=== PATIENT | female | born 1935 | race Hispanic/Latino ===

== ENCOUNTER 2017-08-18 10:03 | Inpatient (IN) | payer OTHER ==
[~2017-08-18] VITALS: Ht 152.4 cm; Wt 61.7 kg
[2017-08-18] VITALS (41 sets, daily range): BP systolic 65–151; BP diastolic 35–86
[2017-08-18 10:39] LABS: MEAN CORPUSCULAR VOLUME 112 FL (80-99); PLATELET COUNT 134 K/UL (150-450); RED BLOOD COUNT 3.84 M/UL (4.20-5.40); RED CELL DISTRIBUTION WIDTH 19.7 % (11.6-14.8)
[2017-08-18 10:40] LABS: WHITE BLOOD COUNT 32.6 K/UL (4.8-10.8)
--- NOTE | 2017-08-18 10:52 | Emergency Room Report ---
History of Present Illness General Chief Complaint: Abdominal Pain Source: Patient Present Illness HPI 82-year-old female presents ED for evaluation. Patient brought in by EMS for abdominal pain and diarrhea 3 days. Pain is 7 out of 10, dull, nonradiating. Per EMS blood pressure low in the field. Multiple episodes of watery dark colored stools. Patient was recently discharged from [facility] for treatment of pneumonia. Is currently on antibiotics. Febrile at home. Denies chest pain or shortness of breath. Denies cough. No other aggravating relieving factors. Denies any other associated symptoms Allergies: Coded Allergies: No Known Allergies (Unverified , 08/18/17) Patient History Past Medical History: HTN Past Surgical History: none Pertinent Family History: none Social History: Denies: smoking, alcohol use, drug use Now: No Immunizations: UTD Reviewed Nursing Documentation: PMH: Agreed; PSxH: Agreed Nursing Documentation-PM Past Medical History: No History, Except For Hx Hypertension: Yes Review of Systems All Other Systems: negative except mentioned in HPI Physical Exam Vital Signs Date Time Temp Pulse Resp B/P (MAP) Pulse Ox O2 Delivery O2 Flow Rate FiO2 08/18/17 09:50 99.4 108 16 73/46 96 Room Air 99.3 Sp02 EP Interpretation: reviewed, normal General Appearance: no apparent distress, alert, GCS 15, non-toxic, thin Head: normocephalic, atraumatic Eyes: bilateral eye normal inspection, bilateral eye PERRL ENT: hearing grossly normal, normal pharynx, no angioedema, normal voice Neck: full range of motion, supple/symm/no masses Respiratory: chest non-tender, lungs clear, normal breath sounds, speaking full sentences Cardiovascular #1: regular rate, rhythm, no edema Cardiovascular #2: 2+ carotid (R), 2+ carotid (L), 2+ radial (R), 2+ radial (L) , 2+ dorsalis pedis (R), 2+ dorsalis pedis (L) Gastrointestinal: normal bowel sounds, non tender, soft, non-distended, no guarding, no rebound Rectal: deferred Genitourinary: normal inspection, no CVA tenderness Musculoskeletal: back normal, gait/station normal, normal range of motion, non- tender Neurologic: alert, oriented x3, responsive, motor strength/tone normal, sensory intact, speech normal Psychiatric: judgement/insight normal, memory normal, mood/affect normal, no suicidal/homicidal ideation Reflexes: 3+ bicep (R), 3+ bicep (L), 3+ tricep (R), 3+ tricep (L), 3+ knee (R) , 3+ knee (L) Skin: normal color, no rash, warm/dry, well hydrated Lymphatic: no adenopathy Procedures Critical Care Time Critical Care Time i. I feel this is a highly complex case requiring extensive working including EKG/Rhythm strip, Xray/CT/US, Blood/urine lab work, repeat exams while in ED, and administration of strong opiates/narcotics for pain control, admission to hospital or close patient follow up. Total time: 30 min bedside evaluation and treatment excludes procedures (EKG). Reason for critical care: Hypotensive, septic shock Possible complications: hypotension, hypertension, FL, shock, arrhythmias, metabolic acidosis, end organ damage, respiratory failure. Interventions: Labs, IV fluids, central line, antibiotics, pressors Course: Patient presenting with diarrhea, weakness. Hypotensive. Recently discharged from [facility] for treatment of pneumonia. On antibiotics. Significant leukocytosis. Lactic acid greater than 8. BUN/creatinine elevated. Despite IV bolus hydration patient remains hypotensive. Central line placed. Pressors started. Given antibiotics. Potassium repleted. Consultations: nursing staff, EMS, family Performed by: Dr Cooper Tolerated well condition = critical j. because of unstable vital signs this patient had a condition that could potentially threaten life or limb. I feel this is a critical patient who required my full attention while patient was considered critical. Total Critical Care Time excluding procedures was greater than 35 minutes Central Line Central Line : Consent: Written Central Line Lumen: triple Maximal Sterile Barrier Tech: yes cap, yes mask, yes sterile gown, yes sterile gloves, yes large sterile sheet, yes hand hygiene, yes chlorhexidine prep Central Line Postion: femoral (R) Anesthesia: Lidocaine Complications: none Central Line Post Position: sutured, good blood return Attempts: One Patient Tolerated: Well Complications: None Medical Decision Making Diagnostic Impression: Primary Impression: Colitis Additional Impressions: Septic shock Renal insufficiency ER Course Hospital Course 82-year-old female presents ED with diarrhea, weakness, hypotensive Differential diagnoses include: Pneumonia, UTI, sepsis, dehydration, FL/ unstable angina Clinical course Patient placed on stretcher. On rn cardiac rehab with hypotension. After initial history and physical, I ordered labs, IV fluids, EKG, chest x-ray, blood cultures, UA. Labs - BUN/Cr elevated, signifcant leukocytosis, lactate > 8, K 2.7 EKG - NSR, no acute ischemic changes interpreted by me CXR - bilateral reticular changes, left lower lobe infiltrate Abx given. Potassium repleted. Despite IV fluid hydration patient remains hypotensive. Central line placed. Pressors started Case discussed with Dr Blank and they agreed to admit patient to their service for further care and support I feel this is a highly complex case requiring extensive working including EKG/ Rhythm strip, Xray/CT/US, Blood/urine lab work, repeat exams while in ED, and administration of strong opiates/narcotics for pain control, admission to hospital or close patient follow up. Diagnosis - colitis, septic shock, renal insufficiency Patient admitted to ICU in critical condition Labs Test 08/18/17 10:10 08/18/17 12:45 White Blood Count 32.6 K/UL (4.8-10.8) Red Blood Count 3.84 M/UL (4.20-5.40) Hemoglobin 14.0 G/DL (12.0-16.0) Hematocrit 43.0 % (37.0-47.0) Mean Corpuscular Volume 112 FL (80-99) Mean Corpuscular Hemoglobin 36.4 PG (27.0-31.0) Mean Corpuscular Hemoglobin Concent 32.5 G/DL (32.0-36.0) Red Cell Distribution Width 19.7 % (11.6-14.8) Platelet Count 134 K/UL (150-450) Mean Platelet Volume 6.8 FL (6.5-10.1) Neutrophils (%) (Auto) % (45.0-75.0) Lymphocytes (%) (Auto) % (20.0-45.0) Monocytes (%) (Auto) % (1.0-10.0) Eosinophils (%) (Auto) % (0.0-3.0) Basophils (%) (Auto) % (0.0-2.0) Differential Total Cells Counted 100 Neutrophils % (Manual) 69 % (45-75) Lymphocytes % (Manual) 6 % (20-45) Monocytes % (Manual) 6 % (1-10) Eosinophils % (Manual) 0 % (0-3) Basophils % (Manual) 0 % (0-2) Band Neutrophils 19 % (0-8) Platelet Estimate Decreased Platelet Morphology Normal Anisocytosis 1+ Macrocytosis 1+ Sodium Level 138 MMOL/L (136-145) Potassium Level 2.7 MMOL/L (3.5-5.1) Chloride Level 101 MMOL/L (98-107) Carbon Dioxide Level 22 MMOL/L (21-32) Anion Gap 14 mmol/L (5-15) Blood Urea Nitrogen 21 mg/dL (7-18) Creatinine 2.0 MG/DL (0.55-1.30) Estimat Glomerular Filtration Rate mL/min (>60) Glucose Level 72 MG/DL (74-106) Lactic Acid Level 8.40 mmol/L (0.66-2.22) 3.50 mmol/L (0.66-2.22) Calcium Level 7.8 MG/DL (8.5-10.1) Total Bilirubin 1.2 MG/DL (0.2-1.0) Direct Bilirubin 0.5 MG/DL (0.0-0.3) Aspartate Amino Transf (AST/SGOT) 20 U/L (15-37) Alanine Aminotransferase (ALT/SGPT) 14 U/L (12-78) Alkaline Phosphatase 176 U/L (46-116) Total Creatine Kinase 102 U/L (26-308) Creatine Kinase MB 1.2 NG/ML (0.0-3.6) Creatine Kinase MB Relative Index 1.1 Troponin I 0.014 ng/mL (0.000-0.056) Pro-B-Type Natriuretic Peptide 08349 pg/mL (0-125) Total Protein 5.2 G/DL (6.4-8.2) Albumin 2.3 G/DL (3.4-5.0) Globulin 2.9 g/dL Albumin/Globulin Ratio 0.8 (1.0-2.7) EKG Diagnostic Results Rate: normal Rhythm: NSR ST Segments: no acute changes ASA given to the pt in ED: No Rhythm Strip Diag. Results EP Interpretation: yes Rhythm: NSR, no PVC's, no ectopy Chest X-Ray Diagnostic Results Chest X-Ray Diagnostic Results : Chest X-Ray Ordered: Yes # of Views/Limited/Complete: 1 View Indication: Other - weakness EP Interpretation: Yes Interpretation: no pneumothorax, other - bilateral reticular densities. LLL consolidation/atelectasis Impression: Other - pna Electronically Signed by: Electronically signed by Giuliano Cooper MD Last Vital Signs Date Time Temp Pulse Resp B/P (MAP) Pulse Ox O2 Delivery O2 Flow Rate FiO2 08/18/17 09:50 99.4 108 16 73/46 96 Room Air 99.3 Status: improved Disposition: ADMITTED INPATIENT Condition: Critical Scripts Unable to Obtain Active Prescriptions or Reported Meds Giuliano Cooper MD Aug 18, 2017 10:52
[2017-08-18 11:08] LABS: ALANINE AMINOTRANSFERASE 14 U/L (12-78); ALBUMIN 2.3 G/DL (3.4-5.0); ALBUMIN/GLOBULIN RATIO 0.8 (1.0-2.7); ALKALINE PHOSPHATASE 176 U/L (46-116); ANION GAP 14 mmol/L (5-15); ASPARTATE AMINO TRANSFERASE 20 U/L (15-37); BILIRUBIN,TOTAL 1.2 MG/DL (0.2-1.0); BLOOD UREA NITROGEN 21 mg/dL (7-18); CALCIUM 7.8 MG/DL (8.5-10.1); CARBON DIOXIDE 22 MMOL/L (21-32); CHLORIDE 101 MMOL/L (98-107); CKMB 1.2 NG/ML (0.0-3.6); CREATINE KINASE 102 U/L (26-308); SODIUM 138 MMOL/L (136-145)
[2017-08-18 11:13] LABS: POTASSIUM 2.7 MMOL/L (3.5-5.1)
[2017-08-18 11:14] LABS: BILIRUBIN,DIRECT 0.5 MG/DL (0.0-0.3)
[2017-08-18] MEDS ORDERED: NS w/KCl 40mEq 1,000 ML IV SCH (11:30)
[2017-08-18] MEDS ORDERED: Lidocaine 1% MPF 10mg/ml 5ml ONE (12:28)
[2017-08-18] MEDS ORDERED: Lidocaine 1% MPF 10mg/ml 5ml INJ ONE (12:45)
[2017-08-18] MEDS ORDERED: Miralax 17gm pkt ORAL PRN (13:15)
[2017-08-18] MEDS ORDERED: Albuterol/Ipratropium 3ml neb HHN PRN (13:15)
[2017-08-18] MEDS ORDERED: Morphine Sulfate 4mg/ml Inj IVP PRN (13:15)
--- NOTE | 2017-08-18 16:11 | Diagnostic Imaging Report ---
Indication: Shortness of breath Technique: One view of the chest Comparison: none Findings: There is bilateral reticular interstitial and airspace disease, predominantly at the mid and lower lungs. No definite pleural effusions. The heart is probably upper limits of normal in size. Impression: Bilateral interstitial and airspace disease. Acuity indeterminate, although suggestion of a honeycomb appearance makes it likely that there is a significant component of chronic interstitial fibrosis. However, acute etiology is also possible. Correlate with clinical findings
[2017-08-18] MEDS ORDERED: Amikacin Rx to dose MISC PRN (17:30)
--- NOTE | 2017-08-18 17:54 | Consultation ---
History of Present Illness General Date patient seen: Aug 18, 2017 Time patient seen: 17:33 Chief Complaint: Abdominal Pain Present Illness HPI 82 y/o F with hx of HTN presents to ED on 08/18 with 3 days of abd pain (7/10, dull, non-radiating), fever and diarrhea. Per EMS blood pressure low in the field; had also multiple episodes of watery dark colored stools. Denies CP, SOB, cough Of note, patient recently discharged from [facility] for treatment of PNA and currently is on antibiotics. In ED, she remained hypotensive and required central line and started on presors. Admitted to ICU. Also lactate>8. Allergies: Coded Allergies: AMOXICILLIN (Verified Adverse Reaction, Severe, Rash, 08/18/17) Medication History Unable to Obtain Active Prescriptions or Reported Meds Patient History Healthcare decision maker Resuscitation status Full Code Advanced Directive on File Patient History Narrative Pmhx: as above Shx: Denies: smoking, alcohol use, drug use Fhx: non contributory Review of Systems All Other Systems: negative except mentioned in HPI Physical Exam Physical Exam Narrative General Appearance: no apparent distress, alert non-toxic, thin Head: normocephalic, atraumatic Eyes: bilateral eye normal inspection, bilateral eye PERRL ENT: hearing grossly normal, normal pharynx, no angioedema, normal voice Neck: full range of motion, supple/symm/no masses Respiratory: chest non-tender, lungs clear, normal breath sounds, speaking full sentences Cardiovascular #1: regular rate, rhythm, no edema Gastrointestinal: normal bowel sounds, non tender, soft, non-distended, no guarding, no rebound Genitourinary: normal inspection, no CVA tenderness Musculoskeletal: back normal, gait/station normal, normal range of motion, non- tender Skin: normal color, no rash, warm/dry, well hydrated Last 24 Hour Vital Signs Date Time Temp Pulse Resp B/P (MAP) Pulse Ox O2 Delivery O2 Flow Rate FiO2 08/18/17 17:17 93 08/18/17 17:16 2.0 08/18/17 16:15 78 20 107/86 100 Nasal Cannula 2.0 82 08/18/17 15:53 96/33 08/18/17 15:48 109/60 08/18/17 15:43 93/77 08/18/17 15:38 84/30 08/18/17 15:33 91/37 08/18/17 15:28 98/64 08/18/17 15:23 100/48 08/18/17 15:18 127/91 08/18/17 15:13 98/46 08/18/17 15:08 91/45 08/18/17 15:03 91/42 08/18/17 14:58 93/43 08/18/17 14:53 98/46 08/18/17 14:48 98/47 08/18/17 14:43 90/46 08/18/17 14:38 98/66 08/18/17 14:33 93/53 08/18/17 14:28 96/42 08/18/17 14:23 94/44 08/18/17 14:18 95/42 08/18/17 14:13 95/43 08/18/17 14:08 94/41 08/18/17 14:03 96/42 08/18/17 13:57 95/42 08/18/17 13:52 100/47 08/18/17 13:47 107/84 08/18/17 13:42 102/49 08/18/17 13:37 103/48 08/18/17 13:32 98/49 08/18/17 13:27 108/50 08/18/17 13:22 101/51 08/18/17 13:17 114/48 08/18/17 13:15 90 20 101/51 100 Nasal Cannula 2.0 08/18/17 13:12 65/45 08/18/17 13:07 78/42 08/18/17 13:00 92 20 78/42 100 Nasal Cannula 2.0 08/18/17 12:45 94 19 79/41 100 Nasal Cannula 2.0 08/18/17 12:30 92 21 76/38 100 Nasal Cannula 2.0 08/18/17 12:15 92 21 76/36 100 Nasal Cannula 2.0 08/18/17 12:00 88 20 79/36 100 Nasal Cannula 2.0 08/18/17 11:45 92 22 77/42 100 Nasal Cannula 08/18/17 11:30 95 14 79/40 Nasal Cannula 2.0 08/18/17 11:15 95 14 83/40 100 Nasal Cannula 2.0 08/18/17 11:00 95 19 35 100 Nasal Cannula 2.0 08/18/17 10:50 97.4 97 16 35 100 Nasal Cannula 2.0 97.4 08/18/17 10:30 97 16 70/42 100 Nasal Cannula 2.0 08/18/17 10:10 84 Nasal Cannula 2.0 08/18/17 10:10 97.6 104 16 7035 100 Nasal Cannula 2.0 97.6 08/18/17 09:50 99.4 108 16 73/46 96 Room Air 99.3 Laboratory Tests Test 08/18/17 10:10 08/18/17 12:45 White Blood Count 32.6 K/UL (4.8-10.8) *H Red Blood Count 3.84 M/UL (4.20-5.40) L Hemoglobin 14.0 G/DL (12.0-16.0) Hematocrit 43.0 % (37.0-47.0) Mean Corpuscular Volume 112 FL (80-99) H Mean Corpuscular Hemoglobin 36.4 PG (27.0-31.0) H Mean Corpuscular Hemoglobin Concent 32.5 G/DL (32.0-36.0) Red Cell Distribution Width 19.7 % (11.6-14.8) H Platelet Count 134 K/UL (150-450) L Mean Platelet Volume 6.8 FL (6.5-10.1) Neutrophils (%) (Auto) % (45.0-75.0) Lymphocytes (%) (Auto) % (20.0-45.0) Monocytes (%) (Auto) % (1.0-10.0) Eosinophils (%) (Auto) % (0.0-3.0) Basophils (%) (Auto) % (0.0-2.0) Differential Total Cells Counted 100 Neutrophils % (Manual) 69 % (45-75) Lymphocytes % (Manual) 6 % (20-45) L Monocytes % (Manual) 6 % (1-10) Eosinophils % (Manual) 0 % (0-3) Basophils % (Manual) 0 % (0-2) Band Neutrophils 19 % (0-8) H Platelet Estimate Decreased L Platelet Morphology Normal Anisocytosis 1+ Macrocytosis 1+ Sodium Level 138 MMOL/L (136-145) Potassium Level 2.7 MMOL/L (3.5-5.1) *L Chloride Level 101 MMOL/L (98-107) Carbon Dioxide Level 22 MMOL/L (21-32) Anion Gap 14 mmol/L (5-15) Blood Urea Nitrogen 21 mg/dL (7-18) H Creatinine 2.0 MG/DL (0.55-1.30) H Estimat Glomerular Filtration Rate mL/min (>60) Glucose Level 72 MG/DL (74-106) L Lactic Acid Level 8.40 mmol/L (0.66-2.22) H 3.50 mmol/L (0.66-2.22) H Calcium Level 7.8 MG/DL (8.5-10.1) L Total Bilirubin 1.2 MG/DL (0.2-1.0) H Direct Bilirubin 0.5 MG/DL (0.0-0.3) H Aspartate Amino Transf (AST/SGOT) 20 U/L (15-37) Alanine Aminotransferase (ALT/SGPT) 14 U/L (12-78) Alkaline Phosphatase 176 U/L (46-116) H Total Creatine Kinase 102 U/L (26-308) Creatine Kinase MB 1.2 NG/ML (0.0-3.6) Creatine Kinase MB Relative Index 1.1 Troponin I 0.014 ng/mL (0.000-0.056) Pro-B-Type Natriuretic Peptide 18383 pg/mL (0-125) H Total Protein 5.2 G/DL (6.4-8.2) L Albumin 2.3 G/DL (3.4-5.0) L Globulin 2.9 g/dL Albumin/Globulin Ratio 0.8 (1.0-2.7) L Height (Feet): 5 Height (Inches): 0.00 Weight (Pounds): 100 Medications Current Medications Medications (Trade) Dose Ordered Sig/Keri Route PRN Reason Start Time Stop Time Status Last Admin Dose Admin Acetaminophen (Tylenol) 650 mg Q4H PRN ORAL fever (temp>100.5F) 08/18/17 13:15 09/17/17 13:14 Albuterol/ Ipratropium (Albuterol/ Ipratropium) 3 ml Q4H PRN HHN Shortness of Breath 08/18/17 13:15 08/23/17 13:14 Amikacin Protocol (Amikacin pharmacy to dose) 1 ea DAILY PRN MISC PER RX PROTOCOL 08/18/17 17:30 09/17/17 17:29 Amikacin Sulfate 350 mg/Sodium Chloride 111.4 ml @ 222.8 mls/ hr Q48H IV 08/18/17 20:00 08/25/17 19:59 Ertapenem 1 gm/ Sodium Chloride 55 ml @ 110 mls/hr Q24H IV 08/18/17 23:45 08/23/17 23:44 UNV Heparin Sodium (Porcine) (Heparin 5000 units/ml) 5,000 units EVERY 12 HOURS SUBQ 08/18/17 21:00 09/17/17 20:59 Morphine Sulfate (Morphine Sulfate) 2 mg Q4H PRN IVP Severe Pain (Pain Scale 7-10) 08/18/17 13:15 08/25/17 13:14 Norepinephrine Bitartrate 4 mg/ Dextrose 254 ml @ 0 mls/hr Q24H IV 08/18/17 13:15 09/17/17 13:14 UNV Norepinephrine Bitartrate 8 mg/ Sodium Chloride 250 ml @ 0 mls/hr Q24H IV 08/18/17 13:00 09/17/17 12:59 08/18/17 13:07 Ondansetron HCl (Zofran) 4 mg Q6H PRN IVP Nausea & Vomiting 08/18/17 13:15 09/17/17 13:14 Pantoprazole (Protonix) 40 mg DAILY IVP 08/19/17 09:00 09/18/17 08:59 Polyethylene Glycol (Miralax) 17 gm DAILYPRN PRN ORAL Constipation 08/18/17 13:15 09/17/17 13:14 Sodium Chloride 1,000 ml @ 100 mls/hr Q10H IVLG 08/18/17 17:30 09/17/17 17:29 Vancomycin HCl (Vanco rx to dose) 1 ea DAILY PRN MISC PER RX PROTOCOL 08/18/17 17:15 09/17/17 17:14 Vancomycin HCl 1 gm/Dextrose 275 ml @ 183.3 mls/ hr ONCE ONCE IVPB 08/18/17 18:00 08/18/17 19:30 Assessment/Plan Assessment/Plan Abx: Cipro x1 08/18 Flagyl x1 08/18 Ertapenem 08/18- Amikacin 08/18- IV Vanco 08/18- Assessment: Septic shock- likely 2ry to colitis (+bloody diarrhea)- High suspicion for severe Cdiff given recent abx and high WBC- r/o bacteremia, Toxic megacolon -CXR: Bilateral interstitial and airspace disease. Acuity indeterminate, although suggestion of a honeycomb appearance makes it likely that there is a significant component of chronic interstitial fibrosis. However, acute etiology is also possible. Correlate with clinical findings -Bcx p -stool cx p -Cdiff p Leukocytosis/bandemia -afebrile Lactic acidosis, improving EDDI Recent PNA, still having productive cough HTN Plan: -D/c IV ertapenem and Amikacin #1 and transition to IV Aztreonam pending cultures -Continue IV Vancomycin for next 24-48hrs pending Bcx -if not GPC growth, d/c -Start empiric PO Vancomycin 125mg qid and IV Flagyl 500mg q8h for possible severe Cdiff -STAT KUB -CT abd/p w/ po contrast -f/u cx , Cdiff,s tool cx -Montior CBC/BMP, temperatures -FOB -Aspiration precautions Thank you for this consulation. Will continue to follow along wiht you. Discussed with ROSETTA. Amelia John M.D. Aug 18, 2017 17:53
[2017-08-18] MEDS ORDERED: Gastrograffin 30ml ORAL PRN (18:00)
[2017-08-18] MEDS ORDERED: Gastrograffin 30ml RECTAL PRN (18:00)
[2017-08-18] MEDS ORDERED: Vancomycin 1 GM in D5W 275 ML IVPB ONE (18:00)
--- NOTE | 2017-08-18 18:27 | Cardiac Electrophysiology PN ---
Subjective Subjective [id number] Objective Last 24 Hour Vital Signs Date Time Temp Pulse Resp B/P (MAP) Pulse Ox O2 Delivery O2 Flow Rate FiO2 08/18/17 18:00 96 26 120/65 96 Room Air 08/18/17 18:00 141/69 08/18/17 17:45 93 22 120/65 100 Nasal Cannula 2.0 08/18/17 17:30 94 22 129/65 100 Nasal Cannula 2.0 08/18/17 17:17 93 08/18/17 17:16 2.0 08/18/17 17:15 92 22 115/64 100 Nasal Cannula 2.0 08/18/17 17:00 65/32 08/18/17 17:00 93 22 65/35 100 Nasal Cannula 2.0 08/18/17 16:45 97.6 94 22 104/48 100 Nasal Cannula 2.0 97.6 08/18/17 16:15 78 20 107/86 100 Nasal Cannula 2.0 82 08/18/17 15:53 96/33 08/18/17 15:48 109/60 08/18/17 15:43 93/77 08/18/17 15:38 84/30 08/18/17 15:33 91/37 08/18/17 15:28 98/64 08/18/17 15:23 100/48 08/18/17 15:18 127/91 08/18/17 15:13 98/46 08/18/17 15:08 91/45 08/18/17 15:03 91/42 08/18/17 14:58 93/43 08/18/17 14:53 98/46 08/18/17 14:48 98/47 08/18/17 14:43 90/46 08/18/17 14:38 98/66 08/18/17 14:33 93/53 08/18/17 14:28 96/42 08/18/17 14:23 94/44 08/18/17 14:18 95/42 08/18/17 14:13 95/43 08/18/17 14:08 94/41 08/18/17 14:03 96/42 08/18/17 13:57 95/42 08/18/17 13:52 100/47 08/18/17 13:47 107/84 08/18/17 13:42 102/49 08/18/17 13:37 103/48 08/18/17 13:32 98/49 08/18/17 13:27 108/50 08/18/17 13:22 101/51 08/18/17 13:17 114/48 08/18/17 13:15 90 20 101/51 100 Nasal Cannula 2.0 08/18/17 13:12 65/45 08/18/17 13:07 78/42 08/18/17 13:00 92 20 78/42 100 Nasal Cannula 2.0 08/18/17 12:45 94 19 79/41 100 Nasal Cannula 2.0 08/18/17 12:30 92 21 76/38 100 Nasal Cannula 2.0 08/18/17 12:15 92 21 76/36 100 Nasal Cannula 2.0 08/18/17 12:00 88 20 79/36 100 Nasal Cannula 2.0 08/18/17 11:45 92 22 77/42 100 Nasal Cannula 08/18/17 11:30 95 14 79/40 Nasal Cannula 2.0 08/18/17 11:15 95 14 83/40 100 Nasal Cannula 2.0 08/18/17 11:00 95 19 73/35 100 Nasal Cannula 2.0 08/18/17 10:50 97.4 97 16 73/35 100 Nasal Cannula 2.0 97.4 08/18/17 10:30 97 16 70/42 100 Nasal Cannula 2.0 08/18/17 10:10 84 Nasal Cannula 2.0 08/18/17 10:10 97.6 104 16 70/35 100 Nasal Cannula 2.0 97.6 08/18/17 09:50 99.4 108 16 73/46 96 Room Air 99.3 Laboratory Tests Test 08/18/17 10:10 08/18/17 12:45 White Blood Count 32.6 K/UL (4.8-10.8) *H Red Blood Count 3.84 M/UL (4.20-5.40) L Hemoglobin 14.0 G/DL (12.0-16.0) Hematocrit 43.0 % (37.0-47.0) Mean Corpuscular Volume 112 FL (80-99) H Mean Corpuscular Hemoglobin 36.4 PG (27.0-31.0) H Mean Corpuscular Hemoglobin Concent 32.5 G/DL (32.0-36.0) Red Cell Distribution Width 19.7 % (11.6-14.8) H Platelet Count 134 K/UL (150-450) L Mean Platelet Volume 6.8 FL (6.5-10.1) Neutrophils (%) (Auto) % (45.0-75.0) Lymphocytes (%) (Auto) % (20.0-45.0) Monocytes (%) (Auto) % (1.0-10.0) Eosinophils (%) (Auto) % (0.0-3.0) Basophils (%) (Auto) % (0.0-2.0) Differential Total Cells Counted 100 Neutrophils % (Manual) 69 % (45-75) Lymphocytes % (Manual) 6 % (20-45) L Monocytes % (Manual) 6 % (1-10) Eosinophils % (Manual) 0 % (0-3) Basophils % (Manual) 0 % (0-2) Band Neutrophils 19 % (0-8) H Platelet Estimate Decreased L Platelet Morphology Normal Anisocytosis 1+ Macrocytosis 1+ Sodium Level 138 MMOL/L (136-145) Potassium Level 2.7 MMOL/L (3.5-5.1) *L Chloride Level 101 MMOL/L (98-107) Carbon Dioxide Level 22 MMOL/L (21-32) Anion Gap 14 mmol/L (5-15) Blood Urea Nitrogen 21 mg/dL (7-18) H Creatinine 2.0 MG/DL (0.55-1.30) H Estimat Glomerular Filtration Rate mL/min (>60) Glucose Level 72 MG/DL (74-106) L Lactic Acid Level 8.40 mmol/L (0.66-2.22) H 3.50 mmol/L (0.66-2.22) H Calcium Level 7.8 MG/DL (8.5-10.1) L Total Bilirubin 1.2 MG/DL (0.2-1.0) H Direct Bilirubin 0.5 MG/DL (0.0-0.3) H Aspartate Amino Transf (AST/SGOT) 20 U/L (15-37) Alanine Aminotransferase (ALT/SGPT) 14 U/L (12-78) Alkaline Phosphatase 176 U/L (46-116) H Total Creatine Kinase 102 U/L (26-308) Creatine Kinase MB 1.2 NG/ML (0.0-3.6) Creatine Kinase MB Relative Index 1.1 Troponin I 0.014 ng/mL (0.000-0.056) Pro-B-Type Natriuretic Peptide 35577 pg/mL (0-125) H Total Protein 5.2 G/DL (6.4-8.2) L Albumin 2.3 G/DL (3.4-5.0) L Globulin 2.9 g/dL Albumin/Globulin Ratio 0.8 (1.0-2.7) L Quinn Lam MD Aug 18, 2017 18:27
[2017-08-18] MEDS ORDERED: Amikacin 350 MG in NS 110 ML IV SCH (20:00)
[2017-08-18] MEDS: Vancomycin oral 125mg/2.5ml ORAL SCH ×2 (20:54→21:00)
[2017-08-18] MEDS: Heparin 5000 units/ml inj SUBQ SCH (20:55)
--- NOTE | 2017-08-18 21:18 | History & Physical ---
History and Physical History & Physicial patient seen and examined. Full Dictation in progress Ngozi Blank MD Aug 18, 2017 21:18
[2017-08-18] MEDS: Aztreonam Inj 1 GM in D5W 55 ML IVPB SCH (21:43)
[2017-08-18] MEDS ORDERED: Ertapenem 1 GM in NS 55 ML IV SCH (23:45)
[2017-08-19] VITALS (33 sets, daily range): BP systolic 90–133; BP diastolic 48–90
--- NOTE | 2017-08-19 01:15 | Consultation ---
DATE OF CONSULTATION: 08/18/2017 CARDIOLOGY CONSULTATION CONSULTING PHYSICIAN: Quinn Lam M.D. REFERRING PHYSICIAN: Ngozi Blank M.D. REASON FOR CONSULTATION: Hypotension. HISTORY OF PRESENT ILLNESS: The patient is an 82-year-old lady with history of hypertension who came to the emergency room with three days of abdominal pain, diarrhea, and fever. The blood pressure was low on the field and the patient had multiple episodes of watery dark-colored stool. The patient had no chest pain or shortness of breath. The patient was recently discharged from [facility] for pneumonia and is currently on antibiotic. In the emergency room, the patient was hypotensive and underwent central line placement and was transferred to intensive care unit on Levophed. The patient's lactate level was also more than 8. REVIEW OF SYSTEMS: Review of systems was negative other than what is mentioned in the history of present illness. PAST MEDICAL HISTORY: 1. Hypertension. 2. Recent pneumonia. 3. The patient denies any prior myocardial infarction, coronary artery disease, or pacemaker placement. FAMILY HISTORY: Noncontributory. SOCIAL HISTORY: She lives at home. Does not smoke or drink alcohol. PHYSICAL EXAMINATION: VITAL SIGNS: Blood pressure is 112/65 on Levophed, pulse is 92, respiration 22. HEENT: Head and neck shows no JVD. LUNGS: Coarse rhonchi bilaterally. CARDIOVASCULAR: Regular S1 and S2 with no gallop. ABDOMEN: Soft. EXTREMITIES: No pitting edema. LABORATORY AND DIAGNOSTIC DATA: White count of , hemoglobin of 14, hematocrit 43, and platelet count of 134. Sodium 138, potassium 2.7, BUN of 21, creatinine 2, glucose of 72. Lactic acid is 8.4 and went down to 3.5. Troponin is negative. BNP is 10,274. Her EKG showed normal sinus rhythm, rate of 97, nonspecific T-wave abnormalities. ASSESSMENT AND PLAN: 1. Hypotension likely due to septic shock. The patient is on Levophed and broad-spectrum intravenous antibiotics per Infectious Diseases. Source of sepsis is not clear at this time but the patient has pneumonia as well as diarrhea, . Get an echocardiogram to evaluate for ejection fraction and wall motion abnormality and completely rule out myocardial infarction protocol. 2. Hypokalemia with a potassium of 2.7, that will be replaced. 3. BNP of more than 10,000. Again, echocardiogram is pending for further evaluation. Thank you very much, Dr. Blank, for allowing me to participate in the care of this patient. Please do not hesitate to contact me for any questions regarding my evaluation. Quinn Lam M.D. DR: Merle JOB#: [id number] CC:
[2017-08-19 06:16] LABS: HEMATOCRIT 39.9 % (37.0-47.0); HEMOGLOBIN 13.6 G/DL (12.0-16.0); MEAN CORPUSCULAR VOLUME 111 FL (80-99); PLATELET COUNT 112 K/UL (150-450); RED BLOOD COUNT 3.59 M/UL (4.20-5.40); RED CELL DISTRIBUTION WIDTH 20.1 % (11.6-14.8)
[2017-08-19 06:22] LABS: WHITE BLOOD COUNT 32.6 K/UL (4.8-10.8)
[2017-08-19 06:36] LABS: ALANINE AMINOTRANSFERASE 19 U/L (12-78); ALBUMIN 1.7 G/DL (3.4-5.0); ALBUMIN/GLOBULIN RATIO 0.7 (1.0-2.7); ALKALINE PHOSPHATASE 138 U/L (46-116); ANION GAP 11 mmol/L (5-15); ASPARTATE AMINO TRANSFERASE 36 U/L (15-37); BILIRUBIN,TOTAL 1.1 MG/DL (0.2-1.0); BLOOD UREA NITROGEN 16 mg/dL (7-18); CALCIUM 6.8 MG/DL (8.5-10.1); CARBON DIOXIDE 20 MMOL/L (21-32); CHLORIDE 112 MMOL/L (98-107); POTASSIUM 3.2 MMOL/L (3.5-5.1); SODIUM 143 MMOL/L (136-145)
[2017-08-19 06:37] LABS: BILIRUBIN,DIRECT 0.4 MG/DL (0.0-0.3)
[2017-08-19] MEDS: Aztreonam Inj 1 GM in D5W 55 ML IVPB SCH ×2 (08:42→21:00)
[2017-08-19] MEDS: Vancomycin oral 125mg/2.5ml ORAL SCH ×4 (08:42→21:00)
[2017-08-19] MEDS: Heparin 5000 units/ml inj SUBQ SCH ×2 (08:45→21:00)
[2017-08-19] MEDS ORDERED: Potassium Chloride 40 MEQ in Sodium Chloride 500ML 550 ML IVPB SCH (09:00)
[2017-08-19] MEDS ORDERED: Pantoprazole Inj IVP SCH (09:00)
--- NOTE | 2017-08-19 09:32 | History & Physical ---
History and Physical History & Physicial seen and examined. Dictation completed Ngozi Blank MD Aug 19, 2017 09:32
--- NOTE | 2017-08-19 09:34 | General Progress Note ---
Assessment/Plan Status: stable Assessment/Plan 1- Septic shock 2- Cdiff colitis 3- Anemia 4- ARF 5- Abn BNP 6- GI-DVT prohpylaixa Plan: Current Abx coverage Ok to Transfer out of ICU Subjective ROS Limited/Unobtainable: No Constitutional: Reports: malaise HEENT: Reports: no symptoms Gastrointestinal/Abdominal: Reports: abdomen distended, abdominal pain Allergies: Coded Allergies: AMOXICILLIN (Verified Adverse Reaction, Severe, Rash, 08/18/17) Objective Last 24 Hour Vital Signs Date Time Temp Pulse Resp B/P (MAP) Pulse Ox O2 Delivery O2 Flow Rate FiO2 08/19/17 06:50 100 Nasal Cannula 1.0 24 08/19/17 06:50 98 24 Nasal Cannula 1.0 24 08/19/17 06:50 Nasal Cannula 1.0 24 08/19/17 06:45 97 20 124/48 100 Nasal Cannula 2.0 08/19/17 06:30 98 21 123/65 100 Nasal Cannula 2.0 08/19/17 06:15 98 21 115/59 100 Nasal Cannula 2.0 08/19/17 06:00 98 21 118/49 100 Nasal Cannula 2.0 08/19/17 05:45 97 21 92/72 100 Nasal Cannula 2.0 08/19/17 05:39 Nasal Cannula 2.0 08/19/17 05:39 99 Nasal Cannula 2.0 08/19/17 05:30 97 21 123/51 100 Nasal Cannula 2.0 08/19/17 05:15 94 21 133/51 100 Nasal Cannula 2.0 08/19/17 05:00 98 21 133/58 100 Nasal Cannula 2.0 08/19/17 04:45 99 21 113/56 100 Nasal Cannula 2.0 08/19/17 04:30 97 22 90/61 100 Nasal Cannula 2.0 08/19/17 04:15 96 21 130/56 100 Nasal Cannula 2.0 08/19/17 04:00 98.4 96 21 118/50 100 Nasal Cannula 2.0 98.4 08/19/17 04:00 95 08/19/17 03:45 96 21 116/55 100 Nasal Cannula 2.0 08/19/17 03:30 96 21 116/55 100 Nasal Cannula 2.0 08/19/17 03:15 96 22 133/53 100 Nasal Cannula 2.0 08/19/17 03:00 121/53 08/19/17 03:00 99 22 121/53 100 Nasal Cannula 2.0 08/19/17 02:45 98 21 116/68 99 Nasal Cannula 2.0 08/19/17 02:30 100 21 115/53 99 Nasal Cannula 2.0 08/19/17 02:15 98 21 112/48 99 Nasal Cannula 2.0 08/19/17 02:00 95 21 109/51 99 Nasal Cannula 2.0 08/19/17 02:00 112/48 08/19/17 01:45 94 21 122/51 99 Nasal Cannula 2.0 08/19/17 01:15 97 18 116/51 99 Nasal Cannula 2.0 08/19/17 01:00 94 18 115/59 99 Nasal Cannula 2.0 08/19/17 01:00 115/59 08/19/17 01:00 94 18 115/59 99 Nasal Cannula 2.0 08/19/17 00:45 93 24 110/51 99 Nasal Cannula 2.0 08/19/17 00:30 93 25 109/52 99 Nasal Cannula 2.0 08/19/17 00:15 91 18 93/72 99 Nasal Cannula 2.0 08/19/17 00:00 91 18 93/72 99 Nasal Cannula 2.0 08/19/17 00:00 101/39 08/18/17 23:45 95 18 105/66 99 Nasal Cannula 2.0 08/18/17 23:30 95 18 105/66 99 Nasal Cannula 2.0 08/18/17 23:15 96 18 101/39 99 Nasal Cannula 2.0 08/18/17 23:00 130/38 08/18/17 23:00 98 18 130/38 99 Nasal Cannula 2.0 08/18/17 22:55 97/54 08/18/17 22:45 101 18 97/54 99 Nasal Cannula 2.0 08/18/17 22:30 94 18 68/35 99 Nasal Cannula 2.0 08/18/17 22:15 97 18 120/54 99 Nasal Cannula 2.0 08/18/17 22:00 94 18 113/67 99 Nasal Cannula 2.0 08/18/17 22:00 113/67 08/18/17 21:45 95 18 114/53 99 Nasal Cannula 2.0 08/18/17 21:30 100 20 134/55 100 Nasal Cannula 2.0 08/18/17 21:15 99 22 126/61 99 Nasal Cannula 2.0 08/18/17 21:00 100 22 124/59 100 Nasal Cannula 2.0 08/18/17 21:00 115/57 08/18/17 20:54 124/59 08/18/17 20:45 99 22 106/47 99 Nasal Cannula 2.0 08/18/17 20:30 100 22 124/59 100 Nasal Cannula 2.0 08/18/17 20:00 102 08/18/17 20:00 95/71 08/18/17 20:00 98.6 102 22 95/71 100 Nasal Cannula 2.0 98.6 08/18/17 19:30 97 22 129/59 100 Nasal Cannula 2.0 08/18/17 19:30 98 25 138/64 100 Room Air 08/18/17 19:15 100 21 124/67 98 Room Air 08/18/17 19:00 103 26 122/55 98 Room Air 08/18/17 19:00 124/67 08/18/17 19:00 101 22 124/67 100 Nasal Cannula 2.0 08/18/17 18:45 104 24 144/75 98 Room Air 08/18/17 18:30 102 23 151/73 99 Room Air 08/18/17 18:15 97 21 135/65 97 Room Air 08/18/17 18:00 96 26 120/65 96 Room Air 08/18/17 18:00 141/69 08/18/17 17:45 93 22 120/65 100 Nasal Cannula 2.0 08/18/17 17:30 94 22 129/65 100 Nasal Cannula 2.0 08/18/17 17:17 93 08/18/17 17:16 2.0 08/18/17 17:15 92 22 115/64 100 Nasal Cannula 2.0 08/18/17 17:00 65/32 08/18/17 17:00 93 22 65/35 100 Nasal Cannula 2.0 08/18/17 16:45 97.6 94 22 104/48 100 Nasal Cannula 2.0 97.6 08/18/17 16:15 78 20 107/86 100 Nasal Cannula 2.0 82 08/18/17 16:00 98.1 82 20 102/68 100 Nasal Cannula 2.0 08/18/17 15:53 96/33 08/18/17 15:48 109/60 08/18/17 15:43 93/77 08/18/17 15:38 84/30 08/18/17 15:33 91/37 08/18/17 15:28 98/64 08/18/17 15:23 100/48 08/18/17 15:18 127/91 08/18/17 15:13 98/46 08/18/17 15:08 91/45 08/18/17 15:03 91/42 08/18/17 14:58 93/43 08/18/17 14:53 98/46 08/18/17 14:48 98/47 08/18/17 14:43 90/46 08/18/17 14:38 98/66 08/18/17 14:33 93/53 08/18/17 14:28 96/42 08/18/17 14:23 94/44 08/18/17 14:18 95/42 08/18/17 14:13 95/43 08/18/17 14:08 94/41 08/18/17 14:03 96/42 08/18/17 13:57 95/42 08/18/17 13:52 100/47 08/18/17 13:47 107/84 08/18/17 13:42 102/49 08/18/17 13:37 103/48 08/18/17 13:32 98/49 08/18/17 13:27 108/50 08/18/17 13:22 101/51 08/18/17 13:17 114/48 08/18/17 13:15 90 20 101/51 100 Nasal Cannula 2.0 08/18/17 13:12 65/45 08/18/17 13:07 78/42 08/18/17 13:00 92 20 78/42 100 Nasal Cannula 2.0 08/18/17 12:45 94 19 79/41 100 Nasal Cannula 2.0 08/18/17 12:30 92 21 76/38 100 Nasal Cannula 2.0 08/18/17 12:15 92 21 76/36 100 Nasal Cannula 2.0 08/18/17 12:00 88 20 79/36 100 Nasal Cannula 2.0 08/18/17 11:45 92 22 77/42 100 Nasal Cannula 08/18/17 11:30 95 14 79/40 Nasal Cannula 2.0 08/18/17 11:15 95 14 83/40 100 Nasal Cannula 2.0 08/18/17 11:00 95 19 73/35 100 Nasal Cannula 2.0 08/18/17 10:50 97.4 97 16 73/35 100 Nasal Cannula 2.0 97.4 08/18/17 10:30 97 16 70/42 100 Nasal Cannula 2.0 08/18/17 10:10 84 Nasal Cannula 2.0 08/18/17 10:10 97.6 104 16 70/35 100 Nasal Cannula 2.0 97.6 08/18/17 09:50 99.4 108 16 73/46 96 Room Air 99.3 Intake and Output 08/18/17 08/19/17 19:00 07:00 Intake Total 3420.96 ml 1683.60 ml Balance 3420.96 ml 1683.60 ml Intake Oral 100 ml IV Total 3360.96 ml 1583.60 ml Other 60 ml # Voids 1 1 # Bowel Movements 4 6 Laboratory Tests 08/18/17 10:10: White Blood Count 32.6*H, Red Blood Count 3.84L, Hemoglobin 14.0, Hematocrit 43.0, Mean Corpuscular Volume 112H, Mean Corpuscular Hemoglobin 36.4H, Mean Corpuscular Hemoglobin Concent 32.5, Red Cell Distribution Width 19.7H, Platelet Count 134L, Mean Platelet Volume 6.8, Neutrophils (%) (Auto) , Lymphocytes (%) (Auto) , Monocytes (%) (Auto) , Eosinophils (%) (Auto) , Basophils (%) (Auto) , Differential Total Cells Counted 100, Neutrophils % ( Manual) 69, Lymphocytes % (Manual) 6L, Monocytes % (Manual) 6, Eosinophils % ( Manual) 0, Basophils % (Manual) 0, Band Neutrophils 19H, Platelet Estimate DecreasedL, Platelet Morphology Normal, Anisocytosis 1+, Macrocytosis 1+, Sodium Level 138, Potassium Level 2.7*L, Chloride Level 101, Carbon Dioxide Level 22, Anion Gap 14, Blood Urea Nitrogen 21H, Creatinine 2.0H, Estimat Glomerular Filtration Rate , Glucose Level 72L, Lactic Acid Level 8.40H, Calcium Level 7.8L, Total Bilirubin 1.2H, Direct Bilirubin 0.5H, Aspartate Amino Transf (AST/SGOT) 20, Alanine Aminotransferase (ALT/SGPT) 14, Alkaline Phosphatase 176H, Total Creatine Kinase 102, Creatine Kinase MB 1.2, Creatine Kinase MB Relative Index 1.1, Troponin I 0.014, Pro-B-Type Natriuretic Peptide 00121U, Total Protein 5.2L, Albumin 2.3L, Globulin 2.9, Albumin/Globulin Ratio 0.8L 08/18/17 12:45: Lactic Acid Level 3.50H 08/18/17 20:55: Lactic Acid Level 4.70H 08/18/17 22:40: Stool Occult Blood [Pending] 08/19/17 04:00: Arterial Blood pH 7.380, Arterial Blood Partial Pressure CO2 27.8L, Arterial Blood Partial Pressure O2 79.3, Arterial Blood HCO3 16.3L, Arterial Blood Oxygen Saturation 95.9, Arterial Blood Base Excess -7.2, Chandler Test Positive 08/19/17 05:05: White Blood Count 32.6*H, Red Blood Count 3.59L, Hemoglobin 13.6, Hematocrit 39.9, Mean Corpuscular Volume 111H, Mean Corpuscular Hemoglobin 37.8H, Mean Corpuscular Hemoglobin Concent 34.0, Red Cell Distribution Width 20.1H, Platelet Count 112L, Mean Platelet Volume 8.5, Neutrophils (%) (Auto) , Lymphocytes (%) (Auto) , Monocytes (%) (Auto) , Eosinophils (%) (Auto) , Basophils (%) (Auto) , Neutrophils % (Manual) [Pending], Lymphocytes % (Manual) [Pending], Platelet Estimate [Pending], Platelet Morphology [Pending], Sodium Level 143, Potassium Level 3.2L, Chloride Level 112H, Carbon Dioxide Level 20L, Anion Gap 11, Blood Urea Nitrogen 16, Creatinine 1.0, Estimat Glomerular Filtration Rate , Glucose Level 49L, Lactic Acid Level 2.50H, Calcium Level 6.8L , Total Bilirubin 1.1H, Direct Bilirubin 0.4H, Aspartate Amino Transf (AST/SGOT ) 36, Alanine Aminotransferase (ALT/SGPT) 19, Alkaline Phosphatase 138H, Pro-B- Type Natriuretic Peptide 7774H, Total Protein 4.2L, Albumin 1.7L, Globulin 2.5, Albumin/Globulin Ratio 0.7L, Free Thyroxine 1.50H, Random Vancomycin Level 14.7 Height (Feet): 5 Height (Inches): 0.00 Weight (Pounds): 102 General Appearance: no apparent distress EENT: PERRL/EOMI Neck: supple Cardiovascular: normal rate Respiratory/Chest: rhonchi - bilaterally Abdomen: soft Extremities: non-tender Neurologic: quantitative research analyst II-XII grossly normal Ngozi Blank MD Aug 19, 2017 09:34
--- NOTE | 2017-08-19 10:44 | Pulmonolgy Critical Care Note ---
Critical Care - Asmt/Plan Problems: (1) Septic shock (2) Colitis (3) Renal insufficiency Respiratory: monitor respiratory rate Cardiac: continue to monitor HR/BP Renal: F/U I&O, keep IV fluid Infectious Disease: check cultures Gastrointestinal: continue feedings/current rate Endocrine: monitor blood sugar, check TSH Neurologic: PRN Ativan, PRN Morphine Prophylaxis: Protonix, Heparin Notes Reviewed: cardio, renal Discussed with: nurses, consultants, case briefermanager money - Objective Last 24 Hour Vital Signs Date Time Temp Pulse Resp B/P (MAP) Pulse Ox O2 Delivery O2 Flow Rate FiO2 08/19/17 10:00 99 22 123/51 100 Nasal Cannula 2.0 08/19/17 09:00 96 23 122/51 100 Nasal Cannula 2.0 08/19/17 08:00 97.8 96 24 133/60 100 Nasal Cannula 2.0 97.8 08/19/17 08:00 105 08/19/17 06:50 100 Nasal Cannula 1.0 24 08/19/17 06:50 98 24 Nasal Cannula 1.0 24 08/19/17 06:50 Nasal Cannula 1.0 24 08/19/17 06:45 97 20 124/48 100 Nasal Cannula 2.0 08/19/17 06:30 98 21 123/65 100 Nasal Cannula 2.0 08/19/17 06:15 98 21 115/59 100 Nasal Cannula 2.0 08/19/17 06:00 98 21 118/49 100 Nasal Cannula 2.0 08/19/17 05:45 97 21 92/72 100 Nasal Cannula 2.0 08/19/17 05:39 Nasal Cannula 2.0 08/19/17 05:39 99 Nasal Cannula 2.0 08/19/17 05:30 97 21 123/51 100 Nasal Cannula 2.0 08/19/17 05:15 94 21 133/51 100 Nasal Cannula 2.0 08/19/17 05:00 98 21 133/58 100 Nasal Cannula 2.0 08/19/17 04:45 99 21 113/56 100 Nasal Cannula 2.0 08/19/17 04:30 97 22 90/61 100 Nasal Cannula 2.0 08/19/17 04:15 96 21 130/56 100 Nasal Cannula 2.0 08/19/17 04:00 98.4 96 21 118/50 100 Nasal Cannula 2.0 98.4 08/19/17 04:00 95 08/19/17 03:45 96 21 116/55 100 Nasal Cannula 2.0 08/19/17 03:30 96 21 116/55 100 Nasal Cannula 2.0 08/19/17 03:15 96 22 133/53 100 Nasal Cannula 2.0 08/19/17 03:00 121/53 08/19/17 03:00 99 22 121/53 100 Nasal Cannula 2.0 08/19/17 02:45 98 21 116/68 99 Nasal Cannula 2.0 08/19/17 02:30 100 21 115/53 99 Nasal Cannula 2.0 08/19/17 02:15 98 21 112/48 99 Nasal Cannula 2.0 08/19/17 02:00 95 21 109/51 99 Nasal Cannula 2.0 08/19/17 02:00 112/48 08/19/17 01:45 94 21 122/51 99 Nasal Cannula 2.0 08/19/17 01:15 97 18 116/51 99 Nasal Cannula 2.0 08/19/17 01:00 94 18 115/59 99 Nasal Cannula 2.0 08/19/17 01:00 115/59 08/19/17 01:00 94 18 115/59 99 Nasal Cannula 2.0 08/19/17 00:45 93 24 110/51 99 Nasal Cannula 2.0 08/19/17 00:30 93 25 109/52 99 Nasal Cannula 2.0 08/19/17 00:15 91 18 93/72 99 Nasal Cannula 2.0 08/19/17 00:00 91 18 93/72 99 Nasal Cannula 2.0 08/19/17 00:00 101/39 08/18/17 23:45 95 18 105/66 99 Nasal Cannula 2.0 08/18/17 23:30 95 18 105/66 99 Nasal Cannula 2.0 08/18/17 23:15 96 18 101/39 99 Nasal Cannula 2.0 08/18/17 23:00 130/38 08/18/17 23:00 98 18 130/38 99 Nasal Cannula 2.0 08/18/17 22:55 97/54 08/18/17 22:45 101 18 97/54 99 Nasal Cannula 2.0 08/18/17 22:30 94 18 68/35 99 Nasal Cannula 2.0 08/18/17 22:15 97 18 120/54 99 Nasal Cannula 2.0 08/18/17 22:00 94 18 113/67 99 Nasal Cannula 2.0 08/18/17 22:00 113/67 08/18/17 21:45 95 18 114/53 99 Nasal Cannula 2.0 08/18/17 21:30 100 20 134/55 100 Nasal Cannula 2.0 08/18/17 21:15 99 22 126/61 99 Nasal Cannula 2.0 08/18/17 21:00 100 22 124/59 100 Nasal Cannula 2.0 08/18/17 21:00 115/57 08/18/17 20:54 124/59 08/18/17 20:45 99 22 106/47 99 Nasal Cannula 2.0 08/18/17 20:30 100 22 124/59 100 Nasal Cannula 2.0 08/18/17 20:00 102 08/18/17 20:00 95/71 08/18/17 20:00 98.6 102 22 95/71 100 Nasal Cannula 2.0 98.6 08/18/17 19:30 97 22 129/59 100 Nasal Cannula 2.0 08/18/17 19:30 98 25 138/64 100 Room Air 08/18/17 19:15 100 21 124/67 98 Room Air 08/18/17 19:00 103 26 122/55 98 Room Air 08/18/17 19:00 124/67 08/18/17 19:00 101 22 124/67 100 Nasal Cannula 2.0 08/18/17 18:45 104 24 144/75 98 Room Air 08/18/17 18:30 102 23 151/73 99 Room Air 08/18/17 18:15 97 21 135/65 97 Room Air 08/18/17 18:00 96 26 120/65 96 Room Air 08/18/17 18:00 141/69 08/18/17 17:45 93 22 120/65 100 Nasal Cannula 2.0 08/18/17 17:30 94 22 129/65 100 Nasal Cannula 2.0 08/18/17 17:17 93 08/18/17 17:16 2.0 08/18/17 17:15 92 22 115/64 100 Nasal Cannula 2.0 08/18/17 17:00 65/32 08/18/17 17:00 93 22 65/35 100 Nasal Cannula 2.0 08/18/17 16:45 97.6 94 22 104/48 100 Nasal Cannula 2.0 97.6 08/18/17 16:15 78 20 107/86 100 Nasal Cannula 2.0 82 08/18/17 16:00 98.1 82 20 102/68 100 Nasal Cannula 2.0 08/18/17 15:53 96/33 08/18/17 15:48 109/60 08/18/17 15:43 93/77 08/18/17 15:38 84/30 08/18/17 15:33 91/37 08/18/17 15:28 98/64 08/18/17 15:23 100/48 08/18/17 15:18 127/91 08/18/17 15:13 98/46 08/18/17 15:08 91/45 08/18/17 15:03 91/42 08/18/17 14:58 93/43 08/18/17 14:53 98/46 08/18/17 14:48 98/47 08/18/17 14:43 90/46 08/18/17 14:38 98/66 08/18/17 14:33 93/53 08/18/17 14:28 96/42 08/18/17 14:23 94/44 08/18/17 14:18 95/42 08/18/17 14:13 95/43 08/18/17 14:08 94/41 08/18/17 14:03 96/42 08/18/17 13:57 95/42 08/18/17 13:52 100/47 08/18/17 13:47 107/84 08/18/17 13:42 102/49 08/18/17 13:37 103/48 08/18/17 13:32 98/49 08/18/17 13:27 108/50 08/18/17 13:22 101/51 08/18/17 13:17 114/48 08/18/17 13:15 90 20 101/51 100 Nasal Cannula 2.0 08/18/17 13:12 65/45 08/18/17 13:07 78/42 08/18/17 13:00 92 20 78/42 100 Nasal Cannula 2.0 08/18/17 12:45 94 19 79/41 100 Nasal Cannula 2.0 08/18/17 12:30 92 21 76/38 100 Nasal Cannula 2.0 08/18/17 12:15 92 21 76/36 100 Nasal Cannula 2.0 08/18/17 12:00 88 20 79/36 100 Nasal Cannula 2.0 08/18/17 11:45 92 22 77/42 100 Nasal Cannula 08/18/17 11:30 95 14 79/40 Nasal Cannula 2.0 08/18/17 11:15 95 14 83/40 100 Nasal Cannula 2.0 08/18/17 11:00 95 19 73/35 100 Nasal Cannula 2.0 08/18/17 10:50 97.4 97 16 73/35 100 Nasal Cannula 2.0 97.4 Status: awake Condition: critical HEENT: atraumatic Neck: full ROM Heart: HR/BP stable, regular Abdomen: soft, active bowel sounds, feeding tube Extremities: no C/C/E Micro: Microbiology Date/Time Source Procedure Growth Status 08/18/17 11:45 Stool Stool Culture - Preliminary NORMAL FECAL RAGINI. Resulted 08/18/17 11:45 Stool Clostridium difficile Toxin Assay - Final Resulted Critical Care - Subjective ROS Limited/Unobtainable: Yes ICU Day: 2 Condition: critical, improving EKG Rhythm: Sinus Rhythm FI02: 24 Sputum Amount: Small I&O: Intake and Output 08/18/17 08/19/17 19:00 07:00 Intake Total 3420.96 ml 1683.60 ml Balance 3420.96 ml 1683.60 ml Intake Oral 100 ml IV Total 3360.96 ml 1583.60 ml Other 60 ml # Voids 1 1 # Bowel Movements 4 6 Labs: Laboratory Tests Test 08/18/17 12:45 08/18/17 20:55 08/18/17 22:40 08/19/17 04:00 Lactic Acid Level 3.50 mmol/L (0.66-2.22) H 4.70 mmol/L (0.66-2.22) H Stool Occult Blood Pending Arterial Blood pH 7.380 (7.350-7.450) Arterial Blood Partial Pressure CO2 27.8 mmHg (35.0-45.0) L Arterial Blood Partial Pressure O2 79.3 mmHg (75.0-100.0) Arterial Blood HCO3 16.3 mmol/L (22.0-26.0) L Arterial Blood Oxygen Saturation 95.9 % (92.0-98.0) Arterial Blood Base Excess -7.2 Chandler Test Positive Test 08/19/17 05:05 08/19/17 09:45 White Blood Count 32.6 K/UL (4.8-10.8) *H Red Blood Count 3.59 M/UL (4.20-5.40) L Hemoglobin 13.6 G/DL (12.0-16.0) Hematocrit 39.9 % (37.0-47.0) Mean Corpuscular Volume 111 FL (80-99) H Mean Corpuscular Hemoglobin 37.8 PG (27.0-31.0) H Mean Corpuscular Hemoglobin Concent 34.0 G/DL (32.0-36.0) Red Cell Distribution Width 20.1 % (11.6-14.8) H Platelet Count 112 K/UL (150-450) L Mean Platelet Volume 8.5 FL (6.5-10.1) Neutrophils (%) (Auto) % (45.0-75.0) Lymphocytes (%) (Auto) % (20.0-45.0) Monocytes (%) (Auto) % (1.0-10.0) Eosinophils (%) (Auto) % (0.0-3.0) Basophils (%) (Auto) % (0.0-2.0) Differential Total Cells Counted 100 Neutrophils % (Manual) 83 % (45-75) H Lymphocytes % (Manual) 2 % (20-45) L Monocytes % (Manual) 7 % (1-10) Eosinophils % (Manual) 0 % (0-3) Basophils % (Manual) 0 % (0-2) Band Neutrophils 8 % (0-8) Platelet Estimate Decreased L Platelet Morphology Normal Anisocytosis 2+ Macrocytosis 2+ Sodium Level 143 MMOL/L (136-145) Potassium Level 3.2 MMOL/L (3.5-5.1) L Chloride Level 112 MMOL/L (98-107) H Carbon Dioxide Level 20 MMOL/L (21-32) L Anion Gap 11 mmol/L (5-15) Blood Urea Nitrogen 16 mg/dL (7-18) Creatinine 1.0 MG/DL (0.55-1.30) Estimat Glomerular Filtration Rate mL/min (>60) Glucose Level 49 MG/DL (74-106) L Lactic Acid Level 2.50 mmol/L (0.66-2.22) H Pending Calcium Level 6.8 MG/DL (8.5-10.1) L Total Bilirubin 1.1 MG/DL (0.2-1.0) H Direct Bilirubin 0.4 MG/DL (0.0-0.3) H Aspartate Amino Transf (AST/SGOT) 36 U/L (15-37) Alanine Aminotransferase (ALT/SGPT) 19 U/L (12-78) Alkaline Phosphatase 138 U/L (46-116) H Pro-B-Type Natriuretic Peptide 7774 pg/mL (0-125) H Total Protein 4.2 G/DL (6.4-8.2) L Albumin 1.7 G/DL (3.4-5.0) L Globulin 2.5 g/dL Albumin/Globulin Ratio 0.7 (1.0-2.7) L Free Thyroxine 1.50 NG/DL (0.76-1.46) H Random Vancomycin Level 14.7 ug/mL Deng Tsang MD Aug 19, 2017 10:44
--- NOTE | 2017-08-19 11:39 | Diagnostic Imaging Report ---
Indication: Abdominal pain Comparison: None Single view of the abdomen obtained Findings: Nonspecific bowel gas pattern. There is a right femoral line in good position. Extensive reticular nodular densities noted at the lung bases. Bones are osteopenic. IMPRESSION: No acute findings appreciated.
--- NOTE | 2017-08-19 11:40 | Diagnostic Imaging Report ---
Indication: Dyspnea Comparison: 08/18/2017 A single view chest radiograph was obtained. Findings: Reticular nodular opacities a fairly extensive within mid and lower lung lindsey. Correlate clinically. Heart is enlarged. Findings appear relatively stable. IMPRESSION: Extensive basilar infiltrates
[2017-08-19] MEDS ORDERED: Potassium Chloride 40 MEQ in Sodium Chloride 500ML 550 ML IVPB ONE (12:15)
--- NOTE | 2017-08-19 12:42 | Infectious Diseases Prog Note ---
Assessment/Plan Assessment/Plan A: Septic shock, SP C Diff colitis (+bloody diarrhea) also Ro isch colitis KUB : Nonspecific bowel gas pattern Stool Cx : Neg ? Pneum -CXR: BL Extensive basilar infiltrates Recent PNA, still having productive cough Leukocytosis/bandemia Afebrile Lactic acidosis, improving EDDI HTN Plan: -Continue IV Vancomycin and IV Aztreonam d# 2 for next 24-48hrs pending Bcx -Start empiric PO Vancomycin 125mg qid and IV Flagyl 500mg q8h d# 2 -CT abd/p w/ po contrast -Montior CBC/BMP, temperatures -Aspiration precautions Subjective Allergies: Coded Allergies: AMOXICILLIN (Verified Adverse Reaction, Severe, Rash, 08/18/17) Objective Vital Signs Last 24 Hour Vital Signs Date Time Temp Pulse Resp B/P (MAP) Pulse Ox O2 Delivery O2 Flow Rate FiO2 08/19/17 10:00 99 22 123/51 100 Nasal Cannula 2.0 08/19/17 09:00 96 23 122/51 100 Nasal Cannula 2.0 08/19/17 08:00 97.8 96 24 133/60 100 Nasal Cannula 2.0 97.8 08/19/17 08:00 105 08/19/17 06:50 100 Nasal Cannula 1.0 24 08/19/17 06:50 98 24 Nasal Cannula 1.0 24 08/19/17 06:50 Nasal Cannula 1.0 24 08/19/17 06:45 97 20 124/48 100 Nasal Cannula 2.0 08/19/17 06:30 98 21 123/65 100 Nasal Cannula 2.0 08/19/17 06:15 98 21 115/59 100 Nasal Cannula 2.0 08/19/17 06:00 98 21 118/49 100 Nasal Cannula 2.0 08/19/17 05:45 97 21 92/72 100 Nasal Cannula 2.0 08/19/17 05:39 Nasal Cannula 2.0 08/19/17 05:39 99 Nasal Cannula 2.0 08/19/17 05:30 97 21 123/51 100 Nasal Cannula 2.0 08/19/17 05:15 94 21 133/51 100 Nasal Cannula 2.0 08/19/17 05:00 98 21 133/58 100 Nasal Cannula 2.0 08/19/17 04:45 99 21 113/56 100 Nasal Cannula 2.0 08/19/17 04:30 97 22 90/61 100 Nasal Cannula 2.0 08/19/17 04:15 96 21 130/56 100 Nasal Cannula 2.0 08/19/17 04:00 98.4 96 21 118/50 100 Nasal Cannula 2.0 98.4 08/19/17 04:00 95 08/19/17 03:45 96 21 116/55 100 Nasal Cannula 2.0 08/19/17 03:30 96 21 116/55 100 Nasal Cannula 2.0 08/19/17 03:15 96 22 133/53 100 Nasal Cannula 2.0 08/19/17 03:00 121/53 08/19/17 03:00 99 22 121/53 100 Nasal Cannula 2.0 08/19/17 02:45 98 21 116/68 99 Nasal Cannula 2.0 08/19/17 02:30 100 21 115/53 99 Nasal Cannula 2.0 08/19/17 02:15 98 21 112/48 99 Nasal Cannula 2.0 08/19/17 02:00 95 21 109/51 99 Nasal Cannula 2.0 08/19/17 02:00 112/48 08/19/17 01:45 94 21 122/51 99 Nasal Cannula 2.0 08/19/17 01:15 97 18 116/51 99 Nasal Cannula 2.0 08/19/17 01:00 94 18 115/59 99 Nasal Cannula 2.0 08/19/17 01:00 115/59 08/19/17 01:00 94 18 115/59 99 Nasal Cannula 2.0 08/19/17 00:45 93 24 110/51 99 Nasal Cannula 2.0 08/19/17 00:30 93 25 109/52 99 Nasal Cannula 2.0 08/19/17 00:15 91 18 93/72 99 Nasal Cannula 2.0 08/19/17 00:00 91 18 93/72 99 Nasal Cannula 2.0 08/19/17 00:00 101/39 08/18/17 23:45 95 18 105/66 99 Nasal Cannula 2.0 08/18/17 23:30 95 18 105/66 99 Nasal Cannula 2.0 08/18/17 23:15 96 18 101/39 99 Nasal Cannula 2.0 08/18/17 23:00 130/38 08/18/17 23:00 98 18 130/38 99 Nasal Cannula 2.0 08/18/17 22:55 97/54 08/18/17 22:45 101 18 97/54 99 Nasal Cannula 2.0 08/18/17 22:30 94 18 68/35 99 Nasal Cannula 2.0 08/18/17 22:15 97 18 120/54 99 Nasal Cannula 2.0 08/18/17 22:00 94 18 113/67 99 Nasal Cannula 2.0 08/18/17 22:00 113/67 08/18/17 21:45 95 18 114/53 99 Nasal Cannula 2.0 08/18/17 21:30 100 20 134/55 100 Nasal Cannula 2.0 08/18/17 21:15 99 22 126/61 99 Nasal Cannula 2.0 08/18/17 21:00 100 22 124/59 100 Nasal Cannula 2.0 08/18/17 21:00 115/57 08/18/17 20:54 124/59 08/18/17 20:45 99 22 106/47 99 Nasal Cannula 2.0 08/18/17 20:30 100 22 124/59 100 Nasal Cannula 2.0 08/18/17 20:00 102 08/18/17 20:00 95/71 08/18/17 20:00 98.6 102 22 95/71 100 Nasal Cannula 2.0 98.6 08/18/17 19:30 97 22 129/59 100 Nasal Cannula 2.0 08/18/17 19:30 98 25 138/64 100 Room Air 08/18/17 19:15 100 21 124/67 98 Room Air 08/18/17 19:00 103 26 122/55 98 Room Air 08/18/17 19:00 124/67 08/18/17 19:00 101 22 124/67 100 Nasal Cannula 2.0 08/18/17 18:45 104 24 144/75 98 Room Air 08/18/17 18:30 102 23 151/73 99 Room Air 08/18/17 18:15 97 21 135/65 97 Room Air 08/18/17 18:00 96 26 120/65 96 Room Air 08/18/17 18:00 141/69 08/18/17 17:45 93 22 120/65 100 Nasal Cannula 2.0 08/18/17 17:30 94 22 129/65 100 Nasal Cannula 2.0 4/27/18 17:17 93 08/18/17 17:16 2.0 08/18/17 17:15 92 22 115/64 100 Nasal Cannula 2.0 08/18/17 17:00 65/32 08/18/17 17:00 93 22 65/35 100 Nasal Cannula 2.0 08/18/17 16:45 97.6 94 22 104/48 100 Nasal Cannula 2.0 97.6 08/18/17 16:15 78 20 107/86 100 Nasal Cannula 2.0 82 08/18/17 16:00 98.1 82 20 102/68 100 Nasal Cannula 2.0 08/18/17 15:53 96/33 08/18/17 15:48 109/60 08/18/17 15:43 93/77 08/18/17 15:38 84/30 08/18/17 15:33 91/37 08/18/17 15:28 98/64 08/18/17 15:23 100/48 08/18/17 15:18 127/91 08/18/17 15:13 98/46 08/18/17 15:08 91/45 08/18/17 15:03 91/42 08/18/17 14:58 93/43 08/18/17 14:53 98/46 08/18/17 14:48 98/47 08/18/17 14:43 90/46 08/18/17 14:38 98/66 08/18/17 14:33 93/53 08/18/17 14:28 96/42 08/18/17 14:23 94/44 08/18/17 14:18 95/42 08/18/17 14:13 95/43 08/18/17 14:08 94/41 08/18/17 14:03 96/42 08/18/17 13:57 95/42 08/18/17 13:52 100/47 08/18/17 13:47 107/84 08/18/17 13:42 102/49 08/18/17 13:37 103/48 08/18/17 13:32 98/49 08/18/17 13:27 108/50 08/18/17 13:22 101/51 08/18/17 13:17 114/48 08/18/17 13:15 90 20 101/51 100 Nasal Cannula 2.0 08/18/17 13:12 65/45 08/18/17 13:07 78/42 08/18/17 13:00 92 20 78/42 100 Nasal Cannula 2.0 08/18/17 12:45 94 19 79/41 100 Nasal Cannula 2.0 Height (Feet): 5 Height (Inches): 0.00 Weight (Pounds): 102 HEENT: mucous membranes moist Respiratory/Chest: no respiratory distress Cardiovascular: regular rhythm Abdomen: non distended Microbiology Date/Time Source Procedure Growth Status 08/18/17 10:15 Blood Blood Culture - Preliminary NO GROWTH AFTER 24 HOURS Resulted 08/18/17 10:10 Blood Blood Culture - Preliminary NO GROWTH AFTER 24 HOURS Resulted 08/18/17 11:45 Stool Stool Culture - Preliminary NORMAL FECAL RAGINI. Resulted 08/18/17 11:45 Stool Clostridium difficile Toxin Assay - Final Resulted Laboratory Tests Test 08/18/17 12:45 08/18/17 20:55 08/18/17 22:40 08/19/17 04:00 Lactic Acid Level 3.50 mmol/L (0.66-2.22) H 4.70 mmol/L (0.66-2.22) H Stool Occult Blood Pending Arterial Blood pH 7.380 (7.350-7.450) Arterial Blood Partial Pressure CO2 27.8 mmHg (35.0-45.0) L Arterial Blood Partial Pressure O2 79.3 mmHg (75.0-100.0) Arterial Blood HCO3 16.3 mmol/L (22.0-26.0) L Arterial Blood Oxygen Saturation 95.9 % (92.0-98.0) Arterial Blood Base Excess -7.2 Chandler Test Positive Test 08/19/17 05:05 08/19/17 09:45 White Blood Count 32.6 K/UL (4.8-10.8) *H Red Blood Count 3.59 M/UL (4.20-5.40) L Hemoglobin 13.6 G/DL (12.0-16.0) Hematocrit 39.9 % (37.0-47.0) Mean Corpuscular Volume 111 FL (80-99) H Mean Corpuscular Hemoglobin 37.8 PG (27.0-31.0) H Mean Corpuscular Hemoglobin Concent 34.0 G/DL (32.0-36.0) Red Cell Distribution Width 20.1 % (11.6-14.8) H Platelet Count 112 K/UL (150-450) L Mean Platelet Volume 8.5 FL (6.5-10.1) Neutrophils (%) (Auto) % (45.0-75.0) Lymphocytes (%) (Auto) % (20.0-45.0) Monocytes (%) (Auto) % (1.0-10.0) Eosinophils (%) (Auto) % (0.0-3.0) Basophils (%) (Auto) % (0.0-2.0) Differential Total Cells Counted 100 Neutrophils % (Manual) 83 % (45-75) H Lymphocytes % (Manual) 2 % (20-45) L Monocytes % (Manual) 7 % (1-10) Eosinophils % (Manual) 0 % (0-3) Basophils % (Manual) 0 % (0-2) Band Neutrophils 8 % (0-8) Platelet Estimate Decreased L Platelet Morphology Normal Anisocytosis 2+ Macrocytosis 2+ Sodium Level 143 MMOL/L (136-145) Potassium Level 3.2 MMOL/L (3.5-5.1) L Chloride Level 112 MMOL/L (98-107) H Carbon Dioxide Level 20 MMOL/L (21-32) L Anion Gap 11 mmol/L (5-15) Blood Urea Nitrogen 16 mg/dL (7-18) Creatinine 1.0 MG/DL (0.55-1.30) Estimat Glomerular Filtration Rate mL/min (>60) Glucose Level 49 MG/DL (74-106) L Lactic Acid Level 2.50 mmol/L (0.66-2.22) H 2.70 mmol/L (0.66-2.22) H Calcium Level 6.8 MG/DL (8.5-10.1) L Total Bilirubin 1.1 MG/DL (0.2-1.0) H Direct Bilirubin 0.4 MG/DL (0.0-0.3) H Aspartate Amino Transf (AST/SGOT) 36 U/L (15-37) Alanine Aminotransferase (ALT/SGPT) 19 U/L (12-78) Alkaline Phosphatase 138 U/L (46-116) H Pro-B-Type Natriuretic Peptide 7774 pg/mL (0-125) H Total Protein 4.2 G/DL (6.4-8.2) L Albumin 1.7 G/DL (3.4-5.0) L Globulin 2.5 g/dL Albumin/Globulin Ratio 0.7 (1.0-2.7) L Free Thyroxine 1.50 NG/DL (0.76-1.46) H Random Vancomycin Level 14.7 ug/mL Current Medications Medications (Trade) Dose Ordered Sig/Keri Route PRN Reason Start Time Stop Time Status Last Admin Dose Admin Acetaminophen (Tylenol) 650 mg Q4H PRN ORAL fever (temp>100.5F) 08/19/17 13:15 09/17/17 13:14 UNV Albuterol/ Ipratropium (Albuterol/ Ipratropium) 3 ml Q4H PRN HHN Shortness of Breath 08/19/17 13:15 08/23/17 13:14 UNV Aztreonam 1 gm/ Dextrose 55 ml @ 110 mls/hr Q12HR IVPB 08/19/17 21:00 08/25/17 20:59 UNV Chlorhexidine Gluconate (María-Hex 2%) 1 applic DAILY@2000 TOPIC 08/19/17 20:00 09/18/17 19:59 UNV Diatrizoate Meglum/ Diatrizoate Sod (Gastrografin) 30 ml NOW PRN ORAL Radiology Procedure 08/19/17 18:00 08/20/17 17:46 UNV Diatrizoate Meglum/ Diatrizoate Sod (Gastrografin) 60 ml NOW PRN RECTAL Radiology Procedure 08/19/17 18:00 08/20/17 17:46 UNV Heparin Sodium (Porcine) (Heparin 5000 units/ml) 5,000 units EVERY 12 HOURS SUBQ 08/19/17 21:00 09/17/17 20:59 UNV Metronidazole 100 ml @ 100 mls/hr Q8HR IVPB 08/19/17 14:00 08/25/17 21:59 UNV Morphine Sulfate (Morphine Sulfate) 2 mg Q4H PRN IVP Severe Pain (Pain Scale 7-10) 08/19/17 13:15 08/25/17 13:14 UNV Ondansetron HCl (Zofran) 4 mg Q6H PRN IVP Nausea & Vomiting 08/19/17 13:15 09/17/17 13:14 UNV Pantoprazole (Protonix) 40 mg DAILY IVP 08/20/17 09:00 09/18/17 08:59 UNV Polyethylene Glycol (Miralax) 17 gm DAILYPRN PRN ORAL Constipation 08/19/17 13:15 09/17/17 13:14 UNV Sodium Chloride 1,000 ml @ 100 mls/hr Q10H IVLG 08/19/17 12:30 09/17/17 17:29 UNV Vancomycin HCl (Vanco rx to dose) 1 ea DAILY PRN MISC PER RX PROTOCOL 08/20/17 09:00 09/17/17 17:14 UNV Vancomycin HCl (Vancomycin) 125 mg FOUR TIMES A DAY ORAL 08/19/17 13:00 08/25/17 17:59 UNV Dick Francis MD Aug 19, 2017 12:42
[2017-08-19] MEDS ORDERED: Vancomycin oral 125mg/2.5ml ORAL SCH (13:00)
[2017-08-19] MEDS ORDERED: Morphine Sulfate 4mg/ml Inj IVP PRN ×2 (13:15→15:00)
[2017-08-19] MEDS ORDERED: Miralax 17gm pkt ORAL PRN ×2 (13:15→15:00)
[2017-08-19] MEDS ORDERED: Albuterol/Ipratropium 3ml neb HHN PRN ×2 (13:15→15:00)
--- NOTE | 2017-08-19 13:49 | Cardiac Electrophysiology PN ---
Assessment/Plan Assessment/Plan 1. S/P septic shock. WBC 32k and lactic acidosis. Levophed DCed. On broad- spectrum intravenous antibiotics per ID Echocardiogram EF 65% and no evidence of endocarditis 2. Hypokalemia with a potassium of 2.7, that was replaced.3.2 today 3. BNP of more than 10,000. Echocardiogram Nl EF. DW RN Subjective Subjective Transferred out of ICU off pressors. No CP or SOB.In isolation for C Diff Objective Last 24 Hour Vital Signs Date Time Temp Pulse Resp B/P (MAP) Pulse Ox O2 Delivery O2 Flow Rate FiO2 08/19/17 10:00 99 22 123/51 100 Nasal Cannula 2.0 08/19/17 09:00 96 23 122/51 100 Nasal Cannula 2.0 08/19/17 08:00 97.8 96 24 133/60 100 Nasal Cannula 2.0 97.8 08/19/17 08:00 105 08/19/17 06:50 100 Nasal Cannula 1.0 24 08/19/17 06:50 98 24 Nasal Cannula 1.0 24 08/19/17 06:50 Nasal Cannula 1.0 24 08/19/17 06:45 97 20 124/48 100 Nasal Cannula 2.0 08/19/17 06:30 98 21 123/65 100 Nasal Cannula 2.0 08/19/17 06:15 98 21 115/59 100 Nasal Cannula 2.0 08/19/17 06:00 98 21 118/49 100 Nasal Cannula 2.0 08/19/17 05:45 97 21 92/72 100 Nasal Cannula 2.0 08/19/17 05:39 Nasal Cannula 2.0 08/19/17 05:39 99 Nasal Cannula 2.0 08/19/17 05:30 97 21 123/51 100 Nasal Cannula 2.0 08/19/17 05:15 94 21 133/51 100 Nasal Cannula 2.0 08/19/17 05:00 98 21 133/58 100 Nasal Cannula 2.0 08/19/17 04:45 99 21 113/56 100 Nasal Cannula 2.0 08/19/17 04:30 97 22 90/61 100 Nasal Cannula 2.0 08/19/17 04:15 96 21 130/56 100 Nasal Cannula 2.0 08/19/17 04:00 98.4 96 21 118/50 100 Nasal Cannula 2.0 98.4 08/19/17 04:00 95 08/19/17 03:45 96 21 116/55 100 Nasal Cannula 2.0 08/19/17 03:30 96 21 116/55 100 Nasal Cannula 2.0 08/19/17 03:15 96 22 133/53 100 Nasal Cannula 2.0 08/19/17 03:00 121/53 08/19/17 03:00 99 22 121/53 100 Nasal Cannula 2.0 08/19/17 02:45 98 21 116/68 99 Nasal Cannula 2.0 08/19/17 02:30 100 21 115/53 99 Nasal Cannula 2.0 08/19/17 02:15 98 21 112/48 99 Nasal Cannula 2.0 08/19/17 02:00 95 21 109/51 99 Nasal Cannula 2.0 08/19/17 02:00 112/48 08/19/17 01:45 94 21 122/51 99 Nasal Cannula 2.0 08/19/17 01:15 97 18 116/51 99 Nasal Cannula 2.0 08/19/17 01:00 94 18 115/59 99 Nasal Cannula 2.0 08/19/17 01:00 115/59 08/19/17 01:00 94 18 115/59 99 Nasal Cannula 2.0 08/19/17 00:45 93 24 110/51 99 Nasal Cannula 2.0 08/19/17 00:30 93 25 109/52 99 Nasal Cannula 2.0 08/19/17 00:15 91 18 93/72 99 Nasal Cannula 2.0 08/19/17 00:00 91 18 93/72 99 Nasal Cannula 2.0 08/19/17 00:00 101/39 08/18/17 23:45 95 18 105/66 99 Nasal Cannula 2.0 08/18/17 23:30 95 18 105/66 99 Nasal Cannula 2.0 08/18/17 23:15 96 18 101/39 99 Nasal Cannula 2.0 08/18/17 23:00 130/38 08/18/17 23:00 98 18 130/38 99 Nasal Cannula 2.0 08/18/17 22:55 97/54 08/18/17 22:45 101 18 97/54 99 Nasal Cannula 2.0 08/18/17 22:30 94 18 68/35 99 Nasal Cannula 2.0 08/18/17 22:15 97 18 120/54 99 Nasal Cannula 2.0 08/18/17 22:00 94 18 113/67 99 Nasal Cannula 2.0 08/18/17 22:00 113/67 08/18/17 21:45 95 18 114/53 99 Nasal Cannula 2.0 08/18/17 21:30 100 20 134/55 100 Nasal Cannula 2.0 08/18/17 21:15 99 22 126/61 99 Nasal Cannula 2.0 08/18/17 21:00 100 22 124/59 100 Nasal Cannula 2.0 08/18/17 21:00 115/57 08/18/17 20:54 124/59 08/18/17 20:45 99 22 106/47 99 Nasal Cannula 2.0 08/18/17 20:30 100 22 124/59 100 Nasal Cannula 2.0 08/18/17 20:00 102 08/18/17 20:00 95/71 08/18/17 20:00 98.6 102 22 95/71 100 Nasal Cannula 2.0 98.6 08/18/17 19:30 97 22 129/59 100 Nasal Cannula 2.0 08/18/17 19:30 98 25 138/64 100 Room Air 08/18/17 19:15 100 21 124/67 98 Room Air 08/18/17 19:00 103 26 122/55 98 Room Air 08/18/17 19:00 124/67 08/18/17 19:00 101 22 124/67 100 Nasal Cannula 2.0 08/18/17 18:45 104 24 144/75 98 Room Air 08/18/17 18:30 102 23 151/73 99 Room Air 08/18/17 18:15 97 21 135/65 97 Room Air 08/18/17 18:00 96 26 120/65 96 Room Air 08/18/17 18:00 141/69 08/18/17 17:45 93 22 120/65 100 Nasal Cannula 2.0 08/18/17 17:30 94 22 129/65 100 Nasal Cannula 2.0 08/18/17 17:17 93 08/18/17 17:16 2.0 08/18/17 17:15 92 22 115/64 100 Nasal Cannula 2.0 08/18/17 17:00 65/32 08/18/17 17:00 93 22 65/35 100 Nasal Cannula 2.0 08/18/17 16:45 97.6 94 22 104/48 100 Nasal Cannula 2.0 97.6 08/18/17 16:15 78 20 107/86 100 Nasal Cannula 2.0 82 08/18/17 16:00 98.1 82 20 102/68 100 Nasal Cannula 2.0 08/18/17 15:53 96/33 08/18/17 15:48 109/60 08/18/17 15:43 93/77 08/18/17 15:38 84/30 08/18/17 15:33 91/37 08/18/17 15:28 98/64 08/18/17 15:23 100/48 08/18/17 15:18 127/91 08/18/17 15:13 98/46 08/18/17 15:08 91/45 08/18/17 15:03 91/42 08/18/17 14:58 93/43 08/18/17 14:53 98/46 08/18/17 14:48 98/47 08/18/17 14:43 90/46 08/18/17 14:38 98/66 08/18/17 14:33 93/53 08/18/17 14:28 96/42 08/18/17 14:23 94/44 08/18/17 14:18 95/42 08/18/17 14:13 95/43 08/18/17 14:08 94/41 08/18/17 14:03 96/42 08/18/17 13:57 95/42 08/18/17 13:52 100/47 08/18/17 13:47 107/84 Intake and Output 08/18/17 08/19/17 19:00 07:00 Intake Total 3420.96 ml 1783.60 ml Balance 3420.96 ml 1783.60 ml Intake Oral 100 ml IV Total 3360.96 ml 1683.60 ml Other 60 ml # Voids 1 1 # Bowel Movements 4 6 Laboratory Tests Test 08/18/17 20:55 08/18/17 22:40 08/19/17 04:00 08/19/17 05:05 Lactic Acid Level 4.70 mmol/L (0.66-2.22) H 2.50 mmol/L (0.66-2.22) H Stool Occult Blood Pending Arterial Blood pH 7.380 (7.350-7.450) Arterial Blood Partial Pressure CO2 27.8 mmHg (35.0-45.0) L Arterial Blood Partial Pressure O2 79.3 mmHg (75.0-100.0) Arterial Blood HCO3 16.3 mmol/L (22.0-26.0) L Arterial Blood Oxygen Saturation 95.9 % (92.0-98.0) Arterial Blood Base Excess -7.2 Chandler Test Positive White Blood Count 32.6 K/UL (4.8-10.8) *H Red Blood Count 3.59 M/UL (4.20-5.40) L Hemoglobin 13.6 G/DL (12.0-16.0) Hematocrit 39.9 % (37.0-47.0) Mean Corpuscular Volume 111 FL (80-99) H Mean Corpuscular Hemoglobin 37.8 PG (27.0-31.0) H Mean Corpuscular Hemoglobin Concent 34.0 G/DL (32.0-36.0) Red Cell Distribution Width 20.1 % (11.6-14.8) H Platelet Count 112 K/UL (150-450) L Mean Platelet Volume 8.5 FL (6.5-10.1) Neutrophils (%) (Auto) % (45.0-75.0) Lymphocytes (%) (Auto) % (20.0-45.0) Monocytes (%) (Auto) % (1.0-10.0) Eosinophils (%) (Auto) % (0.0-3.0) Basophils (%) (Auto) % (0.0-2.0) Differential Total Cells Counted 100 Neutrophils % (Manual) 83 % (45-75) H Lymphocytes % (Manual) 2 % (20-45) L Monocytes % (Manual) 7 % (1-10) Eosinophils % (Manual) 0 % (0-3) Basophils % (Manual) 0 % (0-2) Band Neutrophils 8 % (0-8) Platelet Estimate Decreased L Platelet Morphology Normal Anisocytosis 2+ Macrocytosis 2+ Sodium Level 143 MMOL/L (136-145) Potassium Level 3.2 MMOL/L (3.5-5.1) L Chloride Level 112 MMOL/L (98-107) H Carbon Dioxide Level 20 MMOL/L (21-32) L Anion Gap 11 mmol/L (5-15) Blood Urea Nitrogen 16 mg/dL (7-18) Creatinine 1.0 MG/DL (0.55-1.30) Estimat Glomerular Filtration Rate mL/min (>60) Glucose Level 49 MG/DL (74-106) L Calcium Level 6.8 MG/DL (8.5-10.1) L Total Bilirubin 1.1 MG/DL (0.2-1.0) H Direct Bilirubin 0.4 MG/DL (0.0-0.3) H Aspartate Amino Transf (AST/SGOT) 36 U/L (15-37) Alanine Aminotransferase (ALT/SGPT) 19 U/L (12-78) Alkaline Phosphatase 138 U/L (46-116) H Pro-B-Type Natriuretic Peptide 7774 pg/mL (0-125) H Total Protein 4.2 G/DL (6.4-8.2) L Albumin 1.7 G/DL (3.4-5.0) L Globulin 2.5 g/dL Albumin/Globulin Ratio 0.7 (1.0-2.7) L Free Thyroxine 1.50 NG/DL (0.76-1.46) H Random Vancomycin Level 14.7 ug/mL Test 08/19/17 09:45 Lactic Acid Level 2.70 mmol/L (0.66-2.22) H Microbiology Date/Time Source Procedure Growth Status 08/18/17 10:15 Blood Blood Culture - Preliminary NO GROWTH AFTER 24 HOURS Resulted 08/18/17 10:10 Blood Blood Culture - Preliminary NO GROWTH AFTER 24 HOURS Resulted 08/18/17 11:45 Stool Stool Culture - Preliminary NORMAL FECAL RAGINI. Resulted 08/18/17 11:45 Stool Clostridium difficile Toxin Assay - Final Resulted Objective HEENT: no JVD. LUNGS: Coarse rhonchi bilaterally. CARDIOVASCULAR: Regular S1 and S2 with no gallop. ABDOMEN: Soft. EXTREMITIES: No pitting edema. Quinn Lam MD Aug 19, 2017 13:49
[2017-08-19] MEDS ORDERED: Gastrograffin 30ml RECTAL PRN ×2 (18:00)
[2017-08-19] MEDS ORDERED: Gastrograffin 30ml ORAL PRN ×2 (18:00)
[2017-08-19] MEDS: Vancomycin 500mg/D5W 110ml IVPB SCH ×2 (18:12)
[2017-08-19] MEDS ORDERED: Dyna-Hex 2% Top Sol 2oz TOPIC SCH ×3 (20:00)
--- NOTE | 2017-08-19 20:15 | History and Physical Report ---
DATE OF ADMISSION: 08/18/2017 SOURCE OF INFORMATION: The patient and EMR. HISTORY OF PRESENT ILLNESS: The patient is an 82-year-old female with a history of pneumonia, recently admitted to [facility]. The patient was transferred to the hospital with a concern of her daughter for having decrease level of consciousness and after mental status. At the time of evaluation, the patient is complaining of abdominal pain and diarrhea for the last 1 or 2 days. The patient is drowsy. However, denies any chest pain or shortness of breath. Denies any headache. Initial evaluation in the emergency room proved the markedly low blood pressure for which the patient was started on crystalloid and was stabilized and transferred to ICU. REVIEW OF SYSTEMS: All 12 elements of review of systems reviewed with the patient. Pertinent positives and negatives as above. ALLERGIES: Amoxicillin. SOCIAL HISTORY: The patient lives with her daughter. Remainder of information is unobtainable. MEDICATIONS: Current hospital medications including but not limited to vancomycin and Zosyn, IV hydration by normal saline and also the patient on the pressor and norepinephrine at this time. PHYSICAL EXAMINATION: VITAL SIGNS: Systolic blood pressure 90, pulse currently on vasopressor, pulse rate 110, pulse oximetry 100% on the 2 liters of nasal cannula, respiratory rate 18, temperature 99.9. HEAD AND NECK: Atraumatic and normocephalic. Neck is supple. CHEST: Clear to auscultation. No wheezing. No crackles. HEART: S1 and S2, tachycardic. No S3. No S4. ABDOMEN: Tenderness on deep palpation. Mild tympanism. MUSCULOSKELETAL: Atrophied musculatures. Positive for spontaneous movements. No edema. NEUROLOGIC: Patient is awake, alert, and oriented x1. LABORATORY DATA: Dated 08/18/2017 shows WBC 32, hemoglobin of 14, platelets of 434. Sodium of 143, potassium of 3.2, BUN 16, creatinine 1. Lactic acid 3.5. Albumin 1.7. ASSESSMENT AND PLAN: 1. Septic shock. 2. Gastroenteritis/colitis. 3. Acute renal failure. 4. Dehydration. 5. Gastrointestinal and deep vein thrombosis prophylaxis. PLAN OF CARE: I agree with ICU admission. I agree with the empiric antibiotic regimen for vancomycin and Zosyn. We will start for the C. diff cultures. Continue with IV hydration. We will check the 2D echo. Continue with current management. Ngozi Blank M.D. DR: Radha JOB#: [id number] CC: OMAIRA
[2017-08-19] MEDS ORDERED: Aztreonam Inj 1 GM in D5W 55 ML IVPB SCH (21:00)
[2017-08-19] MEDS ORDERED: Heparin 5000 units/ml inj SUBQ SCH (21:00)
--- NOTE | 2017-08-19 22:26 | Consultation ---
History of Present Illness General Date patient seen: Aug 18, 2017 Chief Complaint: Abdominal Pain Present Illness Allergies: Coded Allergies: AMOXICILLIN (Verified Adverse Reaction, Severe, Rash, 08/18/17) Medication History Unable to Obtain Active Prescriptions or Reported Meds Patient History Healthcare decision maker Resuscitation status Full Code Advanced Directive on File Physical Exam Last 24 Hour Vital Signs Date Time Temp Pulse Resp B/P (MAP) Pulse Ox O2 Delivery O2 Flow Rate FiO2 08/19/17 16:00 99 08/19/17 16:00 96.6 104 18 98/58 98 Nasal Cannula 2.0 96.6 08/19/17 12:00 98.2 92 18 129/90 100 Nasal Cannula 2.0 98.2 08/19/17 12:00 107 08/19/17 10:00 99 22 123/51 100 Nasal Cannula 2.0 08/19/17 09:00 96 23 122/51 100 Nasal Cannula 2.0 08/19/17 08:00 97.8 96 24 133/60 100 Nasal Cannula 2.0 97.8 08/19/17 08:00 105 08/19/17 06:50 100 Nasal Cannula 1.0 24 08/19/17 06:50 98 24 Nasal Cannula 1.0 24 08/19/17 06:50 Nasal Cannula 1.0 24 08/19/17 06:45 97 20 124/48 100 Nasal Cannula 2.0 08/19/17 06:30 98 21 123/65 100 Nasal Cannula 2.0 08/19/17 06:15 98 21 115/59 100 Nasal Cannula 2.0 08/19/17 06:00 98 21 118/49 100 Nasal Cannula 2.0 08/19/17 05:45 97 21 92/72 100 Nasal Cannula 2.0 08/19/17 05:39 Nasal Cannula 2.0 08/19/17 05:39 99 Nasal Cannula 2.0 08/19/17 05:30 97 21 123/51 100 Nasal Cannula 2.0 08/19/17 05:15 94 21 133/51 100 Nasal Cannula 2.0 08/19/17 05:00 98 21 133/58 100 Nasal Cannula 2.0 08/19/17 04:45 99 21 113/56 100 Nasal Cannula 2.0 08/19/17 04:30 97 22 90/61 100 Nasal Cannula 2.0 08/19/17 04:15 96 21 130/56 100 Nasal Cannula 2.0 08/19/17 04:00 98.4 96 21 118/50 100 Nasal Cannula 2.0 98.4 08/19/17 04:00 95 08/19/17 03:45 96 21 116/55 100 Nasal Cannula 2.0 08/19/17 03:30 96 21 116/55 100 Nasal Cannula 2.0 08/19/17 03:15 96 22 133/53 100 Nasal Cannula 2.0 08/19/17 03:00 121/53 08/19/17 03:00 99 22 121/53 100 Nasal Cannula 2.0 08/19/17 02:45 98 21 116/68 99 Nasal Cannula 2.0 08/19/17 02:30 100 21 115/53 99 Nasal Cannula 2.0 08/19/17 02:15 98 21 112/48 99 Nasal Cannula 2.0 08/19/17 02:00 95 21 109/51 99 Nasal Cannula 2.0 08/19/17 02:00 112/48 08/19/17 01:45 94 21 122/51 99 Nasal Cannula 2.0 08/19/17 01:15 97 18 116/51 99 Nasal Cannula 2.0 08/19/17 01:00 94 18 115/59 99 Nasal Cannula 2.0 08/19/17 01:00 115/59 08/19/17 01:00 94 18 115/59 99 Nasal Cannula 2.0 08/19/17 00:45 93 24 110/51 99 Nasal Cannula 2.0 08/19/17 00:30 93 25 109/52 99 Nasal Cannula 2.0 08/19/17 00:15 91 18 93/72 99 Nasal Cannula 2.0 08/19/17 00:00 91 18 93/72 99 Nasal Cannula 2.0 08/19/17 00:00 101/39 08/18/17 23:45 95 18 105/66 99 Nasal Cannula 2.0 08/18/17 23:30 95 18 105/66 99 Nasal Cannula 2.0 08/18/17 23:15 96 18 101/39 99 Nasal Cannula 2.0 08/18/17 23:00 130/38 08/18/17 23:00 98 18 130/38 99 Nasal Cannula 2.0 08/18/17 22:55 97/54 08/18/17 22:45 101 18 97/54 99 Nasal Cannula 2.0 08/18/17 22:30 94 18 68/35 99 Nasal Cannula 2.0 Intake and Output 08/18/17 08/19/17 19:00 07:00 Intake Total 3420.96 ml 1783.60 ml Balance 3420.96 ml 1783.60 ml Intake Oral 100 ml IV Total 3360.96 ml 1683.60 ml Other 60 ml # Voids 1 1 # Bowel Movements 4 6 Laboratory Tests Test 08/18/17 22:40 08/19/17 04:00 08/19/17 05:05 08/19/17 09:45 Stool Occult Blood Pending Arterial Blood pH 7.380 (7.350-7.450) Arterial Blood Partial Pressure CO2 27.8 mmHg (35.0-45.0) L Arterial Blood Partial Pressure O2 79.3 mmHg (75.0-100.0) Arterial Blood HCO3 16.3 mmol/L (22.0-26.0) L Arterial Blood Oxygen Saturation 95.9 % (92.0-98.0) Arterial Blood Base Excess -7.2 Chandler Test Positive White Blood Count 32.6 K/UL (4.8-10.8) *H Red Blood Count 3.59 M/UL (4.20-5.40) L Hemoglobin 13.6 G/DL (12.0-16.0) Hematocrit 39.9 % (37.0-47.0) Mean Corpuscular Volume 111 FL (80-99) H Mean Corpuscular Hemoglobin 37.8 PG (27.0-31.0) H Mean Corpuscular Hemoglobin Concent 34.0 G/DL (32.0-36.0) Red Cell Distribution Width 20.1 % (11.6-14.8) H Platelet Count 112 K/UL (150-450) L Mean Platelet Volume 8.5 FL (6.5-10.1) Neutrophils (%) (Auto) % (45.0-75.0) Lymphocytes (%) (Auto) % (20.0-45.0) Monocytes (%) (Auto) % (1.0-10.0) Eosinophils (%) (Auto) % (0.0-3.0) Basophils (%) (Auto) % (0.0-2.0) Differential Total Cells Counted 100 Neutrophils % (Manual) 83 % (45-75) H Lymphocytes % (Manual) 2 % (20-45) L Monocytes % (Manual) 7 % (1-10) Eosinophils % (Manual) 0 % (0-3) Basophils % (Manual) 0 % (0-2) Band Neutrophils 8 % (0-8) Platelet Estimate Decreased L Platelet Morphology Normal Anisocytosis 2+ Macrocytosis 2+ Sodium Level 143 MMOL/L (136-145) Potassium Level 3.2 MMOL/L (3.5-5.1) L Chloride Level 112 MMOL/L (98-107) H Carbon Dioxide Level 20 MMOL/L (21-32) L Anion Gap 11 mmol/L (5-15) Blood Urea Nitrogen 16 mg/dL (7-18) Creatinine 1.0 MG/DL (0.55-1.30) Estimat Glomerular Filtration Rate mL/min (>60) Glucose Level 49 MG/DL (74-106) L Lactic Acid Level 2.50 mmol/L (0.66-2.22) H 2.70 mmol/L (0.66-2.22) H Calcium Level 6.8 MG/DL (8.5-10.1) L Total Bilirubin 1.1 MG/DL (0.2-1.0) H Direct Bilirubin 0.4 MG/DL (0.0-0.3) H Aspartate Amino Transf (AST/SGOT) 36 U/L (15-37) Alanine Aminotransferase (ALT/SGPT) 19 U/L (12-78) Alkaline Phosphatase 138 U/L (46-116) H Pro-B-Type Natriuretic Peptide 7774 pg/mL (0-125) H Total Protein 4.2 G/DL (6.4-8.2) L Albumin 1.7 G/DL (3.4-5.0) L Globulin 2.5 g/dL Albumin/Globulin Ratio 0.7 (1.0-2.7) L Free Thyroxine 1.50 NG/DL (0.76-1.46) H Random Vancomycin Level 14.7 ug/mL Height (Feet): 5 Height (Inches): 0.00 Weight (Pounds): 102 Medications Current Medications Medications (Trade) Dose Ordered Sig/Keri Route PRN Reason Start Time Stop Time Status Last Admin Dose Admin Acetaminophen (Tylenol) 650 mg Q4H PRN ORAL fever (temp>100.5F) 08/19/17 15:00 09/17/17 14:59 Albuterol/ Ipratropium (Albuterol/ Ipratropium) 3 ml Q4H PRN HHN Shortness of Breath 08/19/17 15:00 08/23/17 14:59 Aztreonam 1 gm/ Dextrose 55 ml @ 110 mls/hr Q12HR IVPB 08/19/17 21:00 08/25/17 20:59 08/19/17 21:00 Chlorhexidine Gluconate (María-Hex 2%) 1 applic DAILY@2000 TOPIC 08/19/17 20:00 09/18/17 19:59 08/19/17 21:39 Diatrizoate Meglum/ Diatrizoate Sod (Gastrografin) 30 ml NOW PRN ORAL Radiology Procedure 08/19/17 18:00 08/20/17 17:46 Diatrizoate Meglum/ Diatrizoate Sod (Gastrografin) 60 ml NOW PRN RECTAL Radiology Procedure 08/19/17 18:00 08/20/17 17:46 Heparin Sodium (Porcine) (Heparin 5000 units/ml) 5,000 units EVERY 12 HOURS SUBQ 08/19/17 21:00 09/17/17 20:59 Metronidazole 100 ml @ 100 mls/hr Q8HR IVPB 08/19/17 14:05 08/25/17 14:04 08/19/17 21:39 Morphine Sulfate (Morphine Sulfate) 2 mg Q4H PRN IVP Severe Pain (Pain Scale 7-10) 08/19/17 15:00 08/25/17 14:59 Ondansetron HCl (Zofran) 4 mg Q6H PRN IVP Nausea & Vomiting 08/19/17 15:00 09/17/17 14:59 Pantoprazole (Protonix) 40 mg DAILY IVP 08/20/17 09:00 09/18/17 08:59 Polyethylene Glycol (Miralax) 17 gm DAILYPRN PRN ORAL Constipation 08/19/17 15:00 09/17/17 14:59 Sodium Chloride 1,000 ml @ 100 mls/hr Q10H IVLG 08/19/17 14:30 09/17/17 14:29 08/19/17 15:00 Vancomycin HCl (Vanco rx to dose) 1 ea DAILY PRN MISC PER RX PROTOCOL 08/19/17 15:00 09/18/17 14:59 Vancomycin HCl (Vancomycin) 125 mg FOUR TIMES A DAY ORAL 08/19/17 14:05 08/25/17 14:04 08/19/17 21:00 Vancomycin HCl 500 mg/Dextrose 110 ml @ 110 mls/hr Q12H IVPB 08/19/17 18:00 08/24/17 17:59 08/19/17 18:12 Deng Tsang MD Aug 19, 2017 22:26
[2017-08-20] VITALS: BP 95/52
[2017-08-20 04:00] VITALS: BP 95/54
[2017-08-20] MEDS: Vancomycin 500mg/D5W 110ml IVPB SCH ×4 (05:16→17:13)
--- NOTE | 2017-08-20 07:24 | General Progress Note ---
Assessment/Plan Status: stable Assessment/Plan 1. Septic shock. 2. Gastroenteritis/colitis. 3. Acute renal failure. 4. Dehydration. 5. Gastrointestinal and deep vein thrombosis prophylaxis. 6. Pulmonary infiltrate: infection !? Plan: Current Abx coverage will obtain chest CT Subjective Constitutional: Reports: malaise HEENT: Reports: no symptoms Cardiovascular: Reports: no symptoms Allergies: Coded Allergies: AMOXICILLIN (Verified Adverse Reaction, Severe, Rash, 08/18/17) Objective Last 24 Hour Vital Signs Date Time Temp Pulse Resp B/P (MAP) Pulse Ox O2 Delivery O2 Flow Rate FiO2 08/20/17 04:00 97.0 88 20 95/54 99 Nasal Cannula 2.0 97.0 08/20/17 04:00 88 08/20/17 00:00 97.4 95 20 95/52 100 Nasal Cannula 2.0 97.4 08/20/17 00:00 87 08/19/17 20:00 94 08/19/17 20:00 97.5 94 20 125/61 98 Nasal Cannula 2.0 97.5 08/19/17 19:15 Nasal Cannula 2.0 08/19/17 19:15 99 Nasal Cannula 2.0 08/19/17 19:15 89 20 Nasal Cannula 2.0 08/19/17 16:00 99 08/19/17 16:00 96.6 104 18 98/58 98 Nasal Cannula 2.0 96.6 08/19/17 12:00 98.2 92 18 129/90 100 Nasal Cannula 2.0 98.2 08/19/17 12:00 107 08/19/17 10:00 99 22 123/51 100 Nasal Cannula 2.0 08/19/17 09:00 96 23 122/51 100 Nasal Cannula 2.0 08/19/17 08:00 97.8 96 24 133/60 100 Nasal Cannula 2.0 97.8 08/19/17 08:00 105 Intake and Output 08/19/17 08/20/17 19:00 07:00 Intake Total 1066 ml Output Total 1 ml Balance 1065 ml Intake Oral 240 ml IV Total 826 ml Output Stool Total 1 ml # Bowel Movements 3 3 Laboratory Tests 08/19/17 09:45: Lactic Acid Level 2.70H Height (Feet): 5 Height (Inches): 0.00 Weight (Pounds): 101 General Appearance: WD/WN EENT: PERRL/EOMI Neck: supple Cardiovascular: normal rate Respiratory/Chest: rhonchi - bilaterally Abdomen: soft Extremities: non-tender 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
[2017-08-20 08:00] VITALS: BP 95/50
[2017-08-20 08:22] LABS: HEMATOCRIT 35.5 % (37.0-47.0); HEMOGLOBIN 11.7 G/DL (12.0-16.0); MEAN CORPUSCULAR VOLUME 112 FL (80-99); PLATELET COUNT 73 K/UL (150-450); RED BLOOD COUNT 3.16 M/UL (4.20-5.40)
[2017-08-20 08:30] LABS: WHITE BLOOD COUNT 30.5 K/UL (4.8-10.8)
[2017-08-20] MEDS: Vancomycin oral 125mg/2.5ml ORAL SCH ×4 (08:45→21:22)
[2017-08-20] MEDS: Aztreonam Inj 1 GM in D5W 55 ML IVPB SCH ×2 (08:46→21:24)
[2017-08-20] MEDS: Heparin 5000 units/ml inj SUBQ SCH (08:47)
[2017-08-20 08:59] LABS: ALANINE AMINOTRANSFERASE 23 U/L (12-78); ALBUMIN 1.6 G/DL (3.4-5.0); ALBUMIN/GLOBULIN RATIO 0.8 (1.0-2.7); ALKALINE PHOSPHATASE 184 U/L (46-116); ANION GAP 12 mmol/L (5-15); ASPARTATE AMINO TRANSFERASE 31 U/L (15-37); BILIRUBIN,TOTAL 0.9 MG/DL (0.2-1.0); BLOOD UREA NITROGEN 21 mg/dL (7-18); CALCIUM 6.8 MG/DL (8.5-10.1); CARBON DIOXIDE 17 MMOL/L (21-32); CHLORIDE 115 MMOL/L (98-107); CREATININE 0.9 MG/DL (0.55-1.30); PHOSPHORUS 2.5 MG/DL (2.5-4.9); POTASSIUM 3.6 MMOL/L (3.5-5.1); SODIUM 144 MMOL/L (136-145)
[2017-08-20] MEDS ORDERED: Pantoprazole Inj IVP SCH ×2 (09:00)
--- NOTE | 2017-08-20 09:40 | Diagnostic Imaging Report ---
Indication: Abdominal pain Technique: Continuous helical transaxial imaging of the abdomen and pelvis was obtained from the lung bases to the pubic symphysis. No intravenous contrast was administered. Coronal 2-D reformats were also obtained. Automatic Exposure Control was utilized. Total Dose length Product (DLP): [address] Dose Index Volume (CTDIvol): 0.1, 5.03 mGy Comparison: none Findings: There is extensive cystic bronchiectasis at the lung bases and other innumerable parenchymal cysts, likely honeycombing indicative of severe lung fibrosis. Cardiomegaly is present. Arterial calcifications are moderate. Nodularity of the liver demonstrated. Moderate cirrhosis, anasarca and generalized stranding of the retroperitoneal and mesenteric fat demonstrated. The gallbladder is moderately distended. There is moderate thickening of the wall of the colon noted in a diffuse fashion consistent with pancolitis. Uterus is atrophic. No evidence of bowel obstruction. No nephrolithiasis or hydronephrosis appreciated. There is narrowing of intervertebral discs and accompanying endplate osteophyte formation. Hypertrophied facet joints also demonstrated.. There is an old right pubis fracture. Bones are osteopenic. IMPRESSION: Pancolitis Chronic liver disease/cirrhosis. Moderate ascites. Distended gallbladder nonspecific. Severe lung fibrosis. Anasarca and mesenteric/retroperitoneal stranding. Right femoral line in good position. Degenerative changes of the spine and osteopenia. Atherosclerotic disease. The CT scanner at [facility] is accredited by the [employer] and the scans are performed using dose optimization techniques as appropriate to a performed exam including Automatic Exposure control.
[2017-08-20 12:00] VITALS: BP 98/53
--- NOTE | 2017-08-20 14:53 | Cardiac Electrophysiology PN ---
Assessment/Plan Assessment/Plan 1. S/P septic shock. WBC 32k and lactic acidosis. Levophed DCed. On broad- spectrum intravenous antibiotics per ID Echocardiogram EF 65% and no evidence of endocarditis 2. Hypokalemia with a potassium of 2.7, that was replaced. 3.6 today 3. BNP of more than 10,000. Echocardiogram Nl EF. 4. WBC more than 30K. ? due to C Diff. DW RN DC tele Subjective Subjective No CP or SOB. In isolation for C Diff. No arrhythmia on tele. Objective Last 24 Hour Vital Signs Date Time Temp Pulse Resp B/P (MAP) Pulse Ox O2 Delivery O2 Flow Rate FiO2 08/20/17 12:00 Nasal Cannula 2.0 08/20/17 12:00 99 Nasal Cannula 2.0 28 08/20/17 12:00 97.0 83 20 98/53 100 Nasal Cannula 2.0 97.0 08/20/17 12:00 83 20 Nasal Cannula 2.0 28 08/20/17 12:00 82 08/20/17 08:00 87 08/20/17 08:00 97.2 86 20 95/50 99 Nasal Cannula 2.0 97.2 08/20/17 04:00 97.0 88 20 95/54 99 Nasal Cannula 2.0 97.0 08/20/17 04:00 88 08/20/17 00:00 97.4 95 20 95/52 100 Nasal Cannula 2.0 97.4 08/20/17 00:00 87 08/19/17 20:00 94 08/19/17 20:00 97.5 94 20 125/61 98 Nasal Cannula 2.0 97.5 08/19/17 19:15 Nasal Cannula 2.0 08/19/17 19:15 99 Nasal Cannula 2.0 08/19/17 19:15 89 20 Nasal Cannula 2.0 08/19/17 16:00 99 08/19/17 16:00 96.6 104 18 98/58 98 Nasal Cannula 2.0 96.6 Intake and Output 08/19/17 08/20/17 19:00 07:00 Intake Total 1066 ml Output Total 1 ml Balance 1065 ml Intake Oral 240 ml IV Total 826 ml Output Stool Total 1 ml # Bowel Movements 3 3 Laboratory Tests Test 08/20/17 06:10 White Blood Count 30.5 K/UL (4.8-10.8) *H Red Blood Count 3.16 M/UL (4.20-5.40) L Hemoglobin 11.7 G/DL (12.0-16.0) L Hematocrit 35.5 % (37.0-47.0) L Mean Corpuscular Volume 112 FL (80-99) H Mean Corpuscular Hemoglobin 37.1 PG (27.0-31.0) H Mean Corpuscular Hemoglobin Concent 33.1 G/DL (32.0-36.0) Red Cell Distribution Width 20.0 % (11.6-14.8) H Platelet Count 73 K/UL (150-450) L Mean Platelet Volume 9.7 FL (6.5-10.1) Neutrophils (%) (Auto) % (45.0-75.0) Lymphocytes (%) (Auto) % (20.0-45.0) Monocytes (%) (Auto) % (1.0-10.0) Eosinophils (%) (Auto) % (0.0-3.0) Basophils (%) (Auto) % (0.0-2.0) Differential Total Cells Counted 100 Neutrophils % (Manual) 80 % (45-75) H Lymphocytes % (Manual) 5 % (20-45) L Monocytes % (Manual) 2 % (1-10) Eosinophils % (Manual) 1 % (0-3) Basophils % (Manual) 0 % (0-2) Band Neutrophils 12 % (0-8) H Platelet Estimate Decreased L Platelet Morphology Normal Hypochromasia Anisocytosis 2+ Macrocytosis 1+ Erythrocyte Sedimentation Rate 3 MM/HR (0-30) Sodium Level 144 MMOL/L (136-145) Potassium Level 3.6 MMOL/L (3.5-5.1) Chloride Level 115 MMOL/L (98-107) H Carbon Dioxide Level 17 MMOL/L (21-32) L Anion Gap 12 mmol/L (5-15) Blood Urea Nitrogen 21 mg/dL (7-18) H Creatinine 0.9 MG/DL (0.55-1.30) Estimat Glomerular Filtration Rate mL/min (>60) Glucose Level 70 MG/DL (74-106) L Calcium Level 6.8 MG/DL (8.5-10.1) L Phosphorus Level 2.5 MG/DL (2.5-4.9) Magnesium Level 1.7 MG/DL (1.8-2.4) L Total Bilirubin 0.9 MG/DL (0.2-1.0) Aspartate Amino Transf (AST/SGOT) 31 U/L (15-37) Alanine Aminotransferase (ALT/SGPT) 23 U/L (12-78) Alkaline Phosphatase 184 U/L (46-116) H C-Reactive Protein, Quantitative 26.7 mg/dL (0.00-0.90) H Total Protein 3.7 G/DL (6.4-8.2) L Albumin 1.6 G/DL (3.4-5.0) L Globulin 2.1 g/dL Albumin/Globulin Ratio 0.8 (1.0-2.7) L Microbiology Date/Time Source Procedure Growth Status 08/18/17 10:15 Blood Blood Culture - Preliminary NO GROWTH AFTER 24 HOURS Resulted 08/18/17 10:10 Blood Blood Culture - Preliminary NO GROWTH AFTER 24 HOURS Resulted 08/18/17 11:45 Stool Stool Culture - Final NORMAL FECAL RAGINI. Complete 08/18/17 11:45 Stool Clostridium difficile Toxin Assay - Final Complete Objective HEENT: no JVD. LUNGS: Coarse rhonchi bilaterally. CARDIOVASCULAR: Regular S1 and S2 with no gallop. ABDOMEN: Soft. EXTREMITIES: No pitting edema. Quinn Lam MD Aug 20, 2017 14:53
[2017-08-20 16:00] VITALS: BP 102/58
--- NOTE | 2017-08-20 16:57 | Pulmonology Progress Note ---
Assessment/Plan Problems: (1) Septic shock (2) Colitis (3) Renal insufficiency Assessment/Plan improving wbc decreasing continue iv abx iv fluids check electrolytes dvt prophylaxis Subjective ROS Limited/Unobtainable: No Constitutional: Reports: no symptoms HEENT: Repors: no symptoms Respiratory: Reports: no symptoms Allergies: Coded Allergies: AMOXICILLIN (Verified Adverse Reaction, Severe, Rash, 08/18/17) Objective Last 24 Hour Vital Signs Date Time Temp Pulse Resp B/P (MAP) Pulse Ox O2 Delivery O2 Flow Rate FiO2 08/20/17 12:00 Nasal Cannula 2.0 08/20/17 12:00 99 Nasal Cannula 2.0 28 08/20/17 12:00 97.0 83 20 98/53 100 Nasal Cannula 2.0 97.0 08/20/17 12:00 83 20 Nasal Cannula 2.0 08/20/17 12:00 82 08/20/17 08:00 87 08/20/17 08:00 97.2 86 20 95/50 99 Nasal Cannula 2.0 97.2 08/20/17 04:00 97.0 88 20 95/54 99 Nasal Cannula 2.0 97.0 08/20/17 04:00 88 08/20/17 00:00 97.4 95 20 95/52 100 Nasal Cannula 2.0 97.4 08/20/17 00:00 87 08/19/17 20:00 94 08/19/17 20:00 97.5 94 20 125/61 98 Nasal Cannula 2.0 97.5 08/19/17 19:15 Nasal Cannula 2.0 08/19/17 19:15 99 Nasal Cannula 2.0 08/19/17 19:15 89 20 Nasal Cannula 2.0 Intake and Output 08/19/17 08/20/17 19:00 07:00 Intake Total 1066 ml Output Total 1 ml Balance 1065 ml Intake Oral 240 ml IV Total 826 ml Output Stool Total 1 ml # Bowel Movements 3 3 General Appearance: cachetic HEENT: normocephalic, atraumatic Respiratory/Chest: chest wall non-tender, lungs clear Breasts: no masses Cardiovascular: normal peripheral pulses, normal rate Abdomen: normal bowel sounds, soft, non tender, no organomegaly Genitourinary: normal external genitalia Extremities: no cyanosis Skin: no rash 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 Complete 08/18/17 11:45 Stool Clostridium difficile Toxin Assay - Final Complete Laboratory Tests 08/20/17 06:10: White Blood Count 30.5*H, Red Blood Count 3.16L, Hemoglobin 11.7L, Hematocrit 35.5L, Mean Corpuscular Volume 112H, Mean Corpuscular Hemoglobin 37.1H, Mean Corpuscular Hemoglobin Concent 33.1, Red Cell Distribution Width 20.0H, Platelet Count 73L, Mean Platelet Volume 9.7, Neutrophils (%) (Auto) , Lymphocytes (%) (Auto) , Monocytes (%) (Auto) , Eosinophils (%) (Auto) , Basophils (%) (Auto) , Differential Total Cells Counted 100, Neutrophils % ( Manual) 80H, Lymphocytes % (Manual) 5L, Monocytes % (Manual) 2, Eosinophils % ( Manual) 1, Basophils % (Manual) 0, Band Neutrophils 12H, Platelet Estimate DecreasedL, Platelet Morphology Normal, Hypochromasia , Anisocytosis 2+, Macrocytosis 1+, Erythrocyte Sedimentation Rate 3, Sodium Level 144, Potassium Level 3.6, Chloride Level 115H, Carbon Dioxide Level 17L, Anion Gap 12, Blood Urea Nitrogen 21H, Creatinine 0.9, Estimat Glomerular Filtration Rate , Glucose Level 70L, Calcium Level 6.8L, Phosphorus Level 2.5, Magnesium Level 1.7L, Total Bilirubin 0.9, Aspartate Amino Transf (AST/SGOT) 31, Alanine Aminotransferase (ALT/SGPT) 23, Alkaline Phosphatase 184H, C-Reactive Protein, Quantitative 26.7H, Total Protein 3.7L, Albumin 1.6L, Globulin 2.1, Albumin/ Globulin Ratio 0.8L Current Medications Medications (Trade) Dose Ordered Sig/Keri Route PRN Reason Start Time Stop Time Status Last Admin Dose Admin Acetaminophen (Tylenol) 650 mg Q4H PRN ORAL fever (temp>100.5F) 08/19/17 15:00 09/17/17 14:59 Albuterol/ Ipratropium (Albuterol/ Ipratropium) 3 ml Q4H PRN HHN Shortness of Breath 08/19/17 15:00 08/23/17 14:59 Aztreonam 1 gm/ Dextrose 55 ml @ 110 mls/hr Q12HR IVPB 08/19/17 21:00 08/25/17 20:59 08/20/17 08:46 Chlorhexidine Gluconate (María-Hex 2%) 1 applic DAILY@2000 TOPIC 08/19/17 20:00 09/18/17 19:59 08/19/17 21:39 Diatrizoate Meglum/ Diatrizoate Sod (Gastrografin) 30 ml NOW PRN ORAL Radiology Procedure 08/19/17 18:00 08/20/17 17:46 Diatrizoate Meglum/ Diatrizoate Sod (Gastrografin) 60 ml NOW PRN RECTAL Radiology Procedure 08/19/17 18:00 08/20/17 17:46 Heparin Sodium (Porcine) (Heparin 5000 units/ml) 5,000 units EVERY 12 HOURS SUBQ 08/19/17 21:00 09/17/17 20:59 Metronidazole 100 ml @ 100 mls/hr Q8HR IVPB 08/19/17 14:05 08/25/17 14:04 08/20/17 13:14 Morphine Sulfate (Morphine Sulfate) 2 mg Q4H PRN IVP Severe Pain (Pain Scale 7-10) 08/19/17 15:00 08/25/17 14:59 Ondansetron HCl (Zofran) 4 mg Q6H PRN IVP Nausea & Vomiting 08/19/17 15:00 09/17/17 14:59 Pantoprazole (Protonix) 40 mg DAILY IVP 08/20/17 09:00 09/18/17 08:59 08/20/17 08:45 Polyethylene Glycol (Miralax) 17 gm DAILYPRN PRN ORAL Constipation 08/19/17 15:00 09/17/17 14:59 Sodium Chloride 1,000 ml @ 100 mls/hr Q10H IVLG 08/19/17 14:30 09/17/17 14:29 08/20/17 13:15 Vancomycin HCl (Vanco rx to dose) 1 ea DAILY PRN MISC PER RX PROTOCOL 08/19/17 15:00 09/18/17 14:59 Vancomycin HCl (Vancomycin) 125 mg FOUR TIMES A DAY ORAL 08/19/17 14:05 08/25/17 14:04 08/20/17 13:14 Vancomycin HCl 500 mg/Dextrose 110 ml @ 110 mls/hr Q12H IVPB 08/19/17 18:00 08/24/17 17:59 08/20/17 05:16 Deng Tsang MD Aug 20, 2017 16:57
--- NOTE | 2017-08-20 17:46 | Cardiology Report ---
APPROVED REPORT EKG Measurement Heart [id number] Normal sinus rhythm Nonspecific T wave abnormality Prolonged QT Abnormal ECG
[2017-08-20 20:00] VITALS: BP 107/59
[2017-08-20] MEDS ORDERED: Morphine Sulfate 4mg/ml Inj IVP PRN (21:00)
[2017-08-20] MEDS ORDERED: Albuterol/Ipratropium 3ml neb HHN PRN (21:00)
[2017-08-20] MEDS ORDERED: Miralax 17gm pkt ORAL PRN (21:00)
[2017-08-21] VITALS: BP 119/62
[2017-08-21 04:00] VITALS: BP 119/64
[2017-08-21] MEDS ORDERED: Vancomycin 500 MG in D5W 110 ML IVPB SCH (06:00)
[2017-08-21 07:15] LABS: HEMATOCRIT 35.8 % (37.0-47.0); HEMOGLOBIN 12.2 G/DL (12.0-16.0); MEAN CORPUSCULAR VOLUME 111 FL (80-99); PLATELET COUNT 44 K/UL (150-450); RED BLOOD COUNT 3.21 M/UL (4.20-5.40); RED CELL DISTRIBUTION WIDTH 20.4 % (11.6-14.8)
[2017-08-21 07:24] LABS: ALANINE AMINOTRANSFERASE 29 U/L (12-78); ALBUMIN 1.5 G/DL (3.4-5.0); ALBUMIN/GLOBULIN RATIO 0.7 (1.0-2.7); ALKALINE PHOSPHATASE 350 U/L (46-116); ANION GAP 10 mmol/L (5-15); ASPARTATE AMINO TRANSFERASE 32 U/L (15-37); BLOOD UREA NITROGEN 21 mg/dL (7-18); CALCIUM 7.2 MG/DL (8.5-10.1); CARBON DIOXIDE 19 MMOL/L (21-32); CHLORIDE 116 MMOL/L (98-107); CREATININE 0.8 MG/DL (0.55-1.30); PHOSPHORUS 2.4 MG/DL (2.5-4.9); POTASSIUM 3.4 MMOL/L (3.5-5.1); SODIUM 145 MMOL/L (136-145)
[2017-08-21 07:26] LABS: WHITE BLOOD COUNT 24.1 K/UL (4.8-10.8)
[2017-08-21 08:00] VITALS: BP 126/69
[2017-08-21] MEDS: Heparin 5000 units/ml inj SUBQ SCH ×2 (09:00→20:46)
[2017-08-21] MEDS: Pantoprazole Inj IVP SCH (09:59)
[2017-08-21] MEDS: Vancomycin oral 125mg/2.5ml ORAL SCH ×4 (09:59→20:54)
[2017-08-21] MEDS: Aztreonam Inj 1 GM in D5W 55 ML IVPB SCH (10:03)
--- NOTE | 2017-08-21 10:37 | Cardiology Report ---
APPROVED REPORT EXAM: Two-dimensional and M-mode echocardiogram with Doppler and color Doppler. INDICATION LV FUNCTION M-Mode DIMENSIONS IVSd0.7 (0.7-1.1cm)Left Atrium (MM)3.1 (1.6-4.0cm) LVDd4.6 (3.5-5.6cm)Aortic Root2.4 (2.0-3.7cm) PWd1.2 (0.7-1.1cm)Aortic Cusp Exc.1.6 (1.5-2.0cm) IVSs1.1 cm LVDs3.2 (2.5-4.0cm) PWs1.2 cm Normal left ventricular chamber size, systolic function and wall motion . Left ventricular ejection fraction estimated to be 60-65 %. No evidence of left ventricular hypertrophy . No evidence of pericardial effusion. All other cardiac chamber sizes are within normal limits. Moderately Focal aortic valve sclerosis with adequate cusp excursion. Moderately Thickened mitral valve leaflets with normal excursion. Mitral annulus and aortic root calcification. Normal pulmonic valve structure. Normal tricuspid valve structure. IVC at normal size with physiologic collapse . A color flow and spectral Doppler study was performed and revealed: Mild aortic regurgitation. Mild to moderate mitral regurgitation. Mitral diastolic velocities suggest reduced left ventricular relaxation c/w mild LV diastolic dysfunction (Grade I ). Mild to moderate tricuspid regurgitation. Tricuspid systolic velocities suggests peak right ventricular systolic pressure of 55 mmHg, consistent with moderate pulmonary hypertension. Trace Pulmonic regurgitation present.
[2017-08-21 12:00] VITALS: BP 114/64
--- NOTE | 2017-08-21 12:04 | Cardiac Electrophysiology PN ---
Assessment/Plan Assessment/Plan 1. S/P septic shock. WBC down to 24 K and lactic acidosis. On broad-spectrum intravenous antibiotics per ID Echocardiogram EF 65% and no evidence of endocarditis 2. Hypokalemia 3.4 today 3. BNP of more than 10,000. Echocardiogram Nl EF. 4. WBC more than 30K. ? due to C Diff. Improved. AUBREY RN Subjective Subjective No CP or SOB.Still in isolation for C Diff. Objective Last 24 Hour Vital Signs Date Time Temp Pulse Resp B/P (MAP) Pulse Ox O2 Delivery O2 Flow Rate FiO2 08/21/17 08:00 97.6 69 20 126/69 97 97.6 08/21/17 07:45 Nasal Cannula 2.0 28 08/21/17 07:45 87 18 Nasal Cannula 2.0 28 08/21/17 07:45 100 Nasal Cannula 2.0 28 08/21/17 04:00 97.3 92 20 119/64 100 Nasal Cannula 97.3 08/21/17 00:00 97.4 89 22 119/62 98 97.4 08/20/17 20:00 97.2 87 22 107/59 98 97.2 08/20/17 20:00 Nasal Cannula 2.0 28 08/20/17 20:00 98 Nasal Cannula 2.0 28 08/20/17 20:00 89 18 Nasal Cannula 2.0 28 08/20/17 16:00 87 08/20/17 16:00 97.5 85 20 102/58 100 Nasal Cannula 2.0 97.5 08/20/17 12:00 Nasal Cannula 2.0 08/20/17 12:00 99 Nasal Cannula 2.0 28 08/20/17 12:00 97.0 83 20 98/53 100 Nasal Cannula 2.0 97.0 08/20/17 12:00 83 20 Nasal Cannula 2.0 28 08/20/17 12:00 82 Intake and Output 08/20/17 08/21/17 19:00 07:00 Intake Total 240 ml 300 ml Balance 240 ml 300 ml Intake Oral 240 ml 200 ml IV Total 100 ml # Voids 3 1 # Bowel Movements 2 1 Laboratory Tests Test 08/20/17 17:50 08/21/17 05:30 Vancomycin Level Trough 24.2 ug/mL (5.0-12.0) H 13.4 ug/mL (5.0-12.0) H White Blood Count 24.1 K/UL (4.8-10.8) *H Red Blood Count 3.21 M/UL (4.20-5.40) L Hemoglobin 12.2 G/DL (12.0-16.0) Hematocrit 35.8 % (37.0-47.0) L Mean Corpuscular Volume 111 FL (80-99) H Mean Corpuscular Hemoglobin 37.8 PG (27.0-31.0) H Mean Corpuscular Hemoglobin Concent 33.9 G/DL (32.0-36.0) Red Cell Distribution Width 20.4 % (11.6-14.8) H Platelet Count 44 K/UL (150-450) L Mean Platelet Volume 11.0 FL (6.5-10.1) H Neutrophils (%) (Auto) % (45.0-75.0) Lymphocytes (%) (Auto) % (20.0-45.0) Monocytes (%) (Auto) % (1.0-10.0) Eosinophils (%) (Auto) % (0.0-3.0) Basophils (%) (Auto) % (0.0-2.0) Differential Total Cells Counted 100 Neutrophils % (Manual) 78 % (45-75) H Lymphocytes % (Manual) 6 % (20-45) L Monocytes % (Manual) 3 % (1-10) Eosinophils % (Manual) 1 % (0-3) Basophils % (Manual) 0 % (0-2) Band Neutrophils 12 % (0-8) H Platelet Estimate Decreased L Platelet Morphology Normal Anisocytosis 2+ Macrocytosis 1+ Sodium Level 145 MMOL/L (136-145) Potassium Level 3.4 MMOL/L (3.5-5.1) L Chloride Level 116 MMOL/L (98-107) H Carbon Dioxide Level 19 MMOL/L (21-32) L Anion Gap 10 mmol/L (5-15) Blood Urea Nitrogen 21 mg/dL (7-18) H Creatinine 0.8 MG/DL (0.55-1.30) Estimat Glomerular Filtration Rate mL/min (>60) Glucose Level 131 MG/DL (74-106) H Calcium Level 7.2 MG/DL (8.5-10.1) L Phosphorus Level 2.4 MG/DL (2.5-4.9) L Magnesium Level 1.7 MG/DL (1.8-2.4) L Total Bilirubin 1.0 MG/DL (0.2-1.0) Aspartate Amino Transf (AST/SGOT) 32 U/L (15-37) Alanine Aminotransferase (ALT/SGPT) 29 U/L (12-78) Alkaline Phosphatase 350 U/L (46-116) H Total Protein 3.8 G/DL (6.4-8.2) L Albumin 1.5 G/DL (3.4-5.0) L Globulin 2.3 g/dL Albumin/Globulin Ratio 0.7 (1.0-2.7) L Microbiology Date/Time Source Procedure Growth Status 08/18/17 14:21 Nasal Nares MRSA Culture - Final NO METHICILLIN RESISTANT STAPH AUREUS... Complete 08/18/17 14:21 Rectum VRE Culture - Final Enterococcus Faecium - Vre Complete Objective HEENT: No JVD. LUNGS: Coarse rhonchi bilaterally. CARDIOVASCULAR: Regular S1 and S2 with no gallop. ABDOMEN: Soft. EXTREMITIES: No edema. Quinn Lam MD Aug 21, 2017 12:04
--- NOTE | 2017-08-21 13:04 | Pulmonology Progress Note ---
Assessment/Plan Problems: (1) Septic shock (2) Colitis (3) Renal insufficiency Assessment/Plan K, mg, Phos supplement improving wbc decreasing continue iv abx iv fluids check electrolytes dvt prophylaxis Subjective ROS Limited/Unobtainable: No Interval Events: wbc decreasing, eating better Allergies: Coded Allergies: AMOXICILLIN (Verified Adverse Reaction, Severe, Rash, 08/18/17) Objective Last 24 Hour Vital Signs Date Time Temp Pulse Resp B/P (MAP) Pulse Ox O2 Delivery O2 Flow Rate FiO2 08/21/17 12:00 97.8 83 20 114/64 98 Nasal Cannula 2.0 97.8 08/21/17 08:00 97.6 69 20 126/69 97 97.6 08/21/17 07:45 Nasal Cannula 2.0 28 08/21/17 07:45 87 18 Nasal Cannula 2.0 28 08/21/17 07:45 100 Nasal Cannula 2.0 28 08/21/17 04:00 97.3 92 20 119/64 100 Nasal Cannula 97.3 08/21/17 00:00 97.4 89 22 119/62 98 97.4 08/20/17 20:00 97.2 87 22 107/59 98 97.2 08/20/17 20:00 Nasal Cannula 2.0 28 08/20/17 20:00 98 Nasal Cannula 2.0 28 08/20/17 20:00 89 18 Nasal Cannula 2.0 28 08/20/17 16:00 87 08/20/17 16:00 97.5 85 20 102/58 100 Nasal Cannula 2.0 97.5 Intake and Output 08/20/17 08/21/17 19:00 07:00 Intake Total 240 ml 300 ml Balance 240 ml 300 ml Intake Oral 240 ml 200 ml IV Total 100 ml # Voids 3 1 # Bowel Movements 2 1 General Appearance: WD/WN HEENT: atraumatic Respiratory/Chest: chest wall non-tender, lungs clear Breasts: no masses Cardiovascular: normal peripheral pulses Abdomen: normal bowel sounds, soft, non tender, no scars Extremities: no clubbing Skin: no lesions Microbiology Date/Time Source Procedure Growth Status 08/18/17 14:21 Nasal Nares MRSA Culture - Final NO METHICILLIN RESISTANT STAPH AUREUS... Complete 08/18/17 14:21 Rectum VRE Culture - Final Enterococcus Faecium - Vre Complete Laboratory Tests 08/20/17 17:50: Vancomycin Level Trough 24.2H 08/21/17 05:30: Vancomycin Level Trough 13.4H, White Blood Count 24.1*H, Red Blood Count 3.21L, Hemoglobin 12.2, Hematocrit 35.8L, Mean Corpuscular Volume 111H, Mean Corpuscular Hemoglobin 37.8H, Mean Corpuscular Hemoglobin Concent 33.9, Red Cell Distribution Width 20.4H, Platelet Count 44L, Mean Platelet Volume 11.0H, Neutrophils (%) (Auto) , Lymphocytes (%) (Auto) , Monocytes (%) (Auto) , Eosinophils (%) (Auto) , Basophils (%) (Auto) , Differential Total Cells Counted 100, Neutrophils % (Manual) 78H, Lymphocytes % (Manual) 6L, Monocytes % (Manual) 3, Eosinophils % (Manual) 1, Basophils % (Manual) 0, Band Neutrophils 12H, Platelet Estimate DecreasedL, Platelet Morphology Normal, Anisocytosis 2+, Macrocytosis 1+, Sodium Level 145, Potassium Level 3.4L, Chloride Level 116H, Carbon Dioxide Level 19L, Anion Gap 10, Blood Urea Nitrogen 21H, Creatinine 0.8 , Estimat Glomerular Filtration Rate , Glucose Level 131H, Calcium Level 7.2L, Phosphorus Level 2.4L, Magnesium Level 1.7L, Total Bilirubin 1.0, Aspartate Amino Transf (AST/SGOT) 32, Alanine Aminotransferase (ALT/SGPT) 29, Alkaline Phosphatase 350H, Total Protein 3.8L, Albumin 1.5L, Globulin 2.3, Albumin/ Globulin Ratio 0.7L Current Medications Medications (Trade) Dose Ordered Sig/Keri Route PRN Reason Start Time Stop Time Status Last Admin Dose Admin Acetaminophen (Tylenol) 650 mg Q4H PRN ORAL fever (temp>100.5F) 08/20/17 21:00 09/19/17 20:59 Albuterol/ Ipratropium (Albuterol/ Ipratropium) 3 ml Q4H PRN HHN Shortness of Breath 08/20/17 21:00 08/23/17 20:59 Aztreonam 1 gm/ Dextrose 55 ml @ 110 mls/hr Q12HR IVPB 08/20/17 21:00 08/25/17 20:59 08/21/17 10:03 Chlorhexidine Gluconate (María-Hex 2%) 1 applic DAILY@2000 TOPIC 08/21/17 20:00 09/18/17 19:59 Heparin Sodium (Porcine) (Heparin 5000 units/ml) 5,000 units EVERY 12 HOURS SUBQ 08/21/17 09:00 09/20/17 08:59 Metronidazole 100 ml @ 100 mls/hr Q8HR IVPB 08/20/17 22:00 08/25/17 14:04 08/21/17 05:06 Morphine Sulfate (Morphine Sulfate) 2 mg Q4H PRN IVP Severe Pain (Pain Scale 7-10) 08/20/17 21:00 08/25/17 20:59 Ondansetron HCl (Zofran) 4 mg Q6H PRN IVP Nausea & Vomiting 08/20/17 21:00 09/17/17 14:59 Pantoprazole (Protonix) 40 mg DAILY IVP 08/21/17 09:00 09/18/17 08:59 08/21/17 09:59 Polyethylene Glycol (Miralax) 17 gm DAILYPRN PRN ORAL Constipation 08/20/17 21:00 09/19/17 20:59 Sodium Chloride 1,000 ml @ 100 mls/hr Q10H IVLG 08/20/17 20:30 09/17/17 14:29 08/21/17 06:50 Vancomycin HCl (Vanco rx to dose) 1 ea DAILY PRN MISC PER RX PROTOCOL 08/20/17 21:00 09/19/17 20:59 Vancomycin HCl (Vancomycin) 125 mg FOUR TIMES A DAY ORAL 08/20/17 21:00 08/25/17 14:04 08/21/17 09:59 Vancomycin HCl 500 mg/Dextrose 110 ml @ 110 mls/hr Q12H IVPB 08/21/17 06:00 08/24/17 17:59 08/21/17 08:14 Deng Tsang MD Aug 21, 2017 13:04
[2017-08-21] MEDS ORDERED: Potassium Chloride 40 MEQ in Sodium Chloride 500ML 550 ML IVPB ONE (15:00)
[2017-08-21 16:00] VITALS: BP 100/20
--- NOTE | 2017-08-21 17:13 | Infectious Diseases Prog Note ---
Assessment/Plan Assessment/Plan Assessment: Septic shock, SP Severe C Diff colitis (+bloody diarrhea) also Ro isch colitis -CT abd/p: Pancolitis. Chronic liver disease/cirrhosis. Moderate ascites. Distended gallbladder nonspecific. Severe lung fibrosis. Anasarca and mesenteric /retroperitoneal stranding. Right femoral line in good position. Degenerative changes of the spine and osteopenia. Atherosclerotic disease. KUB : Nonspecific bowel gas pattern Stool Cx : Neg ? Pneum -CXR: BL Extensive basilar infiltrates - component of fibrosis and chronic lung disease -CT chest p Recent PNA, still having productive cough Leukocytosis/bandemia; improving Afebrile Lactic acidosis, improving EDDI HTN Plan: -d/c empiric IV Vancomycin and IV Aztreonam d# 4 and monitor off systemic in the setting of severe Cdiff -Continue PO Vancomycin 125mg qid and IV Flagyl 500mg q8h d# 4 for severe Cdiff -f/u CT chest -Montior CBC/BMP, temperatures -Aspiration precautions Subjective Allergies: Coded Allergies: AMOXICILLIN (Verified Adverse Reaction, Severe, Rash, 08/18/17) Subjective afebrile at 2l NC leukocytosis improving Bcx NTD Objective Vital Signs Last 24 Hour Vital Signs Date Time Temp Pulse Resp B/P (MAP) Pulse Ox O2 Delivery O2 Flow Rate FiO2 08/21/17 16:00 97.4 75 20 100/20 95 Nasal Cannula 2.0 97.4 08/21/17 12:00 97.8 83 20 114/64 98 Nasal Cannula 2.0 97.8 08/21/17 08:00 97.6 69 20 126/69 97 97.6 08/21/17 07:45 Nasal Cannula 2.0 28 08/21/17 07:45 87 18 Nasal Cannula 2.0 28 08/21/17 07:45 100 Nasal Cannula 2.0 28 08/21/17 04:00 97.3 92 20 119/64 100 Nasal Cannula 97.3 08/21/17 00:00 97.4 89 22 119/62 98 97.4 08/20/17 20:00 97.2 87 22 107/59 98 97.2 08/20/17 20:00 Nasal Cannula 2.0 28 08/20/17 20:00 98 Nasal Cannula 2.0 28 08/20/17 20:00 89 18 Nasal Cannula 2.0 28 Height (Feet): 5 Height (Inches): 0.00 Weight (Pounds): 102 Objective General Appearance: no apparent distress, alert non-toxic, thin Head: normocephalic, atraumatic Eyes: bilateral eye normal inspection, bilateral eye PERRL ENT: hearing grossly normal, normal pharynx, no angioedema, normal voice Neck: full range of motion, supple/symm/no masses Respiratory: chest non-tender, lungs clear, normal breath sounds, speaking full sentences Cardiovascular #1: regular rate, rhythm, no edema Gastrointestinal: normal bowel sounds, non tender, soft, non-distended, no guarding, no rebound Genitourinary: normal inspection, no CVA tenderness Musculoskeletal: back normal, gait/station normal, normal range of motion, non- tender Skin: normal color, no rash, warm/dry, well hydrated Laboratory Tests Test 08/20/17 17:50 08/21/17 05:30 Vancomycin Level Trough 24.2 ug/mL (5.0-12.0) H 13.4 ug/mL (5.0-12.0) H White Blood Count 24.1 K/UL (4.8-10.8) *H Red Blood Count 3.21 M/UL (4.20-5.40) L Hemoglobin 12.2 G/DL (12.0-16.0) Hematocrit 35.8 % (37.0-47.0) L Mean Corpuscular Volume 111 FL (80-99) H Mean Corpuscular Hemoglobin 37.8 PG (27.0-31.0) H Mean Corpuscular Hemoglobin Concent 33.9 G/DL (32.0-36.0) Red Cell Distribution Width 20.4 % (11.6-14.8) H Platelet Count 44 K/UL (150-450) L Mean Platelet Volume 11.0 FL (6.5-10.1) H Neutrophils (%) (Auto) % (45.0-75.0) Lymphocytes (%) (Auto) % (20.0-45.0) Monocytes (%) (Auto) % (1.0-10.0) Eosinophils (%) (Auto) % (0.0-3.0) Basophils (%) (Auto) % (0.0-2.0) Differential Total Cells Counted 100 Neutrophils % (Manual) 78 % (45-75) H Lymphocytes % (Manual) 6 % (20-45) L Monocytes % (Manual) 3 % (1-10) Eosinophils % (Manual) 1 % (0-3) Basophils % (Manual) 0 % (0-2) Band Neutrophils 12 % (0-8) H Platelet Estimate Decreased L Platelet Morphology Normal Anisocytosis 2+ Macrocytosis 1+ Sodium Level 145 MMOL/L (136-145) Potassium Level 3.4 MMOL/L (3.5-5.1) L Chloride Level 116 MMOL/L (98-107) H Carbon Dioxide Level 19 MMOL/L (21-32) L Anion Gap 10 mmol/L (5-15) Blood Urea Nitrogen 21 mg/dL (7-18) H Creatinine 0.8 MG/DL (0.55-1.30) Estimat Glomerular Filtration Rate mL/min (>60) Glucose Level 131 MG/DL (74-106) H Calcium Level 7.2 MG/DL (8.5-10.1) L Phosphorus Level 2.4 MG/DL (2.5-4.9) L Magnesium Level 1.7 MG/DL (1.8-2.4) L Total Bilirubin 1.0 MG/DL (0.2-1.0) Aspartate Amino Transf (AST/SGOT) 32 U/L (15-37) Alanine Aminotransferase (ALT/SGPT) 29 U/L (12-78) Alkaline Phosphatase 350 U/L (46-116) H Total Protein 3.8 G/DL (6.4-8.2) L Albumin 1.5 G/DL (3.4-5.0) L Globulin 2.3 g/dL Albumin/Globulin Ratio 0.7 (1.0-2.7) L Current Medications Medications (Trade) Dose Ordered Sig/Keri Route PRN Reason Start Time Stop Time Status Last Admin Dose Admin Acetaminophen (Tylenol) 650 mg Q4H PRN ORAL fever (temp>100.5F) 08/20/17 21:00 09/19/17 20:59 Albuterol/ Ipratropium (Albuterol/ Ipratropium) 3 ml Q4H PRN HHN Shortness of Breath 08/20/17 21:00 08/23/17 20:59 Aztreonam 1 gm/ Dextrose 55 ml @ 110 mls/hr Q12HR IVPB 08/20/17 21:00 08/25/17 20:59 08/21/17 10:03 Chlorhexidine Gluconate (María-Hex 2%) 1 applic DAILY@2000 TOPIC 08/21/17 20:00 09/18/17 19:59 Heparin Sodium (Porcine) (Heparin 5000 units/ml) 5,000 units EVERY 12 HOURS SUBQ 08/21/17 09:00 09/20/17 08:59 Metronidazole 100 ml @ 100 mls/hr Q8HR IVPB 08/20/17 22:00 08/25/17 14:04 08/21/17 13:44 Morphine Sulfate (Morphine Sulfate) 2 mg Q4H PRN IVP Severe Pain (Pain Scale 7-10) 08/20/17 21:00 08/25/17 20:59 Ondansetron HCl (Zofran) 4 mg Q6H PRN IVP Nausea & Vomiting 08/20/17 21:00 09/17/17 14:59 Pantoprazole (Protonix) 40 mg DAILY IVP 08/21/17 09:00 09/18/17 08:59 08/21/17 09:59 Polyethylene Glycol (Miralax) 17 gm DAILYPRN PRN ORAL Constipation 08/20/17 21:00 09/19/17 20:59 Potassium Chloride 40 meq/ Sodium Chloride 570 ml @ 142.5 mls/ hr ONCE ONCE IVPB 08/21/17 15:00 08/21/17 18:59 08/21/17 15:12 Sodium Chloride 1,000 ml @ 100 mls/hr Q10H IVLG 08/20/17 20:30 09/17/17 14:29 08/21/17 16:32 Sodium Phosphate 30 mm/Sodium Chloride 285 ml @ 47.5 mls/hr ONCE ONCE IV 08/21/17 18:00 08/21/17 23:59 Vancomycin HCl (Vanco rx to dose) 1 ea DAILY PRN MISC PER RX PROTOCOL 08/20/17 21:00 09/19/17 20:59 Vancomycin HCl (Vancomycin) 125 mg FOUR TIMES A DAY ORAL 08/20/17 21:00 08/25/17 14:04 08/21/17 13:43 Vancomycin HCl 500 mg/Dextrose 110 ml @ 110 mls/hr Q12H IVPB 08/21/17 06:00 08/24/17 17:59 08/21/17 08:14 Amelia John M.D. Aug 21, 2017 17:13
[2017-08-21] MEDS ORDERED: Sodium Phosphate 30 MM in NS 275 ML IV ONE (18:00)
--- NOTE | 2017-08-21 18:49 | Diagnostic Imaging Report ---
Indication: Reason For Exam: PAIN Technique: CT chest was performed utilizing automated exposure control without intravenous contrast material. Axial sagittal and coronal images were generated. CT dose: Total DLP 518.55 mGycm; CTDI vol 16.65 mGy Comparison: Correlation made to prior chest radiograph of 08/18/2018. Findings: Pulmonary fibrosis with peripheral reticular opacities and cystic change at the periphery and bases, where there are areas of cylindrical bronchiectasis and stacked cystic spaces compatible with honeycombing. The lung apices are somewhat spared. There are small bilateral pleural effusions. There is no pneumothorax. There are some areas of dense consolidation in the right lower lung and superimposed infection should be excluded clinically. The heart is enlarged. There are coronary arterial calcifications. Aortic valvular and mitral annular calcification is also seen. The main pulmonary artery is mildly enlarged, measuring 3.1 cm in diameter. Thoracic aorta is normal in caliber with mild atherosclerotic calcification. There are small mediastinal and hilar lymph nodes. There is a borderline enlarged calcified lymph node adjacent to the right mainstem bronchus which measures 9 mm in short axis. Thyroid is normal. There is mild perihepatic ascites and nodular contour of the liver most likely representing cirrhosis. There is unchanged distention of the gallbladder. There is mild mesenteric haziness/edema. Please see findings of CT of the abdomen 08/19/2017. IMPRESSION: * Pulmonary fibrosis with evidence of honeycombing. * More dense opacity in the right lower lobe may be related to confluent area of scarring however superimposed pneumonia should be excluded clinically. * Small bilateral pleural effusions. * Mild enlargement of the main pulmonary artery suggestive of pulmonary arterial hypertension. * Cardiomegaly with coronary arterial calcifications. * Small mediastinal adenopathy with a borderline enlarged calcified mediastinal lymph node. Findings are nonspecific. * Evidence of hepatic cirrhosis with ascites and gallbladder distention similar to CT of the abdomen and pelvis 08/19/2017. The CT scanner at [facility] is accredited by the [employer] and the scans are performed using protocols designed to limit radiation exposure to as low as reasonably achievable to attain images of sufficient resolution adequate for diagnostic evaluation.
[2017-08-21 20:00] VITALS: BP 105/63
[2017-08-21] MEDS: Dyna-Hex 2% Top Sol 2oz TOPIC SCH (20:54)
--- NOTE | 2017-08-21 21:29 | Wound Care Consultation ---
Wound Assessment Wound Assessment : Wound Number: 1 Wound Present on Admission: Yes New Wound: No Status Change of Wound: No Wound Location Body Site Modif: mid Wound Location Body Site: sacral Wound Type: pressure ulcer Gordon Test: Does not Gordon Pressure Ulcer Stage: II Wound Thickness: Partial Thickness Wound Length: 0.3 Wound Width: 0.3 Wound Depth: 0.1 Percent of Wound [place]/Red: 100 Wound Drainage Description: Serosanguineous Wound Drainage Amount: Scant Wound Drainage Odor: None/Absent Tissue Surrounding Wound: Erythemic Wound General Appearance: Reddened Wound Comment #1 Sacral stage II pressure ulcer Recommendation -Local wound care per protocol -Keep clean and dry -Optimize nutrition -Turn and reposition -Low air loss mattress -Heel protector on both heels -Offload both heels -Assess and f/u accordingly for any changes BERNARDO ANTONIO RN Aug 21, 2017 21:29
[2017-08-21] MEDS ORDERED: Vitamin A&D Oint 2oz Tube TOPIC SCH (21:45)
[2017-08-22] VITALS: BP 109/58
[2017-08-22 04:00] VITALS: BP 113/76
[2017-08-22 07:21] LABS: ALANINE AMINOTRANSFERASE 27 U/L (12-78); ALBUMIN 1.6 G/DL (3.4-5.0); ALBUMIN/GLOBULIN RATIO 0.8 (1.0-2.7); ALKALINE PHOSPHATASE 318 U/L (46-116); ANION GAP 9 mmol/L (5-15); ASPARTATE AMINO TRANSFERASE 25 U/L (15-37); BLOOD UREA NITROGEN 17 mg/dL (7-18); CALCIUM 7.2 MG/DL (8.5-10.1); CARBON DIOXIDE 18 MMOL/L (21-32); CHLORIDE 117 MMOL/L (98-107); CREATININE 0.7 MG/DL (0.55-1.30); PHOSPHORUS 3.3 MG/DL (2.5-4.9); POTASSIUM 3.5 MMOL/L (3.5-5.1); SODIUM 144 MMOL/L (136-145)
[2017-08-22 07:22] LABS: HEMATOCRIT 36.9 % (37.0-47.0); HEMOGLOBIN 12.1 G/DL (12.0-16.0); MEAN CORPUSCULAR VOLUME 112 FL (80-99); PLATELET COUNT 23 K/UL (150-450); RED BLOOD COUNT 3.29 M/UL (4.20-5.40); RED CELL DISTRIBUTION WIDTH 20.5 % (11.6-14.8); WHITE BLOOD COUNT 16.8 K/UL (4.8-10.8)
[2017-08-22 08:00] VITALS: BP 137/51
[2017-08-22] MEDS: Heparin 5000 units/ml inj SUBQ SCH ×2 (09:00→21:00)
[2017-08-22] MEDS ORDERED: Tubing IV Secondary IV ONE (09:10)
[2017-08-22] MEDS: Vancomycin oral 125mg/2.5ml ORAL SCH ×4 (09:39→21:24)
[2017-08-22] MEDS: Pantoprazole Inj IVP SCH (09:39)
[2017-08-22 12:00] VITALS: BP 114/68
--- NOTE | 2017-08-22 13:27 | Pulmonology Progress Note ---
Assessment/Plan Problems: (1) Septic shock (2) Colitis (3) Renal insufficiency Assessment/Plan advance diet improving wbc decreasing continue iv abx iv fluids check electrolytes dvt prophylaxis Subjective ROS Limited/Unobtainable: No Constitutional: Reports: no symptoms HEENT: Repors: no symptoms Respiratory: Reports: no symptoms Allergies: Coded Allergies: AMOXICILLIN (Verified Adverse Reaction, Severe, Rash, 08/18/17) Objective Last 24 Hour Vital Signs Date Time Temp Pulse Resp B/P (MAP) Pulse Ox O2 Delivery O2 Flow Rate FiO2 08/22/17 08:00 96.3 60 16 137/51 99 96.3 08/22/17 04:00 97.2 80 18 113/76 98 97.2 08/22/17 00:00 98.0 75 18 109/58 100 98.0 08/21/17 21:02 Nasal Cannula 2.0 28 08/21/17 21:02 82 18 Nasal Cannula 2.0 28 08/21/17 21:02 98 Nasal Cannula 2.0 28 08/21/17 20:00 97.2 69 19 105/63 100 97.2 08/21/17 16:00 97.4 75 20 100/20 95 Nasal Cannula 2.0 97.4 Intake and Output 08/21/17 08/22/17 19:00 07:00 Intake Total 1605.0 ml 47.5 ml Balance 1605.0 ml 47.5 ml Intake Oral 200 ml IV Total 1405.0 ml 47.5 ml # Voids 4 3 # Bowel Movements 5 4 General Appearance: WD/WN HEENT: normocephalic, atraumatic Respiratory/Chest: chest wall non-tender, lungs clear Breasts: no masses Cardiovascular: normal peripheral pulses, normal rate Genitourinary: normal external genitalia Extremities: no clubbing Skin: no rash Laboratory Tests 08/22/17 06:00: White Blood Count 16.8H, Red Blood Count 3.29L, Hemoglobin 12.1, Hematocrit 36.9L, Mean Corpuscular Volume 112H, Mean Corpuscular Hemoglobin 36.7H, Mean Corpuscular Hemoglobin Concent 32.7, Red Cell Distribution Width 20.5H, Platelet Count 23L, Mean Platelet Volume 14.4H, Neutrophils (%) (Auto) , Lymphocytes (%) (Auto) , Monocytes (%) (Auto) , Eosinophils (%) (Auto) , Basophils (%) (Auto) , Differential Total Cells Counted 100, Neutrophils % ( Manual) 65, Lymphocytes % (Manual) 18L, Monocytes % (Manual) 8, Eosinophils % ( Manual) 1, Basophils % (Manual) 0, Band Neutrophils 8, Platelet Estimate DecreasedL, Platelet Morphology Normal, Anisocytosis 2+, Macrocytosis 1+, Sodium Level 144, Potassium Level 3.5, Chloride Level 117H, Carbon Dioxide Level 18L, Anion Gap 9, Blood Urea Nitrogen 17, Creatinine 0.7, Estimat Glomerular Filtration Rate , Glucose Level 115H, Lactic Acid Level 1.40, Calcium Level 7.2L, Phosphorus Level 3.3, Magnesium Level 2.2, Total Bilirubin 1.0, Aspartate Amino Transf (AST/SGOT) 25, Alanine Aminotransferase (ALT/SGPT) 27, Alkaline Phosphatase 318H, Total Protein 3.7L, Albumin 1.6L, Globulin 2.1, Albumin/Globulin Ratio 0.8L Current Medications Medications (Trade) Dose Ordered Sig/Keri Route PRN Reason Start Time Stop Time Status Last Admin Dose Admin Acetaminophen (Tylenol) 650 mg Q4H PRN ORAL fever (temp>100.5F) 08/20/17 21:00 09/19/17 20:59 Albuterol/ Ipratropium (Albuterol/ Ipratropium) 3 ml Q4H PRN HHN Shortness of Breath 08/20/17 21:00 08/23/17 20:59 Chlorhexidine Gluconate (María-Hex 2%) 1 applic DAILY@2000 TOPIC 08/21/17 20:00 09/18/17 19:59 08/21/17 20:54 Heparin Sodium (Porcine) (Heparin 5000 units/ml) 5,000 units EVERY 12 HOURS SUBQ 08/21/17 09:00 09/20/17 08:59 Metronidazole 100 ml @ 100 mls/hr Q8HR IVPB 08/20/17 22:00 08/25/17 14:04 08/22/17 13:10 Morphine Sulfate (Morphine Sulfate) 2 mg Q4H PRN IVP Severe Pain (Pain Scale 7-10) 08/20/17 21:00 08/25/17 20:59 Ondansetron HCl (Zofran) 4 mg Q6H PRN IVP Nausea & Vomiting 08/20/17 21:00 09/17/17 14:59 Pantoprazole (Protonix) 40 mg DAILY IVP 08/21/17 09:00 09/18/17 08:59 08/22/17 09:39 Polyethylene Glycol (Miralax) 17 gm DAILYPRN PRN ORAL Constipation 08/20/17 21:00 09/19/17 20:59 Sodium Chloride 1,000 ml @ 100 mls/hr Q10H IVLG 08/20/17 20:30 09/17/17 14:29 08/22/17 13:11 Vancomycin HCl (Vancomycin) 125 mg FOUR TIMES A DAY ORAL 08/20/17 21:00 08/25/17 14:04 08/22/17 13:08 Vitamin A/Vitamin D (A & D Oint) 1 applic EVERY 12 HOURS TOPIC 08/21/17 21:45 09/20/17 21:44 Deng Morrow MD August 22, 2017 13:27
--- NOTE | 2017-08-22 15:11 | Infectious Diseases Prog Note ---
Assessment/Plan Assessment/Plan Assessment: Septic shock, SP Severe C Diff colitis -CT abd/p: Pancolitis. Chronic liver disease/cirrhosis. Moderate ascites. Distended gallbladder nonspecific. Severe lung fibrosis. Anasarca and mesenteric /retroperitoneal stranding. Right femoral line in good position. Degenerative changes of the spine and osteopenia. Atherosclerotic disease. KUB : Nonspecific bowel gas pattern Stool Cx : Neg ? Pneum, doubt Pulmonary fibrosis -CXR: BL Extensive basilar infiltrates - component of fibrosis and chronic lung disease -CT chest : Pulmonary fibrosis with evidence of honeycombing. More dense opacity in the right lower lobe may be related to confluent area of scarring however superimposed pneumonia should be excluded clinically. Small bilateral pleural effusions. Mild enlargement of the main pulmonary artery suggestive of pulmonary arterial hypertension. Cardiomegaly with coronary arterial calcifications. Small mediastinal adenopathy with a borderline enlarged calcified mediastinal lymph node. Findings are nonspecific.Evidence of hepatic cirrhosis with ascites and gallbladder distention similar to CT of the abdomen and pelvis 08/19/2017. Recent PNA, still having productive cough Leukocytosis/bandemia; improving Afebrile Lactic acidosis, resolved EDDI HTN Plan: -Continue PO Vancomycin 125mg qid and IV Flagyl 500mg q8h d# 09/04 for severe Cdiff; upon discharge PO Vancomycin to complete course -if not ongong significant diarrhea, will do Fidaxomicin instead -08/21 SP IV vanco and Aztreonam #4 -Montior CBC/BMP, temperatures -Aspiration precautions Discussed with RN and Dr Blank Subjective Allergies: Coded Allergies: AMOXICILLIN (Verified Adverse Reaction, Severe, Rash, 08/18/17) Subjective afebrile at 2l NC leukocytosis improving Bcx NTD Objective Vital Signs Last 24 Hour Vital Signs Date Time Temp Pulse Resp B/P (MAP) Pulse Ox O2 Delivery O2 Flow Rate FiO2 08/22/17 13:32 80 18 Nasal Cannula 2.0 28 08/22/17 13:32 100 Nasal Cannula 2.0 28 08/22/17 13:32 Nasal Cannula 2.0 28 08/22/17 12:00 97.3 90 20 114/68 100 97.3 08/22/17 08:00 96.3 60 16 137/51 99 96.3 08/22/17 04:00 97.2 80 18 113/76 98 97.2 08/22/17 00:00 98.0 75 18 109/58 100 98.0 08/21/17 21:02 Nasal Cannula 2.0 28 08/21/17 21:02 82 18 Nasal Cannula 2.0 28 08/21/17 21:02 98 Nasal Cannula 2.0 28 08/21/17 20:00 97.2 69 19 105/63 100 97.2 08/21/17 16:00 97.4 75 20 100/20 95 Nasal Cannula 2.0 97.4 Height (Feet): 5 Height (Inches): 0.00 Weight (Pounds): 137 Objective General Appearance: no apparent distress, alert non-toxic, thin Head: normocephalic, atraumatic Eyes: bilateral eye normal inspection, bilateral eye PERRL ENT: hearing grossly normal, normal pharynx, no angioedema, normal voice Neck: full range of motion, supple/symm/no masses Respiratory: chest non-tender, lungs clear, normal breath sounds, speaking full sentences Cardiovascular #1: regular rate, rhythm, no edema Gastrointestinal: normal bowel sounds, non tender, soft, non-distended, no guarding, no rebound Genitourinary: normal inspection, no CVA tenderness Musculoskeletal: back normal, gait/station normal, normal range of motion, non- tender Skin: normal color, no rash, warm/dry, well hydrated Laboratory Tests Test 08/22/17 06:00 White Blood Count 16.8 K/UL (4.8-10.8) H Red Blood Count 3.29 M/UL (4.20-5.40) L Hemoglobin 12.1 G/DL (12.0-16.0) Hematocrit 36.9 % (37.0-47.0) L Mean Corpuscular Volume 112 FL (80-99) H Mean Corpuscular Hemoglobin 36.7 PG (27.0-31.0) H Mean Corpuscular Hemoglobin Concent 32.7 G/DL (32.0-36.0) Red Cell Distribution Width 20.5 % (11.6-14.8) H Platelet Count 23 K/UL (150-450) L Mean Platelet Volume 14.4 FL (6.5-10.1) H Neutrophils (%) (Auto) % (45.0-75.0) Lymphocytes (%) (Auto) % (20.0-45.0) Monocytes (%) (Auto) % (1.0-10.0) Eosinophils (%) (Auto) % (0.0-3.0) Basophils (%) (Auto) % (0.0-2.0) Differential Total Cells Counted 100 Neutrophils % (Manual) 65 % (45-75) Lymphocytes % (Manual) 18 % (20-45) L Monocytes % (Manual) 8 % (1-10) Eosinophils % (Manual) 1 % (0-3) Basophils % (Manual) 0 % (0-2) Band Neutrophils 8 % (0-8) Platelet Estimate Decreased L Platelet Morphology Normal Anisocytosis 2+ Macrocytosis 1+ Sodium Level 144 MMOL/L (136-145) Potassium Level 3.5 MMOL/L (3.5-5.1) Chloride Level 117 MMOL/L (98-107) H Carbon Dioxide Level 18 MMOL/L (21-32) L Anion Gap 9 mmol/L (5-15) Blood Urea Nitrogen 17 mg/dL (7-18) Creatinine 0.7 MG/DL (0.55-1.30) Estimat Glomerular Filtration Rate mL/min (>60) Glucose Level 115 MG/DL (74-106) H Lactic Acid Level 1.40 mmol/L (0.66-2.22) Calcium Level 7.2 MG/DL (8.5-10.1) L Phosphorus Level 3.3 MG/DL (2.5-4.9) Magnesium Level 2.2 MG/DL (1.8-2.4) Total Bilirubin 1.0 MG/DL (0.2-1.0) Aspartate Amino Transf (AST/SGOT) 25 U/L (15-37) Alanine Aminotransferase (ALT/SGPT) 27 U/L (12-78) Alkaline Phosphatase 318 U/L (46-116) H Total Protein 3.7 G/DL (6.4-8.2) L Albumin 1.6 G/DL (3.4-5.0) L Globulin 2.1 g/dL Albumin/Globulin Ratio 0.8 (1.0-2.7) L Current Medications Medications (Trade) Dose Ordered Sig/Keri Route PRN Reason Start Time Stop Time Status Last Admin Dose Admin Acetaminophen (Tylenol) 650 mg Q4H PRN ORAL fever (temp>100.5F) 08/20/17 21:00 09/19/17 20:59 Albuterol/ Ipratropium (Albuterol/ Ipratropium) 3 ml Q4H PRN HHN Shortness of Breath 08/20/17 21:00 08/23/17 20:59 Chlorhexidine Gluconate (María-Hex 2%) 1 applic DAILY@2000 TOPIC 08/21/17 20:00 09/18/17 19:59 08/21/17 20:54 Heparin Sodium (Porcine) (Heparin 5000 units/ml) 5,000 units EVERY 12 HOURS SUBQ 08/21/17 09:00 09/20/17 08:59 Metronidazole 100 ml @ 100 mls/hr Q8HR IVPB 08/20/17 22:00 08/25/17 14:04 08/22/17 13:10 Morphine Sulfate (Morphine Sulfate) 2 mg Q4H PRN IVP Severe Pain (Pain Scale 7-10) 08/20/17 21:00 08/25/17 20:59 Ondansetron HCl (Zofran) 4 mg Q6H PRN IVP Nausea & Vomiting 08/20/17 21:00 09/17/17 14:59 Pantoprazole (Protonix) 40 mg DAILY IVP 08/21/17 09:00 09/18/17 08:59 08/22/17 09:39 Polyethylene Glycol (Miralax) 17 gm DAILYPRN PRN ORAL Constipation 08/20/17 21:00 09/19/17 20:59 Sodium Chloride 1,000 ml @ 100 mls/hr Q10H IVLG 08/20/17 20:30 09/17/17 14:29 08/22/17 13:11 Vancomycin HCl (Vancomycin) 125 mg FOUR TIMES A DAY ORAL 08/20/17 21:00 08/25/17 14:04 08/22/17 13:08 Vitamin A/Vitamin D (A & D Oint) 1 applic EVERY 12 HOURS TOPIC 08/21/17 21:45 09/20/17 21:44 Amelia Huitron M.D. August 22, 2017 15:11
--- NOTE | 2017-08-22 15:33 | Cardiac Electrophysiology PN ---
Assessment/Plan Assessment/Plan 1. S/P septic shock. WBC down to 16 K today. On broad-spectrum intravenous antibiotics per ID Echocardiogram EF 65% and no evidence of endocarditis 2. Hypokalemia 3. BNP of more than 10,000. Echocardiogram Nl EF. 4. WBC more than 30K. ? due to C Diff. Improved. AUBREY RN Subjective Subjective No CP or SOB. In isolation for C Diff. Objective Last 24 Hour Vital Signs Date Time Temp Pulse Resp B/P (MAP) Pulse Ox O2 Delivery O2 Flow Rate FiO2 08/22/17 13:32 80 18 Nasal Cannula 2.0 28 08/22/17 13:32 100 Nasal Cannula 2.0 28 08/22/17 13:32 Nasal Cannula 2.0 28 08/22/17 12:00 97.3 90 20 114/68 100 97.3 08/22/17 08:00 96.3 60 16 137/51 99 96.3 08/22/17 04:00 97.2 80 18 113/76 98 97.2 08/22/17 00:00 98.0 75 18 109/58 100 98.0 08/21/17 21:02 Nasal Cannula 2.0 28 08/21/17 21:02 82 18 Nasal Cannula 2.0 28 08/21/17 21:02 98 Nasal Cannula 2.0 28 08/21/17 20:00 97.2 69 19 105/63 100 97.2 08/21/17 16:00 97.4 75 20 100/20 95 Nasal Cannula 2.0 97.4 Intake and Output 08/21/17 08/22/17 19:00 07:00 Intake Total 1605.0 ml 47.5 ml Balance 1605.0 ml 47.5 ml Intake Oral 200 ml IV Total 1405.0 ml 47.5 ml # Voids 4 3 # Bowel Movements 5 4 Laboratory Tests Test 08/22/17 06:00 White Blood Count 16.8 K/UL (4.8-10.8) H Red Blood Count 3.29 M/UL (4.20-5.40) L Hemoglobin 12.1 G/DL (12.0-16.0) Hematocrit 36.9 % (37.0-47.0) L Mean Corpuscular Volume 112 FL (80-99) H Mean Corpuscular Hemoglobin 36.7 PG (27.0-31.0) H Mean Corpuscular Hemoglobin Concent 32.7 G/DL (32.0-36.0) Red Cell Distribution Width 20.5 % (11.6-14.8) H Platelet Count 23 K/UL (150-450) L Mean Platelet Volume 14.4 FL (6.5-10.1) H Neutrophils (%) (Auto) % (45.0-75.0) Lymphocytes (%) (Auto) % (20.0-45.0) Monocytes (%) (Auto) % (1.0-10.0) Eosinophils (%) (Auto) % (0.0-3.0) Basophils (%) (Auto) % (0.0-2.0) Differential Total Cells Counted 100 Neutrophils % (Manual) 65 % (45-75) Lymphocytes % (Manual) 18 % (20-45) L Monocytes % (Manual) 8 % (1-10) Eosinophils % (Manual) 1 % (0-3) Basophils % (Manual) 0 % (0-2) Band Neutrophils 8 % (0-8) Platelet Estimate Decreased L Platelet Morphology Normal Anisocytosis 2+ Macrocytosis 1+ Sodium Level 144 MMOL/L (136-145) Potassium Level 3.5 MMOL/L (3.5-5.1) Chloride Level 117 MMOL/L (98-107) H Carbon Dioxide Level 18 MMOL/L (21-32) L Anion Gap 9 mmol/L (5-15) Blood Urea Nitrogen 17 mg/dL (7-18) Creatinine 0.7 MG/DL (0.55-1.30) Estimat Glomerular Filtration Rate mL/min (>60) Glucose Level 115 MG/DL (74-106) H Lactic Acid Level 1.40 mmol/L (0.66-2.22) Calcium Level 7.2 MG/DL (8.5-10.1) L Phosphorus Level 3.3 MG/DL (2.5-4.9) Magnesium Level 2.2 MG/DL (1.8-2.4) Total Bilirubin 1.0 MG/DL (0.2-1.0) Aspartate Amino Transf (AST/SGOT) 25 U/L (15-37) Alanine Aminotransferase (ALT/SGPT) 27 U/L (12-78) Alkaline Phosphatase 318 U/L (46-116) H Total Protein 3.7 G/DL (6.4-8.2) L Albumin 1.6 G/DL (3.4-5.0) L Globulin 2.1 g/dL Albumin/Globulin Ratio 0.8 (1.0-2.7) L Objective HEENT: No JVD. LUNGS: Clear CARDIOVASCULAR: Regular S1 and S2 with no gallop. ABDOMEN: Soft. EXTREMITIES: No edema. Quinn Lam MD August 22, 2017 15:33
[2017-08-22 16:00] VITALS: BP 124/73
--- NOTE | 2017-08-22 17:44 | General Progress Note ---
Assessment/Plan Status: stable Assessment/Plan 1. Septic shock seconary to severe C-diff colitis 2. severe C-diff colitis 3. Acute renal failure. 4. Dehydration. 5. Gastrointestinal and deep vein thrombosis prophylaxis. 6. Pulmonary infiltrate: infection !? 7. VRE- Rectum Plan: Current Abx coverage discussed with ID. Will switch to PO at discharge will benefit from SNIF placement Subjective ROS Limited/Unobtainable: No HEENT: Reports: no symptoms Cardiovascular: Reports: no symptoms Allergies: Coded Allergies: AMOXICILLIN (Verified Adverse Reaction, Severe, Rash, 08/18/17) Objective Last 24 Hour Vital Signs Date Time Temp Pulse Resp B/P (MAP) Pulse Ox O2 Delivery O2 Flow Rate FiO2 08/22/17 16:00 98.0 66 20 124/73 99 Nasal Cannula 3.0 98.0 08/22/17 13:32 80 18 Nasal Cannula 2.0 28 08/22/17 13:32 100 Nasal Cannula 2.0 28 08/22/17 13:32 Nasal Cannula 2.0 28 08/22/17 12:00 97.3 90 20 114/68 100 97.3 08/22/17 08:00 96.3 60 16 137/51 99 96.3 08/22/17 04:00 97.2 80 18 113/76 98 97.2 08/22/17 00:00 98.0 75 18 109/58 100 98.0 08/21/17 21:02 Nasal Cannula 2.0 28 08/21/17 21:02 82 18 Nasal Cannula 2.0 28 08/21/17 21:02 98 Nasal Cannula 2.0 28 08/21/17 20:00 97.2 69 19 105/63 100 97.2 Intake and Output 08/21/17 08/22/17 19:00 07:00 Intake Total 1605.0 ml 47.5 ml Balance 1605.0 ml 47.5 ml Intake Oral 200 ml IV Total 1405.0 ml 47.5 ml # Voids 4 3 # Bowel Movements 5 4 Laboratory Tests 08/22/17 06:00: White Blood Count 16.8H, Red Blood Count 3.29L, Hemoglobin 12.1, Hematocrit 36.9L, Mean Corpuscular Volume 112H, Mean Corpuscular Hemoglobin 36.7H, Mean Corpuscular Hemoglobin Concent 32.7, Red Cell Distribution Width 20.5H, Platelet Count 23L, Mean Platelet Volume 14.4H, Neutrophils (%) (Auto) , Lymphocytes (%) (Auto) , Monocytes (%) (Auto) , Eosinophils (%) (Auto) , Basophils (%) (Auto) , Differential Total Cells Counted 100, Neutrophils % ( Manual) 65, Lymphocytes % (Manual) 18L, Monocytes % (Manual) 8, Eosinophils % ( Manual) 1, Basophils % (Manual) 0, Band Neutrophils 8, Platelet Estimate DecreasedL, Platelet Morphology Normal, Anisocytosis 2+, Macrocytosis 1+, Sodium Level 144, Potassium Level 3.5, Chloride Level 117H, Carbon Dioxide Level 18L, Anion Gap 9, Blood Urea Nitrogen 17, Creatinine 0.7, Estimat Glomerular Filtration Rate , Glucose Level 115H, Lactic Acid Level 1.40, Calcium Level 7.2L, Phosphorus Level 3.3, Magnesium Level 2.2, Total Bilirubin 1.0, Aspartate Amino Transf (AST/SGOT) 25, Alanine Aminotransferase (ALT/SGPT) 27, Alkaline Phosphatase 318H, Total Protein 3.7L, Albumin 1.6L, Globulin 2.1, Albumin/Globulin Ratio 0.8L Height (Feet): 5 Height (Inches): 0.00 Weight (Pounds): 137 General Appearance: WD/WN EENT: PERRL/EOMI Neck: supple Cardiovascular: normal rate Respiratory/Chest: lungs clear Abdomen: soft Extremities: non-tender, other - atrophied musculature 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
[2017-08-22 20:00] VITALS: BP 113/60
[2017-08-22] MEDS: Vitamin A&D Oint 2oz Tube TOPIC SCH ×2 (21:24→21:29)
[2017-08-22] MEDS: Dyna-Hex 2% Top Sol 2oz TOPIC SCH (21:24)
[2017-08-23] VITALS (7 sets, daily range): BP systolic 110–134; BP diastolic 66–75
[2017-08-23 07:01] LABS: HEMATOCRIT 34.7 % (37.0-47.0); HEMOGLOBIN 11.5 G/DL (12.0-16.0); MEAN CORPUSCULAR VOLUME 111 FL (80-99); PLATELET COUNT 20 K/UL (150-450); RED BLOOD COUNT 3.11 M/UL (4.20-5.40); RED CELL DISTRIBUTION WIDTH 20.1 % (11.6-14.8); WHITE BLOOD COUNT 16.5 K/UL (4.8-10.8)
[2017-08-23 07:11] LABS: ALBUMIN 1.5 G/DL (3.4-5.0); ALBUMIN/GLOBULIN RATIO 0.8 (1.0-2.7); ALKALINE PHOSPHATASE 293 U/L (46-116); ANION GAP 8 mmol/L (5-15); ASPARTATE AMINO TRANSFERASE 21 U/L (15-37); BLOOD UREA NITROGEN 9 mg/dL (7-18); CALCIUM 6.8 MG/DL (8.5-10.1); CARBON DIOXIDE 19 MMOL/L (21-32); CHLORIDE 118 MMOL/L (98-107); CREATININE 0.6 MG/DL (0.55-1.30); PHOSPHORUS 2.9 MG/DL (2.5-4.9); POTASSIUM 3.2 MMOL/L (3.5-5.1); SODIUM 145 MMOL/L (136-145)
[2017-08-23] MEDS: Vancomycin oral 125mg/2.5ml ORAL SCH ×4 (08:10→20:42)
[2017-08-23] MEDS: Pantoprazole Inj IVP SCH (08:10)
[2017-08-23] MEDS: Heparin 5000 units/ml inj SUBQ SCH ×2 (08:12→20:42)
[2017-08-23] MEDS: Vitamin A&D Oint 2oz Tube TOPIC SCH ×2 (08:41→20:43)
[2017-08-23 08:46] LABS: ALANINE AMINOTRANSFERASE 22 U/L (12-78)
--- NOTE | 2017-08-23 14:27 | Pulmonology Progress Note ---
Assessment/Plan Problems: (1) Septic shock (2) Colitis (3) Renal insufficiency Assessment/Plan w advance diet improving wbc decreasing but still elevated continue iv abx iv fluids check electrolytes dvt prophylaxis Subjective ROS Limited/Unobtainable: No Constitutional: Reports: no symptoms HEENT: Repors: no symptoms Respiratory: Reports: no symptoms Allergies: Coded Allergies: AMOXICILLIN (Verified Adverse Reaction, Severe, Rash, 08/18/17) Objective Last 24 Hour Vital Signs Date Time Temp Pulse Resp B/P (MAP) Pulse Ox O2 Delivery O2 Flow Rate FiO2 08/23/17 08:00 97.4 90 14 110/66 100 Nasal Cannula 3.0 97.4 08/23/17 07:25 80 18 Nasal Cannula 2.0 28 08/23/17 07:25 Nasal Cannula 2.0 28 08/23/17 07:25 98 Nasal Cannula 2.0 28 08/23/17 04:00 97.1 87 18 134/73 100 97.1 08/23/17 00:00 97.2 76 18 120/73 100 97.2 08/22/17 20:00 97.4 68 18 113/60 99 97.4 08/22/17 19:58 Nasal Cannula 2.0 28 08/22/17 19:57 81 18 Nasal Cannula 2.0 28 08/22/17 19:57 99 Nasal Cannula 2.0 28 08/22/17 16:00 98.0 66 20 124/73 99 Nasal Cannula 3.0 98.0 Intake and Output 08/22/17 08/23/17 19:00 07:00 Intake Total 420 ml 1200 ml Balance 420 ml 1200 ml Intake Oral 320 ml IV Total 100 ml 1200 ml # Voids 4 # Bowel Movements 3 1 General Appearance: WD/WN HEENT: normocephalic, atraumatic Respiratory/Chest: chest wall non-tender, lungs clear Breasts: no masses Cardiovascular: normal peripheral pulses Abdomen: normal bowel sounds, soft, non tender Genitourinary: normal external genitalia Extremities: no clubbing Neurologic/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: 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 II-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 grossly normal, oriented x 3 Laboratory Tests 08/23/17 06:00: White Blood Count 16.5H, Red Blood Count 3.11L, Hemoglobin 11.5L, Hematocrit 34.7L, Mean Corpuscular Volume 111H, Mean Corpuscular Hemoglobin 36.9H, Mean Corpuscular Hemoglobin Concent 33.1, Red Cell Distribution Width 20.1H, Platelet Count 20L, Mean Platelet Volume 14.4H, Neutrophils (%) (Auto) , Lymphocytes (%) (Auto) , Monocytes (%) (Auto) , Eosinophils (%) (Auto) , Basophils (%) (Auto) , Differential Total Cells Counted 100, Neutrophils % ( Manual) 65, Lymphocytes % (Manual) 10L, Monocytes % (Manual) 8, Eosinophils % ( Manual) 8H, Basophils % (Manual) 1, Metamyelocytes % 1H, Myelocytes % 1H, Band Neutrophils 6, Platelet Estimate DecreasedL, Platelet Morphology Normal, Sodium Level 145, Potassium Level 3.2L, Chloride Level 118H, Carbon Dioxide Level 19L, Anion Gap 8, Blood Urea Nitrogen 9, Creatinine 0.6, Estimat Glomerular Filtration Rate , Glucose Level 130H, Calcium Level 6.8L, Phosphorus Level 2.9, Magnesium Level 1.8, Total Bilirubin 1.0, Aspartate Amino Transf (AST/SGOT) 21, Alanine Aminotransferase (ALT/SGPT) 22, Alkaline Phosphatase 293H, Total Protein 3.5L, Albumin 1.5L, Globulin 2.0, Albumin/Globulin Ratio 0.8L Current Medications Medications (Trade) Dose Ordered Sig/Keri Route PRN Reason Start Time Stop Time Status Last Admin Dose Admin Acetaminophen (Tylenol) 650 mg Q4H PRN ORAL fever (temp>100.5F) 08/20/17 21:00 09/19/17 20:59 Albuterol/ Ipratropium (Albuterol/ Ipratropium) 3 ml Q4H PRN HHN Shortness of Breath 08/20/17 21:00 08/23/17 20:59 Chlorhexidine Gluconate (María-Hex 2%) 1 applic DAILY@2000 TOPIC 08/21/17 20:00 09/18/17 19:59 08/22/17 21:24 Heparin Sodium (Porcine) (Heparin 5000 units/ml) 5,000 units EVERY 12 HOURS SUBQ 08/21/17 09:00 09/20/17 08:59 Metronidazole 100 ml @ 100 mls/hr Q8HR IVPB 08/20/17 22:00 08/25/17 14:04 08/23/17 06:06 Morphine Sulfate (Morphine Sulfate) 2 mg Q4H PRN IVP Severe Pain (Pain Scale 7-10) 08/20/17 21:00 08/25/17 20:59 Ondansetron HCl (Zofran) 4 mg Q6H PRN IVP Nausea & Vomiting 08/20/17 21:00 09/17/17 14:59 Pantoprazole (Protonix) 40 mg DAILY IVP 08/21/17 09:00 09/18/17 08:59 08/23/17 08:10 Polyethylene Glycol (Miralax) 17 gm DAILYPRN PRN ORAL Constipation 08/20/17 21:00 09/19/17 20:59 Sodium Chloride 1,000 ml @ 100 mls/hr Q10H IVLG 08/20/17 20:30 09/17/17 14:29 08/23/17 08:12 Vancomycin HCl (Vancomycin) 125 mg FOUR TIMES A DAY ORAL 08/20/17 21:00 08/25/17 14:04 08/23/17 12:36 Vitamin A/Vitamin D (A & D Oint) 1 applic EVERY 12 HOURS TOPIC 08/22/17 20:00 09/21/17 19:59 08/23/17 08:41 Deng Tsang MD August 23, 2017 14:27
--- NOTE | 2017-08-23 14:48 | Cardiac Electrophysiology PN ---
Assessment/Plan Assessment/Plan 1. S/P septic shock. WBC down to 16 K today. On broad-spectrum intravenous antibiotics per ID Echocardiogram EF 65% and no evidence of endocarditis 2. Hypokalemia 3. BNP of more than 10,000. Echocardiogram Nl EF. 4. WBC more than 30K due to C Diff. Improved. AUBRYE RN SNIF placement Subjective Subjective No CP or SOB. In isolation for C Diff. Awaiting SNIF Objective Last 24 Hour Vital Signs Date Time Temp Pulse Resp B/P (MAP) Pulse Ox O2 Delivery O2 Flow Rate FiO2 08/23/17 08:00 97.4 90 14 110/66 100 Nasal Cannula 3.0 97.4 08/23/17 07:25 80 18 Nasal Cannula 2.0 28 08/23/17 07:25 Nasal Cannula 2.0 28 08/23/17 07:25 98 Nasal Cannula 2.0 28 08/23/17 04:00 97.1 87 18 134/73 100 97.1 08/23/17 00:00 97.2 76 18 120/73 100 97.2 08/22/17 20:00 97.4 68 18 113/60 99 97.4 08/22/17 19:58 Nasal Cannula 2.0 28 08/22/17 19:57 81 18 Nasal Cannula 2.0 28 08/22/17 19:57 99 Nasal Cannula 2.0 28 08/22/17 16:00 98.0 66 20 124/73 99 Nasal Cannula 3.0 98.0 Intake and Output 08/22/17 08/23/17 19:00 07:00 Intake Total 420 ml 1200 ml Balance 420 ml 1200 ml Intake Oral 320 ml IV Total 100 ml 1200 ml # Voids 4 # Bowel Movements 3 1 Laboratory Tests Test 08/23/17 06:00 White Blood Count 16.5 K/UL (4.8-10.8) H Red Blood Count 3.11 M/UL (4.20-5.40) L Hemoglobin 11.5 G/DL (12.0-16.0) L Hematocrit 34.7 % (37.0-47.0) L Mean Corpuscular Volume 111 FL (80-99) H Mean Corpuscular Hemoglobin 36.9 PG (27.0-31.0) H Mean Corpuscular Hemoglobin Concent 33.1 G/DL (32.0-36.0) Red Cell Distribution Width 20.1 % (11.6-14.8) H Platelet Count 20 K/UL (150-450) L Mean Platelet Volume 14.4 FL (6.5-10.1) H Neutrophils (%) (Auto) % (45.0-75.0) Lymphocytes (%) (Auto) % (20.0-45.0) Monocytes (%) (Auto) % (1.0-10.0) Eosinophils (%) (Auto) % (0.0-3.0) Basophils (%) (Auto) % (0.0-2.0) Differential Total Cells Counted 100 Neutrophils % (Manual) 65 % (45-75) Lymphocytes % (Manual) 10 % (20-45) L Monocytes % (Manual) 8 % (1-10) Eosinophils % (Manual) 8 % (0-3) H Basophils % (Manual) 1 % (0-2) Metamyelocytes % 1 % (0-0) H Myelocytes % 1 % (0-0) H Band Neutrophils 6 % (0-8) Platelet Estimate Decreased L Platelet Morphology Normal Sodium Level 145 MMOL/L (136-145) Potassium Level 3.2 MMOL/L (3.5-5.1) L Chloride Level 118 MMOL/L (98-107) H Carbon Dioxide Level 19 MMOL/L (21-32) L Anion Gap 8 mmol/L (5-15) Blood Urea Nitrogen 9 mg/dL (7-18) Creatinine 0.6 MG/DL (0.55-1.30) Estimat Glomerular Filtration Rate mL/min (>60) Glucose Level 130 MG/DL (74-106) H Calcium Level 6.8 MG/DL (8.5-10.1) L Phosphorus Level 2.9 MG/DL (2.5-4.9) Magnesium Level 1.8 MG/DL (1.8-2.4) Total Bilirubin 1.0 MG/DL (0.2-1.0) Aspartate Amino Transf (AST/SGOT) 21 U/L (15-37) Alanine Aminotransferase (ALT/SGPT) 22 U/L (12-78) Alkaline Phosphatase 293 U/L (46-116) H Total Protein 3.5 G/DL (6.4-8.2) L Albumin 1.5 G/DL (3.4-5.0) L Globulin 2.0 g/dL Albumin/Globulin Ratio 0.8 (1.0-2.7) L Objective HEENT: No JVD. LUNGS: Clear CARDIOVASCULAR: Regular S1 and S2 with no gallop. ABDOMEN: Soft. EXTREMITIES: No edema. Quinn Lam MD August 23, 2017 14:48
--- NOTE | 2017-08-23 16:07 | Infectious Diseases Prog Note ---
Assessment/Plan Assessment/Plan Assessment: Septic shock, SP Severe C Diff colitis -CT abd/p: Pancolitis. Chronic liver disease/cirrhosis. Moderate ascites. Distended gallbladder nonspecific. Severe lung fibrosis. Anasarca and mesenteric /retroperitoneal stranding. Right femoral line in good position. Degenerative changes of the spine and osteopenia. Atherosclerotic disease. KUB : Nonspecific bowel gas pattern Stool Cx : Neg ? Pneum, doubt Pulmonary fibrosis -CXR: BL Extensive basilar infiltrates - component of fibrosis and chronic lung disease -CT chest : Pulmonary fibrosis with evidence of honeycombing. More dense opacity in the right lower lobe may be related to confluent area of scarring however superimposed pneumonia should be excluded clinically. Small bilateral pleural effusions. Mild enlargement of the main pulmonary artery suggestive of pulmonary arterial hypertension. Cardiomegaly with coronary arterial calcifications. Small mediastinal adenopathy with a borderline enlarged calcified mediastinal lymph node. Findings are nonspecific.Evidence of hepatic cirrhosis with ascites and gallbladder distention similar to CT of the abdomen and pelvis 08/19/2017. Recent PNA, still having productive cough Leukocytosis/bandemia; improving Afebrile Lactic acidosis, resolved EDDI HTN Plan: -Continue PO Vancomycin 125mg qid and IV Flagyl 500mg q8h d# 10/05 for severe Cdiff; upon discharge PO Vancomycin to complete course -if not ongoing significant diarrhea, will do Fidaxomicin instead -08/21 SP IV vanco and Aztreonam #4 -Montior CBC/BMP, temperatures -Aspiration precautions Discussed with RN Subjective Allergies: Coded Allergies: AMOXICILLIN (Verified Adverse Reaction, Severe, Rash, 08/18/17) Subjective afebrile at 2l NC leukocytosis overall improved, now stable at 16 Bcx NTD Objective Vital Signs Last 24 Hour Vital Signs Date Time Temp Pulse Resp B/P (MAP) Pulse Ox O2 Delivery O2 Flow Rate FiO2 08/23/17 12:00 97.6 93 18 134/75 100 Nasal Cannula 3.0 97.6 08/23/17 08:00 97.4 90 14 110/66 100 Nasal Cannula 3.0 97.4 08/23/17 07:25 80 18 Nasal Cannula 2.0 28 08/23/17 07:25 Nasal Cannula 2.0 28 08/23/17 07:25 98 Nasal Cannula 2.0 28 08/23/17 04:00 97.1 87 18 134/73 100 97.1 08/23/17 00:00 97.2 76 18 120/73 100 97.2 08/22/17 20:00 97.4 68 18 113/60 99 97.4 08/22/17 19:58 Nasal Cannula 2.0 28 08/22/17 19:57 81 18 Nasal Cannula 2.0 28 08/22/17 19:57 99 Nasal Cannula 2.0 28 Height (Feet): 5 Height (Inches): 0.00 Weight (Pounds): 145 Objective General Appearance: no apparent distress, alert non-toxic, thin Head: normocephalic, atraumatic Eyes: bilateral eye normal inspection, bilateral eye PERRL ENT: hearing grossly normal, normal pharynx, no angioedema, normal voice Neck: full range of motion, supple/symm/no masses Respiratory: chest non-tender, lungs clear, normal breath sounds, speaking full sentences Cardiovascular #1: regular rate, rhythm, no edema Gastrointestinal: normal bowel sounds, non tender, soft, non-distended, no guarding, no rebound Genitourinary: normal inspection, no CVA tenderness Musculoskeletal: back normal, gait/station normal, normal range of motion, non- tender Skin: normal color, no rash, warm/dry, well hydrated Laboratory Tests Test 08/23/17 06:00 White Blood Count 16.5 K/UL (4.8-10.8) H Red Blood Count 3.11 M/UL (4.20-5.40) L Hemoglobin 11.5 G/DL (12.0-16.0) L Hematocrit 34.7 % (37.0-47.0) L Mean Corpuscular Volume 111 FL (80-99) H Mean Corpuscular Hemoglobin 36.9 PG (27.0-31.0) H Mean Corpuscular Hemoglobin Concent 33.1 G/DL (32.0-36.0) Red Cell Distribution Width 20.1 % (11.6-14.8) H Platelet Count 20 K/UL (150-450) L Mean Platelet Volume 14.4 FL (6.5-10.1) H Neutrophils (%) (Auto) % (45.0-75.0) Lymphocytes (%) (Auto) % (20.0-45.0) Monocytes (%) (Auto) % (1.0-10.0) Eosinophils (%) (Auto) % (0.0-3.0) Basophils (%) (Auto) % (0.0-2.0) Differential Total Cells Counted 100 Neutrophils % (Manual) 65 % (45-75) Lymphocytes % (Manual) 10 % (20-45) L Monocytes % (Manual) 8 % (1-10) Eosinophils % (Manual) 8 % (0-3) H Basophils % (Manual) 1 % (0-2) Metamyelocytes % 1 % (0-0) H Myelocytes % 1 % (0-0) H Band Neutrophils 6 % (0-8) Platelet Estimate Decreased L Platelet Morphology Normal Sodium Level 145 MMOL/L (136-145) Potassium Level 3.2 MMOL/L (3.5-5.1) L Chloride Level 118 MMOL/L (98-107) H Carbon Dioxide Level 19 MMOL/L (21-32) L Anion Gap 8 mmol/L (5-15) Blood Urea Nitrogen 9 mg/dL (7-18) Creatinine 0.6 MG/DL (0.55-1.30) Estimat Glomerular Filtration Rate mL/min (>60) Glucose Level 130 MG/DL (74-106) H Calcium Level 6.8 MG/DL (8.5-10.1) L Phosphorus Level 2.9 MG/DL (2.5-4.9) Magnesium Level 1.8 MG/DL (1.8-2.4) Total Bilirubin 1.0 MG/DL (0.2-1.0) Aspartate Amino Transf (AST/SGOT) 21 U/L (15-37) Alanine Aminotransferase (ALT/SGPT) 22 U/L (12-78) Alkaline Phosphatase 293 U/L (46-116) H Total Protein 3.5 G/DL (6.4-8.2) L Albumin 1.5 G/DL (3.4-5.0) L Globulin 2.0 g/dL Albumin/Globulin Ratio 0.8 (1.0-2.7) L Current Medications Medications (Trade) Dose Ordered Sig/Keri Route PRN Reason Start Time Stop Time Status Last Admin Dose Admin Acetaminophen (Tylenol) 650 mg Q4H PRN ORAL fever (temp>100.5F) 08/20/17 21:00 09/19/17 20:59 Albuterol/ Ipratropium (Albuterol/ Ipratropium) 3 ml Q4H PRN HHN Shortness of Breath 08/20/17 21:00 08/23/17 20:59 Chlorhexidine Gluconate (María-Hex 2%) 1 applic DAILY@2000 TOPIC 08/21/17 20:00 09/18/17 19:59 08/22/17 21:24 Heparin Sodium (Porcine) (Heparin 5000 units/ml) 5,000 units EVERY 12 HOURS SUBQ 08/21/17 09:00 09/20/17 08:59 Metronidazole 100 ml @ 100 mls/hr Q8HR IVPB 08/20/17 22:00 08/25/17 14:04 08/23/17 14:44 Morphine Sulfate (Morphine Sulfate) 2 mg Q4H PRN IVP Severe Pain (Pain Scale 7-10) 08/20/17 21:00 08/25/17 20:59 Ondansetron HCl (Zofran) 4 mg Q6H PRN IVP Nausea & Vomiting 08/20/17 21:00 09/17/17 14:59 Pantoprazole (Protonix) 40 mg DAILY IVP 08/21/17 09:00 09/18/17 08:59 08/23/17 08:10 Polyethylene Glycol (Miralax) 17 gm DAILYPRN PRN ORAL Constipation 08/20/17 21:00 09/19/17 20:59 Sodium Chloride 1,000 ml @ 100 mls/hr Q10H IVLG 08/20/17 20:30 09/17/17 14:29 08/23/17 08:12 Vancomycin HCl (Vancomycin) 125 mg FOUR TIMES A DAY ORAL 08/20/17 21:00 08/25/17 14:04 08/23/17 12:36 Vitamin A/Vitamin D (A & D Oint) 1 applic EVERY 12 HOURS TOPIC 08/22/17 20:00 09/21/17 19:59 08/23/17 08:41 Amelia John M.D. August 23, 2017 16:07
--- NOTE | 2017-08-23 16:29 | General Progress Note ---
Assessment/Plan Status: stable Assessment/Plan 1. Septic shock seconary to severe C-diff colitis 2. severe C-diff colitis 3. Acute renal failure. 4. Dehydration. 5. Gastrointestinal and deep vein thrombosis prophylaxis. 6. Pulmonary infiltrate: infection !? 7. VRE- Rectum Plan: Current Abx coverage discussed with ID. Will switch to PO at discharge will benefit from SNIF placement Medically stable for DC tomorrow Subjective ROS Limited/Unobtainable: No Constitutional: Reports: malaise HEENT: Reports: no symptoms Cardiovascular: Reports: no symptoms Respiratory: Reports: no symptoms Allergies: Coded Allergies: AMOXICILLIN (Verified Adverse Reaction, Severe, Rash, 08/18/17) Objective Last 24 Hour Vital Signs Date Time Temp Pulse Resp B/P (MAP) Pulse Ox O2 Delivery O2 Flow Rate FiO2 08/23/17 12:00 97.6 93 18 134/75 100 Nasal Cannula 3.0 97.6 08/23/17 08:00 97.4 90 14 110/66 100 Nasal Cannula 3.0 97.4 08/23/17 07:25 80 18 Nasal Cannula 2.0 28 08/23/17 07:25 Nasal Cannula 2.0 28 08/23/17 07:25 98 Nasal Cannula 2.0 28 08/23/17 04:00 97.1 87 18 134/73 100 97.1 08/23/17 00:00 97.2 76 18 120/73 100 97.2 08/22/17 20:00 97.4 68 18 113/60 99 97.4 08/22/17 19:58 Nasal Cannula 2.0 28 08/22/17 19:57 81 18 Nasal Cannula 2.0 28 08/22/17 19:57 99 Nasal Cannula 2.0 28 Intake and Output 08/22/17 08/23/17 19:00 07:00 Intake Total 420 ml 1200 ml Balance 420 ml 1200 ml Intake Oral 320 ml IV Total 100 ml 1200 ml # Voids 4 # Bowel Movements 3 1 Laboratory Tests 08/23/17 06:00: White Blood Count 16.5H, Red Blood Count 3.11L, Hemoglobin 11.5L, Hematocrit 34.7L, Mean Corpuscular Volume 111H, Mean Corpuscular Hemoglobin 36.9H, Mean Corpuscular Hemoglobin Concent 33.1, Red Cell Distribution Width 20.1H, Platelet Count 20L, Mean Platelet Volume 14.4H, Neutrophils (%) (Auto) , Lymphocytes (%) (Auto) , Monocytes (%) (Auto) , Eosinophils (%) (Auto) , Basophils (%) (Auto) , Differential Total Cells Counted 100, Neutrophils % ( Manual) 65, Lymphocytes % (Manual) 10L, Monocytes % (Manual) 8, Eosinophils % ( Manual) 8H, Basophils % (Manual) 1, Metamyelocytes % 1H, Myelocytes % 1H, Band Neutrophils 6, Platelet Estimate DecreasedL, Platelet Morphology Normal, Sodium Level 145, Potassium Level 3.2L, Chloride Level 118H, Carbon Dioxide Level 19L, Anion Gap 8, Blood Urea Nitrogen 9, Creatinine 0.6, Estimat Glomerular Filtration Rate , Glucose Level 130H, Calcium Level 6.8L, Phosphorus Level 2.9, Magnesium Level 1.8, Total Bilirubin 1.0, Aspartate Amino Transf (AST/SGOT) 21, Alanine Aminotransferase (ALT/SGPT) 22, Alkaline Phosphatase 293H, Total Protein 3.5L, Albumin 1.5L, Globulin 2.0, Albumin/Globulin Ratio 0.8L Height (Feet): 5 Height (Inches): 0.00 Weight (Pounds): 145 General Appearance: WD/WN EENT: PERRL/EOMI Neck: supple Cardiovascular: normal rate Respiratory/Chest: lungs clear Abdomen: soft Extremities: non-tender, other - atrophied musculature in both LE 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
[2017-08-24] VITALS: BP 131/64
[2017-08-24 04:00] VITALS: BP 134/65
[2017-08-24 08:00] VITALS: BP 137/82
[2017-08-24] MEDS: Vancomycin oral 125mg/2.5ml ORAL SCH ×4 (08:47→21:44)
[2017-08-24] MEDS: Pantoprazole Inj IVP SCH (08:47)
[2017-08-24] MEDS: Heparin 5000 units/ml inj SUBQ SCH (08:55)
[2017-08-24] MEDS: Vitamin A&D Oint 2oz Tube TOPIC SCH ×2 (08:55→21:45)
--- NOTE | 2017-08-24 10:20 | General Progress Note ---
Assessment/Plan Status: unchanged Assessment/Plan 1. Septic shock seconary to severe C-diff colitis 2. severe C-diff colitis 3. Acute renal failure. 4. Dehydration. 5. Gastrointestinal and deep vein thrombosis prophylaxis. 6. Pulmonary infiltrate: infection !? 7. VRE- Rectum 8. Thrombocytopenia: worsening Plan: Current Abx coverage discussed with ID. Will switch to PO at discharge will benefit from SNIF placement Worsening of Thrombocytopenia, HIT ! , Iatrogenic Start SCD, UE - Duplex Consult HemOnch Subjective ROS Limited/Unobtainable: Yes Constitutional: Reports: no symptoms, malaise HEENT: Reports: no symptoms Cardiovascular: Reports: no symptoms Allergies: Coded Allergies: AMOXICILLIN (Verified Adverse Reaction, Severe, Rash, 08/18/17) Objective Last 24 Hour Vital Signs Date Time Temp Pulse Resp B/P (MAP) Pulse Ox O2 Delivery O2 Flow Rate FiO2 08/24/17 08:00 97.3 96 17 137/82 100 Nasal Cannula 3.0 97.3 08/24/17 04:00 97.1 85 19 134/65 100 97.1 08/24/17 04:00 Nasal Cannula 3.0 08/24/17 00:00 98.1 81 17 131/64 100 98.1 08/24/17 00:00 Nasal Cannula 3.0 08/23/17 21:07 Nasal Cannula 2.0 28 08/23/17 21:06 88 16 Nasal Cannula 2.0 28 08/23/17 21:06 98 Nasal Cannula 2.0 28 08/23/17 20:00 97.9 88 17 123/73 100 97.9 08/23/17 20:00 Nasal Cannula 3.0 08/23/17 17:05 98.6 17 121/71 100 Nasal Cannula 3.0 98.6 08/23/17 16:00 98.6 89 17 121/71 100 Nasal Cannula 3.0 98.6 08/23/17 12:00 97.6 93 18 134/75 100 Nasal Cannula 3.0 97.6 Intake and Output 08/23/17 08/24/17 19:00 07:00 Intake Total 2300 ml Balance 2300 ml IV Total 1100 ml Other 1200 ml # Voids 5 # Bowel Movements 4 Height (Feet): 5 Height (Inches): 0.00 Weight (Pounds): 152 General Appearance: WD/WN EENT: PERRL/EOMI Neck: supple Cardiovascular: normal rate Respiratory/Chest: lungs clear Abdomen: soft Extremities: non-tender, other - UE Edema: 2+ Arm (R) 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
[2017-08-24 12:00] VITALS: BP 119/70
[2017-08-24] MEDS ORDERED: Argatroban per pharmacy MISC PRN (13:30)
[2017-08-24 13:34] LABS: HEMATOCRIT 41.4 % (37.0-47.0); HEMOGLOBIN 13.3 G/DL (12.0-16.0); MEAN CORPUSCULAR VOLUME 114 FL (80-99); PLATELET COUNT 18 K/UL (150-450); RED BLOOD COUNT 3.63 M/UL (4.20-5.40); RED CELL DISTRIBUTION WIDTH 20.2 % (11.6-14.8); WHITE BLOOD COUNT 17.7 K/UL (4.8-10.8)
[2017-08-24 13:35] LABS: INR 1.5 (0.9-1.1)
[2017-08-24 13:37] LABS: ANION GAP 9 mmol/L (5-15); BLOOD UREA NITROGEN 10 mg/dL (7-18); CALCIUM 7.6 MG/DL (8.5-10.1); CARBON DIOXIDE 17 MMOL/L (21-32); CHLORIDE 118 MMOL/L (98-107); CREATININE 0.7 MG/DL (0.55-1.30); SODIUM 144 MMOL/L (136-145)
[2017-08-24 13:42] LABS: ALKALINE PHOSPHATASE 301 U/L (46-116)
--- NOTE | 2017-08-24 15:30 | Infectious Diseases Prog Note ---
Assessment/Plan Assessment/Plan Assessment: Septic shock, SP Severe C Diff colitis -CT abd/p: Pancolitis. Chronic liver disease/cirrhosis. Moderate ascites. Distended gallbladder nonspecific. Severe lung fibrosis. Anasarca and mesenteric /retroperitoneal stranding. Right femoral line in good position. Degenerative changes of the spine and osteopenia. Atherosclerotic disease. KUB : Nonspecific bowel gas pattern Stool Cx : Neg -Bcx neg ? Pneum, doubt Pulmonary fibrosis -CXR: BL Extensive basilar infiltrates - component of fibrosis and chronic lung disease -CT chest : Pulmonary fibrosis with evidence of honeycombing. More dense opacity in the right lower lobe may be related to confluent area of scarring however superimposed pneumonia should be excluded clinically. Small bilateral pleural effusions. Mild enlargement of the main pulmonary artery suggestive of pulmonary arterial hypertension. Cardiomegaly with coronary arterial calcifications. Small mediastinal adenopathy with a borderline enlarged calcified mediastinal lymph node. Findings are nonspecific.Evidence of hepatic cirrhosis with ascites and gallbladder distention similar to CT of the abdomen and pelvis 08/19/2017. 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 08/24/17 AMOXICILLIN (Verified Adverse Reaction, Severe, Rash, 08/18/17) Subjective afebrile at 2l NC leukocytosis overall improved, now stable at 16-17 Bcx Neg one episodes of diarrhesa so far today Objective Vital Signs Last 24 Hour Vital Signs Date Time Temp Pulse Resp B/P (MAP) Pulse Ox O2 Delivery O2 Flow Rate FiO2 08/24/17 12:00 98.0 89 18 119/70 99 Nasal Cannula 3.0 98.0 08/24/17 08:00 97.3 96 17 137/82 100 Nasal Cannula 3.0 97.3 08/24/17 04:00 97.1 85 19 134/65 100 97.1 08/24/17 04:00 Nasal Cannula 3.0 08/24/17 00:00 98.1 81 17 131/64 100 98.1 08/24/17 00:00 Nasal Cannula 3.0 08/23/17 21:07 Nasal Cannula 2.0 28 08/23/17 21:06 88 16 Nasal Cannula 2.0 28 08/23/17 21:06 98 Nasal Cannula 2.0 28 08/23/17 20:00 97.9 88 17 123/73 100 97.9 08/23/17 20:00 Nasal Cannula 3.0 08/23/17 17:05 98.6 17 121/71 100 Nasal Cannula 3.0 98.6 08/23/17 16:00 98.6 89 17 121/71 100 Nasal Cannula 3.0 98.6 Height (Feet): 5 Height (Inches): 0.00 Weight (Pounds): 152 Objective General Appearance: no apparent distress, alert non-toxic, thin Head: normocephalic, atraumatic Eyes: bilateral eye normal inspection, bilateral eye PERRL ENT: hearing grossly normal, normal pharynx, no angioedema, normal voice Neck: full range of motion, supple/symm/no masses Respiratory: chest non-tender, lungs clear, normal breath sounds, speaking full sentences Cardiovascular #1: regular rate, rhythm, no edema Gastrointestinal: normal bowel sounds, non tender, soft, non-distended, no guarding, no rebound Genitourinary: normal inspection, no CVA tenderness Musculoskeletal: back normal, gait/station normal, normal range of motion, non- tender Skin: normal color, no rash, warm/dry, well hydrated Laboratory Tests Test 08/24/17 12:50 White Blood Count 17.7 K/UL (4.8-10.8) H Red Blood Count 3.63 M/UL (4.20-5.40) L Hemoglobin 13.3 G/DL (12.0-16.0) Hematocrit 41.4 % (37.0-47.0) Mean Corpuscular Volume 114 FL (80-99) H Mean Corpuscular Hemoglobin 36.7 PG (27.0-31.0) H Mean Corpuscular Hemoglobin Concent 32.2 G/DL (32.0-36.0) Red Cell Distribution Width 20.2 % (11.6-14.8) H Platelet Count 18 K/UL (150-450) L Mean Platelet Volume 11.2 FL (6.5-10.1) H Neutrophils (%) (Auto) % (45.0-75.0) Lymphocytes (%) (Auto) % (20.0-45.0) Monocytes (%) (Auto) % (1.0-10.0) Eosinophils (%) (Auto) % (0.0-3.0) Basophils (%) (Auto) % (0.0-2.0) Differential Total Cells Counted 100 Neutrophils % (Manual) 68 % (45-75) Lymphocytes % (Manual) 13 % (20-45) L Monocytes % (Manual) 8 % (1-10) Eosinophils % (Manual) 1 % (0-3) Basophils % (Manual) 0 % (0-2) Metamyelocytes % 1 % (0-0) H Band Neutrophils 9 % (0-8) H Platelet Estimate Decreased L Platelet Morphology Normal Hypochromasia 1+ Anisocytosis 2+ Macrocytosis 1+ Haptoglobin Pending Prothrombin Time 15.8 SEC (9.30-11.50) H Prothromb Time International Ratio 1.5 (0.9-1.1) H Activated Partial Thromboplast Time 56 SEC (23-33) H PTT Mixing Study Pending APTT Patient/Control Mix Pending Mix PTT Incubation Time Pending Mix PTT Normal/Saline 1:1 Immediate Pending Thrombin Time Normal Plasma Pending Jak2 V617F Mutation Detection Pending JAK2 V617F Mutation Background Pending JAK2 V617F Reviewed By Pending Sodium Level 144 MMOL/L (136-145) Potassium Level 4.0 MMOL/L (3.5-5.1) Chloride Level 118 MMOL/L (98-107) H Carbon Dioxide Level 17 MMOL/L (21-32) L Anion Gap 9 mmol/L (5-15) Blood Urea Nitrogen 10 mg/dL (7-18) Creatinine 0.7 MG/DL (0.55-1.30) Estimat Glomerular Filtration Rate mL/min (>60) Glucose Level 137 MG/DL (74-106) H Calcium Level 7.6 MG/DL (8.5-10.1) L Iron Level Pending Unsaturated Iron Binding Pending Alkaline Phosphatase 301 U/L (46-116) H Vitamin B12 Level Pending Thyroid Stimulating Hormone (TSH) 3.903 uiU/mL (0.358-3.740) Heparin-PF4 Antibody Screen Pending Hepatitis A IgM Antibody Pending Hepatitis B Surface Antigen Pending Hepatitis B Core IgM Antibody Pending Hepatitis C Antibody Pending HIV (1&2) Antibody Rapid Negative (NEGATIVE) Current Medications Medications (Trade) Dose Ordered Sig/Keri Route PRN Reason Start Time Stop Time Status Last Admin Dose Admin Acetaminophen (Tylenol) 650 mg Q4H PRN ORAL fever (temp>100.5F) 08/20/17 21:00 09/19/17 20:59 Argatroban Protocol(Pha) (Argatroban pharmacy to dose) 1 ea DAILY PRN MISC Per rx protocol 08/24/17 13:30 09/23/17 13:29 UNV Metronidazole 100 ml @ 100 mls/hr Q8HR IVPB 08/20/17 22:00 08/25/17 14:04 08/24/17 13:38 Morphine Sulfate (Morphine Sulfate) 2 mg Q4H PRN IVP Severe Pain (Pain Scale 7-10) 08/20/17 21:00 08/25/17 20:59 Ondansetron HCl (Zofran) 4 mg Q6H PRN IVP Nausea & Vomiting 08/20/17 21:00 09/17/17 14:59 Pantoprazole (Protonix) 40 mg DAILY IVP 08/21/17 09:00 09/18/17 08:59 08/24/17 08:47 Polyethylene Glycol (Miralax) 17 gm DAILYPRN PRN ORAL Constipation 08/20/17 21:00 09/19/17 20:59 Sodium Chloride 1,000 ml @ 100 mls/hr Q10H IVLG 08/20/17 20:30 09/17/17 14:29 08/24/17 13:38 Vancomycin HCl (Vancomycin) 125 mg FOUR TIMES A DAY ORAL 08/20/17 21:00 08/31/17 20:59 08/24/17 13:25 Vitamin A/Vitamin D (A & D Oint) 1 applic EVERY 12 HOURS TOPIC 08/22/17 20:00 09/21/17 19:59 08/24/17 08:55 Amelia John M.D. August 24, 2017 15:30
[2017-08-24] MEDS ORDERED: Morphine Sulfate 4mg/ml Inj IVP PRN (15:43)
[2017-08-24] MEDS ORDERED: Miralax 17gm pkt ORAL PRN (15:44)
--- NOTE | 2017-08-24 15:54 | Cardiac Electrophysiology PN ---
Assessment/Plan Assessment/Plan 1. S/P septic shock. WBC down to 16 K . On broad-spectrum intravenous antibiotics per ID Echocardiogram EF 65% and no evidence of endocarditis 2. Hypokalemia 3. BNP of more than 10,000. Echocardiogram Nl EF. 4. WBC more than 30K due to C Diff. Improved. 5. Worsening of Thrombocytopenia, Plt 18K!, HIT ? Hematology following. 6. Acute axillary vein DVT. On Argatroban , AUBREY RN Subjective Subjective No CP or SOB. Still in isolation for C Diff. Now has R arm DVT. Objective Last 24 Hour Vital Signs Date Time Temp Pulse Resp B/P (MAP) Pulse Ox O2 Delivery O2 Flow Rate FiO2 08/24/17 12:00 98.0 89 18 119/70 99 Nasal Cannula 3.0 98.0 08/24/17 08:00 97.3 96 17 137/82 100 Nasal Cannula 3.0 97.3 08/24/17 04:00 97.1 85 19 134/65 100 97.1 08/24/17 04:00 Nasal Cannula 3.0 08/24/17 00:00 98.1 81 17 131/64 100 98.1 08/24/17 00:00 Nasal Cannula 3.0 08/23/17 21:07 Nasal Cannula 2.0 28 08/23/17 21:06 88 16 Nasal Cannula 2.0 28 08/23/17 21:06 98 Nasal Cannula 2.0 28 08/23/17 20:00 97.9 88 17 123/73 100 97.9 08/23/17 20:00 Nasal Cannula 3.0 08/23/17 17:05 98.6 17 121/71 100 Nasal Cannula 3.0 98.6 08/23/17 16:00 98.6 89 17 121/71 100 Nasal Cannula 3.0 98.6 Intake and Output 08/23/17 08/24/17 19:00 07:00 Intake Total 2300 ml Balance 2300 ml IV Total 1100 ml Other 1200 ml # Voids 5 # Bowel Movements 4 Laboratory Tests Test 08/24/17 12:50 White Blood Count 17.7 K/UL (4.8-10.8) H Red Blood Count 3.63 M/UL (4.20-5.40) L Hemoglobin 13.3 G/DL (12.0-16.0) Hematocrit 41.4 % (37.0-47.0) Mean Corpuscular Volume 114 FL (80-99) H Mean Corpuscular Hemoglobin 36.7 PG (27.0-31.0) H Mean Corpuscular Hemoglobin Concent 32.2 G/DL (32.0-36.0) Red Cell Distribution Width 20.2 % (11.6-14.8) H Platelet Count 18 K/UL (150-450) L Mean Platelet Volume 11.2 FL (6.5-10.1) H Neutrophils (%) (Auto) % (45.0-75.0) Lymphocytes (%) (Auto) % (20.0-45.0) Monocytes (%) (Auto) % (1.0-10.0) Eosinophils (%) (Auto) % (0.0-3.0) Basophils (%) (Auto) % (0.0-2.0) Differential Total Cells Counted 100 Neutrophils % (Manual) 68 % (45-75) Lymphocytes % (Manual) 13 % (20-45) L Monocytes % (Manual) 8 % (1-10) Eosinophils % (Manual) 1 % (0-3) Basophils % (Manual) 0 % (0-2) Metamyelocytes % 1 % (0-0) H Band Neutrophils 9 % (0-8) H Platelet Estimate Decreased L Platelet Morphology Normal Hypochromasia 1+ Anisocytosis 2+ Macrocytosis 1+ Haptoglobin Pending Prothrombin Time 15.8 SEC (9.30-11.50) H Prothromb Time International Ratio 1.5 (0.9-1.1) H Activated Partial Thromboplast Time 56 SEC (23-33) H PTT Mixing Study Pending APTT Patient/Control Mix Pending Mix PTT Incubation Time Pending Mix PTT Normal/Saline 1:1 Immediate Pending Thrombin Time Normal Plasma Pending Jak2 V617F Mutation Detection Pending JAK2 V617F Mutation Background Pending JAK2 V617F Reviewed By Pending Sodium Level 144 MMOL/L (136-145) Potassium Level 4.0 MMOL/L (3.5-5.1) Chloride Level 118 MMOL/L (98-107) H Carbon Dioxide Level 17 MMOL/L (21-32) L Anion Gap 9 mmol/L (5-15) Blood Urea Nitrogen 10 mg/dL (7-18) Creatinine 0.7 MG/DL (0.55-1.30) Estimat Glomerular Filtration Rate mL/min (>60) Glucose Level 137 MG/DL (74-106) H Calcium Level 7.6 MG/DL (8.5-10.1) L Iron Level Pending Unsaturated Iron Binding Pending Alkaline Phosphatase 301 U/L (46-116) H Vitamin B12 Level Pending Thyroid Stimulating Hormone (TSH) 3.903 uiU/mL (0.358-3.740) Heparin-PF4 Antibody Screen Pending Hepatitis A IgM Antibody Pending Hepatitis B Surface Antigen Pending Hepatitis B Core IgM Antibody Pending Hepatitis C Antibody Pending HIV (1&2) Antibody Rapid Negative (NEGATIVE) Objective HEENT: No JVD. LUNGS: Clear CARDIOVASCULAR: Regular S1 and S2 with no gallop. ABDOMEN: Soft. EXTREMITIES: No edema. Quinn Lam MD August 24, 2017 15:54
[2017-08-24 15:58] LABS: % IRON SATURATION 34 % (15-50); IRON 70 ug/dL (50-175); TOTAL IRON BINDING CAPACITY 205 ug/dL (250-450)
[2017-08-24 16:00] VITALS: BP 116/66
[2017-08-24] MEDS ORDERED: Tubing IV Secondary IV ONE (16:19)
[2017-08-24 20:00] VITALS: BP 117/69
[2017-08-25] VITALS: BP 125/79
--- NOTE | 2017-08-25 01:00 | Consultation ---
DATE OF CONSULTATION: 08/24/2017 NOTE: POOR AUDIO HEMATOLOGY/ONCOLOGY CONSULTATION CONSULTING PHYSICIAN: Emery Guzmán M.D. REQUESTING PHYSICIAN: Ngozi Blank M.D. REASON FOR CONSULTATION: Evaluation of thrombocytopenia. IDENTIFYING DATA: Dear Dr. Blank, The patient is a pleasant 82-year-old female with past medical history, which is significant for hypertension, recent pneumonia, prior myocardial infarction, CAD, pacemaker placement potentially, at this time presents to the hospital with abdominal pain, diarrhea, fevers, chills with loose stools, watery color. No chest pain and no shortness of breath, recently discharged from [facility] with pneumonia. At this time, the patient was seen by Infectious Disease Service. Currently, the patient is on IV and p.o. antibiotics, aztreonam as well. In addition, the patient has been seen by Cardiology Service, Dr. Lam. Potassium being repleted. In addition, the patient was recently on Levophed, currently has been discontinued. Echo showed 35% ejection fraction. She was also seen by Pulmonary team, Dr. Tsang and noted to have developed thrombocytopenia. Therefore, Hematology Service was consulted. She has been given heparin over the past five days, which has been discontinued. PAST MEDICAL HISTORY: Hypertension, pneumonia, [place] prior, CAD, pacemaker placement . SOCIAL HISTORY: Lives at home. No alcohol, tobacco, or illicit drug use. FAMILY HISTORY: Noncontributory. REVIEW OF SYSTEMS: CONSTITUTIONAL: No fevers, chills, or night sweats. SKIN: No rashes, bumps, or itching. HEENT: No headache, hearing or vision changes. BREASTS: No lumps, pain, or discharge. PULMONARY: No cough, sputum, or shortness of breath. GASTROINTESTINAL: No nausea, vomiting, or diarrhea. GENITOURINARY: No dysuria, frequency, or urgency. MUSCULOSKELETAL: No joint swelling, muscle pain, or trauma. PHYSICAL EXAMINATION: VITAL SIGNS: Reviewed. GENERAL: No acute distress. LUNGS: Decreased breath sounds. CARDIOVASCULAR: Regular rate. No S3 or S4. ABDOMEN: Soft, nontender, and nondistended. EXTREMITIES: No cyanosis, swelling, or edema noted. LABORATORY AND DIAGNOSTIC DATA: WBC is 16.5, hemoglobin 11.5, and platelet count 20,000. Coagulation reviewed. study pending. Chemistry, BUN of 9 and creatinine 0.6. LDH and haptoglobin levels are pending. IMPRESSION AND RECOMMENDATION: 1. Thrombocytopenia, severe, multiple etiologies are possible including sepsis, C. difficile versus underlying infection. At this time, given upper extremity blood clot of the arm and a concern for HIT. Right upper extremity duplex completed, which showed a blood clot. At this time, HIT antibody test is pending. In addition, we will begin the patient on argatroban HIT tests are pending. In the meantime, the patient has a 4T score of 6. 2. Anemia due to underlying chronic disease. Continue to closely monitor, potentially hemodilutional. 3. Leukocytosis, likely secondary to Clostridium difficile versus other cause. Closely monitor for improvement. 4. Acute kidney injury. Continue to closely monitor. Potentially dehydration related. 5. Colitis, potentially secondary to Clostridium difficile. Currently, on antibiotics per ID Service. 6. Hypokalemia, is currently being repleted. I appreciate the consultation. Emery Guzmán M.D. DR: HENRRY JOB#: [id number] CC:
[2017-08-25 04:00] VITALS: BP 122/74
[2017-08-25 08:00] VITALS: BP 114/75
[2017-08-25] MEDS: Vancomycin oral 125mg/2.5ml ORAL SCH ×4 (08:22→21:02)
[2017-08-25] MEDS: Pantoprazole Inj IVP SCH (08:23)
[2017-08-25] MEDS: Vitamin A&D Oint 2oz Tube TOPIC SCH ×2 (08:42→21:03)
[2017-08-25] MEDS ORDERED: Argatroban per pharmacy MISC PRN (09:00)
--- NOTE | 2017-08-25 11:08 | Diagnostic Imaging Report ---
Indication: Cough Technique: XRAY Chest 1v Comparison: 08/19/2017 Findings: Extensive reticular nodular opacities involving the periphery and base. This corresponds with the pulmonary fibrosis and honeycombing noted on prior CT. No new focal consolidation is seen. There is no pneumothorax. Osseous structures are stable. Heart size and mediastinal contours stable. IMPRESSION: Sensitive peripheral basilar reticular-nodular opacities consistent with the findings are poorly fibrosis seen on prior CT. Somewhat more dense opacities in the bases may be related to areas of confluent scarring. Superimposed pneumonia not entirely excluded. Correlate clinically. Radiographic appearance the lungs are stable from the prior exam 08/19/2017.
--- NOTE | 2017-08-25 11:10 | Diagnostic Imaging Report ---
Indication: Abdominal pain Comparison: 08/18/2018 Portable frontal views of the abdomen obtained Findings: Nonspecific bowel gas pattern. There is mild gaseous distention of the stomach. No definite evidence to suggest free intraperitoneal air however sensitivity is limited on supine views. There are degenerative changes of the spine. No acute osseous abnormality seen. The right transfemoral central line has been removed. There is extensive reticular nodular opacities of the lung bases. IMPRESSION: Nonspecific bowel gas pattern. Additional findings as above.
[2017-08-25 12:00] VITALS: BP 116/66
--- NOTE | 2017-08-25 12:24 | Pulmonology Progress Note ---
Assessment/Plan Problems: (1) Septic shock (2) Colitis (3) Renal insufficiency Assessment/Plan symptomatic treatment improving wbc decreasing but still elevated continue iv abx iv fluids check electrolytes dvt prophylaxis Subjective Interval Events: late note for 08/24/17 Constitutional: Reports: no symptoms HEENT: Repors: no symptoms Allergies: Coded Allergies: HEPARIN (Verified Allergy, Severe, 08/24/17) Patient being worked up for HIT 08/24/17 AMOXICILLIN (Verified Adverse Reaction, Severe, Rash, 08/18/17) Objective Last 24 Hour Vital Signs Date Time Temp Pulse Resp B/P (MAP) Pulse Ox O2 Delivery O2 Flow Rate FiO2 08/25/17 08:00 111 08/25/17 08:00 97.5 113 20 114/75 99 Nasal Cannula 3.0 97.5 08/25/17 04:00 98 08/25/17 04:00 97.0 102 20 122/74 100 Nasal Cannula 3.0 97.0 08/25/17 00:00 96.0 102 20 125/79 100 Nasal Cannula 3.0 96.0 08/25/17 00:00 101 08/24/17 20:00 97.0 100 20 117/69 98 Nasal Cannula 3.0 97.0 08/24/17 20:00 96 08/24/17 19:08 85 18 Nasal Cannula 2.0 28 08/24/17 19:08 Nasal Cannula 2.0 28 08/24/17 19:08 97 Nasal Cannula 2.0 28 08/24/17 16:00 97.0 96 20 116/66 99 Nasal Cannula 3.0 97.0 08/24/17 16:00 98 Intake and Output 08/24/17 08/25/17 19:00 07:00 Intake Total 570 ml 2473 ml Output Total 1 ml Balance 570 ml 2472 ml Intake Oral 260 ml 260 ml IV Total 310 ml 1013 ml Other 1200 ml Output Stool Total 1 ml # Voids 2 # Bowel Movements 1 General Appearance: WD/WN HEENT: normocephalic, atraumatic Respiratory/Chest: chest wall non-tender, lungs clear, normal breath sounds Breasts: no masses Cardiovascular: normal peripheral pulses, regularly irregular Abdomen: normal bowel sounds, soft, non tender Genitourinary: normal external genitalia Extremities: no clubbing Lymphatic: no neck adenopathy Laboratory Tests 08/24/17 12:50: White Blood Count 17.7H, Red Blood Count 3.63L, Hemoglobin 13.3, Hematocrit 41.4 , Mean Corpuscular Volume 114H, Mean Corpuscular Hemoglobin 36.7H, Mean Corpuscular Hemoglobin Concent 32.2, Red Cell Distribution Width 20.2H, Platelet Count 18L, Mean Platelet Volume 11.2H, Neutrophils (%) (Auto) , Lymphocytes (%) (Auto) , Monocytes (%) (Auto) , Eosinophils (%) (Auto) , Basophils (%) (Auto) , Differential Total Cells Counted 100, Neutrophils % ( Manual) 68, Lymphocytes % (Manual) 13L, Monocytes % (Manual) 8, Eosinophils % ( Manual) 1, Basophils % (Manual) 0, Metamyelocytes % 1H, Band Neutrophils 9H, Platelet Estimate DecreasedL, Platelet Morphology Normal, Hypochromasia 1+, Anisocytosis 2+, Macrocytosis 1+, Haptoglobin [Pending], Prothrombin Time 15.8H , Prothromb Time International Ratio 1.5H, Activated Partial Thromboplast Time 56H, PTT Mixing Study [Pending], APTT Patient/Control Mix [Pending], Mix PTT Incubation Time [Pending], Mix PTT Normal/Saline 1:1 Immediate [Pending], Thrombin Time Normal Plasma [Pending], Jak2 V617F Mutation Detection [Pending], JAK2 V617F Mutation Background [Pending], JAK2 V617F Reviewed By [Pending], Sodium Level 144, Potassium Level 4.0, Chloride Level 118H, Carbon Dioxide Level 17L, Anion Gap 9, Blood Urea Nitrogen 10, Creatinine 0.7, Estimat Glomerular Filtration Rate , Glucose Level 137H, Calcium Level 7.6L, Iron Level 70, Total Iron Binding Capacity 205L, Percent Iron Saturation 34, Unsaturated Iron Binding 135, Alkaline Phosphatase 301H, Vitamin B12 Level > 2000H, Thyroid Stimulating Hormone (TSH) 3.903H, Heparin-PF4 Antibody Screen [Pending], Hepatitis A IgM Antibody [Pending], Hepatitis B Surface Antigen [Pending], Hepatitis B Core IgM Antibody [Pending], Hepatitis C Antibody [Pending], HIV (1& 2) Antibody Rapid Negative 08/24/17 16:18: Fibrinogen 130*L, D-Dimer 5.56H 08/24/17 19:30: Activated Partial Thromboplast Time 55H Current Medications Medications (Trade) Dose Ordered Sig/Keri Route PRN Reason Start Time Stop Time Status Last Admin Dose Admin Acetaminophen (Tylenol) 650 mg Q4H PRN ORAL fever (temp>100.5F) 08/24/17 15:43 09/19/17 15:42 Metronidazole 100 ml @ 100 mls/hr Q8HR IVPB 08/24/17 22:00 09/01/17 21:59 08/25/17 06:02 Morphine Sulfate (Morphine Sulfate) 2 mg Q4H PRN IVP Severe Pain (Pain Scale 7-10) 08/24/17 15:43 08/25/17 15:42 08/24/17 19:34 Ondansetron HCl (Zofran) 4 mg Q6H PRN IVP Nausea & Vomiting 08/24/17 15:43 09/17/17 15:42 Pantoprazole (Protonix) 40 mg DAILY IVP 08/25/17 09:00 09/18/17 08:59 08/25/17 08:23 Polyethylene Glycol (Miralax) 17 gm DAILYPRN PRN ORAL Constipation 08/24/17 15:44 09/19/17 15:43 Sodium Chloride 1,000 ml @ 100 mls/hr Q10H IVLG 08/24/17 15:43 09/17/17 15:42 08/25/17 01:52 Vancomycin HCl (Vancomycin) 125 mg FOUR TIMES A DAY ORAL 08/24/17 18:00 08/31/17 20:59 08/25/17 08:22 Vitamin A/Vitamin D (A & D Oint) 1 applic EVERY 12 HOURS TOPIC 08/24/17 21:00 09/21/17 19:59 08/25/17 08:42 Deng Tsang MD August 25, 2017 12:24
--- NOTE | 2017-08-25 12:28 | Pulmonology Progress Note ---
Assessment/Plan Problems: (1) Septic shock (2) Colitis (3) Renal insufficiency Assessment/Plan symptomatic treatment improving wbc decreasing but still elevated continue iv abx decrease iv fluids check electrolytes dvt prophylaxis Subjective ROS Limited/Unobtainable: No Constitutional: Reports: no symptoms HEENT: Repors: no symptoms Respiratory: Reports: no symptoms Cardiovascular: Reports: no symptoms Allergies: Coded Allergies: HEPARIN (Verified Allergy, Severe, 08/24/17) Patient being worked up for HIT 08/24/17 AMOXICILLIN (Verified Adverse Reaction, Severe, Rash, 08/18/17) Objective Last 24 Hour Vital Signs Date Time Temp Pulse Resp B/P (MAP) Pulse Ox O2 Delivery O2 Flow Rate FiO2 08/25/17 08:00 111 08/25/17 08:00 97.5 113 20 114/75 99 Nasal Cannula 3.0 97.5 08/25/17 04:00 98 08/25/17 04:00 97.0 102 20 122/74 100 Nasal Cannula 3.0 97.0 08/25/17 00:00 96.0 102 20 125/79 100 Nasal Cannula 3.0 96.0 08/25/17 00:00 101 08/24/17 20:00 97.0 100 20 117/69 98 Nasal Cannula 3.0 97.0 08/24/17 20:00 96 08/24/17 19:08 85 18 Nasal Cannula 2.0 28 08/24/17 19:08 Nasal Cannula 2.0 28 08/24/17 19:08 97 Nasal Cannula 2.0 28 08/24/17 16:00 97.0 96 20 116/66 99 Nasal Cannula 3.0 97.0 08/24/17 16:00 98 Intake and Output 08/24/17 08/25/17 19:00 07:00 Intake Total 570 ml 2473 ml Output Total 1 ml Balance 570 ml 2472 ml Intake Oral 260 ml 260 ml IV Total 310 ml 1013 ml Other 1200 ml Output Stool Total 1 ml # Voids 2 # Bowel Movements 1 General Appearance: WD/WN HEENT: normocephalic Respiratory/Chest: chest wall non-tender, crackles/rales, rhonchi Breasts: no masses Cardiovascular: normal peripheral pulses Abdomen: normal bowel sounds, soft, non tender Genitourinary: normal external genitalia Extremities: no cyanosis Skin: no rash Laboratory Tests 08/24/17 12:50: White Blood Count 17.7H, Red Blood Count 3.63L, Hemoglobin 13.3, Hematocrit 41.4 , Mean Corpuscular Volume 114H, Mean Corpuscular Hemoglobin 36.7H, Mean Corpuscular Hemoglobin Concent 32.2, Red Cell Distribution Width 20.2H, Platelet Count 18L, Mean Platelet Volume 11.2H, Neutrophils (%) (Auto) , Lymphocytes (%) (Auto) , Monocytes (%) (Auto) , Eosinophils (%) (Auto) , Basophils (%) (Auto) , Differential Total Cells Counted 100, Neutrophils % ( Manual) 68, Lymphocytes % (Manual) 13L, Monocytes % (Manual) 8, Eosinophils % ( Manual) 1, Basophils % (Manual) 0, Metamyelocytes % 1H, Band Neutrophils 9H, Platelet Estimate DecreasedL, Platelet Morphology Normal, Hypochromasia 1+, Anisocytosis 2+, Macrocytosis 1+, Haptoglobin [Pending], Prothrombin Time 15.8H , Prothromb Time International Ratio 1.5H, Activated Partial Thromboplast Time 56H, PTT Mixing Study [Pending], APTT Patient/Control Mix [Pending], Mix PTT Incubation Time [Pending], Mix PTT Normal/Saline 1:1 Immediate [Pending], Thrombin Time Normal Plasma [Pending], Jak2 V617F Mutation Detection [Pending], JAK2 V617F Mutation Background [Pending], JAK2 V617F Reviewed By [Pending], Sodium Level 144, Potassium Level 4.0, Chloride Level 118H, Carbon Dioxide Level 17L, Anion Gap 9, Blood Urea Nitrogen 10, Creatinine 0.7, Estimat Glomerular Filtration Rate , Glucose Level 137H, Calcium Level 7.6L, Iron Level 70, Total Iron Binding Capacity 205L, Percent Iron Saturation 34, Unsaturated Iron Binding 135, Alkaline Phosphatase 301H, Vitamin B12 Level > 2000H, Thyroid Stimulating Hormone (TSH) 3.903H, Heparin-PF4 Antibody Screen [Pending], Hepatitis A IgM Antibody [Pending], Hepatitis B Surface Antigen [Pending], Hepatitis B Core IgM Antibody [Pending], Hepatitis C Antibody [Pending], HIV (1& 2) Antibody Rapid Negative 08/24/17 16:18: Fibrinogen 130*L, D-Dimer 5.56H 08/24/17 19:30: Activated Partial Thromboplast Time 55H Current Medications Medications (Trade) Dose Ordered Sig/Keri Route PRN Reason Start Time Stop Time Status Last Admin Dose Admin Acetaminophen (Tylenol) 650 mg Q4H PRN ORAL fever (temp>100.5F) 08/24/17 15:43 09/19/17 15:42 Metronidazole 100 ml @ 100 mls/hr Q8HR IVPB 08/24/17 22:00 09/01/17 21:59 08/25/17 06:02 Morphine Sulfate (Morphine Sulfate) 2 mg Q4H PRN IVP Severe Pain (Pain Scale 7-10) 08/24/17 15:43 08/25/17 15:42 08/24/17 19:34 Ondansetron HCl (Zofran) 4 mg Q6H PRN IVP Nausea & Vomiting 08/24/17 15:43 09/17/17 15:42 Pantoprazole (Protonix) 40 mg DAILY IVP 08/25/17 09:00 09/18/17 08:59 08/25/17 08:23 Polyethylene Glycol (Miralax) 17 gm DAILYPRN PRN ORAL Constipation 08/24/17 15:44 09/19/17 15:43 Sodium Chloride 1,000 ml @ 100 mls/hr Q10H IVLG 08/24/17 15:43 09/17/17 15:42 08/25/17 01:52 Vancomycin HCl (Vancomycin) 125 mg FOUR TIMES A DAY ORAL 08/24/17 18:00 08/31/17 20:59 08/25/17 08:22 Vitamin A/Vitamin D (A & D Oint) 1 applic EVERY 12 HOURS TOPIC 08/24/17 21:00 09/21/17 19:59 08/25/17 08:42 Deng Tsang MD August 25, 2017 12:28
--- NOTE | 2017-08-25 15:14 | Cardiac Electrophysiology PN ---
Assessment/Plan Assessment/Plan 1. S/P septic shock. WBC down to 16 K . On broad-spectrum intravenous antibiotics per ID Echocardiogram EF 65% and no evidence of endocarditis 2. Hypokalemia 3. BNP of more than 10,000. Echocardiogram Nl EF. 4. WBC more than 30K due to C Diff. Improved. 5. Worsening of Thrombocytopenia, Plt 18K!, HIT ? Hematology following. Argatroban DCed per Dr Dozier 6. Acute axillary vein DVT. Argatroban DCed , AUBREY RN Subjective Subjective No CP or SOB. In isolation for C Diff. On Argatroban for R arm DVT. Objective Last 24 Hour Vital Signs Date Time Temp Pulse Resp B/P (MAP) Pulse Ox O2 Delivery O2 Flow Rate FiO2 08/25/17 12:00 97.3 107 21 116/66 98 Nasal Cannula 3.0 97.3 08/25/17 12:00 112 08/25/17 08:00 111 08/25/17 08:00 97.5 113 20 114/75 99 Nasal Cannula 3.0 97.5 08/25/17 04:00 98 08/25/17 04:00 97.0 102 20 122/74 100 Nasal Cannula 3.0 97.0 08/25/17 00:00 96.0 102 20 125/79 100 Nasal Cannula 3.0 96.0 08/25/17 00:00 101 08/24/17 20:00 97.0 100 20 117/69 98 Nasal Cannula 3.0 97.0 08/24/17 20:00 96 08/24/17 19:08 85 18 Nasal Cannula 2.0 28 08/24/17 19:08 Nasal Cannula 2.0 28 08/24/17 19:08 97 Nasal Cannula 2.0 28 08/24/17 16:00 97.0 96 20 116/66 99 Nasal Cannula 3.0 97.0 08/24/17 16:00 98 Intake and Output 08/24/17 08/25/17 19:00 07:00 Intake Total 570 ml 2473 ml Output Total 1 ml Balance 570 ml 2472 ml Intake Oral 260 ml 260 ml IV Total 310 ml 1013 ml Other 1200 ml Output Stool Total 1 ml # Voids 2 # Bowel Movements 1 Laboratory Tests Test 08/24/17 16:18 08/24/17 19:30 Fibrinogen 130 mg/dL (200-400) *L D-Dimer 5.56 mg/L FEU (0.00-0.49) H Activated Partial Thromboplast Time 55 SEC (23-33) H Objective HEENT: No JVD. LUNGS: Clear CARDIOVASCULAR: Regular S1 and S2 with no gallop. ABDOMEN: Soft. EXTREMITIES: No edema. Quinn Lam MD August 25, 2017 15:14
--- NOTE | 2017-08-25 15:22 | Infectious Diseases Prog Note ---
Assessment/Plan Assessment/Plan Assessment: Septic shock, SP Severe C Diff colitis -CT abd/p: Pancolitis. Chronic liver disease/cirrhosis. Moderate ascites. Distended gallbladder nonspecific. Severe lung fibrosis. Anasarca and mesenteric /retroperitoneal stranding. Right femoral line in good position. Degenerative changes of the spine and osteopenia. Atherosclerotic disease. KUB : Nonspecific bowel gas pattern Stool Cx : Neg -Bcx neg ? Pneum, doubt Pulmonary fibrosis -CXR: BL Extensive basilar infiltrates - component of fibrosis and chronic lung disease -CT chest : Pulmonary fibrosis with evidence of honeycombing. More dense opacity in the right lower lobe may be related to confluent area of scarring however superimposed pneumonia should be excluded clinically. Small bilateral pleural effusions. Mild enlargement of the main pulmonary artery suggestive of pulmonary arterial hypertension. Cardiomegaly with coronary arterial calcifications. Small mediastinal adenopathy with a borderline enlarged calcified mediastinal lymph node. Findings are nonspecific.Evidence of hepatic cirrhosis with ascites and gallbladder distention similar to CT of the abdomen and pelvis 08/19/2017. Recent PNA, still having productive cough Leukocytosis/bandemia; overall improved, now strable at 16-17 -Bcx 08/24 p -KUB 08/25: Nonspecific bowel gas pattern. Afebrile Lactic acidosis, resolved RUE DVT EDDI HTN Plan: -Continue PO Vancomycin 125mg qid and IV Flagyl 500mg q8h d# 12/05 for severe Cdiff; upon discharge PO Vancomycin to complete course -if not ongoing significant diarrhea, will do Fidaxomicin instead -08/21 SP IV vanco and Aztreonam #4 -f/u repeat Bcx -Montior CBC/BMP, temperatures -Aspiration precautions Discussed with RN Subjective Allergies: Coded Allergies: HEPARIN (Verified Allergy, Severe, 08/24/17) Patient being worked up for HIT 08/24/17 AMOXICILLIN (Verified Adverse Reaction, Severe, Rash, 08/18/17) Subjective afebrile at 3l NC leukocytosis overall improved, now stable at 16-17 Objective Vital Signs Last 24 Hour Vital Signs Date Time Temp Pulse Resp B/P (MAP) Pulse Ox O2 Delivery O2 Flow Rate FiO2 08/25/17 12:00 97.3 107 21 116/66 98 Nasal Cannula 3.0 97.3 08/25/17 12:00 112 08/25/17 08:00 111 08/25/17 08:00 97.5 113 20 114/75 99 Nasal Cannula 3.0 97.5 08/25/17 04:00 98 08/25/17 04:00 97.0 102 20 122/74 100 Nasal Cannula 3.0 97.0 08/25/17 00:00 96.0 102 20 125/79 100 Nasal Cannula 3.0 96.0 08/25/17 00:00 101 08/24/17 20:00 97.0 100 20 117/69 98 Nasal Cannula 3.0 97.0 08/24/17 20:00 96 08/24/17 19:08 85 18 Nasal Cannula 2.0 28 08/24/17 19:08 Nasal Cannula 2.0 28 08/24/17 19:08 97 Nasal Cannula 2.0 28 08/24/17 16:00 97.0 96 20 116/66 99 Nasal Cannula 3.0 97.0 08/24/17 16:00 98 Height (Feet): 5 Height (Inches): 0.00 Weight (Pounds): 150 Objective General Appearance: no apparent distress, alert non-toxic, thin Head: normocephalic, atraumatic Eyes: bilateral eye normal inspection, bilateral eye PERRL ENT: hearing grossly normal, normal pharynx, no angioedema, normal voice Neck: full range of motion, supple/symm/no masses Respiratory: chest non-tender, lungs clear, normal breath sounds, speaking full sentences Cardiovascular #1: regular rate, rhythm, no edema Gastrointestinal: normal bowel sounds, non tender, soft, non-distended, no guarding, no rebound Genitourinary: normal inspection, no CVA tenderness Musculoskeletal: back normal, gait/station normal, normal range of motion, non- tender Skin: normal color, no rash, warm/dry, well hydrated Laboratory Tests Test 08/24/17 16:18 08/24/17 19:30 Fibrinogen 130 mg/dL (200-400) *L D-Dimer 5.56 mg/L FEU (0.00-0.49) H Activated Partial Thromboplast Time 55 SEC (23-33) H Current Medications Medications (Trade) Dose Ordered Sig/Keri Route PRN Reason Start Time Stop Time Status Last Admin Dose Admin Acetaminophen (Tylenol) 650 mg Q4H PRN ORAL fever (temp>100.5F) 08/24/17 15:43 09/19/17 15:42 Furosemide (Lasix) 40 mg DAILY IV 08/26/17 09:00 09/25/17 08:59 Metronidazole 100 ml @ 100 mls/hr Q8HR IVPB 08/24/17 22:00 09/01/17 21:59 08/25/17 13:14 Morphine Sulfate (Morphine Sulfate) 2 mg Q4H PRN IVP Severe Pain (Pain Scale 7-10) 08/24/17 15:43 08/25/17 15:42 08/24/17 19:34 Ondansetron HCl (Zofran) 4 mg Q6H PRN IVP Nausea & Vomiting 08/24/17 15:43 09/17/17 15:42 Pantoprazole (Protonix) 40 mg DAILY IVP 08/25/17 09:00 09/18/17 08:59 08/25/17 08:23 Polyethylene Glycol (Miralax) 17 gm DAILYPRN PRN ORAL Constipation 08/24/17 15:44 09/19/17 15:43 Vancomycin HCl (Vancomycin) 125 mg FOUR TIMES A DAY ORAL 08/24/17 18:00 08/31/17 20:59 08/25/17 13:06 Vitamin A/Vitamin D (A & D Oint) 1 applic EVERY 12 HOURS TOPIC 08/24/17 21:00 09/21/17 19:59 08/25/17 08:42 Amelia John M.D. August 25, 2017 15:22
[2017-08-25 16:00] VITALS: BP 117/71
[2017-08-25 20:00] VITALS: BP 104/64
[2017-08-26] VITALS: BP 114/77
[2017-08-26 04:00] VITALS: BP 106/57
[2017-08-26 08:00] VITALS: BP 123/73
[2017-08-26 08:33] LABS: HEMATOCRIT 33.3 % (37.0-47.0); HEMOGLOBIN 11.3 G/DL (12.0-16.0); MEAN CORPUSCULAR VOLUME 112 FL (80-99); PLATELET COUNT 29 K/UL (150-450); RED BLOOD COUNT 2.96 M/UL (4.20-5.40); RED CELL DISTRIBUTION WIDTH 20.2 % (11.6-14.8)
[2017-08-26] MEDS: Vancomycin oral 125mg/2.5ml ORAL SCH ×4 (09:01→21:04)
[2017-08-26] MEDS: Pantoprazole Inj IVP SCH (09:01)
[2017-08-26] MEDS: Vitamin A&D Oint 2oz Tube TOPIC SCH ×2 (09:02→21:05)
[2017-08-26 09:10] LABS: ALANINE AMINOTRANSFERASE 17 U/L (12-78); ALBUMIN 1.6 G/DL (3.4-5.0); ALBUMIN/GLOBULIN RATIO 0.8 (1.0-2.7); ALKALINE PHOSPHATASE 216 U/L (46-116); ANION GAP 8 mmol/L (5-15); ASPARTATE AMINO TRANSFERASE 16 U/L (15-37); BILIRUBIN,TOTAL 0.6 MG/DL (0.2-1.0); BLOOD UREA NITROGEN 9 mg/dL (7-18); CALCIUM 7.8 MG/DL (8.5-10.1); CARBON DIOXIDE 19 MMOL/L (21-32); CHLORIDE 119 MMOL/L (98-107); CREATININE 0.7 MG/DL (0.55-1.30); PHOSPHORUS 2.7 MG/DL (2.5-4.9); POTASSIUM 3.6 MMOL/L (3.5-5.1); SODIUM 146 MMOL/L (136-145)
--- NOTE | 2017-08-26 10:48 | Pulmonology Progress Note ---
Assessment/Plan Assessment/Plan ASSESSMENT Septic shock secondary to severe C. difficile colitis, resolved Severe C. difficile colitis Acute renal failure, resolved Dehydration Pulmonary fibrosis Acute DVT right upper extremity Moderate pulmonary hypertension [id number] mitral regurgitation Hepatic cirrhosis History of hypertension Thrombocytopenia Anemia of chronic disease PLAN OF CARE Telemetry floor (initially in ICU, transferred to telemetry after septic shock resolved s/p IV fluids monitor renal parameters and electrolytes, correct electrolytes as needed. avoid nephrotoxics acute renal failure resolved. antibiotic ID followed stool culture negative stool positive for C. 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 Blood pressure stabilized, no antihypertensive at this time CT of the chest abdomen and pelvis noted. CT of the chest findings consistent with pulmonary fibrosis. Supplemental oxygen and pulmonary toilet as needed. No signs of respiratory distress, doubt PNA findings of CT chest and CXR consistent with chronic lung disease/pulm fibrosis Closely monitor platelet count hepatitis panel negative, HIV negative heparin-induced antibody pending thrombocytopenia possibly secondary to liver disease anemia workup consistent with anemia of chronic disease closely monitor counts stool for occult blood negative GI prophylaxis case discussed and evaluated by supervising physician Subjective Allergies: Coded Allergies: HEPARIN (Verified Allergy, Severe, 08/24/17) Patient being worked up for HIT 08/24/17 AMOXICILLIN (Verified Adverse Reaction, Severe, Rash, 08/18/17) Subjective on O2 via NC, pulse ox stable, no signs of resp distress afebrile, still with leukocytosis no chest pain, BP stable Objective Last 24 Hour Vital Signs Date Time Temp Pulse Resp B/P (MAP) Pulse Ox O2 Delivery O2 Flow Rate FiO2 08/26/17 08:00 96.8 98 20 123/73 100 Nasal Cannula 3.0 96.8 08/26/17 08:00 105 08/26/17 04:00 97 08/26/17 04:00 97.5 93 18 106/57 100 Nasal Cannula 3.0 97.5 08/26/17 00:00 89 08/26/17 00:00 97.9 93 20 114/77 100 Nasal Cannula 3.0 97.9 08/25/17 20:00 97.6 95 20 104/64 98 Nasal Cannula 3.0 97.6 08/25/17 20:00 95 08/25/17 19:30 96 Nasal Cannula 2.0 28 08/25/17 19:30 92 18 Nasal Cannula 2.0 28 08/25/17 19:30 Nasal Cannula 2.0 28 08/25/17 16:00 94 08/25/17 16:00 97.2 97 20 117/71 98 Nasal Cannula 3.0 97.2 08/25/17 12:00 97.3 107 21 116/66 98 Nasal Cannula 3.0 97.3 08/25/17 12:00 112 Intake and Output 08/25/17 08/26/17 19:00 07:00 Intake Total 1400 ml 120 ml Balance 1400 ml 120 ml Intake Oral 700 ml 120 ml IV Total 100 ml Other 600 ml # Bowel Movements 1 General Appearance: no acute distress, other - bedriddenb awake HEENT: normocephalic, atraumatic, no JVD, other Respiratory/Chest: decreased breath sounds Cardiovascular: normal rate, regular rhythm - SR on tele , no JVD Abdomen: soft, non tender Extremities: other - trace edema BLE Neurologic/Psychiatric: abnormal gait, alert, responsive Musculoskeletal: atrophy - BLE Microbiology Date/Time Source Procedure Growth Status 08/24/17 16:18 Blood Blood Culture - Preliminary NO GROWTH AFTER 24 HOURS Resulted 08/24/17 16:18 Blood Blood Culture - Preliminary NO GROWTH AFTER 24 HOURS Resulted Laboratory Tests 08/26/17 06:20: White Blood Count 17.0H, Red Blood Count 2.96L, Hemoglobin 11.3L, Hematocrit 33.3L, Mean Corpuscular Volume 112H, Mean Corpuscular Hemoglobin 38.0H, Mean Corpuscular Hemoglobin Concent 33.8, Red Cell Distribution Width 20.2H, Platelet Count 29L, Mean Platelet Volume 11.9H, Neutrophils (%) (Auto) , Lymphocytes (%) (Auto) , Monocytes (%) (Auto) , Eosinophils (%) (Auto) , Basophils (%) (Auto) , Neutrophils % (Manual) [Pending], Lymphocytes % (Manual) [Pending], Platelet Estimate [Pending], Platelet Morphology [Pending], Erythrocyte Sedimentation Rate 11, Sodium Level 146H, Potassium Level 3.6, Chloride Level 119H, Carbon Dioxide Level 19L, Anion Gap 8, Blood Urea Nitrogen 9, Creatinine 0.7, Estimat Glomerular Filtration Rate , Glucose Level 101, Calcium Level 7.8L, Phosphorus Level 2.7, Magnesium Level 2.0, Total Bilirubin 0.6, Aspartate Amino Transf (AST/SGOT) 16, Alanine Aminotransferase (ALT/SGPT) 17, Alkaline Phosphatase 216H, C-Reactive Protein, Quantitative 3.9H, Total Protein 3.7L, Albumin 1.6L, Globulin 2.1, Albumin/Globulin Ratio 0.8L Current Medications Medications (Trade) Dose Ordered Sig/Keri Route PRN Reason Start Time Stop Time Status Last Admin Dose Admin Acetaminophen (Tylenol) 650 mg Q4H PRN ORAL fever (temp>100.5F) 08/24/17 15:43 09/19/17 15:42 Furosemide (Lasix) 40 mg DAILY IV 08/26/17 09:00 09/25/17 08:59 08/26/17 09:00 Metronidazole 100 ml @ 100 mls/hr Q8HR IVPB 08/24/17 22:00 09/01/17 21:59 08/26/17 05:24 Ondansetron HCl (Zofran) 4 mg Q6H PRN IVP Nausea & Vomiting 08/24/17 15:43 09/17/17 15:42 Pantoprazole (Protonix) 40 mg DAILY IVP 08/25/17 09:00 09/18/17 08:59 08/26/17 09:01 Polyethylene Glycol (Miralax) 17 gm DAILYPRN PRN ORAL Constipation 08/24/17 15:44 09/19/17 15:43 Vancomycin HCl (Vancomycin) 125 mg FOUR TIMES A DAY ORAL 08/24/17 18:00 08/31/17 20:59 08/26/17 09:01 Vitamin A/Vitamin D (A & D Oint) 1 applic EVERY 12 HOURS TOPIC 08/24/17 21:00 09/21/17 19:59 08/26/17 09:02 Lydia Dixon NP (Vanchtein) August 26, 2017 10:48
--- NOTE | 2017-08-26 11:02 | Infectious Diseases Prog Note ---
Assessment/Plan Assessment/Plan Assessment: Septic shock, SP Severe C Diff colitis -CT abd/p: Pancolitis. Chronic liver disease/cirrhosis. Moderate ascites. Distended gallbladder nonspecific. Severe lung fibrosis. Anasarca and mesenteric /retroperitoneal stranding. Right femoral line in good position. Degenerative changes of the spine and osteopenia. Atherosclerotic disease. KUB : Nonspecific bowel gas pattern Stool Cx : Neg -Bcx neg ? Pneum, doubt Pulmonary fibrosis -CXR: BL Extensive basilar infiltrates - component of fibrosis and chronic lung disease -CT chest : Pulmonary fibrosis with evidence of honeycombing. More dense opacity in the right lower lobe may be related to confluent area of scarring however superimposed pneumonia should be excluded clinically. Small bilateral pleural effusions. Mild enlargement of the main pulmonary artery suggestive of pulmonary arterial hypertension. Cardiomegaly with coronary arterial calcifications. Small mediastinal adenopathy with a borderline enlarged calcified mediastinal lymph node. Findings are nonspecific.Evidence of hepatic cirrhosis with ascites and gallbladder distention similar to CT of the abdomen and pelvis 08/19/2017. Recent PNA, still having productive cough Leukocytosis/bandemia; overall improved, now strable at 16-17 -Bcx 08/24 NTD -KUB 08/25: Nonspecific bowel gas pattern. Afebrile Lactic acidosis, resolved RUE DVT EDDI HTN Plan: -Continue PO Vancomycin 125mg qid and IV Flagyl 500mg q8h d# 01/05 for severe Cdiff; upon discharge PO Vancomycin to complete course -if not ongoing significant diarrhea, will do Fidaxomicin instead -08/21 SP IV vanco and Aztreonam #4 -f/u repeat Bcx -Montior CBC/BMP, temperatures -Aspiration precautions -u/a w/ reflex Discussed with RN Subjective Allergies: Coded Allergies: HEPARIN (Verified Allergy, Severe, 08/24/17) Patient being worked up for HIT 08/24/17 AMOXICILLIN (Verified Adverse Reaction, Severe, Rash, 08/18/17) Subjective afebrile at 3l NC leukocytosis overall improved, now stable at 16-17 BCx NTD Objective Vital Signs Last 24 Hour Vital Signs Date Time Temp Pulse Resp B/P (MAP) Pulse Ox O2 Delivery O2 Flow Rate FiO2 08/26/17 08:00 96.8 98 20 123/73 100 Nasal Cannula 3.0 96.8 08/26/17 08:00 105 08/26/17 04:00 97 08/26/17 04:00 97.5 93 18 106/57 100 Nasal Cannula 3.0 97.5 08/26/17 00:00 89 08/26/17 00:00 97.9 93 20 114/77 100 Nasal Cannula 3.0 97.9 08/25/17 20:00 97.6 95 20 104/64 98 Nasal Cannula 3.0 97.6 08/25/17 20:00 95 08/25/17 19:30 96 Nasal Cannula 2.0 28 08/25/17 19:30 92 18 Nasal Cannula 2.0 28 08/25/17 19:30 Nasal Cannula 2.0 28 08/25/17 16:00 94 08/25/17 16:00 97.2 97 20 117/71 98 Nasal Cannula 3.0 97.2 08/25/17 12:00 97.3 107 21 116/66 98 Nasal Cannula 3.0 97.3 08/25/17 12:00 112 Height (Feet): 5 Height (Inches): 0.00 Weight (Pounds): 158 Objective General Appearance: no apparent distress, alert non-toxic, thin Head: normocephalic, atraumatic Eyes: bilateral eye normal inspection, bilateral eye PERRL ENT: hearing grossly normal, normal pharynx, no angioedema, normal voice Neck: full range of motion, supple/symm/no masses Respiratory: chest non-tender, lungs clear, normal breath sounds, speaking full sentences Cardiovascular #1: regular rate, rhythm, no edema Gastrointestinal: normal bowel sounds, non tender, soft, non-distended, no guarding, no rebound Genitourinary: normal inspection, no CVA tenderness Musculoskeletal: back normal, gait/station normal, normal range of motion, non- tender Skin: normal color, no rash, warm/dry, well hydrated Microbiology Date/Time Source Procedure Growth Status 08/24/17 16:18 Blood Blood Culture - Preliminary NO GROWTH AFTER 24 HOURS Resulted 08/24/17 16:18 Blood Blood Culture - Preliminary NO GROWTH AFTER 24 HOURS Resulted Laboratory Tests Test 08/26/17 06:20 White Blood Count 17.0 K/UL (4.8-10.8) H Red Blood Count 2.96 M/UL (4.20-5.40) L Hemoglobin 11.3 G/DL (12.0-16.0) L Hematocrit 33.3 % (37.0-47.0) L Mean Corpuscular Volume 112 FL (80-99) H Mean Corpuscular Hemoglobin 38.0 PG (27.0-31.0) H Mean Corpuscular Hemoglobin Concent 33.8 G/DL (32.0-36.0) Red Cell Distribution Width 20.2 % (11.6-14.8) H Platelet Count 29 K/UL (150-450) L Mean Platelet Volume 11.9 FL (6.5-10.1) H Neutrophils (%) (Auto) % (45.0-75.0) Lymphocytes (%) (Auto) % (20.0-45.0) Monocytes (%) (Auto) % (1.0-10.0) Eosinophils (%) (Auto) % (0.0-3.0) Basophils (%) (Auto) % (0.0-2.0) Differential Total Cells Counted 100 Neutrophils % (Manual) 71 % (45-75) Lymphocytes % (Manual) 16 % (20-45) L Monocytes % (Manual) 10 % (1-10) Eosinophils % (Manual) 2 % (0-3) Basophils % (Manual) 0 % (0-2) Band Neutrophils 1 % (0-8) Platelet Estimate Decreased L Platelet Morphology Giant Platelets Occasional Hypochromasia 1+ Anisocytosis 2+ Macrocytosis 1+ Erythrocyte Sedimentation Rate 11 MM/HR (0-30) Sodium Level 146 MMOL/L (136-145) H Potassium Level 3.6 MMOL/L (3.5-5.1) Chloride Level 119 MMOL/L (98-107) H Carbon Dioxide Level 19 MMOL/L (21-32) L Anion Gap 8 mmol/L (5-15) Blood Urea Nitrogen 9 mg/dL (7-18) Creatinine 0.7 MG/DL (0.55-1.30) Estimat Glomerular Filtration Rate mL/min (>60) Glucose Level 101 MG/DL (74-106) Calcium Level 7.8 MG/DL (8.5-10.1) L Phosphorus Level 2.7 MG/DL (2.5-4.9) Magnesium Level 2.0 MG/DL (1.8-2.4) Total Bilirubin 0.6 MG/DL (0.2-1.0) Aspartate Amino Transf (AST/SGOT) 16 U/L (15-37) Alanine Aminotransferase (ALT/SGPT) 17 U/L (12-78) Alkaline Phosphatase 216 U/L (46-116) H C-Reactive Protein, Quantitative 3.9 mg/dL (0.00-0.90) H Total Protein 3.7 G/DL (6.4-8.2) L Albumin 1.6 G/DL (3.4-5.0) L Globulin 2.1 g/dL Albumin/Globulin Ratio 0.8 (1.0-2.7) L Current Medications Medications (Trade) Dose Ordered Sig/Keri Route PRN Reason Start Time Stop Time Status Last Admin Dose Admin Acetaminophen (Tylenol) 650 mg Q4H PRN ORAL fever (temp>100.5F) 08/24/17 15:43 09/19/17 15:42 Furosemide (Lasix) 40 mg DAILY IV 08/26/17 09:00 09/25/17 08:59 08/26/17 09:00 Metronidazole 100 ml @ 100 mls/hr Q8HR IVPB 08/24/17 22:00 09/01/17 21:59 08/26/17 05:24 Ondansetron HCl (Zofran) 4 mg Q6H PRN IVP Nausea & Vomiting 08/24/17 15:43 09/17/17 15:42 Pantoprazole (Protonix) 40 mg DAILY IVP 08/25/17 09:00 09/18/17 08:59 08/26/17 09:01 Polyethylene Glycol (Miralax) 17 gm DAILYPRN PRN ORAL Constipation 08/24/17 15:44 09/19/17 15:43 Vancomycin HCl (Vancomycin) 125 mg FOUR TIMES A DAY ORAL 08/24/17 18:00 08/31/17 20:59 08/26/17 09:01 Vitamin A/Vitamin D (A & D Oint) 1 applic EVERY 12 HOURS TOPIC 08/24/17 21:00 09/21/17 19:59 08/26/17 09:02 Amelia John M.D. August 26, 2017 11:02
[2017-08-26] MEDS ORDERED: Argatroban per pharmacy MISC PRN (11:15)
--- NOTE | 2017-08-26 11:21 | General Progress Note ---
Assessment/Plan Status: stable Assessment/Plan 1. Septic shock seconary to severe C-diff colitis , off ICU 2. severe C-diff colitis, current antibiotics 3. Acute renal failure. 4. Dehydration. 5. Gastrointestinal and deep vein thrombosis prophylaxis. 6. Pulmonary infiltrate: infection !? 7. VRE- Rectum 8. 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 New Acute right UE DVT 11. Equivocal nodularity in Chest-CT Plan: Current Abx coverage Thrombocytopenia, HIT ! Start SCD, Consult HemOnch will start Argatroban, per hemonch input unlikely to have PNA Subjective ROS Limited/Unobtainable: No Constitutional: Reports: no symptoms, malaise HEENT: Reports: no symptoms Cardiovascular: Reports: no symptoms Respiratory: Reports: no symptoms Allergies: Coded Allergies: HEPARIN (Verified Allergy, Severe, 08/24/17) Patient being worked up for HIT 08/24/17 AMOXICILLIN (Verified Adverse Reaction, Severe, Rash, 08/18/17) Objective Last 24 Hour Vital Signs Date Time Temp Pulse Resp B/P (MAP) Pulse Ox O2 Delivery O2 Flow Rate FiO2 08/26/17 08:00 96.8 98 20 123/73 100 Nasal Cannula 3.0 96.8 08/26/17 08:00 105 08/26/17 04:00 97 08/26/17 04:00 97.5 93 18 106/57 100 Nasal Cannula 3.0 97.5 08/26/17 00:00 89 08/26/17 00:00 97.9 93 20 114/77 100 Nasal Cannula 3.0 97.9 08/25/17 20:00 97.6 95 20 104/64 98 Nasal Cannula 3.0 97.6 08/25/17 20:00 95 08/25/17 19:30 96 Nasal Cannula 2.0 28 08/25/17 19:30 92 18 Nasal Cannula 2.0 28 08/25/17 19:30 Nasal Cannula 2.0 28 08/25/17 16:00 94 08/25/17 16:00 97.2 97 20 117/71 98 Nasal Cannula 3.0 97.2 08/25/17 12:00 97.3 107 21 116/66 98 Nasal Cannula 3.0 97.3 08/25/17 12:00 112 Intake and Output 08/25/17 08/26/17 19:00 07:00 Intake Total 1400 ml 120 ml Balance 1400 ml 120 ml Intake Oral 700 ml 120 ml IV Total 100 ml Other 600 ml # Bowel Movements 1 Laboratory Tests 08/26/17 06:20: White Blood Count 17.0H, Red Blood Count 2.96L, Hemoglobin 11.3L, Hematocrit 33.3L, Mean Corpuscular Volume 112H, Mean Corpuscular Hemoglobin 38.0H, Mean Corpuscular Hemoglobin Concent 33.8, Red Cell Distribution Width 20.2H, Platelet Count 29L, Mean Platelet Volume 11.9H, Neutrophils (%) (Auto) , Lymphocytes (%) (Auto) , Monocytes (%) (Auto) , Eosinophils (%) (Auto) , Basophils (%) (Auto) , Differential Total Cells Counted 100, Neutrophils % ( Manual) 71, Lymphocytes % (Manual) 16L, Monocytes % (Manual) 10, Eosinophils % ( Manual) 2, Basophils % (Manual) 0, Band Neutrophils 1, Platelet Estimate DecreasedL, Platelet Morphology , Giant Platelets Occasional, Hypochromasia 1+, Anisocytosis 2+, Macrocytosis 1+, Erythrocyte Sedimentation Rate 11, Sodium Level 146H, Potassium Level 3.6, Chloride Level 119H, Carbon Dioxide Level 19L, Anion Gap 8, Blood Urea Nitrogen 9, Creatinine 0.7, Estimat Glomerular Filtration Rate , Glucose Level 101, Calcium Level 7.8L, Phosphorus Level 2.7, Magnesium Level 2.0, Total Bilirubin 0.6, Aspartate Amino Transf (AST/SGOT) 16, Alanine Aminotransferase (ALT/SGPT) 17, Alkaline Phosphatase 216H, C-Reactive Protein, Quantitative 3.9H, Total Protein 3.7L, Albumin 1.6L, Globulin 2.1, Albumin/Globulin Ratio 0.8L Height (Feet): 5 Height (Inches): 0.00 Weight (Pounds): 158 General Appearance: no apparent distress EENT: PERRL/EOMI Neck: supple Cardiovascular: normal rate Respiratory/Chest: lungs clear Abdomen: soft Extremities: non-tender, other - no gross lateral motor defeceit Neurologic: veteran appeals reviewer II-XII grossly normal Ngozi Blank MD August 26, 2017 11:21
[2017-08-26 12:00] VITALS: BP 104/55
--- NOTE | 2017-08-26 15:52 | Cardiac Electrophysiology PN ---
Assessment/Plan Assessment/Plan 1. S/P septic shock. WBC still 17 K . On broad-spectrum intravenous antibiotics per ID Echocardiogram EF 65% and no evidence of endocarditis 2. Hypokalemia 3. BNP of more than 10,000. Echocardiogram Nl EF. 4. WBC more than 30K due to C Diff. Improved. 5. Worsening of Thrombocytopenia, Plt 18K!, HIT ? Hematology following. Argatroban DCed per Dr Dozier 6. Acute axillary vein DVT. Argatroban DCed for Low platelet 7. Chronic lower Extremity DVT , DW RN Subjective Subjective No CP or SOB. In isolation for VRE and C Diff. Moaning. No arrhythmias. Objective Last 24 Hour Vital Signs Date Time Temp Pulse Resp B/P (MAP) Pulse Ox O2 Delivery O2 Flow Rate FiO2 08/26/17 12:00 96.2 99 20 104/55 100 Nasal Cannula 3.0 96.2 08/26/17 12:00 96 08/26/17 08:32 Nasal Cannula 2.0 28 08/26/17 08:31 97 Nasal Cannula 2.0 28 08/26/17 08:00 96.8 98 20 123/73 100 Nasal Cannula 3.0 96.8 08/26/17 08:00 105 08/26/17 04:00 97 08/26/17 04:00 97.5 93 18 106/57 100 Nasal Cannula 3.0 97.5 08/26/17 00:00 89 08/26/17 00:00 97.9 93 20 114/77 100 Nasal Cannula 3.0 97.9 08/25/17 20:00 97.6 95 20 104/64 98 Nasal Cannula 3.0 97.6 08/25/17 20:00 95 08/25/17 19:30 96 Nasal Cannula 2.0 28 08/25/17 19:30 92 18 Nasal Cannula 2.0 28 08/25/17 19:30 Nasal Cannula 2.0 28 08/25/17 16:00 94 08/25/17 16:00 97.2 97 20 117/71 98 Nasal Cannula 3.0 97.2 Intake and Output 08/25/17 08/26/17 19:00 07:00 Intake Total 1400 ml 120 ml Balance 1400 ml 120 ml Intake Oral 700 ml 120 ml IV Total 100 ml Other 600 ml # Bowel Movements 1 Laboratory Tests Test 08/26/17 06:20 White Blood Count 17.0 K/UL (4.8-10.8) H Red Blood Count 2.96 M/UL (4.20-5.40) L Hemoglobin 11.3 G/DL (12.0-16.0) L Hematocrit 33.3 % (37.0-47.0) L Mean Corpuscular Volume 112 FL (80-99) H Mean Corpuscular Hemoglobin 38.0 PG (27.0-31.0) H Mean Corpuscular Hemoglobin Concent 33.8 G/DL (32.0-36.0) Red Cell Distribution Width 20.2 % (11.6-14.8) H Platelet Count 29 K/UL (150-450) L Mean Platelet Volume 11.9 FL (6.5-10.1) H Neutrophils (%) (Auto) % (45.0-75.0) Lymphocytes (%) (Auto) % (20.0-45.0) Monocytes (%) (Auto) % (1.0-10.0) Eosinophils (%) (Auto) % (0.0-3.0) Basophils (%) (Auto) % (0.0-2.0) Differential Total Cells Counted 100 Neutrophils % (Manual) 71 % (45-75) Lymphocytes % (Manual) 16 % (20-45) L Monocytes % (Manual) 10 % (1-10) Eosinophils % (Manual) 2 % (0-3) Basophils % (Manual) 0 % (0-2) Band Neutrophils 1 % (0-8) Platelet Estimate Decreased L Platelet Morphology Giant Platelets Occasional Hypochromasia 1+ Anisocytosis 2+ Macrocytosis 1+ Erythrocyte Sedimentation Rate 11 MM/HR (0-30) Sodium Level 146 MMOL/L (136-145) H Potassium Level 3.6 MMOL/L (3.5-5.1) Chloride Level 119 MMOL/L (98-107) H Carbon Dioxide Level 19 MMOL/L (21-32) L Anion Gap 8 mmol/L (5-15) Blood Urea Nitrogen 9 mg/dL (7-18) Creatinine 0.7 MG/DL (0.55-1.30) Estimat Glomerular Filtration Rate mL/min (>60) Glucose Level 101 MG/DL (74-106) Calcium Level 7.8 MG/DL (8.5-10.1) L Phosphorus Level 2.7 MG/DL (2.5-4.9) Magnesium Level 2.0 MG/DL (1.8-2.4) Total Bilirubin 0.6 MG/DL (0.2-1.0) Aspartate Amino Transf (AST/SGOT) 16 U/L (15-37) Alanine Aminotransferase (ALT/SGPT) 17 U/L (12-78) Alkaline Phosphatase 216 U/L (46-116) H C-Reactive Protein, Quantitative 3.9 mg/dL (0.00-0.90) H Total Protein 3.7 G/DL (6.4-8.2) L Albumin 1.6 G/DL (3.4-5.0) L Globulin 2.1 g/dL Albumin/Globulin Ratio 0.8 (1.0-2.7) L Microbiology Date/Time Source Procedure Growth Status 08/24/17 16:18 Blood Blood Culture - Preliminary NO GROWTH AFTER 24 HOURS Resulted 08/24/17 16:18 Blood Blood Culture - Preliminary NO GROWTH AFTER 24 HOURS Resulted Objective HEENT: No JVD. LUNGS: Clear CARDIOVASCULAR: Regular S1 and S2 with no gallop. ABDOMEN: Soft. EXTREMITIES: No edema. Quinn Lam MD August 26, 2017 15:52
[2017-08-26 16:00] VITALS: BP 105/53
--- NOTE | 2017-08-26 17:52 | General Progress Note ---
Assessment/Plan Assessment/Plan # Thrombocytopenia, severe, multiple etiologies are possible including sepsis, C. difficile versus underlying infection. Less likely HIT given that the hit antibody test is negative --> also patient with a upper arm dvt and cannot anticoagulate given low platelets --> discuss with vascular surgery for upper ext dvt, if procedure is possible. Less likely to benefit from superior vena cava filter as use is controversial given less likely of upper dvt causing pe --> closely monitor for improvement, plt goal >50k to begin anticoagulation # Right lower extremity dvt - hold off anticoagulation given above reasons # Anemia due to underlying chronic disease. Continue to closely monitor, potentially hemodilutional. # Leukocytosis, likely secondary to Clostridium difficile versus other cause. --> hx of recent septic shock, closely monitor for improvement. # Acute kidney injury. Continue to closely monitor. Potentially dehydration related. # Colitis, potentially secondary to Clostridium difficile. Currently, on antibiotics per ID Service. # Hypokalemia, is s/p repletion Subjective Date patient seen: August 25, 2017 Constitutional: Reports: no symptoms HEENT: Reports: no symptoms Cardiovascular: Reports: no symptoms Respiratory: Reports: no symptoms Gastrointestinal/Abdominal: Reports: no symptoms Genitourinary: Reports: no symptoms Neurologic/Psychiatric: Reports: no symptoms Endocrine: Reports: no symptoms Hematologic/Lymphatic: Reports: no symptoms Allergies: Coded Allergies: HEPARIN (Verified Allergy, Severe, 08/24/17) Patient being worked up for HIT 08/24/17 AMOXICILLIN (Verified Adverse Reaction, Severe, Rash, 08/18/17) Subjective swelling of upper ext persists Objective Last 24 Hour Vital Signs Date Time Temp Pulse Resp B/P (MAP) Pulse Ox O2 Delivery O2 Flow Rate FiO2 08/26/17 16:00 97.4 97 20 105/53 95 Nasal Cannula 3.0 97.4 08/26/17 12:00 96.2 99 20 104/55 100 Nasal Cannula 3.0 96.2 08/26/17 12:00 96 08/26/17 08:32 Nasal Cannula 2.0 28 08/26/17 08:31 97 Nasal Cannula 2.0 28 08/26/17 08:00 96.8 98 20 123/73 100 Nasal Cannula 3.0 96.8 08/26/17 08:00 105 08/26/17 04:00 97 08/26/17 04:00 97.5 93 18 106/57 100 Nasal Cannula 3.0 97.5 08/26/17 00:00 89 08/26/17 00:00 97.9 93 20 114/77 100 Nasal Cannula 3.0 97.9 08/25/17 20:00 97.6 95 20 104/64 98 Nasal Cannula 3.0 97.6 08/25/17 20:00 95 08/25/17 19:30 96 Nasal Cannula 2.0 28 08/25/17 19:30 92 18 Nasal Cannula 2.0 28 08/25/17 19:30 Nasal Cannula 2.0 28 Intake and Output 08/25/17 08/26/17 19:00 07:00 Intake Total 1400 ml 120 ml Balance 1400 ml 120 ml Intake Oral 700 ml 120 ml IV Total 100 ml Other 600 ml # Bowel Movements 1 Laboratory Tests 08/26/17 06:20: White Blood Count 17.0H, Red Blood Count 2.96L, Hemoglobin 11.3L, Hematocrit 33.3L, Mean Corpuscular Volume 112H, Mean Corpuscular Hemoglobin 38.0H, Mean Corpuscular Hemoglobin Concent 33.8, Red Cell Distribution Width 20.2H, Platelet Count 29L, Mean Platelet Volume 11.9H, Neutrophils (%) (Auto) , Lymphocytes (%) (Auto) , Monocytes (%) (Auto) , Eosinophils (%) (Auto) , Basophils (%) (Auto) , Differential Total Cells Counted 100, Neutrophils % ( Manual) 71, Lymphocytes % (Manual) 16L, Monocytes % (Manual) 10, Eosinophils % ( Manual) 2, Basophils % (Manual) 0, Band Neutrophils 1, Platelet Estimate DecreasedL, Platelet Morphology , Giant Platelets Occasional, Hypochromasia 1+, Anisocytosis 2+, Macrocytosis 1+, Erythrocyte Sedimentation Rate 11, Sodium Level 146H, Potassium Level 3.6, Chloride Level 119H, Carbon Dioxide Level 19L, Anion Gap 8, Blood Urea Nitrogen 9, Creatinine 0.7, Estimat Glomerular Filtration Rate , Glucose Level 101, Calcium Level 7.8L, Phosphorus Level 2.7, Magnesium Level 2.0, Total Bilirubin 0.6, Aspartate Amino Transf (AST/SGOT) 16, Alanine Aminotransferase (ALT/SGPT) 17, Alkaline Phosphatase 216H, C-Reactive Protein, Quantitative 3.9H, Total Protein 3.7L, Albumin 1.6L, Globulin 2.1, Albumin/Globulin Ratio 0.8L Height (Feet): 5 Height (Inches): 0.00 Weight (Pounds): 158 General Appearance: alert EENT: normal ENT inspection Neck: supple Cardiovascular: regular rhythm Respiratory/Chest: normal breath sounds Abdomen: no mass Extremities: non-tender Edema: 1+ Leg (L), 1+ Leg (R) Neurologic: abnormal gait Skin: normal pigmentation Emery Guzmán MD August 26, 2017 17:51
--- NOTE | 2017-08-26 18:12 | General Progress Note ---
Progress Note Progress Note Patient seen and examined Consult dictated # [id number] MIGUEL MORRISON August 26, 2017 18:12
[2017-08-26] MEDS ORDERED: Eliquis 2.5mg tablet ORAL SCH (18:30)
[2017-08-26 18:44] LABS: APPEARANCE,URINE CLEAR; BILIRUBIN, URINE NEGATIVE (NEGATIVE); COLOR,URINE PALE YELLOW; GLUCOSE, URINE (UA) NEGATIVE (NEGATIVE); KETONES,URINE NEGATIVE (NEGATIVE); LEUKOCYTE ESTERASE ,URINE 1+ (NEGATIVE); NITRITE,URINE NEGATIVE (NEGATIVE); PH,URINE 5 (4.5-8.0); PROTEIN,URINE NEGATIVE (NEGATIVE); UROBILINOGEN,URINE NORMAL MG/DL (0.0-1.0)
[2017-08-26 20:00] VITALS: BP 113/65
[2017-08-27] VITALS: BP 115/68
--- NOTE | 2017-08-27 02:30 | Consultation ---
DATE OF CONSULTATION: 08/26/2017 VASCULAR SURGERY CONSULTATION CONSULTING PHYSICIAN: Stephon Alvarez M.D. REFERRING PHYSICIAN: Brandon Blank M.D. REASON FOR EVALUATION: r/o HIT and DVT. HISTORY OF PRESENT ILLNESS: The patient is an 82-year-old female, who presented with weakness. The patient has diffuse colitis and C. difficile infection with sepsis and leukocytosis. The patient was found to have right leg deep venous thrombosis, chronic and some right axillary vein DVT. She has had previous line placement. She had been started on anticoagulation with heparin. Her platelet count had dropped from 100,000 now to 29,000. HIT sr4 assay is negative. Heparin had been discontinued. The patient had been evaluated by Hematology Service. Vascular Surgery is consulted for further evaluation. The patient currently has no other complaints and tolerates diet. The daughter is at bedside. She is not short of breath. PAST MEDICAL HISTORY: As above. History of pulmonary fibrosis, history of C. difficile colitis, vancomycin-resistant enterococcus, thrombocytopenia, newly diagnosed, and history of hemorrhoid repair. MEDICATIONS: See attached MAR. ALLERGIES: She is allergic to amoxicillin and now heparin. SOCIAL HISTORY: No current smoking, drugs, or alcohol abuse. She is a former smoker. FAMILY HISTORY: Unremarkable. REVIEW OF SYSTEMS: CARDIOVASCULAR: No history of chest pain or palpitations. PULMONARY: No cough or hemoptysis. GASTROINTESTINAL: As above. GENITOURINARY: No dysuria, frequency, or urgency. NEUROLOGIC: No history of strokes or seizures. PHYSICAL EXAMINATION: VITAL SIGNS: The patient is afebrile at 97.8, heart rate 98, respirations 20, blood pressure 123/73, and saturation is 100%. She has palpable radial pulses. NECK: No evidence of carotid bruits. LUNGS: Clear to auscultation. HEART: Regular rate and rhythm. ABDOMEN: Soft and nontender. EXTREMITIES: She has palpable pedal pulses. Feet are warm with intact pedal Dopplers bilaterally. She does have lower extremity edema. Right arm has edema 2+. LABORATORY AND DIAGNOSTIC DATA: Reveals WBC of 17.0, hemoglobin 11.3, and platelet count is 29,000. Her potassium 3.6, sodium 136, chloride 119, CO2 is 19, BUN is 9, and creatinine 0.7. Alkaline phosphatase is 216. AST is 16 and ALT 17. Duplexes were reviewed. IMPRESSION: 1. Acute right axillary vein deep venous thrombosis with chronic re-cannulized right groin and deep venous thrombosis with history of line placement. 2. Worsening thrombocytopenia with negative HIT for serotonin 4 pf assay. 3. History of pulmonary infiltrates and liver cirrhosis on CT 4. Vancomycin-resistant enterococcus in rectum. PLAN AND RECOMMENDATIONS: 1. Anticoagulation for 3 months therapeutically with warfarin or Eliquis. 2. No right arm procedure. 3. Antibiotics per Infectious Disease Service. 4. Rehabilitation therapy. 5. Physical therapy, occupational therapy. Stephon Alvarez M.D. DR: JAY JOB#: [id number] CC: Stephon Alvarez M.D.; Fax#: [phone] BRANDON BLANK M.D. ; FAX#: [phone] Emery Guzmán M.D. [facility]
--- NOTE | 2017-08-27 03:37 | General Progress Note ---
Assessment/Plan Assessment/Plan # Thrombocytopenia, severe, multiple etiologies are possible including sepsis, C. difficile versus underlying infection. Less likely HIT given that the hit antibody test is negative --> also patient with a upper arm dvt and decreased platelets that slowly uptrending at this time --> reviewed recs with vascular surgery agree to start apixaban for 3 months with close monitoring # Right lower extremity dvt - apixaban x 3 months total # Anemia due to underlying chronic disease. Continue to closely monitor, potentially hemodilutional. # Leukocytosis, likely secondary to Clostridium difficile versus other cause. --> hx of recent septic shock, closely monitor for improvement. # Acute kidney injury. Continue to closely monitor. Potentially dehydration related. # Colitis, potentially secondary to Clostridium difficile. Currently, on antibiotics per ID Service. # Hypokalemia, is s/p repletion Subjective Date patient seen: August 26, 2017 Constitutional: Reports: no symptoms HEENT: Reports: no symptoms Cardiovascular: Reports: no symptoms Respiratory: Reports: no symptoms Gastrointestinal/Abdominal: Reports: no symptoms Genitourinary: Reports: no symptoms Neurologic/Psychiatric: Reports: no symptoms Endocrine: Reports: no symptoms Allergies: Coded Allergies: HEPARIN (Verified Allergy, Severe, 08/24/17) Patient being worked up for HIT 08/24/17 AMOXICILLIN (Verified Adverse Reaction, Severe, Rash, 08/18/17) Subjective started on apixaban Objective Last 24 Hour Vital Signs Date Time Temp Pulse Resp B/P (MAP) Pulse Ox O2 Delivery O2 Flow Rate FiO2 08/27/17 01:48 97.3 08/27/17 00:00 97 08/26/17 21:03 Nasal Cannula 2.0 28 08/26/17 21:02 98 Nasal Cannula 2.0 28 08/26/17 20:00 99 08/26/17 20:00 97.3 99 20 113/65 100 Nasal Cannula 3.0 97.3 08/26/17 16:00 97.4 97 20 105/53 95 Nasal Cannula 3.0 97.4 08/26/17 16:00 100 08/26/17 12:00 96.2 99 20 104/55 100 Nasal Cannula 3.0 96.2 08/26/17 12:00 96 08/26/17 08:32 Nasal Cannula 2.0 28 08/26/17 08:31 97 Nasal Cannula 2.0 28 08/26/17 08:00 96.8 98 20 123/73 100 Nasal Cannula 3.0 96.8 08/26/17 08:00 105 08/26/17 04:00 97 08/26/17 04:00 97.5 93 18 106/57 100 Nasal Cannula 3.0 97.5 Intake and Output 08/26/17 08/27/17 19:00 07:00 Intake Total 460 ml Balance 460 ml Intake Oral 360 ml IV Total 100 ml # Voids 3 # Bowel Movements 1 Laboratory Tests 08/26/17 06:20: White Blood Count 17.0H, Red Blood Count 2.96L, Hemoglobin 11.3L, Hematocrit 33.3L, Mean Corpuscular Volume 112H, Mean Corpuscular Hemoglobin 38.0H, Mean Corpuscular Hemoglobin Concent 33.8, Red Cell Distribution Width 20.2H, Platelet Count 29L, Mean Platelet Volume 11.9H, Neutrophils (%) (Auto) , Lymphocytes (%) (Auto) , Monocytes (%) (Auto) , Eosinophils (%) (Auto) , Basophils (%) (Auto) , Differential Total Cells Counted 100, Neutrophils % ( Manual) 71, Lymphocytes % (Manual) 16L, Monocytes % (Manual) 10, Eosinophils % ( Manual) 2, Basophils % (Manual) 0, Band Neutrophils 1, Platelet Estimate DecreasedL, Platelet Morphology , Giant Platelets Occasional, Hypochromasia 1+, Anisocytosis 2+, Macrocytosis 1+, Erythrocyte Sedimentation Rate 11, Sodium Level 146H, Potassium Level 3.6, Chloride Level 119H, Carbon Dioxide Level 19L, Anion Gap 8, Blood Urea Nitrogen 9, Creatinine 0.7, Estimat Glomerular Filtration Rate , Glucose Level 101, Calcium Level 7.8L, Phosphorus Level 2.7, Magnesium Level 2.0, Total Bilirubin 0.6, Aspartate Amino Transf (AST/SGOT) 16, Alanine Aminotransferase (ALT/SGPT) 17, Alkaline Phosphatase 216H, C-Reactive Protein, Quantitative 3.9H, Total Protein 3.7L, Albumin 1.6L, Globulin 2.1, Albumin/Globulin Ratio 0.8L 08/26/17 16:00: Urine Color Pale yellow, Urine Appearance Clear, Urine pH 5, Urine Specific [place] 1.015, Urine Protein Negative, Urine Glucose (UA) Negative, Urine Ketones Negative, Urine Occult Blood Negative, Urine Nitrite Negative, Urine Bilirubin Negative, Urine Urobilinogen Normal, Urine Leukocyte Esterase 1+H, Urine RBC 0-2, Urine WBC 2-4, Urine Squamous Epithelial Cells ModerateH, Urine Bacteria Occasional Height (Feet): 5 Height (Inches): 0.00 Weight (Pounds): 158 General Appearance: no apparent distress EENT: TMs normal Neck: supple Cardiovascular: regular rhythm Respiratory/Chest: lungs clear Abdomen: non tender Extremities: normal inspection Edema: no edema noted Leg (L), no edema noted Leg (R) Edema: mild edema Neurologic: alert Skin: warm/dry Emery Guzmán MD August 27, 2017 03:37
[2017-08-27 04:00] VITALS: BP 107/62
[2017-08-27 08:00] VITALS: BP 115/66
[2017-08-27] MEDS: Vitamin A&D Oint 2oz Tube TOPIC SCH ×2 (09:00→21:15)
[2017-08-27] MEDS: Pantoprazole Inj IVP SCH (09:32)
[2017-08-27] MEDS: Vancomycin oral 125mg/2.5ml ORAL SCH ×4 (09:33→21:10)
[2017-08-27] MEDS: Eliquis 2.5mg tablet ORAL SCH ×2 (09:34→17:34)
[2017-08-27] MEDS ORDERED: Albuterol/Ipratropium 3ml neb HHN PRN (09:45)
--- NOTE | 2017-08-27 09:47 | Pulmonology Progress Note ---
Assessment/Plan Assessment/Plan ASSESSMENT Septic shock secondary to severe C. difficile colitis, resolved Severe C. difficile colitis Acute renal failure, resolved Dehydration Pulmonary fibrosis Acute DVT right upper extremity Moderate pulmonary hypertension [id number] mitral regurgitation Hepatic cirrhosis History of hypertension Thrombocytopenia Anemia of chronic disease PLAN OF CARE Telemetry floor (initially in ICU, transferred to telemetry after septic shock resolved s/p IV fluids monitor renal parameters and electrolytes, correct electrolytes as needed. avoid nephrotoxics acute renal failure resolved. antibiotic ID followed stool culture negative stool positive for C. 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 Blood pressure stabilized, no antihypertensive at this time CT of the chest abdomen and pelvis noted. CT of the chest findings consistent with pulmonary fibrosis. Supplemental oxygen and pulmonary toilet as needed. No signs of respiratory distress, doubt PNA findings of CT chest and CXR consistent with chronic lung disease/pulm fibrosis Closely monitor platelet count hepatitis panel negative, HIV negative heparin-induced antibody WNL thrombocytopenia possibly secondary to liver disease anemia workup consistent with anemia of chronic disease closely monitor counts stool for occult blood negative GI prophylaxis case discussed and evaluated by supervising physician Subjective Allergies: Coded Allergies: HEPARIN (Verified Allergy, Severe, 08/24/17) Patient being worked up for HIT 08/24/17 AMOXICILLIN (Verified Adverse Reaction, Severe, Rash, 08/18/17) Subjective on O2 via NC, pulse ox stable, no signs of resp distress afebrile, still with leukocytosis no chest pain, BP stable Objective Last 24 Hour Vital Signs Date Time Temp Pulse Resp B/P (MAP) Pulse Ox O2 Delivery O2 Flow Rate FiO2 08/27/17 08:00 97.3 97 20 115/66 98 Nasal Cannula 3.0 97.3 08/27/17 07:28 Nasal Cannula 2.0 28 08/27/17 07:28 99 Nasal Cannula 2.0 28 08/27/17 04:00 84 08/27/17 04:00 97.3 91 20 107/62 100 Nasal Cannula 3.0 97.3 08/27/17 01:48 97.3 08/27/17 00:00 97.7 95 20 115/68 100 Nasal Cannula 3.0 97.7 08/27/17 00:00 97 08/26/17 21:03 Nasal Cannula 2.0 28 08/26/17 21:02 98 Nasal Cannula 2.0 28 08/26/17 20:00 99 08/26/17 20:00 97.3 99 20 113/65 100 Nasal Cannula 3.0 97.3 08/26/17 16:00 97.4 97 20 105/53 95 Nasal Cannula 3.0 97.4 08/26/17 16:00 100 08/26/17 12:00 96.2 99 20 104/55 100 Nasal Cannula 3.0 96.2 08/26/17 12:00 96 Intake and Output 08/26/17 08/27/17 19:00 07:00 Intake Total 460 ml 200 ml Balance 460 ml 200 ml Intake Oral 360 ml 200 ml IV Total 100 ml # Voids 3 # Bowel Movements 1 Objective General Appearance: no acute distress, bedridden, awake ,elderly Swiss speaking female HEENT: normocephalic, atraumatic, no JVD, Respiratory/Chest: decreased breath sounds Cardiovascular: normal rate, regular rhythm - SR on tele , no JVD Abdomen: soft, non tender Extremities: trace edema BLE Neurologic/Psychiatric: abnormal gait, alert, responsive Musculoskeletal: atrophy - BLE Microbiology Date/Time Source Procedure Growth Status 08/24/17 16:18 Blood Blood Culture - Preliminary NO GROWTH AFTER 48 HOURS Resulted 08/24/17 16:18 Blood Blood Culture - Preliminary NO GROWTH AFTER 48 HOURS Resulted Laboratory Tests 08/26/17 16:00: Urine Color Pale yellow, Urine Appearance Clear, Urine pH 5, Urine Specific [place] 1.015, Urine Protein Negative, Urine Glucose (UA) Negative, Urine Ketones Negative, Urine Occult Blood Negative, Urine Nitrite Negative, Urine Bilirubin Negative, Urine Urobilinogen Normal, Urine Leukocyte Esterase 1+H, Urine RBC 0-2, Urine WBC 2-4, Urine Squamous Epithelial Cells ModerateH, Urine Bacteria Occasional Current Medications Medications (Trade) Dose Ordered Sig/Keri Route PRN Reason Start Time Stop Time Status Last Admin Dose Admin Acetaminophen (Tylenol) 650 mg Q4H PRN ORAL fever (temp>100.5F) 08/24/17 15:43 09/19/17 15:42 08/27/17 01:48 Apixaban (Eliquis) 5 mg BID ORAL 08/27/17 09:00 09/26/17 08:59 08/27/17 09:34 Furosemide (Lasix) 40 mg DAILY IV 08/26/17 09:00 09/25/17 08:59 08/27/17 09:33 Metronidazole 100 ml @ 100 mls/hr Q8HR IVPB 08/24/17 22:00 09/01/17 21:59 08/27/17 06:03 Ondansetron HCl (Zofran) 4 mg Q6H PRN IVP Nausea & Vomiting 08/24/17 15:43 09/17/17 15:42 Pantoprazole (Protonix) 40 mg DAILY IVP 08/25/17 09:00 09/18/17 08:59 08/27/17 09:32 Polyethylene Glycol (Miralax) 17 gm DAILYPRN PRN ORAL Constipation 08/24/17 15:44 09/19/17 15:43 Vancomycin HCl (Vancomycin) 125 mg FOUR TIMES A DAY ORAL 08/24/17 18:00 08/31/17 20:59 08/27/17 09:33 Vitamin A/Vitamin D (A & D Oint) 1 applic EVERY 12 HOURS TOPIC 08/24/17 21:00 09/21/17 19:59 08/27/17 09:00 Zack AlexanderLydia hernandez NP August 27, 2017 09:47
[2017-08-27 12:00] VITALS: BP 125/74
--- NOTE | 2017-08-27 13:11 | Cardiac Electrophysiology PN ---
Assessment/Plan Assessment/Plan 1. S/P septic shock. WBC still 17 K . On broad-spectrum intravenous antibiotics per ID EF 65% and no evidence of endocarditis 2. Hypokalemia 3. BNP of more than 10,000. Echocardiogram Nl EF. 4. WBC more than 30K due to C Diff. Improved. 5. Worsening of Thrombocytopenia, Plt 29K!, HIT ? Hematology following. 6. Acute axillary vein DVT. On Eliquis 5 bid 7. Chronic lower Extremity DVT DW RN Subjective Subjective No CP or SOB. In isolation for VRE and C Diff. No arrhythmias. Objective Last 24 Hour Vital Signs Date Time Temp Pulse Resp B/P (MAP) Pulse Ox O2 Delivery O2 Flow Rate FiO2 08/27/17 08:00 97.3 97 20 115/66 98 Nasal Cannula 3.0 97.3 08/27/17 08:00 98 08/27/17 07:28 Nasal Cannula 2.0 28 08/27/17 07:28 99 Nasal Cannula 2.0 28 08/27/17 04:00 84 08/27/17 04:00 97.3 91 20 107/62 100 Nasal Cannula 3.0 97.3 08/27/17 01:48 97.3 08/27/17 00:00 97.7 95 20 115/68 100 Nasal Cannula 3.0 97.7 08/27/17 00:00 97 08/26/17 21:03 Nasal Cannula 2.0 28 08/26/17 21:02 98 Nasal Cannula 2.0 28 08/26/17 20:00 99 08/26/17 20:00 97.3 99 20 113/65 100 Nasal Cannula 3.0 97.3 08/26/17 16:00 97.4 97 20 105/53 95 Nasal Cannula 3.0 97.4 08/26/17 16:00 100 Intake and Output 08/26/17 08/27/17 19:00 07:00 Intake Total 460 ml 200 ml Balance 460 ml 200 ml Intake Oral 360 ml 200 ml IV Total 100 ml # Voids 3 # Bowel Movements 1 Laboratory Tests Test 08/26/17 16:00 Urine Color Pale yellow Urine Appearance Clear Urine pH 5 (4.5-8.0) Urine Specific [place] 1.015 (1.005-1.035) Urine Protein Negative (NEGATIVE) Urine Glucose (UA) Negative (NEGATIVE) Urine Ketones Negative (NEGATIVE) Urine Occult Blood Negative (NEGATIVE) Urine Nitrite Negative (NEGATIVE) Urine Bilirubin Negative (NEGATIVE) Urine Urobilinogen Normal MG/DL (0.0-1.0) Urine Leukocyte Esterase 1+ (NEGATIVE) H Urine RBC 0-2 /HPF (0 - 2) Urine WBC 2-4 /HPF (0 - 2) Urine Squamous Epithelial Cells Moderate /LPF (NONE/OCC) H Urine Bacteria Occasional /HPF (NONE) Microbiology Date/Time Source Procedure Growth Status 08/24/17 16:18 Blood Blood Culture - Preliminary NO GROWTH AFTER 48 HOURS Resulted 08/24/17 16:18 Blood Blood Culture - Preliminary NO GROWTH AFTER 48 HOURS Resulted Objective HEENT: No JVD. LUNGS: Clear CARDIOVASCULAR: Regular S1 and S2 with no gallop. ABDOMEN: Soft. EXTREMITIES: No edema. Quinn Lam MD August 27, 2017 13:11
--- NOTE | 2017-08-27 14:33 | Internal Med Progress Note ---
Subjective Date of Service: August 27, 2017 Physician Name Renato Hernandez Attending Physician Ngozi Blank MD Current Medications Medications (Trade) Dose Ordered Sig/Keri Route PRN Reason Start Time Stop Time Status Last Admin Dose Admin Acetaminophen (Tylenol) 650 mg Q4H PRN ORAL fever (temp>100.5F) 08/24/17 15:43 09/19/17 15:42 08/27/17 01:48 Albuterol/ Ipratropium (Albuterol/ Ipratropium) 3 ml Q4H PRN HHN sob 08/27/17 09:45 09/01/17 09:44 Apixaban (Eliquis) 5 mg BID ORAL 08/27/17 09:00 09/26/17 08:59 08/27/17 09:34 Furosemide (Lasix) 40 mg DAILY IV 08/26/17 09:00 09/25/17 08:59 08/27/17 09:33 Metronidazole 100 ml @ 100 mls/hr Q8HR IVPB 08/24/17 22:00 09/01/17 21:59 08/27/17 13:24 Ondansetron HCl (Zofran) 4 mg Q6H PRN IVP Nausea & Vomiting 08/24/17 15:43 09/17/17 15:42 Pantoprazole (Protonix) 40 mg DAILY IVP 08/25/17 09:00 09/18/17 08:59 08/27/17 09:32 Polyethylene Glycol (Miralax) 17 gm DAILYPRN PRN ORAL Constipation 08/24/17 15:44 09/19/17 15:43 Vancomycin HCl (Vancomycin) 125 mg FOUR TIMES A DAY ORAL 08/24/17 18:00 08/31/17 20:59 08/27/17 13:24 Vitamin A/Vitamin D (A & D Oint) 1 applic EVERY 12 HOURS TOPIC 08/24/17 21:00 09/21/17 19:59 08/27/17 09:00 Allergies: Coded Allergies: HEPARIN (Verified Allergy, Severe, 08/24/17) Patient being worked up for HIT 08/24/17 AMOXICILLIN (Verified Adverse Reaction, Severe, Rash, 08/18/17) ROS Limited/Unobtainable: No Constitutional: Reports: no symptoms HEENT: Reports: no symptoms Cardiovascular: Reports: no symptoms Respiratory: Reports: no symptoms Gastrointestinal/Abdominal: Reports: no symptoms Genitourinary: Reports: no symptoms Neurologic/Psychiatric: Reports: no symptoms Subjective 82 YO F admitted with C. Diff colitis. Cover for [facility] Med-Dr Blank. Red tinged stool this am per nurse Objective Last Vital Signs Date Time Temp Pulse Resp B/P (MAP) Pulse Ox O2 Delivery O2 Flow Rate FiO2 08/27/17 12:00 97.6 94 20 125/74 100 Nasal Cannula 3.0 97.6 08/27/17 07:28 28 General Appearance: WD/WN, no apparent distress, alert EENT: PERRL/EOMI, normal ENT inspection Neck: non-tender, normal alignment, supple, normal inspection Cardiovascular: normal peripheral pulses, normal rate, regular rhythm, no gallop/murmur, no JVD Respiratory/Chest: chest wall non-tender, lungs clear, normal breath sounds, no respiratory distress, no accessory muscle use Abdomen: normal bowel sounds, non tender, soft, no organomegaly, no mass Extremities: normal range of motion, non-tender Edema: mild edema Neurologic: collaborating supervising physician II-XII grossly normal, no motor/sensory deficits Skin: normal pigmentation, warm/dry Laboratory Tests Test 08/26/17 16:00 Urine Color Pale yellow Urine Appearance Clear Urine pH 5 (4.5-8.0) Urine Specific [place] 1.015 (1.005-1.035) Urine Protein Negative (NEGATIVE) Urine Glucose (UA) Negative (NEGATIVE) Urine Ketones Negative (NEGATIVE) Urine Occult Blood Negative (NEGATIVE) Urine Nitrite Negative (NEGATIVE) Urine Bilirubin Negative (NEGATIVE) Urine Urobilinogen Normal MG/DL (0.0-1.0) Urine Leukocyte Esterase 1+ (NEGATIVE) H Urine RBC 0-2 /HPF (0 - 2) Urine WBC 2-4 /HPF (0 - 2) Urine Squamous Epithelial Cells Moderate /LPF (NONE/OCC) H Urine Bacteria Occasional /HPF (NONE) Microbiology Date/Time Source Procedure Growth Status 08/24/17 16:18 Blood Blood Culture - Preliminary NO GROWTH AFTER 48 HOURS Resulted 08/24/17 16:18 Blood Blood Culture - Preliminary NO GROWTH AFTER 48 HOURS Resulted Intake and Output 08/26/17 08/27/17 19:00 07:00 Intake Total 460 ml 200 ml Balance 460 ml 200 ml Intake Oral 360 ml 200 ml IV Total 100 ml # Voids 3 # Bowel Movements 1 Assessment/Plan Problem List: (1) Clostridium difficile colitis Assessment & Plan: Continue oral vanco. Continue IV flagyl per ID (2) Sepsis (3) Pneumonia Assessment & Plan: See ID note. (4) Acute renal failure Assessment & Plan: Resolved. (5) Thrombocytopenia Assessment & Plan: ?heparin induced? See heme note. On eliquis (6) Septic shock (7) Rectal bleeding Assessment & Plan: Guaiac stools. Stat CBC RENATO HERNANDEZ August 27, 2017 14:33
[2017-08-27 15:39] LABS: MEAN CORPUSCULAR VOLUME 112 FL (80-99); PLATELET COUNT 36 K/UL (150-450); RED BLOOD COUNT 3.31 M/UL (4.20-5.40); RED CELL DISTRIBUTION WIDTH 19.8 % (11.6-14.8); WHITE BLOOD COUNT 15.3 K/UL (4.8-10.8)
[2017-08-27 16:00] VITALS: BP 114/73
--- NOTE | 2017-08-27 18:07 | Vascular Surgery Progress Note ---
Subjective Subjective No new complaints calmer today Objective Objective Last 24 Hour Vital Signs Date Time Temp Pulse Resp B/P (MAP) Pulse Ox O2 Delivery O2 Flow Rate FiO2 08/27/17 16:00 95 08/27/17 16:00 97.5 97 20 114/73 99 Nasal Cannula 3.0 97.5 08/27/17 12:00 94 08/27/17 12:00 97.6 94 20 125/74 100 Nasal Cannula 3.0 97.6 08/27/17 08:00 97.3 97 20 115/66 98 Nasal Cannula 3.0 97.3 08/27/17 08:00 98 08/27/17 07:28 Nasal Cannula 2.0 28 08/27/17 07:28 99 Nasal Cannula 2.0 28 08/27/17 04:00 84 08/27/17 04:00 97.3 91 20 107/62 100 Nasal Cannula 3.0 97.3 08/27/17 01:48 97.3 08/27/17 00:00 97.7 95 20 115/68 100 Nasal Cannula 3.0 97.7 08/27/17 00:00 97 08/26/17 21:03 Nasal Cannula 2.0 28 08/26/17 21:02 98 Nasal Cannula 2.0 28 08/26/17 20:00 99 08/26/17 20:00 97.3 99 20 113/65 100 Nasal Cannula 3.0 97.3 Intake and Output 08/26/17 08/27/17 19:00 07:00 Intake Total 460 ml 200 ml Balance 460 ml 200 ml Intake Oral 360 ml 200 ml IV Total 100 ml # Voids 3 # Bowel Movements 1 Laboratory Tests Test 08/27/17 15:30 White Blood Count 15.3 K/UL (4.8-10.8) H Red Blood Count 3.31 M/UL (4.20-5.40) L Hemoglobin 12.0 G/DL (12.0-16.0) Hematocrit 37.0 % (37.0-47.0) Mean Corpuscular Volume 112 FL (80-99) H Mean Corpuscular Hemoglobin 36.1 PG (27.0-31.0) H Mean Corpuscular Hemoglobin Concent 32.3 G/DL (32.0-36.0) Red Cell Distribution Width 19.8 % (11.6-14.8) H Platelet Count 36 K/UL (150-450) L Mean Platelet Volume 11.7 FL (6.5-10.1) H Neutrophils (%) (Auto) % (45.0-75.0) Lymphocytes (%) (Auto) % (20.0-45.0) Monocytes (%) (Auto) % (1.0-10.0) Eosinophils (%) (Auto) % (0.0-3.0) Basophils (%) (Auto) % (0.0-2.0) Differential Total Cells Counted 100 Neutrophils % (Manual) 76 % (45-75) H Lymphocytes % (Manual) 19 % (20-45) L Monocytes % (Manual) 4 % (1-10) Eosinophils % (Manual) 0 % (0-3) Basophils % (Manual) 1 % (0-2) Band Neutrophils 0 % (0-8) Platelet Estimate Decreased L Platelet Morphology Polychromasia 1+ Anisocytosis 1+ Macrocytosis 2+ Height (Feet): 5 Height (Inches): 0.00 Weight (Pounds): 147 Objective cvs rrr lungs cta abd soft nontender Right arm edema+ 2+ femorals intact pedal dopplers Mild leg edema+ feet warm no ulcers Assessment/Plan Assessment Right arm acute long DVTs+ Right leg DVT-chronic Sepsis C Diff colitis Thrombocytopenia HIT negative pf4 sr PAD Liver cirrhosis on CT scan Anemia CHF Pulm fibrosis on CT Plan Eliquis for 3 months per heme Abx per ID for C dig Repeat arm leg duplex in one month d/w pmd and heme d/w daughter MIGUEL MORRISON August 27, 2017 18:07
--- NOTE | 2017-08-27 19:19 | General Progress Note ---
Assessment/Plan Assessment/Plan # Thrombocytopenia, severe, multiple etiologies are possible including sepsis, C. difficile versus underlying infection. --> Less likely HIT given that the hit antibody test is negative --> also patient with a upper arm dvt and decreased platelets that slowly uptrending at this time --> reviewed recs with vascular surgery agree to start apixaban for 3 months with close monitoring --> Transfuse platelets prn, monitor cbc # Right lower extremity dvt - apixaban x 3 months total # Anemia due to underlying chronic disease. Continue to closely monitor, potentially hemodilutional. # Leukocytosis, likely secondary to Clostridium difficile versus other cause. --> hx of recent septic shock, closely monitor for improvement. # Acute kidney injury. Continue to closely monitor. Potentially dehydration related. # Colitis, potentially secondary to Clostridium difficile. Currently, on antibiotics per ID Service. # Hypokalemia, is s/p repletion Subjective Date patient seen: August 27, 2017 Constitutional: Denies: no symptoms, chills, diaphoresis, fever, malaise, weakness, other HEENT: Denies: no symptoms, eye pain, blurred vision, tearing, double vision, ear pain, ear discharge, nose pain, nose congestion, throat pain, throat swelling, mouth pain, mouth swelling, other Cardiovascular: Denies: no symptoms, chest pain, edema, irregular heart rate, lightheadedness, palpitations, syncope, other Respiratory: Denies: no symptoms, cough, orthopnea, shortness of breath, SOB with excertion, SOB at rest, sputum, stridor, wheezing, other Gastrointestinal/Abdominal: Denies: no symptoms, abdomen distended, abdominal pain, black stools, tarry stools, blood in stool, constipated, diarrhea, difficulty swallowing, nausea, poor appetite, poor fluid intake, rectal bleeding , vomiting, other Genitourinary: Denies: no symptoms, burning, discharge, frequency, flank pain, hematuria, incontinence, pain, urgency, other Neurologic/Psychiatric: Denies: no symptoms, anxiety, depressed, emotional problems, headache, numbness, paresthesia, pre-existing deficit, seizure, tingling, tremors, weakness, other Hematologic/Lymphatic: Reports: anemia Allergies: Coded Allergies: HEPARIN (Verified Allergy, Severe, 08/24/17) Patient being worked up for HIT 08/24/17 AMOXICILLIN (Verified Adverse Reaction, Severe, Rash, 08/18/17) Subjective On apixaban. Leukocytosis downtrending. No fever. Objective Last 24 Hour Vital Signs Date Time Temp Pulse Resp B/P (MAP) Pulse Ox O2 Delivery O2 Flow Rate FiO2 08/27/17 16:00 95 08/27/17 16:00 97.5 97 20 114/73 99 Nasal Cannula 3.0 97.5 08/27/17 12:00 94 08/27/17 12:00 97.6 94 20 125/74 100 Nasal Cannula 3.0 97.6 08/27/17 08:00 97.3 97 20 115/66 98 Nasal Cannula 3.0 97.3 08/27/17 08:00 98 08/27/17 07:28 Nasal Cannula 2.0 28 08/27/17 07:28 99 Nasal Cannula 2.0 28 08/27/17 04:00 84 08/27/17 04:00 97.3 91 20 107/62 100 Nasal Cannula 3.0 97.3 08/27/17 01:48 97.3 08/27/17 00:00 97.7 95 20 115/68 100 Nasal Cannula 3.0 97.7 08/27/17 00:00 97 08/26/17 21:03 Nasal Cannula 2.0 28 08/26/17 21:02 98 Nasal Cannula 2.0 28 08/26/17 20:00 99 08/26/17 20:00 97.3 99 20 113/65 100 Nasal Cannula 3.0 97.3 Intake and Output 08/26/17 08/27/17 19:00 07:00 Intake Total 460 ml 200 ml Balance 460 ml 200 ml Intake Oral 360 ml 200 ml IV Total 100 ml # Voids 3 # Bowel Movements 1 Laboratory Tests 08/27/17 15:30: White Blood Count 15.3H, Red Blood Count 3.31L, Hemoglobin 12.0, Hematocrit 37.0 , Mean Corpuscular Volume 112H, Mean Corpuscular Hemoglobin 36.1H, Mean Corpuscular Hemoglobin Concent 32.3, Red Cell Distribution Width 19.8H, Platelet Count 36L, Mean Platelet Volume 11.7H, Neutrophils (%) (Auto) , Lymphocytes (%) (Auto) , Monocytes (%) (Auto) , Eosinophils (%) (Auto) , Basophils (%) (Auto) , Differential Total Cells Counted 100, Neutrophils % ( Manual) 76H, Lymphocytes % (Manual) 19L, Monocytes % (Manual) 4, Eosinophils % ( Manual) 0, Basophils % (Manual) 1, Band Neutrophils 0, Platelet Estimate DecreasedL, Platelet Morphology , Polychromasia 1+, Anisocytosis 1+, Macrocytosis 2+ 08/27/17 18:15: Stool Occult Blood [Pending] Height (Feet): 5 Height (Inches): 0.00 Weight (Pounds): 147 Cardiovascular: normal rate, regular rhythm, no JVD Respiratory/Chest: chest wall non-tender, lungs clear Abdomen: normal bowel sounds, soft Emery Guzmán MD August 27, 2017 19:19
[2017-08-27 20:00] VITALS: BP 116/42
[2017-08-28] VITALS (7 sets, daily range): BP systolic 96–162; BP diastolic 58–74
--- NOTE | 2017-08-28 09:04 | General Progress Note ---
Assessment/Plan Status: stable Assessment/Plan 1. Septic shock seconary to severe C-diff colitis , off ICU 2. severe C-diff colitis, current antibiotics 3. Acute renal failure. 4. Dehydration. 5. Gastrointestinal and deep vein thrombosis prophylaxis. 6. Pulmonary infiltrate: infection !? 7. VRE- Rectum 8. 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 10. New Acute right UE DVT 11. Chronic LE DVT 11. Nodularity in Chest-CT Plan: Current Abx coverage Thrombocytopenia, HIT ! follow up with [facility] Started on Xarelto Will monitor PLT, if continued upending , will be ok to followup as o/p once clear by [facility] Subjective ROS Limited/Unobtainable: No Constitutional: Reports: malaise HEENT: Reports: no symptoms Cardiovascular: Reports: no symptoms Respiratory: Reports: no symptoms Allergies: Coded Allergies: HEPARIN (Verified Allergy, Severe, 08/24/17) Patient being worked up for HIT 08/24/17 AMOXICILLIN (Verified Adverse Reaction, Severe, Rash, 08/18/17) Objective Last 24 Hour Vital Signs Date Time Temp Pulse Resp B/P (MAP) Pulse Ox O2 Delivery O2 Flow Rate FiO2 08/28/17 08:25 Nasal Cannula 2.0 28 08/28/17 08:25 98 Nasal Cannula 2.0 28 08/28/17 07:22 92 08/28/17 04:00 97.5 90 20 126/68 100 Nasal Cannula 3.0 97.5 08/28/17 04:00 81 08/28/17 00:00 97.8 90 20 107/68 99 Nasal Cannula 3.0 97.8 08/28/17 00:00 88 08/27/17 20:05 98 Nasal Cannula 2.0 28 08/27/17 20:05 Nasal Cannula 2.0 28 08/27/17 20:00 88 08/27/17 20:00 97.2 85 20 116/42 100 Nasal Cannula 3.0 97.2 08/27/17 16:00 95 08/27/17 16:00 97.5 97 20 114/73 99 Nasal Cannula 3.0 97.5 08/27/17 12:00 94 08/27/17 12:00 97.6 94 20 125/74 100 Nasal Cannula 3.0 97.6 Intake and Output 08/27/17 08/28/17 19:00 07:00 Intake Total 450 ml 250 ml Balance 450 ml 250 ml Intake Oral 450 ml 50 ml IV Total 200 ml # Voids 3 2 # Bowel Movements 3 2 Laboratory Tests 08/27/17 15:30: White Blood Count 15.3H, Red Blood Count 3.31L, Hemoglobin 12.0, Hematocrit 37.0 , Mean Corpuscular Volume 112H, Mean Corpuscular Hemoglobin 36.1H, Mean Corpuscular Hemoglobin Concent 32.3, Red Cell Distribution Width 19.8H, Platelet Count 36L, Mean Platelet Volume 11.7H, Neutrophils (%) (Auto) , Lymphocytes (%) (Auto) , Monocytes (%) (Auto) , Eosinophils (%) (Auto) , Basophils (%) (Auto) , Differential Total Cells Counted 100, Neutrophils % ( Manual) 76H, Lymphocytes % (Manual) 19L, Monocytes % (Manual) 4, Eosinophils % ( Manual) 0, Basophils % (Manual) 1, Band Neutrophils 0, Platelet Estimate DecreasedL, Platelet Morphology , Polychromasia 1+, Anisocytosis 1+, Macrocytosis 2+ 08/27/17 18:15: Stool Occult Blood [Pending] Height (Feet): 5 Height (Inches): 0.00 Weight (Pounds): 142 General Appearance: no apparent distress EENT: PERRL/EOMI Neck: supple Cardiovascular: normal rate, regular rhythm Respiratory/Chest: lungs clear Abdomen: soft Extremities: non-tender Neurologic: joint terminal attack controller II-XII grossly normal Ngozi Blank MD August 28, 2017 09:04
[2017-08-28] MEDS: Pantoprazole Inj IVP SCH (09:25)
[2017-08-28] MEDS: Eliquis 2.5mg tablet ORAL SCH ×2 (09:27→17:28)
[2017-08-28] MEDS: Vitamin A&D Oint 2oz Tube TOPIC SCH ×2 (09:28→21:03)
[2017-08-28] MEDS: Vancomycin oral 125mg/2.5ml ORAL SCH ×4 (09:47→21:02)
[2017-08-28 09:58] LABS: HEMOGLOBIN 11.5 G/DL (12.0-16.0); MEAN CORPUSCULAR VOLUME 113 FL (80-99); PLATELET COUNT 49 K/UL (150-450); RED BLOOD COUNT 3.11 M/UL (4.20-5.40); RED CELL DISTRIBUTION WIDTH 19.9 % (11.6-14.8); WHITE BLOOD COUNT 13.5 K/UL (4.8-10.8)
--- NOTE | 2017-08-28 10:00 | Diagnostic Imaging Report ---
APPROVED REPORT CPT Code: 83769 Present Symptoms Lower Extremity Edema: Bilateral RIGHT LEG: Venous imaging reveals recanalized chronic thrombus in the common femoral vein. Imaging also reveals patency of the superficial femoral, popliteal and calf veins. The greater saphenous vein is also within normal limits. Doppler indicates normal spontaneous flow within these segments. LEFT LEG: Venous imaging reveals a patent deep venous system. There is no evidence of thrombus within the femoral, popliteal or tibial segments. The greater saphenous vein is also within normal limits. Doppler indicates normal spontaneous flow within these segments. There is no evidence of acute deep vein thrombosis.
--- NOTE | 2017-08-28 10:03 | Diagnostic Imaging Report ---
APPROVED REPORT CPT Code: 60677 Present Symptoms Comments: Right upper arm swelling RIGHT UPPER EXTREMITY: Venous imaging reveals acute thrombus in the axillary and upper arm brachial veins. The remaining segments are within normal limits. There is no evidence of thrombus within the internal jugular, subclavian and distal brachial veins (distal forearm level). The basilic vein is patent. The cephalic vein was not well visualized. ROSETTA Ron was notified of abnormal results at 1200 hours.
[2017-08-28 10:10] LABS: ANION GAP 9 mmol/L (5-15); BLOOD UREA NITROGEN 8 mg/dL (7-18); CALCIUM 7.7 MG/DL (8.5-10.1); CARBON DIOXIDE 24 MMOL/L (21-32); CHLORIDE 113 MMOL/L (98-107); CREATININE 0.7 MG/DL (0.55-1.30); SODIUM 145 MMOL/L (136-145)
[2017-08-28 10:15] LABS: POTASSIUM 2.5 MMOL/L (3.5-5.1)
--- NOTE | 2017-08-28 10:39 | Diagnostic Imaging Report ---
Indication: Dyspnea Comparison: 08/25/2017 A single view chest radiograph was obtained. Findings: Reticular densities indicative of fibrosis suspected within the mid to lower lung lindsey bilaterally. Lung volumes are low. Findings largely unchanged. Some improvement in airspace opacification at the lung bases, particularly the left lung base noted since the last study. The heart remains mildly enlarged. IMPRESSION: Some interval improvement in airspace disease noted at both lung bases. Extensive lung fibrosis predominating in the lower lobes.
[2017-08-28 11:25] LABS: APTT 1:1 NORMAL PLASMA 30.4 sec (22.9-30.2); APTT 1:1NP MIX CONTROL 31.8 sec (22.9-30.2)
--- NOTE | 2017-08-28 11:56 | Infectious Diseases Prog Note ---
Assessment/Plan Assessment/Plan Assessment: Septic shock, SP Severe C Diff colitis -CT abd/p: Pancolitis. Chronic liver disease/cirrhosis. Moderate ascites. Distended gallbladder nonspecific. Severe lung fibrosis. Anasarca and mesenteric /retroperitoneal stranding. Right femoral line in good position. Degenerative changes of the spine and osteopenia. Atherosclerotic disease. KUB : Nonspecific bowel gas pattern Stool Cx : Neg -Bcx neg -u/a neg ? Pneum, doubt Pulmonary fibrosis -CXR: BL Extensive basilar infiltrates - component of fibrosis and chronic lung disease -CT chest : Pulmonary fibrosis with evidence of honeycombing. More dense opacity in the right lower lobe may be related to confluent area of scarring however superimposed pneumonia should be excluded clinically. Small bilateral pleural effusions. Mild enlargement of the main pulmonary artery suggestive of pulmonary arterial hypertension. Cardiomegaly with coronary arterial calcifications. Small mediastinal adenopathy with a borderline enlarged calcified mediastinal lymph node. Findings are nonspecific.Evidence of hepatic cirrhosis with ascites and gallbladder distention similar to CT of the abdomen and pelvis 08/19/2017. Recent PNA, still having productive cough Leukocytosis/bandemia; improving -Bcx 08/24 NTD -KUB 08/25: Nonspecific bowel gas pattern. Afebrile Lactic acidosis, resolved RUE DVT EDDI, resolved HTN Plan: -Continue PO Vancomycin 125mg qid #11/ and d/c IV Flagyl 500mg q8h d# 11 -if ongoing significant diarrhea, will do Fidaxomicin instead -08/21 SP IV vanco and Aztreonam #4 -f/u repeat Bcx -Montior CBC/BMP, temperatures -Aspiration precautions Discussed with RN Subjective Allergies: Coded Allergies: HEPARIN (Verified Allergy, Severe, 08/24/17) Patient being worked up for HIT 08/24/17 AMOXICILLIN (Verified Adverse Reaction, Severe, Rash, 08/18/17) Subjective afebrile leukocytosis improving Bcx NTD Objective Vital Signs Last 24 Hour Vital Signs Date Time Temp Pulse Resp B/P (MAP) Pulse Ox O2 Delivery O2 Flow Rate FiO2 08/28/17 08:25 Nasal Cannula 2.0 28 08/28/17 08:25 98 Nasal Cannula 2.0 28 08/28/17 08:00 96.8 104 19 112/64 97 Nasal Cannula 1.0 96.8 08/28/17 07:22 92 08/28/17 04:00 97.5 90 20 126/68 100 Nasal Cannula 3.0 97.5 08/28/17 04:00 81 08/28/17 00:00 97.8 90 20 107/68 99 Nasal Cannula 3.0 97.8 08/28/17 00:00 88 08/27/17 20:05 98 Nasal Cannula 2.0 28 08/27/17 20:05 Nasal Cannula 2.0 28 08/27/17 20:00 88 08/27/17 20:00 97.2 85 20 116/42 100 Nasal Cannula 3.0 97.2 08/27/17 16:00 95 08/27/17 16:00 97.5 97 20 114/73 99 Nasal Cannula 3.0 97.5 08/27/17 12:00 94 08/27/17 12:00 97.6 94 20 125/74 100 Nasal Cannula 3.0 97.6 Height (Feet): 5 Height (Inches): 0.00 Weight (Pounds): 142 Objective General Appearance: no apparent distress, alert non-toxic, thin Head: normocephalic, atraumatic Eyes: bilateral eye normal inspection, bilateral eye PERRL ENT: hearing grossly normal, normal pharynx, no angioedema, normal voice Neck: full range of motion, supple/symm/no masses Respiratory: chest non-tender, lungs clear, normal breath sounds, speaking full sentences Cardiovascular #1: regular rate, rhythm, no edema Gastrointestinal: normal bowel sounds, non tender, soft, non-distended, no guarding, no rebound Genitourinary: normal inspection, no CVA tenderness Musculoskeletal: back normal, gait/station normal, normal range of motion, non- tender Skin: normal color, no rash, warm/dry, well hydrated Laboratory Tests Test 08/27/17 15:30 08/27/17 18:15 08/28/17 06:35 White Blood Count 15.3 K/UL (4.8-10.8) H 13.5 K/UL (4.8-10.8) H Red Blood Count 3.31 M/UL (4.20-5.40) L 3.11 M/UL (4.20-5.40) L Hemoglobin 12.0 G/DL (12.0-16.0) 11.5 G/DL (12.0-16.0) L Hematocrit 37.0 % (37.0-47.0) 35.0 % (37.0-47.0) L Mean Corpuscular Volume 112 FL (80-99) H 113 FL (80-99) H Mean Corpuscular Hemoglobin 36.1 PG (27.0-31.0) H 37.0 PG (27.0-31.0) H Mean Corpuscular Hemoglobin Concent 32.3 G/DL (32.0-36.0) 32.8 G/DL (32.0-36.0) Red Cell Distribution Width 19.8 % (11.6-14.8) H 19.9 % (11.6-14.8) H Platelet Count 36 K/UL (150-450) L 49 K/UL (150-450) L Mean Platelet Volume 11.7 FL (6.5-10.1) H 12.4 FL (6.5-10.1) H Neutrophils (%) (Auto) % (45.0-75.0) % (45.0-75.0) Lymphocytes (%) (Auto) % (20.0-45.0) % (20.0-45.0) Monocytes (%) (Auto) % (1.0-10.0) % (1.0-10.0) Eosinophils (%) (Auto) % (0.0-3.0) % (0.0-3.0) Basophils (%) (Auto) % (0.0-2.0) % (0.0-2.0) Differential Total Cells Counted 100 100 Neutrophils % (Manual) 76 % (45-75) H 77 % (45-75) H Lymphocytes % (Manual) 19 % (20-45) L 16 % (20-45) L Monocytes % (Manual) 4 % (1-10) 4 % (1-10) Eosinophils % (Manual) 0 % (0-3) 3 % (0-3) Basophils % (Manual) 1 % (0-2) 0 % (0-2) Band Neutrophils 0 % (0-8) 0 % (0-8) Platelet Estimate Decreased L Decreased L Platelet Morphology Normal Polychromasia 1+ Anisocytosis 1+ Macrocytosis 2+ 1+ Stool Occult Blood Positive (NEGATIVE) Nucleated Red Blood Cells 1 /100 WBC Target Cells 1+ Sodium Level 145 MMOL/L (136-145) Potassium Level 2.5 MMOL/L (3.5-5.1) *L Chloride Level 113 MMOL/L (98-107) H Carbon Dioxide Level 24 MMOL/L (21-32) Anion Gap 9 mmol/L (5-15) Blood Urea Nitrogen 8 mg/dL (7-18) Creatinine 0.7 MG/DL (0.55-1.30) Estimat Glomerular Filtration Rate mL/min (>60) Glucose Level 92 MG/DL (74-106) Calcium Level 7.7 MG/DL (8.5-10.1) L Current Medications Medications (Trade) Dose Ordered Sig/Keri Route PRN Reason Start Time Stop Time Status Last Admin Dose Admin Acetaminophen (Tylenol) 650 mg Q4H PRN ORAL fever (temp>100.5F) 08/24/17 15:43 09/19/17 15:42 08/27/17 01:48 Albuterol/ Ipratropium (Albuterol/ Ipratropium) 3 ml Q4H PRN HHN sob 08/27/17 09:45 09/01/17 09:44 Apixaban (Eliquis) 5 mg BID ORAL 08/27/17 09:00 09/26/17 08:59 08/28/17 09:27 Furosemide (Lasix) 40 mg DAILY IV 08/26/17 09:00 09/25/17 08:59 08/28/17 09:26 Metronidazole 100 ml @ 100 mls/hr Q8HR IVPB 08/24/17 22:00 09/01/17 21:59 08/28/17 05:38 Ondansetron HCl (Zofran) 4 mg Q6H PRN IVP Nausea & Vomiting 08/24/17 15:43 09/17/17 15:42 Pantoprazole (Protonix) 40 mg DAILY IVP 08/25/17 09:00 09/18/17 08:59 08/28/17 09:25 Polyethylene Glycol (Miralax) 17 gm DAILYPRN PRN ORAL Constipation 08/24/17 15:44 09/19/17 15:43 Potassium Chloride (K-Dur) 40 meq ONCE ORAL 08/28/17 10:30 09/27/17 12:00 08/28/17 10:57 Potassium Chloride (K-Dur) 40 meq ONCE ORAL 08/28/17 17:00 08/28/17 18:30 Vancomycin HCl (Vancomycin) 125 mg FOUR TIMES A DAY ORAL 08/24/17 18:00 08/31/17 20:59 08/28/17 09:47 Vitamin A/Vitamin D (A & D Oint) 1 applic EVERY 12 HOURS TOPIC 08/24/17 21:00 09/21/17 19:59 08/28/17 09:28 Amelia John M.D. August 28, 2017 11:56
--- NOTE | 2017-08-28 12:20 | Pulmonology Progress Note ---
Assessment/Plan Problems: (1) Septic shock (2) Colitis (3) Renal insufficiency (4) Rectal bleeding (5) Thrombocytopenia (6) Acute renal failure (7) Clostridium difficile colitis Assessment/Plan symptomatic treatment improving wbc decreasing but still elevated on Vancomycin po on Lasix, watch electrolytes on Eliquis for DVT PLT are getting better check electrolytes dvt prophylaxis Subjective ROS Limited/Unobtainable: No Interval Events: looks better Allergies: Coded Allergies: HEPARIN (Verified Allergy, Severe, 08/24/17) Patient being worked up for HIT 08/24/17 AMOXICILLIN (Verified Adverse Reaction, Severe, Rash, 08/18/17) Objective Last 24 Hour Vital Signs Date Time Temp Pulse Resp B/P (MAP) Pulse Ox O2 Delivery O2 Flow Rate FiO2 08/28/17 08:25 Nasal Cannula 2.0 28 08/28/17 08:25 98 Nasal Cannula 2.0 28 08/28/17 08:00 96.8 104 19 112/64 97 Nasal Cannula 1.0 96.8 08/28/17 07:22 92 08/28/17 04:00 97.5 90 20 126/68 100 Nasal Cannula 3.0 97.5 08/28/17 04:00 81 08/28/17 00:00 97.8 90 20 107/68 99 Nasal Cannula 3.0 97.8 08/28/17 00:00 88 08/27/17 20:05 98 Nasal Cannula 2.0 28 08/27/17 20:05 Nasal Cannula 2.0 28 08/27/17 20:00 88 08/27/17 20:00 97.2 85 20 116/42 100 Nasal Cannula 3.0 97.2 08/27/17 16:00 95 08/27/17 16:00 97.5 97 20 114/73 99 Nasal Cannula 3.0 97.5 Intake and Output 08/27/17 08/28/17 19:00 07:00 Intake Total 450 ml 250 ml Balance 450 ml 250 ml Intake Oral 450 ml 50 ml IV Total 200 ml # Voids 3 2 # Bowel Movements 3 2 General Appearance: WD/WN HEENT: normocephalic, atraumatic Respiratory/Chest: lungs clear Breasts: no masses Cardiovascular: normal peripheral pulses, normal rate Abdomen: normal bowel sounds, soft, non tender Genitourinary: normal external genitalia Extremities: no cyanosis Skin: no rash Lymphatic: no neck adenopathy Musculoskeletal: normal muscle bulk Laboratory Tests 08/27/17 15:30: White Blood Count 15.3H, Red Blood Count 3.31L, Hemoglobin 12.0, Hematocrit 37.0 , Mean Corpuscular Volume 112H, Mean Corpuscular Hemoglobin 36.1H, Mean Corpuscular Hemoglobin Concent 32.3, Red Cell Distribution Width 19.8H, Platelet Count 36L, Mean Platelet Volume 11.7H, Neutrophils (%) (Auto) , Lymphocytes (%) (Auto) , Monocytes (%) (Auto) , Eosinophils (%) (Auto) , Basophils (%) (Auto) , Differential Total Cells Counted 100, Neutrophils % ( Manual) 76H, Lymphocytes % (Manual) 19L, Monocytes % (Manual) 4, Eosinophils % ( Manual) 0, Basophils % (Manual) 1, Band Neutrophils 0, Platelet Estimate DecreasedL, Platelet Morphology , Polychromasia 1+, Anisocytosis 1+, Macrocytosis 2+ 08/27/17 18:15: Stool Occult Blood Positive 08/28/17 06:35: White Blood Count 13.5H, Red Blood Count 3.11L, Hemoglobin 11.5L, Hematocrit 35.0L, Mean Corpuscular Volume 113H, Mean Corpuscular Hemoglobin 37.0H, Mean Corpuscular Hemoglobin Concent 32.8, Red Cell Distribution Width 19.9H, Platelet Count 49L, Mean Platelet Volume 12.4H, Neutrophils (%) (Auto) , Lymphocytes (%) (Auto) , Monocytes (%) (Auto) , Eosinophils (%) (Auto) , Basophils (%) (Auto) , Differential Total Cells Counted 100, Neutrophils % ( Manual) 77H, Lymphocytes % (Manual) 16L, Monocytes % (Manual) 4, Eosinophils % ( Manual) 3, Basophils % (Manual) 0, Band Neutrophils 0, Platelet Estimate DecreasedL, Platelet Morphology Normal, Macrocytosis 1+, Nucleated Red Blood Cells 1, Target Cells 1+, Sodium Level 145, Potassium Level 2.5*L, Chloride Level 113H, Carbon Dioxide Level 24, Anion Gap 9, Blood Urea Nitrogen 8, Creatinine 0.7, Estimat Glomerular Filtration Rate , Glucose Level 92, Calcium Level 7.7L Current Medications Medications (Trade) Dose Ordered Sig/Keri Route PRN Reason Start Time Stop Time Status Last Admin Dose Admin Acetaminophen (Tylenol) 650 mg Q4H PRN ORAL fever (temp>100.5F) 08/24/17 15:43 09/19/17 15:42 08/27/17 01:48 Albuterol/ Ipratropium (Albuterol/ Ipratropium) 3 ml Q4H PRN HHN sob 08/27/17 09:45 09/01/17 09:44 Apixaban (Eliquis) 5 mg BID ORAL 08/27/17 09:00 09/26/17 08:59 08/28/17 09:27 Furosemide (Lasix) 40 mg DAILY IV 08/26/17 09:00 09/25/17 08:59 08/28/17 09:26 Ondansetron HCl (Zofran) 4 mg Q6H PRN IVP Nausea & Vomiting 08/24/17 15:43 09/17/17 15:42 Pantoprazole (Protonix) 40 mg DAILY IVP 08/25/17 09:00 09/18/17 08:59 08/28/17 09:25 Polyethylene Glycol (Miralax) 17 gm DAILYPRN PRN ORAL Constipation 08/24/17 15:44 09/19/17 15:43 Potassium Chloride (K-Dur) 40 meq ONCE ORAL 08/28/17 10:30 09/27/17 12:00 08/28/17 10:57 Potassium Chloride (K-Dur) 40 meq ONCE ORAL 08/28/17 17:00 08/28/17 18:30 Vancomycin HCl (Vancomycin) 125 mg FOUR TIMES A DAY ORAL 08/24/17 18:00 08/31/17 20:59 08/28/17 09:47 Vitamin A/Vitamin D (A & D Oint) 1 applic EVERY 12 HOURS TOPIC 08/24/17 21:00 09/21/17 19:59 08/28/17 09:28 Deng Tsang MD August 28, 2017 12:20
--- NOTE | 2017-08-28 16:06 | Cardiac Electrophysiology PN ---
Assessment/Plan Assessment/Plan 1. S/P septic shock. WBC still 17 K . On broad-spectrum intravenous antibiotics per ID EF 65% and no evidence of endocarditis 2. Hypokalemia K 2.7. Keep on tele specially that had 9 beats of VT. Replace K 3. BNP of more than 10,000. Echocardiogram Nl EF. 4. WBC more than 30K due to C Diff. Improved. 5. Worsening of Thrombocytopenia, Plt 29K!, HIT ? Hematology following. 6. Acute axillary vein DVT. On Eliquis 5 bid 7. Chronic lower Extremity DVT 8. Rectal bleed.Follow up GI DW RN Subjective Subjective In isolation for VRE and C Diff. Had rectal bleed. Had 9 beats of VT also. Family at bedside.. Objective Last 24 Hour Vital Signs Date Time Temp Pulse Resp B/P (MAP) Pulse Ox O2 Delivery O2 Flow Rate FiO2 08/28/17 12:00 98.0 108 20 128/74 95 Nasal Cannula 1.0 98.0 08/28/17 11:43 104 08/28/17 08:25 Nasal Cannula 2.0 28 08/28/17 08:25 98 Nasal Cannula 2.0 28 08/28/17 08:00 96.8 104 19 112/64 97 Nasal Cannula 1.0 96.8 08/28/17 07:22 92 08/28/17 04:00 97.5 90 20 126/68 100 Nasal Cannula 3.0 97.5 08/28/17 04:00 81 08/28/17 00:00 97.8 90 20 107/68 99 Nasal Cannula 3.0 97.8 08/28/17 00:00 88 08/27/17 20:05 98 Nasal Cannula 2.0 28 08/27/17 20:05 Nasal Cannula 2.0 28 08/27/17 20:00 88 08/27/17 20:00 97.2 85 20 116/42 100 Nasal Cannula 3.0 97.2 Intake and Output 08/27/17 08/28/17 19:00 07:00 Intake Total 450 ml 250 ml Balance 450 ml 250 ml Intake Oral 450 ml 50 ml IV Total 200 ml # Voids 3 2 # Bowel Movements 3 2 Laboratory Tests Test 08/27/17 18:15 08/28/17 06:35 Stool Occult Blood Positive (NEGATIVE) White Blood Count 13.5 K/UL (4.8-10.8) H Red Blood Count 3.11 M/UL (4.20-5.40) L Hemoglobin 11.5 G/DL (12.0-16.0) L Hematocrit 35.0 % (37.0-47.0) L Mean Corpuscular Volume 113 FL (80-99) H Mean Corpuscular Hemoglobin 37.0 PG (27.0-31.0) H Mean Corpuscular Hemoglobin Concent 32.8 G/DL (32.0-36.0) Red Cell Distribution Width 19.9 % (11.6-14.8) H Platelet Count 49 K/UL (150-450) L Mean Platelet Volume 12.4 FL (6.5-10.1) H Neutrophils (%) (Auto) % (45.0-75.0) Lymphocytes (%) (Auto) % (20.0-45.0) Monocytes (%) (Auto) % (1.0-10.0) Eosinophils (%) (Auto) % (0.0-3.0) Basophils (%) (Auto) % (0.0-2.0) Differential Total Cells Counted 100 Neutrophils % (Manual) 77 % (45-75) H Lymphocytes % (Manual) 16 % (20-45) L Monocytes % (Manual) 4 % (1-10) Eosinophils % (Manual) 3 % (0-3) Basophils % (Manual) 0 % (0-2) Band Neutrophils 0 % (0-8) Nucleated Red Blood Cells 1 /100 WBC Platelet Estimate Decreased L Platelet Morphology Normal Macrocytosis 1+ Target Cells 1+ Sodium Level 145 MMOL/L (136-145) Potassium Level 2.5 MMOL/L (3.5-5.1) *L Chloride Level 113 MMOL/L (98-107) H Carbon Dioxide Level 24 MMOL/L (21-32) Anion Gap 9 mmol/L (5-15) Blood Urea Nitrogen 8 mg/dL (7-18) Creatinine 0.7 MG/DL (0.55-1.30) Estimat Glomerular Filtration Rate mL/min (>60) Glucose Level 92 MG/DL (74-106) Calcium Level 7.7 MG/DL (8.5-10.1) L Objective HEENT: No JVD. LUNGS: Clear CARDIOVASCULAR: Regular S1 and S2 with no gallop. ABDOMEN: Soft. EXTREMITIES: No edema. Quinn Lam MD August 28, 2017 16:06
[2017-08-29] VITALS: BP 101/50
[2017-08-29 04:00] VITALS: BP 116/51
[2017-08-29 06:06] LABS: HEMATOCRIT 31.5 % (37.0-47.0); MEAN CORPUSCULAR VOLUME 110 FL (80-99); PLATELET COUNT 48 K/UL (150-450); RED BLOOD COUNT 2.86 M/UL (4.20-5.40); RED CELL DISTRIBUTION WIDTH 19.9 % (11.6-14.8); WHITE BLOOD COUNT 14.8 K/UL (4.8-10.8)
[2017-08-29 06:33] LABS: ALANINE AMINOTRANSFERASE 15 U/L (12-78); ALBUMIN 1.7 G/DL (3.4-5.0); ALBUMIN/GLOBULIN RATIO 0.7 (1.0-2.7); ALKALINE PHOSPHATASE 228 U/L (46-116); ANION GAP 5 mmol/L (5-15); ASPARTATE AMINO TRANSFERASE 21 U/L (15-37); BILIRUBIN,TOTAL 0.7 MG/DL (0.2-1.0); BLOOD UREA NITROGEN 7 mg/dL (7-18); CALCIUM 7.8 MG/DL (8.5-10.1); CARBON DIOXIDE 28 MMOL/L (21-32); CHLORIDE 112 MMOL/L (98-107); CREATININE 0.7 MG/DL (0.55-1.30); PHOSPHORUS 2.7 MG/DL (2.5-4.9); POTASSIUM 3.6 MMOL/L (3.5-5.1); SODIUM 144 MMOL/L (136-145)
--- NOTE | 2017-08-29 07:18 | General Progress Note ---
Assessment/Plan Assessment/Plan # Thrombocytopenia, severe, multiple etiologies are possible including sepsis, C. difficile versus underlying infection. --> Less likely HIT given that the hit antibody test is negative, other causes are more likely in this patient --> also patient with a upper arm dvt and decreased platelets that slowly uptrending at this time --> reviewed recs with vascular surgery agree to start apixaban for 3 months with close monitoring --> Transfuse platelets prn, monitor cbc --> monitor closely for potential bleed such as gi bleed, though h/h stable at this time # Right lower extremity dvt - apixaban x 3 months total # Anemia due to underlying chronic disease. Continue to closely monitor, potentially hemodilutional. # Leukocytosis, likely secondary to Clostridium difficile versus other cause. --> hx of recent septic shock, closely monitor for improvement. # Acute kidney injury. Continue to closely monitor. Potentially dehydration related. # Colitis, potentially secondary to Clostridium difficile. Currently, on abx per ID Service. # Hypokalemia, is s/p repletion with K+ Subjective Constitutional: Denies: no symptoms, chills, diaphoresis, fever, malaise, weakness, other HEENT: Denies: no symptoms, eye pain, blurred vision, tearing, double vision, ear pain, ear discharge, nose pain, nose congestion, throat pain, throat swelling, mouth pain, mouth swelling, other Respiratory: Denies: no symptoms, cough, orthopnea, shortness of breath, SOB with excertion, SOB at rest, sputum, stridor, wheezing, other Gastrointestinal/Abdominal: Denies: no symptoms, abdomen distended, abdominal pain, black stools, tarry stools, blood in stool, constipated, diarrhea, difficulty swallowing, nausea, poor appetite, poor fluid intake, rectal bleeding , vomiting, other Genitourinary: Denies: no symptoms, burning, discharge, frequency, flank pain, hematuria, incontinence, pain, urgency, other Neurologic/Psychiatric: Denies: no symptoms, anxiety, depressed, emotional problems, headache, numbness, paresthesia, pre-existing deficit, seizure, tingling, tremors, weakness, other Endocrine: Denies: no symptoms, excessive sweating, flushing, intolerance to cold, intolerance to heat, increased hunger, increased thirst, increased urine, unexplained weight gain, unexplained weight loss, other Allergies: Coded Allergies: HEPARIN (Verified Allergy, Severe, 08/24/17) Patient being worked up for HIT 08/24/17 AMOXICILLIN (Verified Adverse Reaction, Severe, Rash, 08/18/17) Subjective on apixaban, per rn mild red colored stool, but h/h stable as is her plt count Objective Last 24 Hour Vital Signs Date Time Temp Pulse Resp B/P (MAP) Pulse Ox O2 Delivery O2 Flow Rate FiO2 08/29/17 04:00 97.7 110 18 116/51 99 Nasal Cannula 1.0 97.7 08/29/17 04:00 107 08/29/17 00:00 107 08/29/17 00:00 97.9 107 18 101/50 97 Nasal Cannula 1.0 97.9 08/28/17 23:32 164 08/28/17 23:30 153 08/28/17 20:00 100 08/28/17 20:00 97.0 99 16 107/58 99 Nasal Cannula 1.0 97.0 08/28/17 19:02 Room Air 21 08/28/17 19:02 97 Room Air 21 08/28/17 16:30 96/62 08/28/17 16:00 98.7 84 19 162/72 96 Nasal Cannula 1.0 98.7 08/28/17 15:14 101 08/28/17 12:00 98.0 108 20 128/74 95 Nasal Cannula 1.0 98.0 08/28/17 11:43 104 08/28/17 08:25 Nasal Cannula 2.0 28 08/28/17 08:25 98 Nasal Cannula 2.0 28 08/28/17 08:00 96.8 104 19 112/64 97 Nasal Cannula 1.0 96.8 08/28/17 07:22 92 Intake and Output 08/28/17 08/29/17 19:00 07:00 Intake Total 630 ml Balance 630 ml Intake Oral 500 ml Other 130 ml # Voids 6 2 # Bowel Movements 1 1 Laboratory Tests 08/29/17 04:20: White Blood Count 14.8H, Red Blood Count 2.86L, Hemoglobin 11.0L, Hematocrit 31.5L, Mean Corpuscular Volume 110H, Mean Corpuscular Hemoglobin 38.6H, Mean Corpuscular Hemoglobin Concent 35.0, Red Cell Distribution Width 19.9H, Platelet Count 48L, Mean Platelet Volume 11.1H, Neutrophils (%) (Auto) , Lymphocytes (%) (Auto) , Monocytes (%) (Auto) , Eosinophils (%) (Auto) , Basophils (%) (Auto) , Neutrophils % (Manual) [Pending], Lymphocytes % (Manual) [Pending], Platelet Estimate [Pending], Platelet Morphology [Pending], Erythrocyte Sedimentation Rate [Pending], Sodium Level 144, Potassium Level 3.6 , Chloride Level 112H, Carbon Dioxide Level 28, Anion Gap 5, Blood Urea Nitrogen 7, Creatinine 0.7, Estimat Glomerular Filtration Rate , Glucose Level 99, Calcium Level 7.8L, Phosphorus Level 2.7, Magnesium Level 1.7L, Total Bilirubin 0.7, Aspartate Amino Transf (AST/SGOT) 21, Alanine Aminotransferase ( ALT/SGPT) 15, Alkaline Phosphatase 228H, C-Reactive Protein, Quantitative 4.0H, Total Protein 4.1L, Albumin 1.7L, Globulin 2.4, Albumin/Globulin Ratio 0.7L Height (Feet): 5 Height (Inches): 0.00 Weight (Pounds): 142 General Appearance: no apparent distress EENT: TMs normal Neck: supple Cardiovascular: regular rhythm Respiratory/Chest: lungs clear Abdomen: non tender Genitourinary/Rectal: heme negative stool Edema: 1+ Leg (L), 1+ Leg (R) Edema: mild edema Neurologic: alert Skin: warm/dry Emery Guzmán MD August 29, 2017 07:18
[2017-08-29 08:00] VITALS: BP 111/56
[2017-08-29] MEDS: Pantoprazole Inj IVP SCH (09:13)
[2017-08-29] MEDS: Vancomycin oral 125mg/2.5ml ORAL SCH ×4 (09:14→21:14)
[2017-08-29] MEDS: Vitamin A&D Oint 2oz Tube TOPIC SCH ×2 (09:15→21:14)
[2017-08-29] MEDS: Eliquis 2.5mg tablet ORAL SCH ×2 (09:15→17:13)
--- NOTE | 2017-08-29 11:09 | Infectious Diseases Prog Note ---
Assessment/Plan Assessment/Plan Assessment: Septic shock, SP Severe C Diff colitis -CT abd/p: Pancolitis. Chronic liver disease/cirrhosis. Moderate ascites. Distended gallbladder nonspecific. Severe lung fibrosis. Anasarca and mesenteric /retroperitoneal stranding. Right femoral line in good position. Degenerative changes of the spine and osteopenia. Atherosclerotic disease. KUB : Nonspecific bowel gas pattern Stool Cx : Neg -Bcx neg; repeat 08/24 Bcx NTD -u/a neg ? Pneum, doubt Pulmonary fibrosis -CXR: BL Extensive basilar infiltrates - component of fibrosis and chronic lung disease -CT chest : Pulmonary fibrosis with evidence of honeycombing. More dense opacity in the right lower lobe may be related to confluent area of scarring however superimposed pneumonia should be excluded clinically. Small bilateral pleural effusions. Mild enlargement of the main pulmonary artery suggestive of pulmonary arterial hypertension. Cardiomegaly with coronary arterial calcifications. Small mediastinal adenopathy with a borderline enlarged calcified mediastinal lymph node. Findings are nonspecific.Evidence of hepatic cirrhosis with ascites and gallbladder distention similar to CT of the abdomen and pelvis 08/19/2017. Recent PNA, still having productive cough Leukocytosis/bandemia; improving -Bcx 08/24 NTD -KUB 08/25: Nonspecific bowel gas pattern. Afebrile Lactic acidosis, resolved RUE DVT EDDI, resolved HTN Plan: -Continue PO Vancomycin 125mg qid #04/06 -if ongoing significant diarrhea, will do Fidaxomicin instead -08/28 SP IV flagyl #11 -08/21 SP IV vanco and Aztreonam #4 -f/u repeat Bcx -Montior CBC/BMP, temperatures -Aspiration precautions Discussed with RN Subjective Allergies: Coded Allergies: HEPARIN (Verified Allergy, Severe, 08/24/17) Patient being worked up for HIT 08/24/17 AMOXICILLIN (Verified Adverse Reaction, Severe, Rash, 08/18/17) Subjective afebrile leukocytosis improved, now stable b/t 13-14 Bcx NTD Objective Vital Signs Last 24 Hour Vital Signs Date Time Temp Pulse Resp B/P (MAP) Pulse Ox O2 Delivery O2 Flow Rate FiO2 08/29/17 10:22 98 16 Room Air 21 08/29/17 08:00 98.2 106 20 111/56 97 Nasal Cannula 1.0 98.2 08/29/17 07:43 101 08/29/17 07:35 Room Air 08/29/17 07:35 98 Room Air 21 08/29/17 04:00 97.7 110 18 116/51 99 Nasal Cannula 1.0 97.7 08/29/17 04:00 107 08/29/17 00:00 107 08/29/17 00:00 97.9 107 18 101/50 97 Nasal Cannula 1.0 97.9 08/28/17 23:32 164 08/28/17 23:30 153 08/28/17 20:00 100 08/28/17 20:00 97.0 99 16 107/58 99 Nasal Cannula 1.0 97.0 08/28/17 19:02 Room Air 21 08/28/17 19:02 97 Room Air 21 08/28/17 16:30 96/62 08/28/17 16:00 98.7 84 19 162/72 96 Nasal Cannula 1.0 98.7 08/28/17 15:14 101 08/28/17 12:00 98.0 108 20 128/74 95 Nasal Cannula 1.0 98.0 08/28/17 11:43 104 Height (Feet): 5 Height (Inches): 0.00 Weight (Pounds): 143 Objective General Appearance: no apparent distress, alert non-toxic, thin Head: normocephalic, atraumatic Eyes: bilateral eye normal inspection, bilateral eye PERRL ENT: hearing grossly normal, normal pharynx, no angioedema, normal voice Neck: full range of motion, supple/symm/no masses Respiratory: chest non-tender, lungs clear, normal breath sounds, speaking full sentences Cardiovascular #1: regular rate, rhythm, no edema Gastrointestinal: normal bowel sounds, non tender, soft, non-distended, no guarding, no rebound Genitourinary: normal inspection, no CVA tenderness Musculoskeletal: back normal, gait/station normal, normal range of motion, non- tender Skin: normal color, no rash, warm/dry, well hydrated Laboratory Tests Test 08/29/17 04:20 White Blood Count 14.8 K/UL (4.8-10.8) H Red Blood Count 2.86 M/UL (4.20-5.40) L Hemoglobin 11.0 G/DL (12.0-16.0) L Hematocrit 31.5 % (37.0-47.0) L Mean Corpuscular Volume 110 FL (80-99) H Mean Corpuscular Hemoglobin 38.6 PG (27.0-31.0) H Mean Corpuscular Hemoglobin Concent 35.0 G/DL (32.0-36.0) Red Cell Distribution Width 19.9 % (11.6-14.8) H Platelet Count 48 K/UL (150-450) L Mean Platelet Volume 11.1 FL (6.5-10.1) H Neutrophils (%) (Auto) % (45.0-75.0) Lymphocytes (%) (Auto) % (20.0-45.0) Monocytes (%) (Auto) % (1.0-10.0) Eosinophils (%) (Auto) % (0.0-3.0) Basophils (%) (Auto) % (0.0-2.0) Differential Total Cells Counted 100 Neutrophils % (Manual) 71 % (45-75) Lymphocytes % (Manual) 19 % (20-45) L Monocytes % (Manual) 6 % (1-10) Eosinophils % (Manual) 0 % (0-3) Basophils % (Manual) 0 % (0-2) Band Neutrophils 4 % (0-8) Platelet Estimate Decreased L Platelet Morphology Normal Hypochromasia 1+ Anisocytosis 2+ Macrocytosis 1+ Erythrocyte Sedimentation Rate 15 MM/HR (0-30) Sodium Level 144 MMOL/L (136-145) Potassium Level 3.6 MMOL/L (3.5-5.1) Chloride Level 112 MMOL/L (98-107) H Carbon Dioxide Level 28 MMOL/L (21-32) Anion Gap 5 mmol/L (5-15) Blood Urea Nitrogen 7 mg/dL (7-18) Creatinine 0.7 MG/DL (0.55-1.30) Estimat Glomerular Filtration Rate mL/min (>60) Glucose Level 99 MG/DL (74-106) Calcium Level 7.8 MG/DL (8.5-10.1) L Phosphorus Level 2.7 MG/DL (2.5-4.9) Magnesium Level 1.7 MG/DL (1.8-2.4) L Total Bilirubin 0.7 MG/DL (0.2-1.0) Aspartate Amino Transf (AST/SGOT) 21 U/L (15-37) Alanine Aminotransferase (ALT/SGPT) 15 U/L (12-78) Alkaline Phosphatase 228 U/L (46-116) H C-Reactive Protein, Quantitative 4.0 mg/dL (0.00-0.90) H Total Protein 4.1 G/DL (6.4-8.2) L Albumin 1.7 G/DL (3.4-5.0) L Globulin 2.4 g/dL Albumin/Globulin Ratio 0.7 (1.0-2.7) L Current Medications Medications (Trade) Dose Ordered Sig/Keri Route PRN Reason Start Time Stop Time Status Last Admin Dose Admin Acetaminophen (Tylenol) 650 mg Q4H PRN ORAL fever (temp>100.5F) 08/24/17 15:43 09/19/17 15:42 08/27/17 01:48 Albuterol/ Ipratropium (Albuterol/ Ipratropium) 3 ml Q4H PRN HHN sob 08/27/17 09:45 09/01/17 09:44 Apixaban (Eliquis) 5 mg BID ORAL 08/27/17 09:00 09/26/17 08:59 08/29/17 09:15 Furosemide (Lasix) 40 mg DAILY IV 08/26/17 09:00 09/25/17 08:59 08/29/17 09:13 Ondansetron HCl (Zofran) 4 mg Q6H PRN IVP Nausea & Vomiting 08/24/17 15:43 09/17/17 15:42 Pantoprazole (Protonix) 40 mg DAILY IVP 08/25/17 09:00 09/18/17 08:59 08/29/17 09:13 Polyethylene Glycol (Miralax) 17 gm DAILYPRN PRN ORAL Constipation 08/24/17 15:44 09/19/17 15:43 Potassium Chloride (K-Dur) 40 meq ONCE ORAL 08/28/17 10:30 09/27/17 12:00 08/28/17 10:57 Vancomycin HCl (Vancomycin) 125 mg FOUR TIMES A DAY ORAL 08/24/17 18:00 08/31/17 20:59 08/29/17 09:14 Vitamin A/Vitamin D (A & D Oint) 1 applic EVERY 12 HOURS TOPIC 08/24/17 21:00 09/21/17 19:59 08/29/17 09:15 Amelia John M.D. August 29, 2017 11:09
[2017-08-29 12:00] VITALS: BP 109/68
--- NOTE | 2017-08-29 13:05 | General Progress Note ---
Assessment/Plan Status: stable Assessment/Plan 1. Septic shock seconary to severe C-diff colitis , off ICU 2. severe C-diff colitis, current antibiotics 3. Acute renal failure. 4. Dehydration. 5. Gastrointestinal and deep vein thrombosis prophylaxis. 6. Pulmonary infiltrate: infection !? 7. VRE- Rectum 8. 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 10. New Acute right UE DVT 11. Chronic LE DVT 11. Nodularity in Chest-CT Plan: Current Abx coverage Thrombocytopenia, stable follow up with [facility] Started on Xarelto Will monitor PLT, if continued upending , will be ok to followup as o/p once clear by [facility] Subjective ROS Limited/Unobtainable: Yes Allergies: Coded Allergies: HEPARIN (Verified Allergy, Severe, 08/24/17) Patient being worked up for HIT 08/24/17 AMOXICILLIN (Verified Adverse Reaction, Severe, Rash, 08/18/17) Objective Last 24 Hour Vital Signs Date Time Temp Pulse Resp B/P (MAP) Pulse Ox O2 Delivery O2 Flow Rate FiO2 08/29/17 12:00 99.2 108 18 109/68 94 Room Air 99.2 08/29/17 10:22 98 16 Room Air 21 08/29/17 08:00 98.2 106 20 111/56 97 Nasal Cannula 1.0 98.2 08/29/17 07:43 101 08/29/17 07:35 Room Air 08/29/17 07:35 98 Room Air 21 08/29/17 04:00 97.7 110 18 116/51 99 Nasal Cannula 1.0 97.7 08/29/17 04:00 107 08/29/17 00:00 107 08/29/17 00:00 97.9 107 18 101/50 97 Nasal Cannula 1.0 97.9 08/28/17 23:32 164 08/28/17 23:30 153 08/28/17 20:00 100 08/28/17 20:00 97.0 99 16 107/58 99 Nasal Cannula 1.0 97.0 08/28/17 19:02 Room Air 21 08/28/17 19:02 97 Room Air 21 08/28/17 16:30 96/62 08/28/17 16:00 98.7 84 19 162/72 96 Nasal Cannula 1.0 98.7 08/28/17 15:14 101 Intake and Output 08/28/17 08/29/17 19:00 07:00 Intake Total 630 ml Balance 630 ml Intake Oral 500 ml Other 130 ml # Voids 6 2 # Bowel Movements 1 1 Laboratory Tests 08/29/17 04:20: White Blood Count 14.8H, Red Blood Count 2.86L, Hemoglobin 11.0L, Hematocrit 31.5L, Mean Corpuscular Volume 110H, Mean Corpuscular Hemoglobin 38.6H, Mean Corpuscular Hemoglobin Concent 35.0, Red Cell Distribution Width 19.9H, Platelet Count 48L, Mean Platelet Volume 11.1H, Neutrophils (%) (Auto) , Lymphocytes (%) (Auto) , Monocytes (%) (Auto) , Eosinophils (%) (Auto) , Basophils (%) (Auto) , Differential Total Cells Counted 100, Neutrophils % ( Manual) 71, Lymphocytes % (Manual) 19L, Monocytes % (Manual) 6, Eosinophils % ( Manual) 0, Basophils % (Manual) 0, Band Neutrophils 4, Platelet Estimate DecreasedL, Platelet Morphology Normal, Hypochromasia 1+, Anisocytosis 2+, Macrocytosis 1+, Erythrocyte Sedimentation Rate 15, Sodium Level 144, Potassium Level 3.6, Chloride Level 112H, Carbon Dioxide Level 28, Anion Gap 5, Blood Urea Nitrogen 7, Creatinine 0.7, Estimat Glomerular Filtration Rate , Glucose Level 99, Calcium Level 7.8L, Phosphorus Level 2.7, Magnesium Level 1.7L, Total Bilirubin 0.7, Aspartate Amino Transf (AST/SGOT) 21, Alanine Aminotransferase ( ALT/SGPT) 15, Alkaline Phosphatase 228H, C-Reactive Protein, Quantitative 4.0H, Total Protein 4.1L, Albumin 1.7L, Globulin 2.4, Albumin/Globulin Ratio 0.7L Height (Feet): 5 Height (Inches): 0.00 Weight (Pounds): 143 General Appearance: no apparent distress EENT: PERRL/EOMI Neck: supple Cardiovascular: normal rate Respiratory/Chest: lungs clear Abdomen: soft Pelvis: normal rectal exam Extremities: non-tender Neurologic: manager banquet II-XII grossly normal Ngozi Blank MD August 29, 2017 13:05
[2017-08-29 16:00] VITALS: BP 93/63
[2017-08-29 20:00] VITALS: BP 109/61
--- NOTE | 2017-08-29 22:44 | Cardiology Progress Note ---
Assessment/Plan Assessment/Plan COVERAGE FOR DR. MOSS 1. Sinus tachycardia, due to sepsis. 2. S/P septic shock. leukocytosis, on broad-spectrum intravenous antibiotics per ID EF 65% and no evidence of endocarditis. 3. NSVT, keep K >4.0 4. BNP of more than 10,000. Echocardiogram Nl EF. 5. Acute axillary vein DVT. On Eliquis 5 bid 6. Chronic lower Extremity DVT. Subjective Subjective Sinus tachycardia at 102. Awake and responsive. Objective Last 24 Hour Vital Signs Date Time Temp Pulse Resp B/P (MAP) Pulse Ox O2 Delivery O2 Flow Rate FiO2 08/29/17 16:07 102 08/29/17 16:00 97.6 109 19 93/63 99 Room Air 97.6 08/29/17 12:04 105 08/29/17 12:00 99.2 108 18 109/68 94 Room Air 99.2 08/29/17 10:22 98 16 Room Air 21 08/29/17 08:00 98.2 106 20 111/56 97 Nasal Cannula 1.0 98.2 08/29/17 07:43 101 08/29/17 07:35 Room Air 08/29/17 07:35 98 Room Air 21 08/29/17 04:00 97.7 110 18 116/51 99 Nasal Cannula 1.0 97.7 08/29/17 04:00 107 08/29/17 00:00 107 08/29/17 00:00 97.9 107 18 101/50 97 Nasal Cannula 1.0 97.9 08/28/17 23:32 164 08/28/17 23:30 153 Intake and Output 08/28/17 08/29/17 19:00 07:00 Intake Total 630 ml Balance 630 ml Intake Oral 500 ml Other 130 ml # Voids 6 2 # Bowel Movements 1 1 2D Echo: EF 65%, RVSP 55 mmHg, Mild AR/MR Laboratory Tests Test 08/29/17 04:20 White Blood Count 14.8 K/UL (4.8-10.8) H Red Blood Count 2.86 M/UL (4.20-5.40) L Hemoglobin 11.0 G/DL (12.0-16.0) L Hematocrit 31.5 % (37.0-47.0) L Mean Corpuscular Volume 110 FL (80-99) H Mean Corpuscular Hemoglobin 38.6 PG (27.0-31.0) H Mean Corpuscular Hemoglobin Concent 35.0 G/DL (32.0-36.0) Red Cell Distribution Width 19.9 % (11.6-14.8) H Platelet Count 48 K/UL (150-450) L Mean Platelet Volume 11.1 FL (6.5-10.1) H Neutrophils (%) (Auto) % (45.0-75.0) Lymphocytes (%) (Auto) % (20.0-45.0) Monocytes (%) (Auto) % (1.0-10.0) Eosinophils (%) (Auto) % (0.0-3.0) Basophils (%) (Auto) % (0.0-2.0) Differential Total Cells Counted 100 Neutrophils % (Manual) 71 % (45-75) Lymphocytes % (Manual) 19 % (20-45) L Monocytes % (Manual) 6 % (1-10) Eosinophils % (Manual) 0 % (0-3) Basophils % (Manual) 0 % (0-2) Band Neutrophils 4 % (0-8) Platelet Estimate Decreased L Platelet Morphology Normal Hypochromasia 1+ Anisocytosis 2+ Macrocytosis 1+ Erythrocyte Sedimentation Rate 15 MM/HR (0-30) Sodium Level 144 MMOL/L (136-145) Potassium Level 3.6 MMOL/L (3.5-5.1) Chloride Level 112 MMOL/L (98-107) H Carbon Dioxide Level 28 MMOL/L (21-32) Anion Gap 5 mmol/L (5-15) Blood Urea Nitrogen 7 mg/dL (7-18) Creatinine 0.7 MG/DL (0.55-1.30) Estimat Glomerular Filtration Rate mL/min (>60) Glucose Level 99 MG/DL (74-106) Calcium Level 7.8 MG/DL (8.5-10.1) L Phosphorus Level 2.7 MG/DL (2.5-4.9) Magnesium Level 1.7 MG/DL (1.8-2.4) L Total Bilirubin 0.7 MG/DL (0.2-1.0) Aspartate Amino Transf (AST/SGOT) 21 U/L (15-37) Alanine Aminotransferase (ALT/SGPT) 15 U/L (12-78) Alkaline Phosphatase 228 U/L (46-116) H C-Reactive Protein, Quantitative 4.0 mg/dL (0.00-0.90) H Total Protein 4.1 G/DL (6.4-8.2) L Albumin 1.7 G/DL (3.4-5.0) L Globulin 2.4 g/dL Albumin/Globulin Ratio 0.7 (1.0-2.7) L Objective HEENT: Head and neck shows no JVD. LUNGS: Coarse rhonchi bilaterally. CARDIOVASCULAR: Regular S1 and S2 with no gallop. ABDOMEN: Soft. EXTREMITIES: No pitting edema. RAYMOND MENA August 29, 2017 22:44
[2017-08-30] VITALS: BP 114/59
--- NOTE | 2017-08-30 00:08 | General Progress Note ---
Assessment/Plan Assessment/Plan # Thrombocytopenia, severe, multiple etiologies are possible including sepsis, C. difficile versus underlying infection. --> Less likely HIT given that the hit antibody test is negative, other causes are more likely in this patient --> also patient with a upper arm dvt and decreased platelets that slowly uptrending at this time --> reviewed recs with vascular surgery agree to start apixaban for 3 months with close monitoring --> Transfuse platelets prn, monitor cbc --> monitor closely for potential bleed such as gi bleed, though h/h stable at this time # Right lower extremity dvt - apixaban x 3 months total --> monitor closely # Anemia due to underlying chronic disease. Continue to closely monitor, potentially hemodilutional. # Leukocytosis, likely secondary to Clostridium difficile versus other cause. --> hx of recent septic shock, closely monitor for improvement. --> levels worsened from yesterday # Acute kidney injury. Continue to closely monitor. Potentially dehydration related. # Colitis, potentially secondary to Clostridium difficile. Currently, on abx per ID Service. # Hypokalemia, is s/p repletion with K+ Subjective Date patient seen: August 29, 2017 Constitutional: Denies: no symptoms, chills, diaphoresis, fever, malaise, weakness, other HEENT: Denies: no symptoms, eye pain, blurred vision, tearing, double vision, ear pain, ear discharge, nose pain, nose congestion, throat pain, throat swelling, mouth pain, mouth swelling, other Cardiovascular: Denies: no symptoms, chest pain, edema, irregular heart rate, lightheadedness, palpitations, syncope, other Respiratory: Denies: no symptoms, cough, orthopnea, shortness of breath, SOB with excertion, SOB at rest, sputum, stridor, wheezing, other Gastrointestinal/Abdominal: Denies: no symptoms, abdomen distended, abdominal pain, black stools, tarry stools, blood in stool, constipated, diarrhea, difficulty swallowing, nausea, poor appetite, poor fluid intake, rectal bleeding , vomiting, other Genitourinary: Denies: no symptoms, burning, discharge, frequency, flank pain, hematuria, incontinence, pain, urgency, other Neurologic/Psychiatric: Denies: no symptoms, anxiety, depressed, emotional problems, headache, numbness, paresthesia, pre-existing deficit, seizure, tingling, tremors, weakness, other Hematologic/Lymphatic: Reports: anemia Allergies: Coded Allergies: HEPARIN (Verified Allergy, Severe, 08/24/17) Patient being worked up for HIT 08/24/17 AMOXICILLIN (Verified Adverse Reaction, Severe, Rash, 08/18/17) Subjective on apixaban, red stool, plts low, wbc elevated. Objective Last 24 Hour Vital Signs Date Time Temp Pulse Resp B/P (MAP) Pulse Ox O2 Delivery O2 Flow Rate FiO2 08/29/17 20:00 101 08/29/17 20:00 98.4 99 20 109/61 95 Room Air 98.4 08/29/17 16:07 102 08/29/17 16:00 97.6 109 19 93/63 99 Room Air 97.6 08/29/17 12:04 105 08/29/17 12:00 99.2 108 18 109/68 94 Room Air 99.2 08/29/17 10:22 98 16 Room Air 21 08/29/17 08:00 98.2 106 20 111/56 97 Nasal Cannula 1.0 98.2 08/29/17 07:43 101 08/29/17 07:35 Room Air 08/29/17 07:35 98 Room Air 21 08/29/17 04:00 97.7 110 18 116/51 99 Nasal Cannula 1.0 97.7 08/29/17 04:00 107 Intake and Output 08/29/17 08/30/17 19:00 07:00 Intake Total 720 ml Balance 720 ml Intake Oral 720 ml # Voids 1 # Bowel Movements 2 1 Laboratory Tests 08/29/17 04:20: White Blood Count 14.8H, Red Blood Count 2.86L, Hemoglobin 11.0L, Hematocrit 31.5L, Mean Corpuscular Volume 110H, Mean Corpuscular Hemoglobin 38.6H, Mean Corpuscular Hemoglobin Concent 35.0, Red Cell Distribution Width 19.9H, Platelet Count 48L, Mean Platelet Volume 11.1H, Neutrophils (%) (Auto) , Lymphocytes (%) (Auto) , Monocytes (%) (Auto) , Eosinophils (%) (Auto) , Basophils (%) (Auto) , Differential Total Cells Counted 100, Neutrophils % ( Manual) 71, Lymphocytes % (Manual) 19L, Monocytes % (Manual) 6, Eosinophils % ( Manual) 0, Basophils % (Manual) 0, Band Neutrophils 4, Platelet Estimate DecreasedL, Platelet Morphology Normal, Hypochromasia 1+, Anisocytosis 2+, Macrocytosis 1+, Erythrocyte Sedimentation Rate 15, Sodium Level 144, Potassium Level 3.6, Chloride Level 112H, Carbon Dioxide Level 28, Anion Gap 5, Blood Urea Nitrogen 7, Creatinine 0.7, Estimat Glomerular Filtration Rate , Glucose Level 99, Calcium Level 7.8L, Phosphorus Level 2.7, Magnesium Level 1.7L, Total Bilirubin 0.7, Aspartate Amino Transf (AST/SGOT) 21, Alanine Aminotransferase ( ALT/SGPT) 15, Alkaline Phosphatase 228H, C-Reactive Protein, Quantitative 4.0H, Total Protein 4.1L, Albumin 1.7L, Globulin 2.4, Albumin/Globulin Ratio 0.7L Height (Feet): 5 Height (Inches): 0.00 Weight (Pounds): 143 General Appearance: no apparent distress EENT: normal ENT inspection Neck: normal alignment Cardiovascular: normal rate, regular rhythm Respiratory/Chest: lungs clear, normal breath sounds Abdomen: non tender, soft Emery Guzmán MD August 30, 2017 00:08
[2017-08-30 04:00] VITALS: BP 118/66
[2017-08-30 08:00] VITALS: BP 109/63
[2017-08-30] MEDS: Magnesium Oxide 400mg tab ORAL SCH ×2 (09:04→17:11)
[2017-08-30] MEDS: Eliquis 2.5mg tablet ORAL SCH ×2 (09:04→17:11)
[2017-08-30] MEDS: Vancomycin oral 125mg/2.5ml ORAL SCH ×4 (09:05→21:55)
[2017-08-30] MEDS: Vitamin A&D Oint 2oz Tube TOPIC SCH ×2 (09:43→21:56)
--- NOTE | 2017-08-30 10:59 | General Progress Note ---
Assessment/Plan Status: stable Assessment/Plan 1. Septic shock seconary to severe C-diff colitis , off ICU 2. severe C-diff colitis, current antibiotics 3. Acute renal failure. 4. Dehydration. 5. Gastrointestinal and deep vein thrombosis prophylaxis. 6. Pulmonary infiltrate: infection !? 7. VRE- Rectum 8. 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 10. New Acute right UE DVT 11. Chronic LE DVT 11. Nodularity in Chest-CT Plan: Current Abx coverage Thrombocytopenia, stable follow up with [facility] Started on NOAC Will monitor PLT, if continued upending , will be ok to followup as o/p once clear by [facility] Ok to followup as out patient Subjective ROS Limited/Unobtainable: No Constitutional: Reports: no symptoms, malaise HEENT: Reports: no symptoms Cardiovascular: Reports: no symptoms Allergies: Coded Allergies: HEPARIN (Verified Allergy, Severe, 08/24/17) Patient being worked up for HIT 08/24/17 AMOXICILLIN (Verified Adverse Reaction, Severe, Rash, 08/18/17) Objective Last 24 Hour Vital Signs Date Time Temp Pulse Resp B/P (MAP) Pulse Ox O2 Delivery O2 Flow Rate FiO2 08/30/17 08:00 96 08/30/17 08:00 97.2 97 20 109/63 95 Room Air 1.0 21 97.2 08/30/17 07:40 Room Air 21 08/30/17 07:40 98 Room Air 21 08/30/17 07:30 96 16 Room Air 21 08/30/17 04:00 98.3 92 20 118/66 95 Room Air 98.3 08/30/17 04:00 87 08/30/17 00:00 97 08/30/17 00:00 97.8 97 22 114/59 94 Room Air 97.8 08/29/17 20:00 101 08/29/17 20:00 98.4 99 20 109/61 95 Room Air 98.4 08/29/17 19:02 Room Air 21 08/29/17 19:02 94 16 Room Air 21 08/29/17 19:02 97 Room Air 21 08/29/17 16:07 102 08/29/17 16:00 97.6 109 19 93/63 99 Room Air 97.6 08/29/17 12:04 105 08/29/17 12:00 99.2 108 18 109/68 94 Room Air 99.2 Intake and Output 08/29/17 08/30/17 19:00 07:00 Intake Total 720 ml 500 ml Balance 720 ml 500 ml Intake Oral 720 ml 500 ml # Voids 1 # Bowel Movements 2 2 Height (Feet): 5 Height (Inches): 0.00 Weight (Pounds): 136 General Appearance: no apparent distress EENT: PERRL/EOMI Neck: non-tender Cardiovascular: normal rate Respiratory/Chest: lungs clear Abdomen: soft Extremities: non-tender Neurologic: infectious diseases physician II-XII grossly normal Ngozi Blank MD August 30, 2017 10:59
--- NOTE | 2017-08-30 11:50 | Pulmonology Progress Note ---
Assessment/Plan Problems: (1) Septic shock (2) Colitis (3) Renal insufficiency (4) Rectal bleeding (5) Thrombocytopenia (6) Acute renal failure (7) Clostridium difficile colitis Assessment/Plan improving wbc decreasing but still elevated on Eliquis for DVT PLT are getting better stable around 40's check electrolytes dvt prophylaxis Subjective ROS Limited/Unobtainable: No Constitutional: Reports: no symptoms HEENT: Repors: no symptoms Allergies: Coded Allergies: HEPARIN (Verified Allergy, Severe, 08/24/17) Patient being worked up for HIT 08/24/17 AMOXICILLIN (Verified Adverse Reaction, Severe, Rash, 08/18/17) Objective Last 24 Hour Vital Signs Date Time Temp Pulse Resp B/P (MAP) Pulse Ox O2 Delivery O2 Flow Rate FiO2 08/30/17 08:00 96 08/30/17 08:00 97.2 97 20 109/63 95 Room Air 1.0 21 97.2 08/30/17 07:40 Room Air 21 08/30/17 07:40 98 Room Air 21 08/30/17 07:30 96 16 Room Air 21 08/30/17 04:00 98.3 92 20 118/66 95 Room Air 98.3 08/30/17 04:00 87 08/30/17 00:00 97 08/30/17 00:00 97.8 97 22 114/59 94 Room Air 97.8 08/29/17 20:00 101 08/29/17 20:00 98.4 99 20 109/61 95 Room Air 98.4 08/29/17 19:02 Room Air 21 08/29/17 19:02 94 16 Room Air 21 08/29/17 19:02 97 Room Air 21 08/29/17 16:07 102 08/29/17 16:00 97.6 109 19 93/63 99 Room Air 97.6 08/29/17 12:04 105 08/29/17 12:00 99.2 108 18 109/68 94 Room Air 99.2 Intake and Output 08/29/17 08/30/17 19:00 07:00 Intake Total 720 ml 500 ml Balance 720 ml 500 ml Intake Oral 720 ml 500 ml # Voids 1 # Bowel Movements 2 2 General Appearance: cachetic HEENT: normocephalic, atraumatic Respiratory/Chest: chest wall non-tender, lungs clear Breasts: no masses Cardiovascular: normal rate Abdomen: normal bowel sounds, soft, non tender Genitourinary: normal external genitalia Extremities: no clubbing Skin: no rash Current Medications Medications (Trade) Dose Ordered Sig/Keri Route PRN Reason Start Time Stop Time Status Last Admin Dose Admin Acetaminophen (Tylenol) 650 mg Q4H PRN ORAL fever (temp>100.5F) 08/24/17 15:43 09/19/17 15:42 08/27/17 01:48 Albuterol/ Ipratropium (Albuterol/ Ipratropium) 3 ml Q4H PRN HHN sob 08/27/17 09:45 09/01/17 09:44 Apixaban (Eliquis) 5 mg BID ORAL 08/27/17 09:00 09/26/17 08:59 08/30/17 09:04 Furosemide (Lasix) 40 mg DAILY IV 08/26/17 09:00 09/25/17 08:59 08/30/17 09:05 Magnesium Oxide (Mag-Ox 400mg) 400 mg BID ORAL 08/30/17 09:00 09/29/17 08:59 08/30/17 09:04 Ondansetron HCl (Zofran) 4 mg Q6H PRN IVP Nausea & Vomiting 08/24/17 15:43 09/17/17 15:42 Pantoprazole (Protonix) 40 mg DAILY ORAL 08/30/17 09:00 09/29/17 08:59 08/30/17 09:04 Polyethylene Glycol (Miralax) 17 gm DAILYPRN PRN ORAL Constipation 08/24/17 15:44 09/19/17 15:43 Vancomycin HCl (Vancomycin) 125 mg FOUR TIMES A DAY ORAL 08/24/17 18:00 08/31/17 20:59 08/30/17 09:05 Vitamin A/Vitamin D (A & D Oint) 1 applic EVERY 12 HOURS TOPIC 08/24/17 21:00 09/21/17 19:59 08/30/17 09:43 Deng Tsang MD August 30, 2017 11:50
[2017-08-30 12:00] VITALS: BP 114/72
--- NOTE | 2017-08-30 15:14 | Infectious Diseases Prog Note ---
Assessment/Plan Assessment/Plan Assessment: Septic shock, SP Severe C Diff colitis -CT abd/p: Pancolitis. Chronic liver disease/cirrhosis. Moderate ascites. Distended gallbladder nonspecific. Severe lung fibrosis. Anasarca and mesenteric /retroperitoneal stranding. Right femoral line in good position. Degenerative changes of the spine and osteopenia. Atherosclerotic disease. KUB : Nonspecific bowel gas pattern Stool Cx : Neg -Bcx neg; repeat 08/24 Bcx Neg -u/a neg ? Pneum, doubt Pulmonary fibrosis -CXR: BL Extensive basilar infiltrates - component of fibrosis and chronic lung disease -CT chest : Pulmonary fibrosis with evidence of honeycombing. More dense opacity in the right lower lobe may be related to confluent area of scarring however superimposed pneumonia should be excluded clinically. Small bilateral pleural effusions. Mild enlargement of the main pulmonary artery suggestive of pulmonary arterial hypertension. Cardiomegaly with coronary arterial calcifications. Small mediastinal adenopathy with a borderline enlarged calcified mediastinal lymph node. Findings are nonspecific.Evidence of hepatic cirrhosis with ascites and gallbladder distention similar to CT of the abdomen and pelvis 08/19/2017. Recent PNA, still having productive cough Leukocytosis/bandemia; improving -Bcx 08/24 NTD -KUB 08/25: Nonspecific bowel gas pattern. Afebrile Lactic acidosis, resolved RUE DVT EDDI, resolved HTN Plan: -Continue PO Vancomycin 125mg qid #13/14 -if ongoing significant diarrhea, will do Fidaxomicin instead -08/28 SP IV flagyl #11 -08/21 SP IV vanco and Aztreonam #4 -f/u repeat Bcx -Montior CBC/BMP, temperatures -Aspiration precautions Discussed with RN Subjective Allergies: Coded Allergies: HEPARIN (Verified Allergy, Severe, 08/24/17) Patient being worked up for HIT 08/24/17 AMOXICILLIN (Verified Adverse Reaction, Severe, Rash, 08/18/17) Subjective afebrile leukocytosis improved, now stable b/t 13-14; no cbc today Bcx Neg Objective Vital Signs Last 24 Hour Vital Signs Date Time Temp Pulse Resp B/P (MAP) Pulse Ox O2 Delivery O2 Flow Rate FiO2 08/30/17 12:00 97.2 20 114/72 95 Room Air 1.0 21 97.2 08/30/17 12:00 104 08/30/17 08:00 96 08/30/17 08:00 97.2 97 20 109/63 95 Room Air 1.0 21 97.2 08/30/17 07:40 Room Air 21 08/30/17 07:40 98 Room Air 21 08/30/17 07:30 96 16 Room Air 21 08/30/17 04:00 98.3 92 20 118/66 95 Room Air 98.3 08/30/17 04:00 87 08/30/17 00:00 97 08/30/17 00:00 97.8 97 22 114/59 94 Room Air 97.8 08/29/17 20:00 101 08/29/17 20:00 98.4 99 20 109/61 95 Room Air 98.4 08/29/17 19:02 Room Air 21 08/29/17 19:02 94 16 Room Air 21 08/29/17 19:02 97 Room Air 21 08/29/17 16:07 102 08/29/17 16:00 97.6 109 19 93/63 99 Room Air 97.6 Height (Feet): 5 Height (Inches): 0.00 Weight (Pounds): 136 Objective General Appearance: no apparent distress, alert non-toxic, thin Head: normocephalic, atraumatic Eyes: bilateral eye normal inspection, bilateral eye PERRL ENT: hearing grossly normal, normal pharynx, no angioedema, normal voice Neck: full range of motion, supple/symm/no masses Respiratory: chest non-tender, lungs clear, normal breath sounds, speaking full sentences Cardiovascular #1: regular rate, rhythm, no edema Gastrointestinal: normal bowel sounds, non tender, soft, non-distended, no guarding, no rebound Genitourinary: normal inspection, no CVA tenderness Musculoskeletal: back normal, gait/station normal, normal range of motion, non- tender Skin: normal color, no rash, warm/dry, well hydrated Current Medications Medications (Trade) Dose Ordered Sig/Keri Route PRN Reason Start Time Stop Time Status Last Admin Dose Admin Acetaminophen (Tylenol) 650 mg Q4H PRN ORAL fever (temp>100.5F) 08/24/17 15:43 09/19/17 15:42 08/27/17 01:48 Albuterol/ Ipratropium (Albuterol/ Ipratropium) 3 ml Q4H PRN HHN sob 08/27/17 09:45 09/01/17 09:44 Apixaban (Eliquis) 5 mg BID ORAL 08/27/17 09:00 09/26/17 08:59 08/30/17 09:04 Furosemide (Lasix) 40 mg DAILY IV 08/26/17 09:00 09/25/17 08:59 08/30/17 09:05 Magnesium Oxide (Mag-Ox 400mg) 400 mg BID ORAL 08/30/17 09:00 09/29/17 08:59 08/30/17 09:04 Ondansetron HCl (Zofran) 4 mg Q6H PRN IVP Nausea & Vomiting 08/24/17 15:43 09/17/17 15:42 Pantoprazole (Protonix) 40 mg DAILY ORAL 08/30/17 09:00 09/29/17 08:59 08/30/17 09:04 Polyethylene Glycol (Miralax) 17 gm DAILYPRN PRN ORAL Constipation 08/24/17 15:44 09/19/17 15:43 Vancomycin HCl (Vancomycin) 125 mg FOUR TIMES A DAY ORAL 08/24/17 18:00 08/31/17 20:59 08/30/17 13:43 Vitamin A/Vitamin D (A & D Oint) 1 applic EVERY 12 HOURS TOPIC 08/24/17 21:00 09/21/17 19:59 08/30/17 09:43 Amelia John M.D. August 30, 2017 15:14
[2017-08-30 16:00] VITALS: BP 101/53
[2017-08-30 20:33] VITALS: BP 109/62
--- NOTE | 2017-08-30 23:30 | Cardiology Progress Note ---
Assessment/Plan Assessment/Plan COVERAGE FOR DR. MOSS 1. Sinus tachycardia, slightly better, due to sepsis, continue ABx. 2. S/P septic shock. leukocytosis, on broad-spectrum intravenous antibiotics per ID EF 65% and no evidence of infective endocarditis. 3. NSVT, keep K >4.0, Mg >2.5 4. BNP of more than 10,000. Echocardiogram Nl EF. 5. Acute axillary vein DVT. On Eliquis 5 bid 6. Chronic lower Extremity DVT. Subjective Subjective Sinus rhythm at 95. No CP or SOB. Objective Last 24 Hour Vital Signs Date Time Temp Pulse Resp B/P (MAP) Pulse Ox O2 Delivery O2 Flow Rate FiO2 08/30/17 20:33 98.5 102 18 109/62 97 98.5 08/30/17 19:30 96 Room Air 21 08/30/17 19:30 Room Air 21 08/30/17 19:30 95 16 Room Air 21 08/30/17 16:00 97.0 20 101/53 95 Room Air 21 97.0 08/30/17 16:00 98 08/30/17 12:00 97.2 20 114/72 95 Room Air 1.0 21 97.2 08/30/17 12:00 104 08/30/17 08:00 96 08/30/17 08:00 97.2 97 20 109/63 95 Room Air 1.0 21 97.2 08/30/17 07:40 Room Air 21 08/30/17 07:40 98 Room Air 21 08/30/17 07:30 96 16 Room Air 21 08/30/17 04:00 98.3 92 20 118/66 95 Room Air 98.3 08/30/17 04:00 87 08/30/17 00:00 97 08/30/17 00:00 97.8 97 22 114/59 94 Room Air 97.8 Intake and Output 08/29/17 08/30/17 19:00 07:00 Intake Total 720 ml 500 ml Balance 720 ml 500 ml Intake Oral 720 ml 500 ml # Voids 1 # Bowel Movements 2 2 2D Echo: EF 65%, RVSP 55 mmHg, Mild AR/MR Objective HEENT: Head and neck shows no JVD. LUNGS: Coarse rhonchi bilaterally. CARDIOVASCULAR: Regular S1 and S2 with no gallop. ABDOMEN: Soft. EXTREMITIES: No pitting edema. RAYMOND MEAN August 30, 2017 23:30
--- NOTE | 2017-08-30 23:51 | General Progress Note ---
Assessment/Plan Assessment/Plan # Thrombocytopenia, severe, multiple etiologies are possible including sepsis, C. difficile versus underlying infection. --> Less likely HIT given that the hit antibody test is negative, other causes are more likely in this patient --> also patient with a upper arm dvt and decreased platelets that slowly uptrending at this time --> reviewed recs with vascular surgery agree to start apixaban for 3 months with close monitoring --> Transfuse platelets prn, monitor cbc --> monitor closely for potential bleed such as gi bleed, though h/h stable at this time --> slowly improving. # Right lower extremity dvt - apixaban x 3 months total --> monitor closely # Anemia due to underlying chronic disease. Continue to closely monitor, potentially hemodilutional. # Leukocytosis, likely secondary to Clostridium difficile versus other cause. --> hx of recent septic shock, closely monitor for improvement. --> levels remain elevated. Trend cbc. # Acute kidney injury. Continue to closely monitor. Potentially dehydration related. # Colitis, potentially secondary to Clostridium difficile. Currently, on abx per ID Service. # Hypokalemia, is s/p repletion with K+ Subjective Date patient seen: August 30, 2017 Constitutional: Denies: no symptoms, chills, diaphoresis, fever, malaise, weakness, other HEENT: Denies: no symptoms, eye pain, blurred vision, tearing, double vision, ear pain, ear discharge, nose pain, nose congestion, throat pain, throat swelling, mouth pain, mouth swelling, other Cardiovascular: Denies: no symptoms, chest pain, edema, irregular heart rate, lightheadedness, palpitations, syncope, other Respiratory: Denies: no symptoms, cough, orthopnea, shortness of breath, SOB with excertion, SOB at rest, sputum, stridor, wheezing, other Gastrointestinal/Abdominal: Denies: no symptoms, abdomen distended, abdominal pain, black stools, tarry stools, blood in stool, constipated, diarrhea, difficulty swallowing, nausea, poor appetite, poor fluid intake, rectal bleeding , vomiting, other Genitourinary: Denies: no symptoms, burning, discharge, frequency, flank pain, hematuria, incontinence, pain, urgency, other Neurologic/Psychiatric: Denies: no symptoms, anxiety, depressed, emotional problems, headache, numbness, paresthesia, pre-existing deficit, seizure, tingling, tremors, weakness, other Hematologic/Lymphatic: Reports: anemia Allergies: Coded Allergies: HEPARIN (Verified Allergy, Severe, 08/24/17) Patient being worked up for HIT 08/24/17 AMOXICILLIN (Verified Adverse Reaction, Severe, Rash, 08/18/17) Subjective on apixaban, platelets improving slowly. No new events. Objective Last 24 Hour Vital Signs Date Time Temp Pulse Resp B/P (MAP) Pulse Ox O2 Delivery O2 Flow Rate FiO2 08/30/17 20:33 98.5 102 18 109/62 97 98.5 08/30/17 20:00 99 08/30/17 19:30 96 Room Air 21 08/30/17 19:30 Room Air 21 08/30/17 19:30 95 16 Room Air 21 08/30/17 16:00 97.0 20 101/53 95 Room Air 21 97.0 08/30/17 16:00 98 08/30/17 12:00 97.2 20 114/72 95 Room Air 1.0 21 97.2 08/30/17 12:00 104 08/30/17 08:00 96 08/30/17 08:00 97.2 97 20 109/63 95 Room Air 1.0 21 97.2 08/30/17 07:40 Room Air 21 08/30/17 07:40 98 Room Air 21 08/30/17 07:30 96 16 Room Air 21 08/30/17 04:00 98.3 92 20 118/66 95 Room Air 98.3 08/30/17 04:00 87 08/30/17 00:00 97 08/30/17 00:00 97.8 97 22 114/59 94 Room Air 97.8 Intake and Output 08/29/17 08/30/17 19:00 07:00 Intake Total 720 ml 500 ml Balance 720 ml 500 ml Intake Oral 720 ml 500 ml # Voids 1 # Bowel Movements 2 2 Height (Feet): 5 Height (Inches): 0.00 Weight (Pounds): 136 General Appearance: no apparent distress Cardiovascular: tachycardia Respiratory/Chest: decreased breath sounds Abdomen: normal bowel sounds, non tender Emery Guzmán MD August 30, 2017 23:51
[2017-08-31 00:10] VITALS: BP 104/58
[2017-08-31 04:00] VITALS: BP 107/66
[2017-08-31 08:00] VITALS: BP 109/69
[2017-08-31 09:16] LABS: HEMATOCRIT 30.4 % (37.0-47.0); HEMOGLOBIN 9.5 G/DL (12.0-16.0); MEAN CORPUSCULAR VOLUME 113 FL (80-99); PLATELET COUNT 56 K/UL (150-450); RED CELL DISTRIBUTION WIDTH 18.8 % (11.6-14.8); WHITE BLOOD COUNT 10.9 K/UL (4.8-10.8)
[2017-08-31] MEDS: Eliquis 2.5mg tablet ORAL SCH ×2 (09:44→17:46)
[2017-08-31] MEDS: Vancomycin oral 125mg/2.5ml ORAL SCH ×3 (09:44→17:46)
[2017-08-31] MEDS: Vitamin A&D Oint 2oz Tube TOPIC SCH ×2 (09:44→21:11)
[2017-08-31] MEDS: Magnesium Oxide 400mg tab ORAL SCH ×2 (09:44→17:46)
--- NOTE | 2017-08-31 10:03 | General Progress Note ---
Assessment/Plan Status: stable Assessment/Plan 1. Septic shock seconary to severe C-diff colitis , off ICU 2. severe C-diff colitis, current antibiotics 3. Acute renal failure. 4. Dehydration. 5. Gastrointestinal and deep vein thrombosis prophylaxis. 6. Pulmonary infiltrate: infection !? 7. VRE- Rectum 8. 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 10. New Acute right UE DVT 11. Chronic LE DVT 11. Nodularity in Chest-CT Plan: Current Abx coverage Thrombocytopenia, stable follow up with [facility] Started on NOAC Will monitor PLT, if continued uptrending , will be ok to followup as o/p once clear by [facility] Ok to followup as out patient Subjective ROS Limited/Unobtainable: No Constitutional: Reports: weakness Allergies: Coded Allergies: HEPARIN (Verified Allergy, Severe, 08/24/17) Patient being worked up for HIT 08/24/17 AMOXICILLIN (Verified Adverse Reaction, Severe, Rash, 08/18/17) Objective Last 24 Hour Vital Signs Date Time Temp Pulse Resp B/P (MAP) Pulse Ox O2 Delivery O2 Flow Rate FiO2 08/31/17 05:00 166 08/31/17 04:00 98.1 100 18 107/66 96 Room Air 98.1 08/31/17 04:00 99 08/31/17 00:10 97.9 93 17 104/58 96 97.9 08/31/17 00:00 98 08/30/17 20:33 98.5 102 18 109/62 97 98.5 08/30/17 20:00 99 08/30/17 19:30 96 Room Air 21 08/30/17 19:30 Room Air 21 08/30/17 19:30 95 16 Room Air 21 08/30/17 16:00 97.0 20 101/53 95 Room Air 21 97.0 08/30/17 16:00 98 08/30/17 12:00 97.2 20 114/72 95 Room Air 1.0 21 97.2 08/30/17 12:00 104 Intake and Output 08/30/17 08/31/17 19:00 07:00 Intake Total 760 ml 240 ml Balance 760 ml 240 ml Intake Oral 760 ml 240 ml # Voids 2 2 # Bowel Movements 3 1 Laboratory Tests 08/31/17 06:35: White Blood Count 10.9H, Red Blood Count 2.70L, Hemoglobin 9.5L, Hematocrit 30.4L, Mean Corpuscular Volume 113H, Mean Corpuscular Hemoglobin 35.3H, Mean Corpuscular Hemoglobin Concent 31.3L, Red Cell Distribution Width 18.8H, Platelet Count 56L, Mean Platelet Volume 10.9H, Neutrophils (%) (Auto) , Lymphocytes (%) (Auto) , Monocytes (%) (Auto) , Eosinophils (%) (Auto) , Basophils (%) (Auto) , Neutrophils % (Manual) [Pending], Lymphocytes % (Manual) [Pending], Platelet Estimate [Pending], Platelet Morphology [Pending] Height (Feet): 5 Height (Inches): 0.00 Weight (Pounds): 136 General Appearance: no apparent distress EENT: PERRL/EOMI Neck: supple Cardiovascular: normal rate Respiratory/Chest: lungs clear Abdomen: soft Extremities: non-tender Neurologic: hot roller II-XII grossly normal Ngozi Blank MD August 31, 2017 10:03
[2017-08-31 12:00] VITALS: BP 109/67
--- NOTE | 2017-08-31 12:47 | Pulmonology Progress Note ---
Assessment/Plan Problems: (1) Septic shock (2) Colitis (3) Renal insufficiency (4) Rectal bleeding (5) Thrombocytopenia (6) Acute renal failure (7) Clostridium difficile colitis Assessment/Plan still has diarrhia wbc decreasing but still elevated, close to normal PLT are getting higher check electrolytes dvt prophylaxis Subjective ROS Limited/Unobtainable: No Constitutional: Reports: no symptoms HEENT: Repors: no symptoms Respiratory: Reports: no symptoms Allergies: Coded Allergies: HEPARIN (Verified Allergy, Severe, 08/24/17) Patient being worked up for HIT 08/24/17 AMOXICILLIN (Verified Adverse Reaction, Severe, Rash, 08/18/17) Objective Last 24 Hour Vital Signs Date Time Temp Pulse Resp B/P (MAP) Pulse Ox O2 Delivery O2 Flow Rate FiO2 08/31/17 08:00 99 08/31/17 08:00 97.5 103 21 109/69 95 Room Air 97.5 08/31/17 05:00 166 08/31/17 04:00 98.1 100 18 107/66 96 Room Air 98.1 08/31/17 04:00 99 08/31/17 00:10 97.9 93 17 104/58 96 97.9 08/31/17 00:00 98 08/30/17 20:33 98.5 102 18 109/62 97 98.5 08/30/17 20:00 99 08/30/17 19:30 96 Room Air 21 08/30/17 19:30 Room Air 21 08/30/17 19:30 95 16 Room Air 21 08/30/17 16:00 97.0 20 101/53 95 Room Air 21 97.0 08/30/17 16:00 98 Intake and Output 08/30/17 08/31/17 19:00 07:00 Intake Total 760 ml 240 ml Balance 760 ml 240 ml Intake Oral 760 ml 240 ml # Voids 2 2 # Bowel Movements 3 1 General Appearance: WD/WN HEENT: normocephalic, atraumatic Respiratory/Chest: chest wall non-tender, lungs clear Breasts: no masses Cardiovascular: normal peripheral pulses Abdomen: normal bowel sounds, soft, non tender Genitourinary: normal external genitalia Extremities: no cyanosis Skin: no rash 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 Laboratory Tests 08/31/17 06:35: White Blood Count 10.9H, Red Blood Count 2.70L, Hemoglobin 9.5L, Hematocrit 30.4L, Mean Corpuscular Volume 113H, Mean Corpuscular Hemoglobin 35.3H, Mean Corpuscular Hemoglobin Concent 31.3L, Red Cell Distribution Width 18.8H, Platelet Count 56L, Mean Platelet Volume 10.9H, Neutrophils (%) (Auto) , Lymphocytes (%) (Auto) , Monocytes (%) (Auto) , Eosinophils (%) (Auto) , Basophils (%) (Auto) , Differential Total Cells Counted 100, Neutrophils % ( Manual) 72, Lymphocytes % (Manual) 21, Monocytes % (Manual) 7, Eosinophils % ( Manual) 0, Basophils % (Manual) 0, Band Neutrophils 0, Platelet Estimate DecreasedL, Platelet Morphology Normal, Hypochromasia 1+, Anisocytosis 1+, Macrocytosis 1+ Current Medications Medications (Trade) Dose Ordered Sig/Keri Route PRN Reason Start Time Stop Time Status Last Admin Dose Admin Acetaminophen (Tylenol) 650 mg Q4H PRN ORAL fever (temp>100.5F) 08/24/17 15:43 09/19/17 15:42 08/27/17 01:48 Albuterol/ Ipratropium (Albuterol/ Ipratropium) 3 ml Q4H PRN HHN sob 08/27/17 09:45 09/01/17 09:44 Apixaban (Eliquis) 5 mg BID ORAL 08/27/17 09:00 09/26/17 08:59 08/31/17 09:44 Furosemide (Lasix) 40 mg DAILY IV 08/26/17 09:00 09/25/17 08:59 08/31/17 09:44 Magnesium Oxide (Mag-Ox 400mg) 400 mg BID ORAL 08/30/17 09:00 09/29/17 08:59 08/31/17 09:44 Ondansetron HCl (Zofran) 4 mg Q6H PRN IVP Nausea & Vomiting 08/24/17 15:43 09/17/17 15:42 Pantoprazole (Protonix) 40 mg DAILY ORAL 08/30/17 09:00 09/29/17 08:59 08/31/17 09:44 Polyethylene Glycol (Miralax) 17 gm DAILYPRN PRN ORAL Constipation 08/24/17 15:44 09/19/17 15:43 Vancomycin HCl (Vancomycin) 125 mg FOUR TIMES A DAY ORAL 08/24/17 18:00 08/31/17 20:59 08/31/17 09:44 Vitamin A/Vitamin D (A & D Oint) 1 applic EVERY 12 HOURS TOPIC 08/24/17 21:00 09/21/17 19:59 08/31/17 09:44 Deng Tsang MD August 31, 2017 12:47
--- NOTE | 2017-08-31 15:26 | Cardiac Electrophysiology PN ---
Assessment/Plan Assessment/Plan 1. S/P septic shock. WBC down to 10.9 . On broad-spectrum intravenous antibiotics per ID EF 65% and no evidence of endocarditis 2. Hypokalemia K 2.7. Replaced 3. Atrial fib with RVR 170s. Add Lopressor 25 bid 4. NSVT 9 beats. No [place]. Echo Nl EF. add Lopressor 5. CHF due to DD with BNP of more than 10,000. On LAsix 40 iv daily 6. Acute R axillary vein DVT. On Eliquis 5 bid 7. Chronic lower Extremity DVT 8. Rectal bleed.Follow up GI 9. WBC more than 30K due to C Diff. Improved. 10 Thrombocytopenia, Plt 29K!,Now 56 HIT ? Hematology following. DW RN Subjective Subjective In isolation for VRE and C Diff. Had atrial fib with RVR up to 170s that resolved on its own. Objective Last 24 Hour Vital Signs Date Time Temp Pulse Resp B/P (MAP) Pulse Ox O2 Delivery O2 Flow Rate FiO2 08/31/17 12:00 98.1 106 22 109/67 95 Room Air 98.1 08/31/17 12:00 106 08/31/17 08:00 99 08/31/17 08:00 97.5 103 21 109/69 95 Room Air 97.5 08/31/17 05:00 166 08/31/17 04:00 98.1 100 18 107/66 96 Room Air 98.1 08/31/17 04:00 99 08/31/17 00:10 97.9 93 17 104/58 96 97.9 08/31/17 00:00 98 08/30/17 20:33 98.5 102 18 109/62 97 98.5 08/30/17 20:00 99 08/30/17 19:30 96 Room Air 21 08/30/17 19:30 Room Air 21 08/30/17 19:30 95 16 Room Air 21 08/30/17 16:00 97.0 20 101/53 95 Room Air 21 97.0 08/30/17 16:00 98 Intake and Output 08/30/17 08/31/17 19:00 07:00 Intake Total 760 ml 240 ml Balance 760 ml 240 ml Intake Oral 760 ml 240 ml # Voids 2 2 # Bowel Movements 3 1 Laboratory Tests Test 08/31/17 06:35 White Blood Count 10.9 K/UL (4.8-10.8) H Red Blood Count 2.70 M/UL (4.20-5.40) L Hemoglobin 9.5 G/DL (12.0-16.0) L Hematocrit 30.4 % (37.0-47.0) L Mean Corpuscular Volume 113 FL (80-99) H Mean Corpuscular Hemoglobin 35.3 PG (27.0-31.0) H Mean Corpuscular Hemoglobin Concent 31.3 G/DL (32.0-36.0) L Red Cell Distribution Width 18.8 % (11.6-14.8) H Platelet Count 56 K/UL (150-450) L Mean Platelet Volume 10.9 FL (6.5-10.1) H Neutrophils (%) (Auto) % (45.0-75.0) Lymphocytes (%) (Auto) % (20.0-45.0) Monocytes (%) (Auto) % (1.0-10.0) Eosinophils (%) (Auto) % (0.0-3.0) Basophils (%) (Auto) % (0.0-2.0) Differential Total Cells Counted 100 Neutrophils % (Manual) 72 % (45-75) Lymphocytes % (Manual) 21 % (20-45) Monocytes % (Manual) 7 % (1-10) Eosinophils % (Manual) 0 % (0-3) Basophils % (Manual) 0 % (0-2) Band Neutrophils 0 % (0-8) Platelet Estimate Decreased L Platelet Morphology Normal Hypochromasia 1+ Anisocytosis 1+ Macrocytosis 1+ Objective HEENT: No JVD. LUNGS: Clear CARDIOVASCULAR: Regular S1 and S2 with no gallop. ABDOMEN: Soft. EXTREMITIES: No edema. Quinn Lam MD August 31, 2017 15:26
[2017-08-31 16:00] VITALS: BP 97/55
--- NOTE | 2017-08-31 16:53 | Infectious Diseases Prog Note ---
Assessment/Plan Assessment/Plan Assessment: Septic shock, SP Severe C Diff colitis, improving -CT abd/p: Pancolitis. Chronic liver disease/cirrhosis. Moderate ascites. Distended gallbladder nonspecific. Severe lung fibrosis. Anasarca and mesenteric /retroperitoneal stranding. Right femoral line in good position. Degenerative changes of the spine and osteopenia. Atherosclerotic disease. KUB : Nonspecific bowel gas pattern Stool Cx : Neg -Bcx neg; repeat 08/24 Bcx Neg -u/a neg ? Pneum, doubt Pulmonary fibrosis -CXR: BL Extensive basilar infiltrates - component of fibrosis and chronic lung disease -CT chest : Pulmonary fibrosis with evidence of honeycombing. More dense opacity in the right lower lobe may be related to confluent area of scarring however superimposed pneumonia should be excluded clinically. Small bilateral pleural effusions. Mild enlargement of the main pulmonary artery suggestive of pulmonary arterial hypertension. Cardiomegaly with coronary arterial calcifications. Small mediastinal adenopathy with a borderline enlarged calcified mediastinal lymph node. Findings are nonspecific.Evidence of hepatic cirrhosis with ascites and gallbladder distention similar to CT of the abdomen and pelvis 08/19/2017. Recent PNA, still having productive cough Leukocytosis/bandemia;resolving -Bcx 08/24 Neg -KUB 08/25: Nonspecific bowel gas pattern. Afebrile Lactic acidosis, resolved RUE DVT EDDI, resolved HTN Plan: -Continue PO Vancomycin 125mg qid #14/ -if ongoing significant diarrhea, will do Fidaxomicin instead -08/28 SP IV flagyl #11 -08/21 SP IV vanco and Aztreonam #4 -Montior CBC/BMP, temperatures -Aspiration precautions Discussed with RN Subjective Allergies: Coded Allergies: HEPARIN (Verified Allergy, Severe, 08/24/17) Patient being worked up for HIT 08/24/17 AMOXICILLIN (Verified Adverse Reaction, Severe, Rash, 08/18/17) Subjective afebrile leukocytosis improving Objective Vital Signs Last 24 Hour Vital Signs Date Time Temp Pulse Resp B/P (MAP) Pulse Ox O2 Delivery O2 Flow Rate FiO2 08/31/17 12:00 98.1 106 22 109/67 95 Room Air 98.1 08/31/17 12:00 106 08/31/17 08:00 99 08/31/17 08:00 97.5 103 21 109/69 95 Room Air 97.5 08/31/17 05:00 166 08/31/17 04:00 98.1 100 18 107/66 96 Room Air 98.1 08/31/17 04:00 99 08/31/17 00:10 97.9 93 17 104/58 96 97.9 08/31/17 00:00 98 08/30/17 20:33 98.5 102 18 109/62 97 98.5 08/30/17 20:00 99 08/30/17 19:30 96 Room Air 21 08/30/17 19:30 Room Air 21 08/30/17 19:30 95 16 Room Air 21 Height (Feet): 5 Height (Inches): 0.00 Weight (Pounds): 136 Objective General Appearance: no apparent distress, alert non-toxic, thin Head: normocephalic, atraumatic Eyes: bilateral eye normal inspection, bilateral eye PERRL ENT: hearing grossly normal, normal pharynx, no angioedema, normal voice Neck: full range of motion, supple/symm/no masses Respiratory: chest non-tender, lungs clear, normal breath sounds, speaking full sentences Cardiovascular #1: regular rate, rhythm, no edema Gastrointestinal: normal bowel sounds, non tender, soft, non-distended, no guarding, no rebound Genitourinary: normal inspection, no CVA tenderness Musculoskeletal: back normal, gait/station normal, normal range of motion, non- tender Skin: normal color, no rash, warm/dry, well hydrated Laboratory Tests Test 08/31/17 06:35 White Blood Count 10.9 K/UL (4.8-10.8) H Red Blood Count 2.70 M/UL (4.20-5.40) L Hemoglobin 9.5 G/DL (12.0-16.0) L Hematocrit 30.4 % (37.0-47.0) L Mean Corpuscular Volume 113 FL (80-99) H Mean Corpuscular Hemoglobin 35.3 PG (27.0-31.0) H Mean Corpuscular Hemoglobin Concent 31.3 G/DL (32.0-36.0) L Red Cell Distribution Width 18.8 % (11.6-14.8) H Platelet Count 56 K/UL (150-450) L Mean Platelet Volume 10.9 FL (6.5-10.1) H Neutrophils (%) (Auto) % (45.0-75.0) Lymphocytes (%) (Auto) % (20.0-45.0) Monocytes (%) (Auto) % (1.0-10.0) Eosinophils (%) (Auto) % (0.0-3.0) Basophils (%) (Auto) % (0.0-2.0) Differential Total Cells Counted 100 Neutrophils % (Manual) 72 % (45-75) Lymphocytes % (Manual) 21 % (20-45) Monocytes % (Manual) 7 % (1-10) Eosinophils % (Manual) 0 % (0-3) Basophils % (Manual) 0 % (0-2) Band Neutrophils 0 % (0-8) Platelet Estimate Decreased L Platelet Morphology Normal Hypochromasia 1+ Anisocytosis 1+ Macrocytosis 1+ Current Medications Medications (Trade) Dose Ordered Sig/Keri Route PRN Reason Start Time Stop Time Status Last Admin Dose Admin Acetaminophen (Tylenol) 650 mg Q4H PRN ORAL fever (temp>100.5F) 08/24/17 15:43 09/19/17 15:42 08/27/17 01:48 Albuterol/ Ipratropium (Albuterol/ Ipratropium) 3 ml Q4H PRN HHN sob 08/27/17 09:45 09/01/17 09:44 Apixaban (Eliquis) 5 mg BID ORAL 08/27/17 09:00 09/26/17 08:59 08/31/17 09:44 Furosemide (Lasix) 40 mg DAILY IV 08/26/17 09:00 09/25/17 08:59 08/31/17 09:44 Magnesium Oxide (Mag-Ox 400mg) 400 mg BID ORAL 08/30/17 09:00 09/29/17 08:59 08/31/17 09:44 Metoprolol Tartrate (Lopressor) 25 mg BID ORAL 08/31/17 18:00 09/30/17 17:59 Ondansetron HCl (Zofran) 4 mg Q6H PRN IVP Nausea & Vomiting 08/24/17 15:43 09/17/17 15:42 Pantoprazole (Protonix) 40 mg DAILY ORAL 08/30/17 09:00 09/29/17 08:59 08/31/17 09:44 Polyethylene Glycol (Miralax) 17 gm DAILYPRN PRN ORAL Constipation 08/24/17 15:44 09/19/17 15:43 Vancomycin HCl (Vancomycin) 125 mg FOUR TIMES A DAY ORAL 08/24/17 18:00 08/31/17 20:59 08/31/17 14:03 Vitamin A/Vitamin D (A & D Oint) 1 applic EVERY 12 HOURS TOPIC 08/24/17 21:00 09/21/17 19:59 08/31/17 09:44 Amelia John M.D. August 31, 2017 16:53
[2017-08-31] MEDS: Metoprolol 25mg tab ORAL SCH (17:46)
[2017-08-31 20:00] VITALS: BP 109/56
--- NOTE | 2017-08-31 23:29 | General Progress Note ---
Assessment/Plan Assessment/Plan # Thrombocytopenia, severe, multiple etiologies are possible including sepsis, C. difficile versus underlying infection. --> Less likely HIT given that the hit antibody test is negative, other causes are more likely in this patient --> also patient with a upper arm dvt and decreased platelets that slowly uptrending at this time --> reviewed recs with vascular surgery agree to start apixaban for 3 months with close monitoring --> Transfuse platelets prn, monitor cbc --> monitor closely for potential bleed such as gi bleed, though h/h stable at this time --> slowly improving. Trend cbc. # Right lower extremity dvt - apixaban x 3 months total --> monitor closely. Improving. # Anemia due to underlying chronic disease. --> Continue to closely monitor, potentially hemodilutional. --> Occult blood detected. Consider GI recs. --> Transfuse if hemoglobin downtrends <7 # Leukocytosis, likely secondary to Clostridium difficile versus other cause. --> hx of recent septic shock, closely monitor for improvement. --> levels downtrending and improving on broad spectrum abx. --> Trend cbc. # Acute kidney injury. Continue to closely monitor. Potentially dehydration related. # Colitis, potentially secondary to Clostridium difficile. Currently, on abx per ID Service. # Hypokalemia, is s/p repletion with K+ #. CHF due to DD. On lasix. Subjective Date patient seen: August 31, 2017 Constitutional: Denies: no symptoms, chills, diaphoresis, fever, malaise, weakness, other HEENT: Denies: no symptoms, eye pain, blurred vision, tearing, double vision, ear pain, ear discharge, nose pain, nose congestion, throat pain, throat swelling, mouth pain, mouth swelling, other Cardiovascular: Denies: no symptoms, chest pain, edema, irregular heart rate, lightheadedness, palpitations, syncope, other Respiratory: Denies: no symptoms, cough, orthopnea, shortness of breath, SOB with excertion, SOB at rest, sputum, stridor, wheezing, other Gastrointestinal/Abdominal: Denies: no symptoms, abdomen distended, abdominal pain, black stools, tarry stools, blood in stool, constipated, diarrhea, difficulty swallowing, nausea, poor appetite, poor fluid intake, rectal bleeding , vomiting, other Genitourinary: Denies: no symptoms, burning, discharge, frequency, flank pain, hematuria, incontinence, pain, urgency, other Neurologic/Psychiatric: Denies: no symptoms, anxiety, depressed, emotional problems, headache, numbness, paresthesia, pre-existing deficit, seizure, tingling, tremors, weakness, other Hematologic/Lymphatic: Reports: anemia Allergies: Coded Allergies: HEPARIN (Verified Allergy, Severe, 08/24/17) Patient being worked up for HIT 08/24/17 AMOXICILLIN (Verified Adverse Reaction, Severe, Rash, 08/18/17) Subjective Apixaban for anticoag. Wbc downtrended and improved. No new events. Objective Last 24 Hour Vital Signs Date Time Temp Pulse Resp B/P (MAP) Pulse Ox O2 Delivery O2 Flow Rate FiO2 08/31/17 21:00 98 16 Room Air 21 08/31/17 20:00 96 08/31/17 20:00 98.6 98 19 109/56 93 Room Air 98.6 08/31/17 17:46 104 110/67 08/31/17 16:00 97.9 96 20 97/55 95 Room Air 97.9 08/31/17 16:00 104 08/31/17 12:00 98.1 106 22 109/67 95 Room Air 98.1 08/31/17 12:00 106 08/31/17 08:00 99 08/31/17 08:00 97.5 103 21 109/69 95 Room Air 97.5 08/31/17 05:00 166 08/31/17 04:00 98.1 100 18 107/66 96 Room Air 98.1 08/31/17 04:00 99 08/31/17 00:10 97.9 93 17 104/58 96 97.9 08/31/17 00:00 98 Intake and Output 08/30/17 08/31/17 19:00 07:00 Intake Total 760 ml 240 ml Balance 760 ml 240 ml Intake Oral 760 ml 240 ml # Voids 2 2 # Bowel Movements 3 1 Laboratory Tests 08/31/17 06:35: White Blood Count 10.9H, Red Blood Count 2.70L, Hemoglobin 9.5L, Hematocrit 30.4L, Mean Corpuscular Volume 113H, Mean Corpuscular Hemoglobin 35.3H, Mean Corpuscular Hemoglobin Concent 31.3L, Red Cell Distribution Width 18.8H, Platelet Count 56L, Mean Platelet Volume 10.9H, Neutrophils (%) (Auto) , Lymphocytes (%) (Auto) , Monocytes (%) (Auto) , Eosinophils (%) (Auto) , Basophils (%) (Auto) , Differential Total Cells Counted 100, Neutrophils % ( Manual) 72, Lymphocytes % (Manual) 21, Monocytes % (Manual) 7, Eosinophils % ( Manual) 0, Basophils % (Manual) 0, Band Neutrophils 0, Platelet Estimate DecreasedL, Platelet Morphology Normal, Hypochromasia 1+, Anisocytosis 1+, Macrocytosis 1+ Height (Feet): 5 Height (Inches): 0.00 Weight (Pounds): 136 General Appearance: lethargic Cardiovascular: no JVD Respiratory/Chest: lungs clear, normal breath sounds Abdomen: normal bowel sounds, non tender Emery Guzmán MD August 31, 2017 23:29
[2017-09-01] VITALS: BP 110/59
[2017-09-01 04:00] VITALS: BP 107/61
[2017-09-01 08:00] VITALS: BP 98/57
[2017-09-01] MEDS: Metoprolol 25mg tab ORAL SCH (08:23)
[2017-09-01] MEDS: Eliquis 2.5mg tablet ORAL SCH (08:25)
[2017-09-01] MEDS: Magnesium Oxide 400mg tab ORAL SCH (08:25)
[2017-09-01] MEDS: Vitamin A&D Oint 2oz Tube TOPIC SCH (08:27)
--- NOTE | 2017-09-01 10:53 | Pulmonology Progress Note ---
Assessment/Plan Problems: (1) Septic shock (2) Colitis (3) Renal insufficiency (4) Rectal bleeding (5) Thrombocytopenia (6) Acute renal failure (7) Clostridium difficile colitis Assessment/Plan improving no more diarrhea wbc decreasing but still elevated, close to normal PLT are getting higher check electrolytes dvt prophylaxis Subjective ROS Limited/Unobtainable: No Constitutional: Reports: no symptoms HEENT: Repors: no symptoms Respiratory: Reports: no symptoms Cardiovascular: Reports: no symptoms Allergies: Coded Allergies: HEPARIN (Verified Allergy, Severe, 08/24/17) Patient being worked up for HIT 08/24/17 AMOXICILLIN (Verified Adverse Reaction, Severe, Rash, 08/18/17) Objective Last 24 Hour Vital Signs Date Time Temp Pulse Resp B/P (MAP) Pulse Ox O2 Delivery O2 Flow Rate FiO2 09/01/17 08:23 79 98/57 09/01/17 08:00 82 09/01/17 08:00 97.7 79 16 98/57 94 Room Air 1.0 21 97.7 09/01/17 07:20 97 16 Room Air 21 09/01/17 04:00 97.9 89 18 107/61 94 Room Air 97.9 09/01/17 04:00 80 09/01/17 00:00 88 09/01/17 00:00 97.5 90 18 110/59 95 Room Air 97.5 08/31/17 21:00 98 16 Room Air 21 08/31/17 20:00 96 08/31/17 20:00 98.6 98 19 109/56 93 Room Air 98.6 08/31/17 17:46 104 110/67 08/31/17 16:00 97.9 96 20 97/55 95 Room Air 97.9 08/31/17 16:00 104 08/31/17 12:00 98.1 106 22 109/67 95 Room Air 98.1 08/31/17 12:00 106 Intake and Output 08/31/17 09/01/17 19:00 07:00 Intake Total 560 ml Balance 560 ml Intake Oral 560 ml # Voids 3 2 # Bowel Movements 2 General Appearance: WD/WN HEENT: normocephalic, atraumatic Respiratory/Chest: chest wall non-tender, lungs clear Breasts: no masses Cardiovascular: normal peripheral pulses Abdomen: normal bowel sounds, soft, non tender Genitourinary: normal external genitalia Extremities: no cyanosis Neurologic/Psychiatric: granulator tender II-XII grossly normal Current Medications Medications (Trade) Dose Ordered Sig/Keri Route PRN Reason Start Time Stop Time Status Last Admin Dose Admin Acetaminophen (Tylenol) 650 mg Q4H PRN ORAL fever (temp>100.5F) 08/24/17 15:43 09/19/17 15:42 09/01/17 00:22 Apixaban (Eliquis) 5 mg BID ORAL 08/27/17 09:00 09/26/17 08:59 09/01/17 08:25 Furosemide (Lasix) 40 mg DAILY IV 08/26/17 09:00 09/25/17 08:59 09/01/17 08:25 Magnesium Oxide (Mag-Ox 400mg) 400 mg BID ORAL 08/30/17 09:00 09/29/17 08:59 09/01/17 08:25 Metoprolol Tartrate (Lopressor) 25 mg BID ORAL 08/31/17 18:00 09/30/17 17:59 08/31/17 17:46 Ondansetron HCl (Zofran) 4 mg Q6H PRN IVP Nausea & Vomiting 08/24/17 15:43 09/17/17 15:42 Pantoprazole (Protonix) 40 mg DAILY ORAL 08/30/17 09:00 09/29/17 08:59 09/01/17 08:25 Polyethylene Glycol (Miralax) 17 gm DAILYPRN PRN ORAL Constipation 08/24/17 15:44 09/19/17 15:43 Vitamin A/Vitamin D (A & D Oint) 1 applic EVERY 12 HOURS TOPIC 08/24/17 21:00 09/21/17 19:59 09/01/17 08:27 Deng Tsang MD September 01, 2017 10:53
[2017-09-01] MEDS ORDERED: LOPRESSOR25 M1 ORAL (10:57)
[2017-09-01] MEDS ORDERED: ELIQUIS2.5 MG ORAL (10:57)
[2017-09-01 12:00] VITALS: BP 110/49
--- NOTE | 2017-09-01 12:48 | General Progress Note ---
Assessment/Plan Status: stable Assessment/Plan 1. Septic shock seconary to severe C-diff colitis , off ICU 2. severe C-diff colitis, current antibiotics 3. Acute renal failure. 4. Dehydration. 5. Gastrointestinal and deep vein thrombosis prophylaxis. 6. Pulmonary infiltrate: infection !? 7. VRE- Rectum 8. 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 10. New Acute right UE DVT 11. Chronic LE DVT 11. Nodularity in Chest-CT Plan: Current Abx coverage Thrombocytopenia, stable follow up with HemOnch Started on NOAC Will monitor PLT, if continued uptrending , will be ok to followup as o/p once clear by Hemon[facility] Ok to followup as out patient Subjective ROS Limited/Unobtainable: No Constitutional: Reports: malaise HEENT: Reports: no symptoms Cardiovascular: Reports: no symptoms Respiratory: Reports: no symptoms Allergies: Coded Allergies: HEPARIN (Verified Allergy, Severe, 08/24/17) Patient being worked up for HIT 08/24/17 AMOXICILLIN (Verified Adverse Reaction, Severe, Rash, 08/18/17) Objective Last 24 Hour Vital Signs Date Time Temp Pulse Resp B/P (MAP) Pulse Ox O2 Delivery O2 Flow Rate FiO2 09/01/17 08:23 79 98/57 09/01/17 08:00 82 09/01/17 08:00 97.7 79 16 98/57 94 Room Air 1.0 21 97.7 09/01/17 07:20 97 16 Room Air 21 09/01/17 04:00 97.9 89 18 107/61 94 Room Air 97.9 09/01/17 04:00 80 09/01/17 00:00 88 09/01/17 00:00 97.5 90 18 110/59 95 Room Air 97.5 08/31/17 21:00 98 16 Room Air 21 08/31/17 20:00 96 08/31/17 20:00 98.6 98 19 109/56 93 Room Air 98.6 08/31/17 17:46 104 110/67 08/31/17 16:00 97.9 96 20 97/55 95 Room Air 97.9 08/31/17 16:00 104 Intake and Output 08/31/17 09/01/17 19:00 07:00 Intake Total 560 ml Balance 560 ml Intake Oral 560 ml # Voids 3 2 # Bowel Movements 2 Height (Feet): 5 Height (Inches): 0.00 Weight (Pounds): 136 General Appearance: WD/WN EENT: PERRL/EOMI Neck: supple Cardiovascular: normal rate Respiratory/Chest: lungs clear Abdomen: soft Extremities: non-tender, other - atrophied musculature Neurologic: stator tester II-XII grossly normal Ngozi Blank MD September 01, 2017 12:48
--- NOTE | 2017-09-01 14:30 | Cardiac Electrophysiology PN ---
Assessment/Plan Assessment/Plan 1. S/P septic shock. WBC down to 10.9 . On broad-spectrum intravenous antibiotics per ID EF 65% and no evidence of endocarditis 2. Hypokalemia K 2.7. Replaced 3. Atrial fib with RVR 170s. In SR on Lopressor 25 bid 4. NSVT 9 beats. No FL. Echo Nl EF. On Lopressor 5. CHF due to DD with BNP of more than 10,000. On Lasix 6. Acute R axillary vein DVT. On Eliquis 5 bid 7. Chronic lower Extremity DVT 8. Rectal bleed.Follow up GI 9. WBC more than 30K due to C Diff. Improved. 10 Thrombocytopenia, Plt 29K!,Now 56 HIT ? Hematology following. DW RN Subjective Subjective No further atrial fib. DC planning in progress Objective Last 24 Hour Vital Signs Date Time Temp Pulse Resp B/P (MAP) Pulse Ox O2 Delivery O2 Flow Rate FiO2 09/01/17 08:23 79 98/57 09/01/17 08:00 82 09/01/17 08:00 97.7 79 16 98/57 94 Room Air 1.0 21 97.7 09/01/17 07:20 97 16 Room Air 21 09/01/17 04:00 97.9 89 18 107/61 94 Room Air 97.9 09/01/17 04:00 80 09/01/17 00:00 88 09/01/17 00:00 97.5 90 18 110/59 95 Room Air 97.5 08/31/17 21:00 98 16 Room Air 21 08/31/17 20:00 96 08/31/17 20:00 98.6 98 19 109/56 93 Room Air 98.6 08/31/17 17:46 104 110/67 08/31/17 16:00 97.9 96 20 97/55 95 Room Air 97.9 08/31/17 16:00 104 Intake and Output 08/31/17 09/01/17 19:00 07:00 Intake Total 560 ml Balance 560 ml Intake Oral 560 ml # Voids 3 2 # Bowel Movements 2 Objective HEENT: No JVD. LUNGS: Clear CARDIOVASCULAR: Regular S1 and S2 with no gallop. ABDOMEN: Soft. EXTREMITIES: No edema. Quinn Lam MD September 01, 2017 14:30
[2017-09-01] MEDS ORDERED: Tubing IV Secondary IV ONE (15:24)
[2017-09-01] MEDS ORDERED: NS 500ML ONE (15:24)
--- NOTE | 2017-09-01 23:43 | General Progress Note ---
Assessment/Plan Assessment/Plan # Thrombocytopenia, severe, multiple etiologies are possible including sepsis, C. difficile versus underlying infection. --> Less likely HIT given that the hit antibody test is negative, other causes are more likely in this patient --> also patient with a upper arm dvt and decreased platelets that is slowly uptrending at this time --> reviewed recs with vascular surgery agree to start apixaban for 3 months with close monitoring --> Transfuse platelets prn, monitor cbc --> monitor closely for potential bleed such as gi bleed, though h/h stable at this time --> slowly improving. Continue to trend cbc. # Right lower extremity dvt - apixaban x 3 months total --> monitor closely. Improving. # Anemia due to underlying chronic disease. --> Continue to closely monitor, potentially hemodilutional. --> Occult blood detected. Consider GI recs. --> Transfuse if hemoglobin downtrends <7 # Leukocytosis, likely secondary to Clostridium difficile versus other cause. --> hx of recent septic shock, closely monitor for improvement. --> levels downtrending and improving on broad spectrum abx. --> Trend cbc. # Acute kidney injury. Continue to closely monitor. Potentially dehydration related. # Colitis, potentially secondary to Clostridium difficile. Currently, on abx per ID Service. # Hypokalemia, is s/p repletion with K+ #. CHF due to DD. On lasix. DC planning. Subjective Date patient seen: September 01, 2017 Constitutional: Denies: no symptoms, chills, diaphoresis, fever, malaise, weakness, other HEENT: Denies: no symptoms, eye pain, blurred vision, tearing, double vision, ear pain, ear discharge, nose pain, nose congestion, throat pain, throat swelling, mouth pain, mouth swelling, other Cardiovascular: Denies: no symptoms, chest pain, edema, irregular heart rate, lightheadedness, palpitations, syncope, other Respiratory: Denies: no symptoms, cough, orthopnea, shortness of breath, SOB with excertion, SOB at rest, sputum, stridor, wheezing, other Gastrointestinal/Abdominal: Denies: no symptoms, abdomen distended, abdominal pain, black stools, tarry stools, blood in stool, constipated, diarrhea, difficulty swallowing, nausea, poor appetite, poor fluid intake, rectal bleeding , vomiting, other Genitourinary: Denies: no symptoms, burning, discharge, frequency, flank pain, hematuria, incontinence, pain, urgency, other Neurologic/Psychiatric: Denies: no symptoms, anxiety, depressed, emotional problems, headache, numbness, paresthesia, pre-existing deficit, seizure, tingling, tremors, weakness, other Endocrine: Denies: no symptoms, excessive sweating, flushing, intolerance to cold, intolerance to heat, increased hunger, increased thirst, increased urine, unexplained weight gain, unexplained weight loss, other Hematologic/Lymphatic: Reports: anemia Allergies: Coded Allergies: HEPARIN (Verified Allergy, Severe, 08/24/17) Patient being worked up for HIT 08/24/17 AMOXICILLIN (Verified Adverse Reaction, Severe, Rash, 08/18/17) Subjective On anticoag. Wbc count improved. Pending discharge. Objective Last 24 Hour Vital Signs Date Time Temp Pulse Resp B/P (MAP) Pulse Ox O2 Delivery O2 Flow Rate FiO2 09/01/17 12:00 86 09/01/17 12:00 97.7 79 16 110/49 94 Room Air 21 97.7 09/01/17 08:23 79 98/57 09/01/17 08:00 82 09/01/17 08:00 97.7 79 16 98/57 94 Room Air 1.0 21 97.7 09/01/17 07:20 97 16 Room Air 21 09/01/17 04:00 97.9 89 18 107/61 94 Room Air 97.9 09/01/17 04:00 80 09/01/17 00:00 88 09/01/17 00:00 97.5 90 18 110/59 95 Room Air 97.5 Intake and Output 08/31/17 09/01/17 19:00 07:00 Intake Total 560 ml Balance 560 ml Intake Oral 560 ml # Voids 3 2 # Bowel Movements 2 Height (Feet): 5 Height (Inches): 0.00 Weight (Pounds): 136 General Appearance: no apparent distress Cardiovascular: normal rate, regular rhythm Respiratory/Chest: decreased breath sounds Abdomen: non tender, soft Emery Guzmán MD September 01, 2017 23:43
--- NOTE | 2017-09-04 08:11 | Discharge Summary ---
Discharge Summary Hospital Course Date of Admission Aug 18, 2017 at 11:52 Date of Discharge September 01, 2017 at 15:25 Admitting Diagnosis WEAKNESS, HYPOTENSION, COLLITIS HPI Baylee Lancaster is a 82 year old female who was admitted on Aug 18, 2017 at 11:52 for Weakness, Hypotension, Collitis Hospital Course dc summary #[id number] Discharge Medications New Medications: Apixaban (Eliquis) 2.5 Mg Tablet 5 MG ORAL BID for 30 Days, TAB Metoprolol Tartrate (Metoprolol Tartrate) 25 Mg Tablet 25 MG ORAL BID for 30 Days, TAB Discharge Condition Upon Discharge: stable Discharge Disposition Patient was discharged to [facility] (04) Discharge Instructions Discharge Instructions Special Instructions Lydia Dixon NP September 04, 2017 08:11
--- NOTE | 2017-09-04 12:15 | Discharge Summary 2 SIG ---
DATE OF ADMISSION: 08/18/2017 DATE OF DISCHARGE: 09/01/2017 The patient admitted under Dr. Blank. REASON FOR ADMISSION: The patient is an 82-year-old female with past medical history significant for hypertension, asthma, recent pneumonia for which she was hospitalized in [facility] presented to Emergency Department for evaluation for abdominal pain and diarrhea for three days. The patient reported abdominal pain 7/10, dull, nonradiating. Per geriatric social work professor blood pressure was low in the field. The patient reported multiple episodes of watery or dark color stool. The patient had a fever at home. The patient is currently on antibiotic for recent pneumonia for which she was discharged from [facility] recently. She denied chest pain or shortness of breath. In the emergency room, vital signs revealed low-grade fever, low blood pressure of 73/46, and tachycardic with heart rate of 108. Pulse oximetry was stable on room air. WBC 32.6. Stable hemoglobin and hematocrit. Platelets 134,000 on admission. Chemistry revealed evidence of hypokalemia, potassium 2.7. Lactic acid 8.4. BUN is 21, creatinine 2.0. Troponin negative. EKG revealed normal sinus rhythm. No acute ischemic changes. Liver enzyme within normal limits. Total bilirubin slightly elevated at 1.2. ProBNP 10,274. Chest x-ray revealed bilateral interstitial and airspace disease. Suggestion of honeycomb appearance and make it likely that there was significant component of chronic interstitial fibrosis. However acute etiology was not excluded. This septic shock workup initiated in the Emergency Department despite aggressive fluid resuscitation the patient remained hypotensive. Central line was placed in the Emergency Department and the patient was started on pressors. The patient pancultured and started on empiric antibiotics. Potassium replaced. The patient was transferred to ICU for further management with diagnoses of septic shock, colitis, acute renal failure, dehydration. CONSULTANTS: 1. Quinn Lam M.D., appeals analyst. 2. Stephon Alvarez M.D., vascular surgeon. 3. Deng Tsang M.D., distillery laborer. 4. Dick Francis M.D., infectious disease specialist. 5. Mando Guzmán M.D., refrigerator room clerk/oncologist. HOSPITAL COURSE: The patient admitted to ICU. The patient was on Levophed for hemodynamic support to keep mean arterial pressure above 65. wound care specialist Dr. Tsang and appeals analyst Dr. Lam closely followed the patient. Fortunately, the patient was able to quickly weaned off pressors. Echocardiogram revealed preserved ejection fraction of 60-65%, no left ventricular hypertrophy, no pericardial effusion. Mild to moderate mitral regurgitation. Right ventricular systolic pressure of 55 consistent with moderate pulmonary hypertension. No evidence of vegetation. Supplemental oxygen and pulmonary toilet provided as needed to keep pulse oximetry above 92%. Follow up chest x-ray revealed reticular nodular opacities, fairly extensive within middle and lower lung lindsey. The patient was on empiric antibiotic as per ID specialist recommendations. Blood culture were negative. Stool culture was negative. Stool for C. difficile was positive. Repeated blood cultures were negative as well. CT of the abdomen and pelvis which revealed pancolitis. Chronic liver disease/ cirrhosis. Moderate ascites. Distention of gallbladder, nonspecific. Severe lung fibrosis. Anasarca and mesenteric/retroperitoneal stranding. Subsequently, CT of the chest was done, which revealed evidence of severe pulmonary fibrosis with evidence of honeycombing. More dense opacity in the right lower lobe probably related to confluent area of scaring, however, superimposed pneumonia could not be excluded. Small bilateral pleural effusions were noted as well along with mild enlargement of the main pulmonary artery suggestive of pulmonary arterial hypertension. Odd Bundle Worker and ID specialist doubted pneumonia, but patient received IV antibiotics Vancomycin and Aztreonam for 4 days. The patient undergone treatment with Flagyl for 11 days and 14 days of oral vancomycin. Diarrhea resolved. Leukocytosis was trending down and prior to discharge 10.9. No fever. Per Infectious Disease specialist recommendations, if the patient continued to have significant diarrhea, she will need a treatment with Fidaxomicin. Strict aspiration precautions were maintained. After the patient stabilized, the patient was transferred from intensive care unit to telemetry floor with close monitoring. Venous duplex of the bilateral lower extremities revealed recanalized chronic thrombus in common femoral vein right lower extremity. No evidence of acute DVT. Venous duplex of right upper extremity revealed acute thrombus in the axillary and upper arm brachial veins. The remaining segments were within normal limits. Drum Filler and vascular surgeon consults were requested. Vascular surgeon recommended to keep the patient on Eliquis for three months. No right arm procedure. The patient exhibited evidence of atrial fibrillation with rapid ventricular response. While in telemetry, the patient was started on low dose of beta-arjun. The patient was already on anticoagulation. The patient spontaneously converted to sinus rhythm. According to appeals analyst, the patient also had congestive heart failure secondary to diastolic dysfunction. The patient was on intravenous diuresis. Cardiorenal parameters and volumes were closely monitored. Renal parameters and electrolytes were closely monitored. Electrolytes replaced as needed. Nephrotoxics were avoided. Renal parameters down to normal. Acute renal failure was likely precipitated by dehydration. The patient noted to have severe thrombocytopenia. The patient was on heparin drip when acute DVT was discovered. Heparin drip stopped. HIT screen was negative. Hepatitis panel was negative. HIV status negative. According to refrigerator room clerk, thrombocytopenia was with multiple possible etiologies, including sepsis, C. difficile colitis. Drum Filler discussed findings with the vascular surgeon, and agreed to start the patient on apixaban for three months with close monitoring. Platelets were closely monitored with goal to keep it above 20,000, and prior to discharge platelet count up to 56,000. Anemia workup was consistent with anemia of underlying chronic disease. Hemoglobin and hematocrit were closely monitored. Per refrigerator room clerk, likely hemodilutional hemoglobin and hematocrit, remained at the baseline. No need for transfusion. Stool for occult blood was positive one time and negative another time. Outpatient follow up with the GI specialist since no drop in the hemoglobin and hematocrit was detected. The patient was working with the physical therapist. The patient was mobilized to be out of the bed. The patient will need close monitoring of cardiorenal parameters, hemodynamic status as well as the platelet count along with hemoglobin and hematocrit. Placement was arranged to the [facility] facility. Family and the patient agreed with the plan. Leukocytosis resolved. Diarrhea resolved. The patient was stable for transfer. FINAL DIAGNOSES: 1. Septic shock secondary to Clostridium difficile colitis, resolved severe Clostridium difficile colitis status post treatment. 2. Acute renal failure, resolved. 3. Dehydration. 4. Pulmonary fibrosis. 5. Pulmonary infiltrates. 6. Acute deep venous thrombosis, right upper extremity. 7. Moderate pulmonary hypertension. 8. Congestive heart failure secondary to diastolic dysfunction. 9. Chronic lower extremity deep venous thrombosis. 10. Atrial fibrillation with rapid ventricular response, resolved. 11. Electrolyte imbalance (hypokalemia). 12. Anemia of chronic disease. 13. Thrombocytopenia. 14. History of hypertension. 15. Hepatic cirrhosis. 16. Mild- to- moderate mitral regurgitation. DISCHARGE INSTRUCTIONS: The patient discharged to [facility] facility. FOLLOWUP: Follow up with medical doctor at the facility. DISCHARGE MEDICATIONS: See medication reconciliation list. Ngozi Blank M.D. I have been assigned to dictate discharge summary on this account and I was not involved in the patient's management. Lydia PlattMaria Fareri Children'S HospitalKamini hernandez DR: KORY JOB#: [id number] CC: OMAIRA
== END 2017-09-01 15:25 | DRG 871 ==
LOC: EDBD 10:03 → EMR 10:12 → ICU 11:52 → EDBEDREQSVC 12:31 → EDBEDREQ 12:34 → 2E 08-19 11:30 → 4E 08-20 20:40 → 2E 08-24 15:10
PROC: 06HM33Z Insertion of Infusion Device into Right Femoral Vein, Percutaneous Approach (ICD-10-PCS; principal; 2017-08-18)
DX: A41.89 Other specified sepsis (principal); R65.21 Severe sepsis with septic shock; N17.9 Acute kidney failure, unspecified; A04.72 Enterocolitis due to Clostridium difficile, not specified as recurrent; I50.30 Unspecified diastolic (congestive) heart failure; I82.501 Chronic embolism and thrombosis of unspecified deep veins of right lower extremity; I82.621 Acute embolism and thrombosis of deep veins of right upper extremity; K62.5 Hemorrhage of anus and rectum; R18.8 Other ascites; Z16.21 Resistance to vancomycin; E87.6 Hypokalemia; E86.0 Dehydration; I11.0 Hypertensive heart disease with heart failure; D69.6 Thrombocytopenia, unspecified; D64.9 Anemia, unspecified; Z79.01 Long term (current) use of anticoagulants; I48.91 Unspecified atrial fibrillation; K74.60 Unspecified cirrhosis of liver; J84.10 Pulmonary fibrosis, unspecified; M85.80 Other specified disorders of bone density and structure, unspecified site; I34.0 Nonrheumatic mitral (valve) insufficiency; I27.20 Pulmonary hypertension, unspecified
CPT/HCPCS: 36415; 36600; 71045; 71250; 74018; 74176; 80048; 80053; 80202; 81003; 81270; 82248; 82270; 82550; 82553; 82607; 82803; 83010; 83540; 83550; 83605; 83735; 83880; 84075; 84100; 84439; 84443; 84484; 85007; 85025; 85379; 85384; 85610; 85651; 85730; 86140; 86703; 86705; 86709; 86803; 87040; 87045; 87081; 87324; 87340; 93005; 93306; 93970; 93971; 94664; 94760; 99291; J8499